=== PATIENT | female | born 1960 | race Caucasian/White ===

== ENCOUNTER → 2016-09-30 | Outpatient (CLI) | payer BC, OTHER ==
--- NOTE | 2016-10-01 10:43 | PE ---
EXAMINATION TYPE: PET CT fusion skull to thigh DATE OF EXAM: 09/30/2016 12:43 PM COMPARISON: NONE HISTORY: Breast cancer TECHNIQUE: Following the intravenous administration of 15.68 mCi of F-18 FDG, whole body images are performed from the skull base to the midthigh. Images are reviewed on the computer in the coronal, a xial, and sagittal planes. Reconstructed rotating images are created on independent workstation and reviewed on the computer. A localization and attenuation correction CT is performed in conjunction with the PET scan. Blood glucose level: 99 mg/dL. Average liver SUV: 2.3 Average mediastinal SUV: 1.64 Total DLP: 460.87 mGy-cm FINDINGS: SKULL BASE AND NECK: No hypermetabolic activity. CHEST, MEDIASTINUM, AND HILAR REGION: There is a 2.7 cm left breast mass with a maximal SUV value of 11.48. There are multiple left axillary lymph nodes with maximal SUV values ranging from 8.5-9.46. Th ere are internal mammary lymph nodes with maximal SUVs range from 7.6, 469.46. There is another inter nal mammary node further inferior with a maximal SUV value 4.32. ABDOMEN AND PELVIS: No hypermetabolic activity. OSSEOUS STRUCTURES: No hypermetabolic activity. OTHER CT: The major salivary glands are unremarkable. The parapharyngeal, oropharyngeal and laryngeal soft tissues are normal. There is some shotty cervica l adenopathy but no pathologically enlarged lymph nodes. The largest internal mammary node is 1.8 cm. The largest left axillary node is 1.5 cm. The patient br east mass measures 2.7 cm. No parenchymal lesions are seen. The aorta is normal in size. The heart is not enlarged. There is no pleural or pericardial fluid. The abdominal viscera appear normal. Both large and small bowel loops appear normal. The appendix is not visualized. The uterus is unremarkable. The ovaries are not visualized. The bladder is normal. There are minor degenerative changes in both hips. There is facet arthropathy at L4-5. There is minim al hypertrophic spondylosis within the dorsal line. There is a tiny sclerotic focus in the T6 vertebr al body. This is not hypermetabolic. No bony destructive lesions are seen. IMPRESSION: FINDINGS CONSISTENT WITH LEFT BREAST NEOPLASM WITH METASTATIC LEFT AXILLARY AND INTERNAL MAMMARY RIVER OPATHY.
== END | disposition home or self-care (01) ==
LOC: RADPETMAIN 09:43
PROVIDERS: ATTEND Internal Medicine Hematology & Oncology
DX: C50.412 Malignant neoplasm of upper-outer quadrant of left female breast (principal)
CPT/HCPCS: 78815; A9552

== ENCOUNTER 2016-10-18 10:20 | Day surgery (SDC) | payer BC, OTHER ==
[2016-10-13 15:37] VITALS: BMI 38.7
[~2016-10-18 10:20] MED LIST: DEXAMETHASONE SOD PHOSPHATE 10 MG/ML 1 ML VIAL IV ONE; HEPARIN SODIUM,PORCINE 5,000 UNIT/ML 1 ML VIAL SQ ONE; HYDROmorphone 1 MG/ML 1 ML SYRINGE IVP PRN; LACTATED RINGERS 1,000 ML IV SCH; LIDOCAINE 1% 20 ML VIAL (10MG/ML) FOR IV START INTRADERMA PRN; MIDAZOLAM 2 MG/2 ML VIAL IV PRN; ONDANSETRON 4 MG/2 ML VIAL IVP ONE; SCOPOLAMINE 1.5MG/72HR PATCH TRANSDERM ONE; ceFAZolin 2 GM in SODIUM CHLORIDE 0.9% 100 ML IVPB ONE
[2016-10-18 10:44] VITALS: RESP 16; TEMP 98.6
--- NOTE | 2016-10-18 10:59 | P.GSHP ---
History of Present Illness H&P Date: 10/18/16 Chief Complaint: Breast cancer Patient here today for Port-A-Cath placement. She had a recent diagnosis of triple negative breast cancer. She is to begin chemotherapy in the neoadjuvant setting soon. Has never had a port in the past. Past Medical History Past Medical History: Cancer, Hypertension Additional Past Medical History / Comment(s): Current left breast cancer. History of Any Multi-Drug Resistant Organisms: None Reported Past Surgical History: Section, Cholecystectomy, Tonsillectomy Additional Past Surgical History / Comment(s): Oral surgery, left wrist surgery. Past Anesthesia/Blood Transfusion Reactions: No Reported Reaction Past Psychological History: No Psychological Hx Reported Smoking Status: Former smoker Past Alcohol Use History: Rare Additional Past Alcohol Use History / Comment(s): Smoked 2 PPD for 16 yrs, quit in 1996. Past Drug Use History: None Reported - Past Family History Mother Family Medical History: Cancer Additional Family Medical History / Comment(s): Breast and kidney cancer. Medications and Allergies Home Medications Medication Instructions Recorded Confirmed Type Losartan [Cozaar] 100 mg PO QAM 10/13/16 10/18/16 History Triamterene-Hctz 37.5-25Mg 1 cap PO QAM 10/13/16 10/18/16 History [Dyazide 37.5-25 Capsule] Allergies Allergy/AdvReac Type Severity Reaction Status Date / Time levofloxacin [From Levaquin] Allergy Dyspnea Verified 10/18/16 10:42 Surgical - Exam Vital Signs Temp Pulse Resp BP Pulse Ox 98.6 F 65 16 145/74 100 10/18/16 10:42 10/18/16 10:42 10/18/16 10:42 10/18/16 10:42 10/18/16 10:42 Physical exam: General: Well-developed, well-nourished HEENT: Normocephalic, sclerae nonicteric Abdomen: Nontender, nondistended Extremities: No edema Neuro: Alert and oriented Assessment and Plan (1) Breast cancer Narrative/Plan: Will proceed with Port-A-Cath placement today. Risks of bleeding infection pneumothorax DVT catheter malfunction were discussed. She understands and wishes to proceed. Status: Acute
[2016-10-18] MEDS ORDERED: MIDAZOLAM 2 MG/2 ML VIAL ONE (11:12)
[2016-10-18] MEDS ORDERED: LIDOCAINE 1% INJ 10MG/ML (20 ML MDV) ONE (11:12)
[2016-10-18] MEDS ORDERED: PROPOFOL 10 MG/ML 20 ML VIAL IV ONE (11:12)
[2016-10-18] MEDS ORDERED: fentaNYL (PF) 50 MCG/ML 2 ML AMP ONE (11:12)
[2016-10-18] MEDS ORDERED: LIDOCAINE 1% INJ 10MG/ML (20 ML MDV) SQ ONE ×2 (11:38)
[2016-10-18] MEDS ORDERED: HEPARIN SODIUM,PORCINE 100 UNIT/ML 5 ML VIAL IV ONE (11:38)
[2016-10-18] MEDS ORDERED: LACTATED RINGERS 1,000 ML IV ONE (11:56)
[2016-10-18] MEDS ORDERED: NALOXONE 0.4 MG/ML 1 ML VIAL IV PRN (12:24)
--- NOTE | 2016-10-18 12:26 | P.PCN ---
Date of Procedure: 10/18/16 Procedure(s) Performed: PREOPERATIVE DIAGNOSIS: Breast cancer POSTOPERATIVE DIAGNOSIS: Same PROCEDURE: Port-A-Cath placement SURGEON: Ck EBL: Minimal ANESTHESIA: Sedation COMPLICATIONS: None OPERATIVE PROCEDURE: Patient was brought and placed on the operative table in the supine position. The patient was sedated per anesthesia that time. The chest and neck were prepped and draped in usual sterile fashion. The ultrasound probe was used to identify the location of the right internal jugular vein. The skin was localized with lidocaine. The Seldinger needle was advanced into the IJ under ultrasound guidance. The wire was advanced through the needle under fluoroscopic guidance into the superior vena cava. A port pocket was created in the right infraclavicular location. The catheter was tunneled from the wire entrance site to the port pocket. The port was then connected to the catheter. The dilator introducer was threaded over the guidewire. The guidewire and dilator were then removed. The catheter was advanced through the introducer and introducer was then removed. The tip was seen to be in the right atrial junction. Port was flushed with both saline and a Hep-Lock solution. There was good flow both in and out of the port. The port was sutured in underlying tissues using 3-0 silk sutures. The subcutaneous tissues were reapproximated using 3-0 Vicryl sutures and the skin at both locations using 4-0 Monocryl sutures. Steri-Strips and sterile dressings then applied. DISPOSITION: Stable to recovery room
--- NOTE | 2016-10-18 12:38 | XR ---
EXAMINATION TYPE: XR chest 1V portable DATE OF EXAM: 10/18/2016 12:21 PM HISTORY: Shortness of breath. COMPARISON: None. TECHNIQUE: Single view of the chest is submitted. FINDINGS: Port-A-Cath has been placed on the right with its distal tip overlying the SVC. No evidence for pneum othorax. Demonstrated are scattered senescent parenchymal change. There is no evidence for focal infiltrate. The heart is within normal limits. Hilar and mediastinal structures are within normal limits. IMPRESSION: 1. Chronic changes without evidence for acute pulmonary disease.
[2016-10-18] MEDS ORDERED: HYDROcodone/APAP 5-325MG 1 EACH TAB PO ONE (12:54)
[2016-10-18 13:40] VITALS: BP 148/84; PULSE 61
--- NOTE | 2016-10-18 15:40 | FL ---
Fluoroscopy HISTORY: Pain 9 seconds fluoroscopy time supplied to the referring clinician. 1 intraoperative C-arm images docume nt the procedure. See dictated report from general surgery.
== END 2016-10-18 13:58 | disposition home or self-care (01) ==
LOC: OR 10:20
PROVIDERS: ATTEND Surgery
DX: C50.912 Malignant neoplasm of unspecified site of left female breast (principal); Z17.1 Estrogen receptor negative status [ER-]; I10 Essential (primary) hypertension; Z79.899 Other long term (current) drug therapy; Z88.1 Allergy status to other antibiotic agents; Z87.891 Personal history of nicotine dependence
CPT/HCPCS: 71010; 77001; 36561; C1788; J2250; J1644; J1642; J1100; J0690; J2405; J2001; J3010; J2704

== ENCOUNTER → 2017-05-21 | Outpatient (CLI) | payer BC ==
[2017-05-21 15:19] LABS: EKG EKG PERFORMED
[2017-05-21 15:54] LABS: Potassium 3.9 mmol/L (3.5-5.1)
== END | disposition home or self-care (01) ==
LOC: LABPAT 14:45
PROVIDERS: ATTEND Surgery
DX: Z01.810 Encounter for preprocedural cardiovascular examination (principal); Z01.812 Encounter for preprocedural laboratory examination
CPT/HCPCS: 84132; 93005

== ENCOUNTER 2017-05-22 11:30 | Inpatient (IN) | payer BC ==
[2017-05-21 11:39] VITALS: BMI 37.5
--- NOTE | 2017-05-21 17:28 | P.GSHP ---
History of Present Illness H&P Date: 05/22/17 Chief Complaint: Left breast cancer Patient is a 56-year-old female well known to our service. She was previously diagnosed with stage III triple negative left breast cancer. She is undergone neoadjuvant therapy with good results. At the time of her most recent exam no palpable masses were identified bilaterally. She did have genetic testing performed and was found to be a carrier of BRCA2. Initial mammography revealed a 2.3 cm mass and a core biopsy of the axilla revealed a metastatic node. A PET scan was also performed prior to the initiation of neoadjuvant treatment and multiple left axillary lymph nodes were identified at that time. Plans are already underway the patient to receive adjuvant radiation therapy. Prior studies that also raise the concern regarding a possible supraclavicular node. Patient has family history of breast cancer in her mother at the age of 54. She has a history of ovarian cancer and a maternal aunt. The patient herself was previously diagnosed with kidney cancer. Past Medical History Past Medical History: Cancer, Hypertension Additional Past Medical History / Comment(s): left breast cancer. History of Any Multi-Drug Resistant Organisms: None Reported Past Surgical History: Breast Surgery, Section, Cholecystectomy, Tonsillectomy Additional Past Surgical History / Comment(s): Oral surgery, left wrist surgery. PORT A CATH Past Anesthesia/Blood Transfusion Reactions: No Reported Reaction Additional Past Anesthesia/Blood Transfusion Reaction / Comment(s): HISTORY OF CLAUSTROPHOBIA- PERFERS NOTHING ON FACE Smoking Status: Former smoker - Past Family History Mother Family Medical History: Cancer Additional Family Medical History / Comment(s): Breast and kidney cancer. Medications and Allergies Home Medications Medication Instructions Recorded Confirmed Type Losartan [Cozaar] 100 mg PO QAM 10/13/16 05/21/17 History Triamterene-Hctz 37.5-25Mg 1 cap PO QAM 10/13/16 05/21/17 History [Dyazide 37.5-25 Capsule] Biotin 10,000 mcg PO DAILY 05/21/17 05/21/17 History Allergies Allergy/AdvReac Type Severity Reaction Status Date / Time levofloxacin [From Levaquin] Allergy Dyspnea Verified 05/21/17 09:34 Surgical - Exam Physical exam: General: Well-developed, well-nourished HEENT: Normocephalic, sclerae nonicteric Right breast: No masses, no adenopathy Left breast: No masses, no adenopathy Abdomen: Nontender, nondistended Extremities: No edema Neuro: Alert and oriented Assessment and Plan (1) Breast cancer, left breast Narrative/Plan: Clinical scenario discussed with the patient in detail. She is interested in bilateral mastectomy with concurrent reconstruction. Because her PET scan revealed lymph nodes in the axilla that were positive we will plan a left to find radical mastectomy with reconstruction and a right simple mastectomy with reconstruction. Risks of bleeding, infection, flap ischemia, seroma, lymphedema , nerve injury, numbness, potential need for additional surgery, potential consequences of the radiation treatment to the implant, respiratory and cardiac issues. She understands and wishes to proceed. Status: Acute Code(s): C50.912 - MALIGNANT NEOPLASM OF UNSPECIFIED SITE OF LEFT FEMALE BREAST SNOMED Code(s): 350368369
[~2017-05-22 11:30] MED LIST changes: +HYDROmorphone 0.5 MG/0.5 ML SYRINGE IVP PRN; -HYDROmorphone 1 MG/ML 1 ML SYRINGE IVP PRN; -LACTATED RINGERS 1,000 ML IV SCH; -LIDOCAINE 1% 20 ML VIAL (10MG/ML) FOR IV START INTRADERMA PRN; +Pre Op ABX Message 1 EACH MISC MISCELLANE ONE; -SCOPOLAMINE 1.5MG/72HR PATCH TRANSDERM ONE; -ceFAZolin 2 GM in SODIUM CHLORIDE 0.9% 100 ML IVPB ONE
[2017-05-22] MEDS: LACTATED RINGERS 1,000 ML IV SCH (12:22)
[2017-05-22] MEDS ORDERED: LIDOCAINE 1% 20 ML VIAL (10MG/ML) FOR IV START INTRADERMA ONE (12:23)
[2017-05-22] MEDS ORDERED: ePHEDrine SULFATE/0.9% NACL/PF 50 MG/5 ML SYRINGE IV ONE (13:09)
[2017-05-22] MEDS ORDERED: ceFAZolin 1,000 MG VIAL ONE (13:09)
[2017-05-22] MEDS ORDERED: HYDROmorphone (PF) 1 MG/ML ONE (13:09)
[2017-05-22] MEDS ORDERED: SUCCINYLCHOLINE CHLORIDE VIAL 200 MG/10 ML VIAL IV ONE (13:09)
[2017-05-22] MEDS ORDERED: LIDOCAINE 1% INJ 10MG/ML (20 ML MDV) ONE (13:09)
[2017-05-22] MEDS ORDERED: fentaNYL (PF) 50 MCG/ML 2 ML AMP ONE (13:09)
[2017-05-22] MEDS ORDERED: PROPOFOL 10 MG/ML 20 ML VIAL IV ONE (13:09)
[2017-05-22] MEDS ORDERED: KETOROLAC 30 MG/ML 1 ML VIAL ONE (13:09)
[2017-05-22] MEDS ORDERED: MIDAZOLAM 2 MG/2 ML VIAL ONE (13:09)
[2017-05-22] MEDS ORDERED: SODIUM CHLORIDE 0.9% 50 ML with ceFAZolin 2,000 MG IV ONE ×2 (13:30)
[2017-05-22] MEDS ORDERED: LACTATED RINGERS 1,000 ML IV ONE (15:25)
[2017-05-22] MEDS ORDERED: ONDANSETRON 4 MG/2 ML VIAL IVP PRN (16:39)
[2017-05-22] MEDS ORDERED: HYDROmorphone 0.5 MG/0.5 ML SYRINGE IVP PRN (16:39)
[2017-05-22] MEDS ORDERED: NALOXONE 0.4 MG/ML 1 ML VIAL IV PRN (16:39)
[2017-05-22] MEDS ORDERED: HYDROcodone/APAP 5-325MG 1 EACH TAB PO PRN (16:39)
--- NOTE | 2017-05-22 16:54 | P.OP ---
Date of Procedure: 05/22/17 Procedure(s) Performed: PREOPERATIVE DIAGNOSIS: Left breast cancer POSTOPERATIVE DIAGNOSIS: Same PROCEDURE: Right simple mastectomy with left modified radical mastectomy with concurrent reconstruction SURGEON: Ck EBL: Minimal ANESTHESIA: General COMPLICATIONS: None OPERATIVE PROCEDURE: Patient was placed on the operating room table in the supine position. The upper torso anteriorly was prepped and draped in usual sterile fashion. The right side was first addressed. A skin marker was used to draw out a circular incision around the areola. This incision was then made using the scalpel. Dissection through the subcutaneous tissues took place using electrocautery down to the chest wall circumferentially. The breast was removed from the chest wall at that time. The Ligaclip was used for small visible vessels. No bleeding was encountered. Dr. Barrera from plastic surgery then took over on the right chest wall to begin his reconstruction with tissue expanders. The left side was then addressed. In a similar fashion the skin marker was used to draw out the proposed incision around the areola with a oblique incision extending towards axilla. Incision was made sharply. Flaps were raised circumferentially again down to the chest wall. Bleeding was again controlled using both cautery and the Ligaclip. As we approached the axilla the deltopectoral fascia was incised and the course of the left axillary vein was identified. There did appear to be some scarring within the axillary space. The mastectomy with a portion of the axillary contents was able to be removed. Small vessels and lymphatics were divided both using the Harmonic scalpel, LigaSure, clips, and 3-0 silk ties. The Harmonic scalpel during the procedure was noted to lose its effectiveness at dividing the tissues and that was why the LigaSure was opened. Once the mastectomy specimen was sent off the axilla was inspected. There was additional axillary contents still somewhat adherent to the surrounding tissues. There appeared to be scarring here likely from the neoadjuvant treatment. The second portion of axillar contents was removed at that time. The course of the long thoracic nerve and the thoracodorsal nerve were identified and preserved. The chest wall and axilla were inspected for bleeding and none was seen. The left chest wall was then again handed off to Dr. Barrera for formal closure and tissue wine merchant placement. At that point I exited the room. The family was informed of the progress of surgery. DISPOSITION: Patient to remain in the operating for completion and closure by Dr. Barrera.
[2017-05-22 19:35] VITALS: RESP 16
[2017-05-22] MEDS: DOCUSATE 100 MG CAP PO SCH (20:08)
[2017-05-22] MEDS: FAMOTIDINE 20 MG TAB PO SCH (20:08)
--- NOTE | 2017-05-22 22:04 | CONS ---
CONSULTATION REASON FOR CONSULTATION: Advice regarding hypertension and other multiple medical issues requested by Dr. Stover. HISTORY: A 56-year-old woman with a past medical history of hypertension, history of left breast cancer, history of cholecystectomy being followed by Dr. De La Cruz in the outpatient setting, underwent right simple mastectomy with left modified radical mastectomy with concurrent reconstruction by Dr. Stover. The patient is being closely monitored. There is no history of fever, rigors. No history of headache, loss of consciousness, seizures, chest pain, palpitation at this time. PAST MEDICAL HISTORY: History of hypertension, history of breast cancer, history of cholecystectomy, history of tonsillectomy. MEDICATIONS PRIOR TO ADMISSION: 1. Dyazide 1 capsule p.o. daily. 2. Cozaar 100 mg p.o. q.i.d. 3. Biotin 10,000 mcg p.o. daily. 4. Gilson 5 mg q.4 to 6 hours p.r.n. ALLERGIES: LEVAQUIN. FAMILY HISTORY: History of breast cancer, kidney cancer. SOCIAL HISTORY: History of alcohol. History of smoking. REVIEW OF SYSTEMS: ENT: No diminished hearing, diminished vision. CARDIOVASCULAR: No angina, palpitations. RESPIRATORY: No cough or hemoptysis. GI: No nausea, vomiting. : No dysuria. NERVOUS: No numbness, weakness. ALLERGY/IMMUNOLOGY: No asthma, hay fever. MUSCULOSKELETAL: As mentioned earlier. HEMATOLOGY/ONCOLOGY: No history of anemia. RHEUMATOLOGY: Negative. PSYCHIATRIC: Negative. CONSTITUTIONAL: As mentioned earlier. DERMATOLOGY: As mentioned earlier. PHYSICAL EXAM: Alert and oriented x2. Pulse 87, blood pressure 140/79, respirations 18, temperature 98.4, pulse ox 96% on 2L. HEENT: Conjunctivae normal. Oral mucosa moist. NECK: No jugular venous distention. No carotid bruits. No lymph node enlargement. CARDIOVASCULAR: S1, S2 muffled. No S2. No S4. RESPIRATORY: Breath sounds diminished in the bases. No rhonchi. No crackles. ABDOMEN: Soft, nontender. No mass palpable. No hepatosplenomegaly. LEGS: No edema. No swelling. NERVOUS SYSTEM: Higher functions as mentioned earlier. Moves all 4 limbs. No focal motor or sensory deficits. LYMPHATIC: No lymphadenopathy in neck, axillae or groin. SKIN: No ulcer, rash or bleeding. CHEST: Status post breast surgery as detailed above. LABS: The previous labs are reviewed. WBC 2.6, hemoglobin is 9.9. ASSESSMENT: 1. Status post right simple mastectomy with left modified radical mastectomy with concurrent reconstruction. 2. Hypertension. 3. section. 4. History of cholecystectomy. 5. History of claustrophobia. 6. Remote history of nicotine dependence. 7. FULL CODE. RECOMMENDATIONS AND DISCUSSION: In this 56-year-old woman who presented with multiple complex medical issues, we will monitor the patient closely. Continue the current medical management and symptomatic treatment. Resume the home medication, Cozaar. Monitor blood pressure closely. Incentive spirometry. DVT prophylaxis. Follow the patient closely. The patient will be asked to follow up with Dr. De La Cruz closely after discharge. Thank you, Dr. Stover, for letting us participate in the care of this patient. MMODL / IJN: [id number] /
[2017-05-22] MEDS: D5-0.45% NACL WITH KCL 20MEQ/L 1,000 ML IV SCH (23:45)
[2017-05-22] MEDS: HEPARIN SODIUM,PORCINE 5,000 UNIT/ML 1 ML VIAL SQ SCH (23:52)
[2017-05-23] MEDS: LACTATED RINGERS 1,000 ML IV SCH (04:13)
--- NOTE | 2017-05-23 05:31 | OP ---
OPERATIVE REPORT SURGEON: Micah Barrera MD PREOPERATIVE DIAGNOSES: 1. Acquired loss left breast. 2. Acquired loss right breast. 3. Left breast cancer. POSTOPERATIVE DIAGNOSES: 1. Acquired loss left breast. 2. Acquired loss right breast. 3. Left breast cancer. OPERATIVE PROCEDURES: 1. Immediate reconstruction right breast following mastectomy with insertion of tissue hog ribber, subsequent outpatient expansion. 2. Immediate reconstruction left breast following mastectomy with insertion of tissue hog ribber, subsequent outpatient expansion. 3. Implantation of reconstructive graft for right and left breast reconstruction, 150 sq. cm. OPERATIVE INDICATIONS: Patient is a 56-year-old female with invasive cancer of the left breast, who has undergone neoadjuvant therapy and has elected to proceed with bilateral mastectomy procedures with immediate breast reconstruction. Her left breast surgery will include a modified radical mastectomy with axillary lymph node dissection and right-sided mastectomy will be a simple mastectomy. The patient understands the potential risks and complications related to all surgery including breast reconstruction such as bleeding, hematoma, infection, seroma, wound healing problems, loss of sensation, contour irregularities including the fact she will require subsequent surgery for final results. She has requested I perform the surgery today. OPERATIVE PROCEDURE SUMMARY: The patient was seen in presurgical area, markings made. She was transported to the operating room, where she was placed in a supine position. Following induction of general endotracheal anesthesia, the patient is prepped and draped in usual fashion. Dr. Stover and his surgical team proceeded with the right simple mastectomy. Once that procedure was completed, Dr. Stover proceeded with the left modified radical mastectomy and axillary lymph node dissection. Near completion of that procedure on the left side, I entered the procedure, sponge and needle counts were correct at that time. The right breast mastectomy wound was opened. Laparotomy pad removed. Cavity irrigated. There was no active bleeding. The pectoralis major muscle was identified where it joined the chest wall laterally. Loose areolar connective tissue divided with cauterization here allowing entry into the potential plane between the pectoralis major and minor muscles which bluntly developed. Medial attachment fibers of the pectoralis major muscle to ribs were released with cautery but not sternal. Additional muscle tissue was required to obtain sufficient coverage inferior medially rectus abdominis muscle and fascia, inferolaterally external abdominal oblique muscle and fascia and laterally serratus anterior muscle and fascia were all elevated through this approach using cauterization. Hemostasis maintained with cautery. Once appropriate size submuscular plane was created, irrigation was performed. Hemostasis was excellent. The site was packed with moistened laparotomy sponges. Once the left-sided procedures were complete, all instruments from the mastectomy were removed. I proceeded with the left breast reconstruction. Again, the pectoralis major muscle was identified where it joined the chest wall laterally loose areolar connective tissue divided with cautery here allowing entry into the potential plane between the pectoralis major and minor muscles which was bluntly developed. The medial attachment fibers of the pectoralis major muscle to ribs were released with cautery but not sternal. Additional muscle tissue was required for coverage as was on the right side, inferomedially rectus abdominis muscle and fascia, inferolaterally external abdominal oblique muscle and fascia and laterally serratus anterior muscle and fascia were all elevated with cautery through this approach. Once sufficient size submuscular plane had been created and in a symmetrical fashion to the left, the cavities were irrigated on both sides. Hemostasis excellent. Minor adjustments were made to optimize symmetry between the 2 cavities. Measurements were obtained and gloves were then changed. The right-sided tissue hog ribber was opened on the field first. Both tissue expanders were from the [employer] style TEXP 130 RH. The right-sided device serial number was [id number] and the left-sided device was [id number]. The volume for each hog ribber is 475 mL on the packaging. The right-sided device was opened first as stated. It was only handled by surgeon. It is irrigated with saline. All air extracted 50 mL 0.9 normal saline instilled. It is inserted directly in the reconstructive cavity. The patient's muscle although sufficient for closure over the hog ribber would not allow for placement of volume. Therefore SurgiMend reconstructive graft was opened on the field at this point, measuring 10 x 15 cm and revitalized according to package instructions room temperature saline. During this time, the left-sided tissue hog ribber was opened and only handled by the surgeon, is irrigated with saline. All air is extracted, 50 mL 0.9 normal saline instilled was inserted in the reconstructive cavity. The expanders were checked for symmetry and position under direct vision to optimize symmetry. The SurgiMend was now divided into 2 equal pieces. One piece each used for the reconstruction on each side, placed over the hog ribber deep to the muscle flap tissue on the lateral and inferior aspect where the muscle was quite attenuated. The muscle and SurgiMend were then inset on the right and left side using interrupted 3-0 Vicryl sutures. Complete coverage was obtained. An additional 100 mL 0.9 normal saline instilled in the each hog ribber making the final volume free to hog ribber 150 mL. Irrigation was performed. Hemostasis was excellent. Two 19 round Pk channel drains were placed into the left mastectomy surgical field, one for the axillary lymph node dissection area and one for the sub mastectomy skin flaps. One 19 am round Pk channel drain was placed into the right mastectomy above the muscle flap deep to the skin flap. All drains were brought out through separate stab incisions either to left or right anterior lateral chest wall sutured in place with 2-0 Prolene. They were cut to appropriate length. The left-sided mastectomy approach had been performed with a circumareolar incision and then in the lateral extension for the axillary node dissection. The lateral extension portion of the wound was now closed approximating deep dermis using inverted interrupted 4-0 Monocryl and then completing the closure of the superficial dermal and epidermal level with running 5-0 Prolene. This essentially left the circumareolar incision at this point if that was symmetrical to the right side. Both circumareolar mastectomy wounds were now closed using a deep dermal 2-0 Prolene pursestring followed by finer approximation of the dermis using inverted interrupted 4-0 Monocryl and then areas where the skin could be approximated more finely interrupted 4-0 Monocryl were used as well. Complete closure was now obtained. Drains were connected to close bulb suction patent. Surgical lugo cleansed with saline, dried and covered with postoperative bandages using Kerlix gauze, secured with Medipore tape. The patient was then awakened from her anesthetic, extubated, and transferred to the recovery room in good condition and stable vital signs. There were no complications. Blood loss estimate was 50 mL. MMODL / IJN: [id number] /
[2017-05-23] MEDS: HEPARIN SODIUM,PORCINE 5,000 UNIT/ML 1 ML VIAL SQ SCH (07:50)
[2017-05-23] MEDS: D5-0.45% NACL WITH KCL 20MEQ/L 1,000 ML IV SCH (07:50)
[2017-05-23] MEDS: FAMOTIDINE 20 MG TAB PO SCH (07:50)
[2017-05-23] MEDS: DOCUSATE 100 MG CAP PO SCH (07:51)
[2017-05-23 08:36] VITALS: BP 165/74; PULSE 66; TEMP 98.1
[2017-05-23] MEDS ORDERED: LOSARTAN 50 MG TAB PO SCH (09:00)
[2017-05-23] MEDS ORDERED: TRIAMTERENE-HCTZ 37.5-25MG 1 EACH CAP PO SCH (09:00)
--- NOTE | 2017-05-23 13:31 | P.DS ---
Providers Date of admission: 05/22/17 11:30 Expected date of discharge: 05/23/17 Attending physician: Meng Stover Consults: 05/22/17 16:39 Consult Physician Routine Consulting Provider: Bhanu Contreras Consult Reason/Comments: med mgmt Do you want consulting provider notified?: Yes Primary care physician: Dayana De La Cruz - Discharge Diagnosis(es) (1) Breast cancer, left breast Patient yesterday underwent bilateral mastectomy with tissue wellness nurse rn placement. She is doing well postoperatively. She would like to go home today. Her incisions are clean and dry. No hematoma or ischemia noted. Drain output is appropriate. Plan is for discharge today with outpatient follow-up in 1 week. Current Visit: Yes Status: Acute Plan - Discharge Summary Discharge Rx Participant: Yes New Discharge Prescriptions: New Hydrocodone/Acetaminophen [Beaver 5-325] 1 - 2 each PO Q4HR PRN #30 tab PRN Reason: pain No Action Triamterene-Hctz 37.5-25Mg [Dyazide 37.5-25 Capsule] 1 cap PO QAM Losartan [Cozaar] 100 mg PO QAM Biotin 10,000 mcg PO DAILY Discharge Medication List Losartan [Cozaar] 100 mg PO QAM 10/13/16 [History] Triamterene-Hctz 37.5-25Mg [Dyazide 37.5-25 Capsule] 1 cap PO QAM 10/13/16 [ History] Biotin 10,000 mcg PO DAILY 05/21/17 [History] Hydrocodone/Acetaminophen [Beaver 5-325] 1 - 2 each PO Q4HR PRN #30 tab 05/22/17 [Rx] Follow up Appointment(s)/Referral(s): Meng Stover MD [Medical Doctor] - 1 Week
--- NOTE | 2017-05-23 19:23 | PN ---
PROGRESS NOTE DATE OF SERVICE: 05/23/2017 This 56-year-old woman was admitted after breast surgery, is improving significantly. No chest pain. No palpitations. No fever. EXAM: Alert and oriented x3. Pulse 64, blood pressure 172/90, respirations 16, temperature 97.2, pulse ox 100% on 2L. HEENT: Conjunctivae normal. NECK: No jugular venous distention. CARDIOVASCULAR: S1, S2 muffled. RESPIRATORY: Breath sounds diminished in the bases. No rhonchi. No crackles. ABDOMEN: Soft, nontender. LEGS: No edema. No swelling. NERVOUS SYSTEM: No focal deficits. CHEST: Status post surgery. LABS: Not available. ASSESSMENT: 1. Status post right simple mastectomy with left modified mastectomy with concurrent reconstruction. 2. Hypertension. 3. section. 4. Remote history of nicotine dependence. 5. FULL CODE. RECOMMENDATIONS AND DISCUSSION: Continue current medical management and symptomatic treatment. I would recommend resuming the home medications. Monitor blood pressure closely with the primary physician in the outpatient setting. Guarded prognosis. Further recommendations to follow. MMODL / IJN: [id number] /
== END 2017-05-23 15:00 | disposition home or self-care (01) | DRG 582 ==
LOC: 2ORMAIN 11:30 → EDSTATUS 14:45 → 5ONC 18:01
PROVIDERS: ADMIT Surgery; ATTEND Surgery
PROC: 0HTT0ZZ Resection of Right Breast, Open Approach (ICD-10-PCS; principal; 2017-05-22 12:30)
PROC: 07T60ZZ Resection of Left Axillary Lymphatic, Open Approach (ICD-10-PCS; principal; 2017-05-22 12:30)
PROC: 0HHV0NZ Insertion of Tissue Expander into Bilateral Breast, Open Approach (ICD-10-PCS; principal; 2017-05-22 12:30)
PROC: 0HTU0ZZ Resection of Left Breast, Open Approach (ICD-10-PCS; principal; 2017-05-22 12:30)
DX: C50.912 Malignant neoplasm of unspecified site of left female breast (principal); C77.3 Secondary and unspecified malignant neoplasm of axilla and upper limb lymph nodes; I10 Essential (primary) hypertension; F40.240 Claustrophobia; Z79.899 Other long term (current) drug therapy; Z80.3 Family history of malignant neoplasm of breast; Z80.51 Family history of malignant neoplasm of kidney; Z85.43 Personal history of malignant neoplasm of ovary; Z85.528 Personal history of other malignant neoplasm of kidney; Z87.891 Personal history of nicotine dependence; Z88.1 Allergy status to other antibiotic agents

== ENCOUNTER → 2017-07-12 | Outpatient (CLI) | payer BC, OTHER ==
--- NOTE | 2017-07-12 10:40 | CT ---
EXAMINATION TYPE: CT ChestAbdPelvis w con DATE OF EXAM: 07/12/2017 COMPARISON: CT abdomen pelvis dated August 13, [address] fusion September 30, 2016 HISTORY: Breast CA, observe for mets CT DLP: 1912 mGycm CONTRAST: CT scan of the chest, abdomen and pelvis is performed with Oral Contrast and with IV Contrast, patien t injected with 100 mL of Omnipaque 300. CT Chest: LUNGS: The lungs are clear and free of infiltrate or atelectasis. No pulmonary nodule or mass is det ected. No pleural effusion or CT evidence of interstitial lung disease. MEDIASTINUM: Thoracic aorta is of normal caliber. The heart is not enlarged. No evidence for media stinal mass or adenopathy. HILAR STRUCTURES: No evidence for mass. No hilar adenopathy is appreciated. OTHER: Bilateral breast expanders are in place. Left axillary clips noted. CONTRAST CT ABDOMEN AND PELVIS FINDINGS: LIVER/GB: Cholecystectomy clips are in place. No space occupying hepatic lesion. Biliary tree is of n ormal caliber. PANCREAS: No inflammation. No distinct mass. SPLEEN: No splenic enlargement. No lesion seen. ADRENALS: No nodule. No thickening. KIDNEYS/BLADDER: No hydronephrosis. No nephrolithiasis. Left renal cysts noted.. BOWEL: Normal appendix. Normal bowel caliber. No inflammation. GENITAL ORGANS: No gross abnormality. LYMPH NODES: No greater than 1cm abdominal or pelvic lymph nodes are appreciated. AORTA: No significant abnormality. OSSEOUS STRUCTURES: No significant abnormality is seen. OTHER: No significant additional abnormality is seen. IMPRESSION: 1. No CT evidence to suggest metastatic disease at this time.
== END | disposition home or self-care (01) ==
LOC: RADCTMAIN 08:27
PROVIDERS: ATTEND Internal Medicine Hematology & Oncology
DX: C50.412 Malignant neoplasm of upper-outer quadrant of left female breast (principal)
CPT/HCPCS: 71260; 74177; Q9967

== ENCOUNTER 2017-07-31 17:59 | Emergency (ER) | payer BC, OTHER ==
[2017-07-31 18:17] VITALS: RESP 18
--- NOTE | 2017-07-31 19:52 | ED ---
General Adult HPI - General Chief complaint: Recheck/Abnormal Lab/Rx Stated complaint: High blood pressure Time Seen by Provider: 07/31/17 19:32 Source: patient, RN notes reviewed, old records reviewed Mode of arrival: ambulatory Limitations: no limitations - History of Present Illness Initial comments: This is a 56-year-old female brought in the ER for evaluation of elevated blood pressure. Patient exceeded outpatient radiation therapy today and noted to have elevated blood pressure. Patient sent to ER for evaluation. Patient does have history of blood pressure high blood pressure did take her blood pressure medication today - Related Data Home Medications Medication Instructions Recorded Confirmed Triamterene-Hctz 37.5-25Mg 1 cap PO QAM 10/13/16 07/31/17 [Dyazide 37.5-25 Capsule] Losartan Potassium [Cozaar] 100 mg PO QAM 07/31/17 07/31/17 Allergies Allergy/AdvReac Type Severity Reaction Status Date / Time levofloxacin [From Levaquin] Allergy Dyspnea Verified 07/31/17 20:03 Review of Systems ROS Statement: Those systems with pertinent positive or pertinent negative responses have been documented in the HPI. ROS Other: All systems not noted in ROS Statement are negative. Past Medical History Past Medical History: Cancer, Hypertension Additional Past Medical History / Comment(s): Current left breast cancer. History of Any Multi-Drug Resistant Organisms: None Reported Past Surgical History: Breast Surgery, Section, Cholecystectomy, Tonsillectomy Additional Past Surgical History / Comment(s): Oral surgery, left wrist surgery. Past Anesthesia/Blood Transfusion Reactions: No Reported Reaction Additional Past Anesthesia/Blood Transfusion Reaction / Comment(s): HISTORY OF CLAUSTROPHOBIA- PERFERS NOTHING ON FACE Past Psychological History: No Psychological Hx Reported Smoking Status: Former smoker Past Alcohol Use History: None Reported Past Drug Use History: None Reported - Past Family History Mother Family Medical History: Cancer Additional Family Medical History / Comment(s): Breast and kidney cancer. General Exam Limitations: no limitations General appearance: alert, in no apparent distress Head exam: Present: atraumatic, normocephalic, normal inspection Eye exam: Present: normal appearance, PERRL, EOMI. Absent: scleral icterus, conjunctival injection, periorbital swelling ENT exam: Present: normal exam, mucous membranes moist Neck exam: Present: normal inspection. Absent: tenderness, meningismus, lymphadenopathy Respiratory exam: Present: normal lung sounds bilaterally. Absent: respiratory distress, wheezes, rales, rhonchi, stridor Cardiovascular Exam: Present: regular rate, normal rhythm, normal heart sounds. Absent: systolic murmur, diastolic murmur, rubs, gallop, clicks GI/Abdominal exam: Present: soft, normal bowel sounds. Absent: distended, tenderness, guarding, rebound, rigid Extremities exam: Present: normal inspection, full ROM, normal capillary refill. Absent: tenderness, pedal edema, joint swelling, calf tenderness Back exam: Present: normal inspection Neurological exam: Present: alert, oriented X3, CN II-XII intact Psychiatric exam: Present: normal affect, normal mood Skin exam: Present: warm, dry, intact, normal color. Absent: rash Course Vital Signs 07/31/17 07/31/17 07/31/17 18:14 19:58 20:39 Temperature 98.4 F 98.6 F Pulse Rate 69 66 68 Respiratory 18 18 18 Rate Blood Pressure 219/92 201/87 172/72 O2 Sat by Pulse 98 100 97 Oximetry 07/31/17 07/31/17 21:41 21:58 Temperature 98.5 F Pulse Rate 65 70 Respiratory 18 18 Rate Blood Pressure 180/84 159/72 O2 Sat by Pulse 98 Oximetry - Reevaluation(s) Reevaluation #1: Patient's blood pressures improved without intervention EKG Findings - EKG Comments: EKG Findings:: EKG shows normal sinus rhythm rate of 66, NC 170, QRS 90, QTc 463 Medical Decision Making - Medical Decision Making 36 cemented ER for evaluation regards elevated blood pressure outpatient, patient's blood pressure corrected without treatment, patient was without complaint throughout ER stay no chest pain shortness of breath or abdominal pain. Patient can be discharged home - Lab Data Result diagrams: 07/31/17 19:47 07/31/17 19:47 Lab Results 07/31/17 07/31/17 07/31/17 Range/Units 19:47 19:47 19:47 WBC 5.0 (3.8-10.6) k/uL RBC 4.34 (3.80-5.40) m/uL Hgb 12.0 (11.4-16.0) gm/dL Hct 37.2 (34.0-46.0) % MCV 85.7 (80.0-100.0) fL MCH 27.8 (25.0-35.0) pg MCHC 32.4 (31.0-37.0) g/dL RDW 14.0 (11.5-15.5) % Plt Count 202 (150-450) k/uL Neutrophils % 63 % Lymphocytes % 25 % Monocytes % 7 % Eosinophils % 2 % Basophils % 1 % Neutrophils # 3.2 (1.3-7.7) k/uL Lymphocytes # 1.3 (1.0-4.8) k/uL Monocytes # 0.4 (0-1.0) k/uL Eosinophils # 0.1 (0-0.7) k/uL Basophils # 0.0 (0-0.2) k/uL Sodium 137 (137-145) mmol/L Potassium 3.7 (3.5-5.1) mmol/L Chloride 102 (98-107) mmol/L Carbon Dioxide 26 (22-30) mmol/L Anion Gap 9 mmol/L BUN 17 (7-17) mg/dL Creatinine 0.89 (0.52-1.04) mg/dL Est GFR (MDRD) Af Amer >60 (>60 ml/min/1.73 sqM) Est GFR (MDRD) Non-Af >60 (>60 ml/min/1.73 sqM) Glucose 129 H (74-99) mg/dL Calcium 9.6 (8.4-10.2) mg/dL Phosphorus 4.5 (2.5-4.5) mg/dL Magnesium 1.8 (1.6-2.3) mg/dL Total Bilirubin 0.5 (0.2-1.3) mg/dL AST 20 (14-36) U/L ALT 30 (9-52) U/L Alkaline Phosphatase 81 (38-126) U/L Total Creatine Kinase 97 (30-135) U/L CK-MB (CK-2) 2.0 (0.0-2.4) ng/mL CK-MB (CK-2) Rel Index 2.1 Troponin I 0.016 (0.000-0.034) ng/mL Total Protein 6.3 (6.3-8.2) g/dL Albumin 3.9 (3.5-5.0) g/dL Disposition Clinical Impression: Hypertension Disposition: HOME SELF-CARE Condition: Good Instructions: Hypertension (ED) Referrals: Dayana De La Cruz MD [Primary Care Provider] - 1-2 days
[2017-07-31] MEDS ORDERED: SODIUM CHLORIDE 0.9% 1,000 ML IV STA (19:57)
[2017-07-31 20:34] LABS: Basophils % (A) 1 %; Eosinophils # (A) 0.1 k/uL (0-0.7); Eosinophils % (A) 2 %; HCT 37.2 % (34.0-46.0); Lymphocytes # (A) 1.3 k/uL (1.0-4.8); Lymphocytes % (A) 25 %; MCH 27.8 pg (25.0-35.0); MCHC 32.4 g/dL (31.0-37.0); MCV 85.7 fL (80.0-100.0); Monocytes # (A) 0.4 k/uL (0-1.0); Monocytes % (A) 7 %; Neutrophils # (A) 3.2 k/uL (1.3-7.7); Neutrophils % (A) 63 %; Platelet Count 202 k/uL (150-450); RBC 4.34 m/uL (3.80-5.40)
[2017-07-31 20:35] LABS: ALT 30 U/L (9-52); AST 20 U/L (14-36); Albumin 3.9 g/dL (3.5-5.0); Alkaline Phosphatase 81 U/L (38-126); Anion Gap 9 mmol/L; Blood Urea Nitrogen 17 mg/dL (7-17); Calcium 9.6 mg/dL (8.4-10.2); Carbon Dioxide 26 mmol/L (22-30); Chloride 102 mmol/L (98-107); Glucose 129 mg/dL (74-99); Magnesium 1.8 mg/dL (1.6-2.3); Phosphorus 4.5 mg/dL (2.5-4.5); Potassium 3.7 mmol/L (3.5-5.1); Sodium 137 mmol/L (137-145); Total Bilirubin 0.5 mg/dL (0.2-1.3); Total Protein 6.3 g/dL (6.3-8.2)
[2017-07-31 20:47] LABS: Troponin I 0.016 ng/mL (0.000-0.034)
[2017-07-31] MEDS ORDERED: LABETALOL 5 MG/ML VIAL MDV IVP STA (21:10)
[2017-07-31 21:42] VITALS: TEMP 98.5
[2017-07-31 21:59] VITALS: BP 159/72; PULSE 70
== END 2017-07-31 22:01 | disposition home or self-care (01) ==
LOC: EC 17:59
DX: I10 Essential (primary) hypertension (principal); Z85.3 Personal history of malignant neoplasm of breast; Z53.8 Procedure and treatment not carried out for other reasons; Z87.891 Personal history of nicotine dependence; Z88.1 Allergy status to other antibiotic agents; Z79.899 Other long term (current) drug therapy
CPT/HCPCS: 36415; 80053; 82550; 82553; 83735; 84100; 84484; 85025; 93005; 99284

== ENCOUNTER 2017-12-24 13:52 | Emergency (ER) | payer OTHER ==
--- NOTE | 2017-12-24 16:12 | US ---
EXAMINATION TYPE: US venous doppler duplex UE LT DATE OF EXAM: 12/24/2017 COMPARISON: NONE CLINICAL HISTORY: Pain. Lump posterior back , behind arm, left arm pain. SIDE PERFORMED: left Scanned patient's area of concern, swelling lump behind arm on back. There soft tissue edema, no spec ific mass seen with ultrasound. Left Arm: Negative for DVT Grayscale, color doppler, spectral doppler imaging performed of the deep veins of the left upper extr emity. There is normal flow, compressibility and vascular waveforms within the visualized portion of the left internal jugular, subclavian and axillary veins, left cephalic, basilic, brachial radial an d ulnar veins. IMPRESSION: No evident deep venous thrombosis, correlate for cellulitis
--- NOTE | 2017-12-24 17:37 | ED ---
Extremity Problem HPI - General Chief complaint: Extremity Problem,Nontraumatic Stated complaint: Arm Pain Time Seen by Provider: 12/24/17 16:16 Source: patient Mode of arrival: ambulatory Limitations: no limitations - History of Present Illness Initial comments: Patient is a 57-year-old female presents with a chief complaint of left arm and left upper back pain. The patient has a history of a mastectomy that was performed in May, at the time she had 5 lymph nodes removed from the left axilla, and has had subsequent radiation to the left axilla and neck. Patient was concerned about some swelling in her upper arm and upper back. He was instructed by her primary care physician to come to the ED. The patient states that the swelling has gotten worse since starting physical therapy. She cannot identify any specific inciting incident. There are no aggravating or alleviating factors. She says that she has a lot of pain when she tries to go to sleep at night. She denies any fever, chills, chest pain, shortness of breath, abdominal pain, nausea or vomiting. - Related Data Home Medications Medication Instructions Recorded Confirmed Triamterene-Hctz 37.5-25Mg 1 cap PO QAM 10/13/16 12/24/17 [Dyazide 37.5-25 Capsule] Losartan Potassium [Cozaar] 100 mg PO QAM 07/31/17 12/24/17 Ibuprofen [Motrin] 800 mg PO TID PRN 12/24/17 12/24/17 cloNIDine HCL [Catapres] 0.1 mg PO HS PRN 12/24/17 12/24/17 Previous Rx's Medication Instructions Recorded Acetaminophen [Tylenol Extra 1,000 mg PO Q8HR #30 tablet 12/24/17 Strength] Allergies Allergy/AdvReac Type Severity Reaction Status Date / Time levofloxacin [From Levaquin] Allergy Dyspnea Verified 12/24/17 17:04 Review of Systems ROS Statement: Those systems with pertinent positive or pertinent negative responses have been documented in the HPI. ROS Other: All systems not noted in ROS Statement are negative. Musculoskeletal: Reports: joint swelling (Left shoulder and axilla) Past Medical History Past Medical History: Cancer, Hypertension Additional Past Medical History / Comment(s): Current left breast cancer. History of Any Multi-Drug Resistant Organisms: None Reported Past Surgical History: Breast Surgery, Section, Cholecystectomy, Tonsillectomy Additional Past Surgical History / Comment(s): Oral surgery, left wrist surgery. Past Anesthesia/Blood Transfusion Reactions: No Reported Reaction Additional Past Anesthesia/Blood Transfusion Reaction / Comment(s): HISTORY OF CLAUSTROPHOBIA- PERFERS NOTHING ON FACE Past Psychological History: No Psychological Hx Reported Smoking Status: Former smoker Past Alcohol Use History: None Reported Past Drug Use History: None Reported - Past Family History Mother Family Medical History: Cancer Additional Family Medical History / Comment(s): Breast and kidney cancer. General Exam Limitations: no limitations General appearance: alert, in no apparent distress Head exam: Present: atraumatic, normocephalic Eye exam: Present: normal appearance ENT exam: Present: normal exam Neck exam: Present: normal inspection Respiratory exam: Present: normal lung sounds bilaterally. Absent: respiratory distress, wheezes Cardiovascular Exam: Present: regular rate, normal rhythm GI/Abdominal exam: Present: soft. Absent: distended, tenderness Rectal exam: Present: deferred Extremities exam: Present: other (Patient has mild edema of the left upper extremity. There is a moderate amount of swelling in the posterior left axilla. The overlying skin does not appear erythematous, is not indurated, is not fluctuant. There are no specific masses felt.) Back exam: Present: normal inspection Neurological exam: Present: alert, oriented X3 Psychiatric exam: Present: normal affect, normal mood Skin exam: Present: warm, dry, intact Course Vital Signs 12/24/17 14:59 Temperature 97.9 F Pulse Rate 90 Respiratory 18 Rate Blood Pressure 162/87 O2 Sat by Pulse 99 Oximetry Medical Decision Making - Medical Decision Making Patient presents with a chief complaint of left upper extremity swelling and edema of the left axilla. On initial evaluation, vital signs are stable, patient is in no acute distress. Patient was evaluated with ultrasound. There is soft tissue edema, no solid masses identified. The left upper extremity is negative for DVT. On evaluation, the patient has 2+ pulses bilaterally in the upper extremities. Strength and sensation is intact. There is an edematous area in the posterior left axilla. It is not tender to palpation and does not appear to be Acutely infected. Patient states she has been taking ibuprofen for pain. I discussed the addition of Tylenol. I discussed elevation and compression stocking of the left upper extremity. I discussed with the patient that after surgery, lymph node biopsy, and radiation that these are somewhat expected changes. The patient states understanding. The patient tells me that she has a follow-up appointment with her primary care physician tomorrow. She is instructed to keep that appointment. Patient was given explicit signs and symptoms that should prompt return visit to the emergency department. At this time, all of her questions are answered to the best of my ability, patient stable and agreeable with discharge. Disposition Clinical Impression: Lymphedema of arm Disposition: HOME SELF-CARE Condition: Good Is patient prescribed a controlled substance at d/c from ED?: No Referrals: Dayana De La Cruz MD [Primary Care Provider] - 1-2 days
[2017-12-24 17:45] VITALS: BP 149/83; PULSE 60; RESP 16; TEMP 98.4
== END 2017-12-24 17:50 | disposition home or self-care (01) ==
LOC: EC 13:52
DX: I89.0 Lymphedema, not elsewhere classified (principal); M54.6 Pain in thoracic spine; I10 Essential (primary) hypertension; C50.912 Malignant neoplasm of unspecified site of left female breast; Z87.891 Personal history of nicotine dependence; Z90.49 Acquired absence of other specified parts of digestive tract; Z98.890 Other specified postprocedural states; Z79.899 Other long term (current) drug therapy; Z88.1 Allergy status to other antibiotic agents
CPT/HCPCS: 99283

== ENCOUNTER → 2018-01-05 | Outpatient (CLI) | payer OTHER ==
--- NOTE | 2018-01-07 09:00 | PE ---
EXAMINATION TYPE: PET CT fusion skull to thigh DATE OF EXAM: 01/05/2018 CLINICAL HISTORY: 57-year-old female restaging left breast cancer. Surgery in May 2017 with chem otherapy completed March 2017 and radiation completed August 2017. TECHNIQUE: Following the intravenous administration of 12.7 mCi of F-18 FDG, whole body images are performed from the skull base to the midthigh. Images are reviewed on the computer in the coronal, a xial, and sagittal planes. Reconstructed rotating images are created on independent workstation and reviewed on the computer. A localization and attenuation correction CT is performed in conjunction with the PET scan. Glucose level: 95 mg/dL CTDI: 5.06 mGy DLP: 390.42 mGy-cm COMPARISON: 07/12/2017 and 09/30/2016. FINDINGS: PET: Physiologic FDG uptake within the neck. Bilateral breast surgery is demonstrated with the presence of bilateral breast expanders. Mild FDG up take along the left breast likely due to posttreatment change. Surgical clips are present in the left axilla from maxillary node dissection. New abnormal soft tissue thickening along the left lateral thoracic sidewall musculature including th e serratus anterior, latissimus dorsi and with abnormal soft tissue thickening extending up into the region of the axillary neurovascular bundle. This measures up to 12.5 cm craniocaudal by 7.5 cm wide and 9.5 cm AP inferiorly and 8.0 cm AP superiorly. There is very intense FDG uptake, max SUV 13.8. Average liver SUV is 3.1. Otherwise, physiologic FDG uptake seen within the remainder of the chest, abdomen and pelvis. ATTENUATION CORRECTION CT: Leftward nasal septal deviation. Visualized paranasal sinuses are clear. No cervical lymphadenopathy. Heart upper limits of normal in size without pericardial effusion. Mitral annular calcifications are noted. Aorta normal caliber with conventional arch vessel branching anatomy. No suspicious pulmonary nodules or mass. No consolidation or pleural effusion. Cholecystectomy clips. Extensive artifacts due to patient's large size and arms down position limits assessment of the CT images. No dilated small bowel, free fluid, or free air. No obvious mesenteric o r retroperitoneal lymphadenopathy identified. Sigmoid diverticulosis. Bladder is urine distended. Uterus is visualized. No abnormal fluid collection in the pelvis or pelvi c lymphadenopathy. Bones: Degenerative changes at the hips and lower lumbar spine. No osseous destructive process. IMPRESSION: 1. New abnormal thickening of the left lateral thoracic sidewall musculature extending up into the hi gh left axilla spanning up to 12.5 cm craniocaudal and 9.5 cm wide. This shows very intense hypermeta bolism and is suspicious for locoregional recurrence with infiltrative neoplasm. 2. No evidence for distant metastases. 3. Bilateral breast expanders in place.
== END | disposition home or self-care (01) ==
LOC: RADPETMAIN 14:30
PROVIDERS: ATTEND Internal Medicine Hematology & Oncology
DX: C50.412 Malignant neoplasm of upper-outer quadrant of left female breast (principal); R93.7 Abnormal findings on diagnostic imaging of other parts of musculoskeletal system
CPT/HCPCS: 78815; A9552

== ENCOUNTER 2018-01-21 11:19 | Inpatient (IN) | payer OTHER ==
[2018-01-21 12:41] LABS: Basophils % (A) 0 %; Eosinophils % (A) 0 %; HGB 12.5 gm/dL (11.4-16.0); Lymphocytes # (A) 0.3 k/uL (1.0-4.8); Lymphocytes % (A) 5 %; MCH 28.9 pg (25.0-35.0); MCHC 33.9 g/dL (31.0-37.0); MCV 85.3 fL (80.0-100.0); Mean Platelet Volume 6.8; Monocytes # (A) 0.1 k/uL (0-1.0); Monocytes % (A) 2 %; Neutrophils # (A) 4.6 k/uL (1.3-7.7); Neutrophils % (A) 92 %; Platelet Count 349 k/uL (150-450); RBC 4.34 m/uL (3.80-5.40); RDW 13.2 % (11.5-15.5)
[2018-01-21 12:49] LABS: Albumin 4.2 g/dL (3.5-5.0); Calcium 9.1 mg/dL (8.4-10.2); Potassium 4.9 mmol/L (3.5-5.1); Total Bilirubin 0.8 mg/dL (0.2-1.3); Total Protein 6.4 g/dL (6.3-8.2)
--- NOTE | 2018-01-21 12:55 | ED ---
GI Bleed HPI - General Chief complaint: GI Bleed Stated complaint: Bleeding Time Seen by Provider: 01/21/18 12:00 Source: patient, RN notes reviewed Mode of arrival: ambulatory Limitations: no limitations - History of Present Illness Initial comments: This is a 57-year-old female history of stage III breast cancer she has BRCA2 positive with triple negative otherwise. She states she has had edema to her left upper extremity for last several weeks and is not able to dorsiflex her left wrist for at least a week. She did recently had chemotherapy 4 days ago. Started having rectal bleeding and she states vaginal bleeding or last 1 or 2 days. Denies any bowel pain dizziness fevers chills nausea vomiting sweats or other symptoms. She does state the chemotherapy she is on does have affect her platelets. No bruising no other complaints she does state the MD complaint: gross hematochezia - Related Data Home Medications Medication Instructions Recorded Confirmed Losartan Potassium [Cozaar] 100 mg PO QAM 07/31/17 01/21/18 Acetaminophen Tab [Tylenol] 1,000 mg PO Q8H 01/21/18 01/21/18 HYDROcodone/APAP 5-325MG [[place] 1 - 2 tab PO Q6HR PRN 01/21/18 01/21/18 5-325] Omeprazole 40 mg PO BID 01/21/18 01/21/18 Ondansetron HCl [Zofran] 4 mg PO Q4H PRN 01/21/18 01/21/18 Triamterene-Hctz 37.5-25Mg 1 tab PO DAILY 01/21/18 01/21/18 [Maxzide 37.5-25] Allergies Allergy/AdvReac Type Severity Reaction Status Date / Time levofloxacin [From Levaquin] Allergy Dyspnea/FACE Verified 01/21/18 12:55 SWELLING tramadol AdvReac Unknown Verified 01/21/18 12:55 Review of Systems ROS Statement: Those systems with pertinent positive or pertinent negative responses have been documented in the HPI. ROS Other: All systems not noted in ROS Statement are negative. Past Medical History Past Medical History: Cancer, Hypertension Additional Past Medical History / Comment(s): Current left breast cancer. History of Any Multi-Drug Resistant Organisms: None Reported Past Surgical History: Breast Surgery, Section, Cholecystectomy, Tonsillectomy Additional Past Surgical History / Comment(s): Oral surgery, left wrist surgery. Past Anesthesia/Blood Transfusion Reactions: No Reported Reaction Additional Past Anesthesia/Blood Transfusion Reaction / Comment(s): HISTORY OF CLAUSTROPHOBIA- PERFERS NOTHING ON FACE Past Psychological History: No Psychological Hx Reported Smoking Status: Former smoker Past Alcohol Use History: None Reported Past Drug Use History: None Reported - Past Family History Mother Family Medical History: Cancer Additional Family Medical History / Comment(s): Breast and kidney cancer. General Exam - General Exam Comments Initial Comments: this is a well-developed well-nourished awake alert oriented 3 female Limitations: no limitations General appearance: alert, in no apparent distress Head exam: Present: atraumatic, normocephalic, normal inspection Eye exam: Present: normal appearance, PERRL, EOMI. Absent: scleral icterus, conjunctival injection, periorbital swelling ENT exam: Present: normal exam, mucous membranes moist Neck exam: Present: normal inspection. Absent: tenderness, meningismus, lymphadenopathy Respiratory exam: Present: normal lung sounds bilaterally. Absent: respiratory distress, wheezes, rales, rhonchi, stridor Cardiovascular Exam: Present: regular rate, normal rhythm, normal heart sounds. Absent: systolic murmur, diastolic murmur, rubs, gallop, clicks GI/Abdominal exam: Present: soft, normal bowel sounds. Absent: distended, tenderness, guarding, rebound, rigid Rectal exam: Present: heme (+) stool, other ([place] colored blood noted external hemorrhoids noted nontender. Some brown stool is noted. Please note the exams are done with a female nurse present.) External exam: Present: normal external exam Speculum exam: Present: normal speculum exam (No blood is noted on vaginal exam no cervical motion tenderness.) Extremities exam: Present: normal capillary refill, other (There is a wristdrop seen to the left upper extremity also lymphedema noted up to the axilla. Minimal tenderness to palpation at this time. Capillary refills less than 2 seconds.). Absent: tenderness, pedal edema, joint swelling, calf tenderness Back exam: Present: normal inspection Neurological exam: Present: alert, oriented X3, CN II-XII intact Psychiatric exam: Present: normal affect, normal mood Skin exam: Present: warm, dry, intact, normal color. Absent: rash Course Vital Signs 01/21/18 01/21/18 11:28 13:27 Temperature 98.2 F Pulse Rate 88 67 Respiratory 18 18 Rate Blood Pressure 159/88 161/75 O2 Sat by Pulse 98 97 Oximetry Procedures - Orthopedic Splinting/Casting Injury #1 Side: left Upper Extremity Injury Location: wrist Upper Extremity Immobilizer: volar splint, wrist splint (I did place a 3 x 12 short arm volar wrist splint in a cocked up position. Patient tolerated this well.) Medical Decision Making - Medical Decision Making I did discuss the findings with the patient and with Dr. Wen. Patient be admitted with consultation by GI and oncology and neurology. - Lab Data Result diagrams: 01/21/18 12:20 01/21/18 12:20 Lab Results 01/21/18 01/21/18 01/21/18 Range/Units 12:20 12:20 12:20 WBC 5.0 (3.8-10.6) k/uL RBC 4.34 (3.80-5.40) m/uL Hgb 12.5 (11.4-16.0) gm/dL Hct 37.0 (34.0-46.0) % MCV 85.3 (80.0-100.0) fL MCH 28.9 (25.0-35.0) pg MCHC 33.9 (31.0-37.0) g/dL RDW 13.2 (11.5-15.5) % Plt Count 349 (150-450) k/uL Neutrophils % 92 % Lymphocytes % 5 % Monocytes % 2 % Eosinophils % 0 % Basophils % 0 % Neutrophils # 4.6 (1.3-7.7) k/uL Lymphocytes # 0.3 L (1.0-4.8) k/uL Monocytes # 0.1 (0-1.0) k/uL Eosinophils # 0.0 (0-0.7) k/uL Basophils # 0.0 (0-0.2) k/uL PT 10.1 (9.0-12.0) sec INR 1.0 (<1.2) APTT 23.6 (22.0-30.0) sec Sodium (137-145) mmol/L Potassium (3.5-5.1) mmol/L Chloride (98-107) mmol/L Carbon Dioxide (22-30) mmol/L Anion Gap mmol/L BUN (7-17) mg/dL Creatinine (0.52-1.04) mg/dL Est GFR (CKD-EPI)AfAm (>60 ml/min/1.73 sqM) Est GFR (CKD-EPI)NonAf (>60 ml/min/1.73 sqM) Glucose (74-99) mg/dL Calcium (8.4-10.2) mg/dL Total Bilirubin (0.2-1.3) mg/dL AST (14-36) U/L ALT (9-52) U/L Alkaline Phosphatase (38-126) U/L Total Protein (6.3-8.2) g/dL Albumin (3.5-5.0) g/dL Stool Occult Blood (Negative) Blood Type O Positive Blood Type Recheck No Antibody Screen NEGATIVE Spec Expiration Date 01/24/2018 - 231901/21/18 01/21/18 Range/Units 12:20 12:45 WBC (3.8-10.6) k/uL RBC (3.80-5.40) m/uL Hgb (11.4-16.0) gm/dL Hct (34.0-46.0) % MCV (80.0-100.0) fL MCH (25.0-35.0) pg MCHC (31.0-37.0) g/dL RDW (11.5-15.5) % Plt Count (150-450) k/uL Neutrophils % % Lymphocytes % % Monocytes % % Eosinophils % % Basophils % % Neutrophils # (1.3-7.7) k/uL Lymphocytes # (1.0-4.8) k/uL Monocytes # (0-1.0) k/uL Eosinophils # (0-0.7) k/uL Basophils # (0-0.2) k/uL PT (9.0-12.0) sec INR (<1.2) APTT (22.0-30.0) sec Sodium 131 L (137-145) mmol/L Potassium 4.9 (3.5-5.1) mmol/L Chloride 101 (98-107) mmol/L Carbon Dioxide 19 L (22-30) mmol/L Anion Gap 11 mmol/L BUN 44 H (7-17) mg/dL Creatinine 1.00 (0.52-1.04) mg/dL Est GFR (CKD-EPI)AfAm 73 (>60 ml/min/1.73 sqM) Est GFR (CKD-EPI)NonAf 63 (>60 ml/min/1.73 sqM) Glucose 132 H (74-99) mg/dL Calcium 9.1 (8.4-10.2) mg/dL Total Bilirubin 0.8 (0.2-1.3) mg/dL AST 37 H (14-36) U/L ALT 48 (9-52) U/L Alkaline Phosphatase 63 (38-126) U/L Total Protein 6.4 (6.3-8.2) g/dL Albumin 4.2 (3.5-5.0) g/dL Stool Occult Blood Positive H (Negative) Blood Type Blood Type Recheck Antibody Screen Spec Expiration Date - Radiology Data Radiology results: report reviewed, image reviewed Disposition Clinical Impression: Hematochezia, GI bleed, Breast cancer, Lymphedema of arm, Wrist drop, left wrist Disposition: ADMITTED IP TO THIS [facility] Condition: Stable Referrals: Dayana De La Cruz MD [Primary Care Provider] - 1-2 days
[2018-01-21 12:56] LABS: Partial Thromboplastin Time 23.6 sec (22.0-30.0); Prothrombin Time 10.1 sec (9.0-12.0)
[2018-01-21] MEDS ORDERED: NALOXONE 0.4 MG/ML 1 ML VIAL IV PRN (14:10)
[2018-01-21] MEDS ORDERED: ACETAMINOPHEN TAB 325 MG TAB PO PRN (14:10)
[2018-01-21] MEDS ORDERED: ONDANSETRON 4 MG TAB PO PRN (14:13)
--- NOTE | 2018-01-21 14:33 | XR ---
EXAMINATION TYPE: XR KUB portable DATE OF EXAM: 01/21/2018 COMPARISON: NONE HISTORY: 57-year-old female with breast cancer and pain TECHNIQUE: 2 views FINDINGS: Lung bases are clear. Supine imaging limited for assessment of free air. Cholecystectomy clips. No dilated small bowel. Mild scattered stool. No suspicious calcifications seen below the right renal shadow is obscured by bowel content. IMPRESSION: No evidence for bowel obstruction. Mild stool burden.
[2018-01-21] MEDS: SODIUM CHLORIDE 0.9% 1,000 ML IV SCH (14:49)
[2018-01-21] MEDS: ACETAMINOPHEN TAB 500 MG TAB PO SCH ×2 (14:49→22:41)
--- NOTE | 2018-01-21 15:54 | US ---
EXAMINATION TYPE: US venous doppler duplex UE LT DATE OF EXAM: 01/21/2018 COMPARISON: NONE CLINICAL HISTORY: Pain. Edema and pain left arm. Lymphedema. History of recurrent breast cancer. Donya ent started chemo recently SIDE PERFORMED: left Left Arm: Technical limitations - patient in large amount of pain, unable to hold still and unable to tolerate compressions. Possible DVT left subclavian vein lateral extending into brachial vein. Josiane ble to obtain blood flow or compressions at these levels IMPRESSION: 1. Markedly limited exam. Suggestion of possible DVT involving the left subclavian vein extending int o the brachial vein correlate clinically.
[2018-01-21] MEDS ORDERED: cloNIDine HCL 0.1 MG TAB PO STA (16:00)
--- NOTE | 2018-01-21 17:38 | P.GSCN ---
History of Present Illness Consult date: 01/21/18 Reason for Consult: GI bleed History of present illness: Patient presents to the hospital with evidence of rectal bleeding that started yesterday. She has had numerous episodes most of which have been small in volume. Was having some mild perirectal discomfort but that is resolved. Just recently started chemotherapy for recurrent breast cancer. Patient is unsure whether she may have been having some vaginal bleeding as well. Labs reviewed. No prior endoscopic workup. Some mild constipation although she states she is not eating much. Review of Systems The patient denies any acute changes in vision or hearing, no dysphagia or odynophagia, no chest pain or shortness of breath, no dysuria or hematuria, no headache, no runny nose, no melena, no unexplained weight loss Past Medical History Past Medical History: Cancer, Hypertension Additional Past Medical History / Comment(s): Current left breast cancer. History of Any Multi-Drug Resistant Organisms: None Reported Past Surgical History: Breast Surgery, Section, Cholecystectomy, Tonsillectomy Additional Past Surgical History / Comment(s): Oral surgery, left wrist surgery. Past Anesthesia/Blood Transfusion Reactions: No Reported Reaction Additional Past Anesthesia/Blood Transfusion Reaction / Comm: HISTORY OF CLAUSTROPHOBIA- PERFERS NOTHING ON FACE Past Psychological History: No Psychological Hx Reported Smoking Status: Former smoker Past Alcohol Use History: None Reported Past Drug Use History: None Reported - Past Family History Mother Family Medical History: Cancer Additional Family Medical History / Comment(s): Breast and kidney cancer. Medications and Allergies Home Medications Medication Instructions Recorded Confirmed Type Losartan Potassium [Cozaar] 100 mg PO QAM 07/31/17 01/21/18 History Acetaminophen Tab [Tylenol] 1,000 mg PO Q8H 01/21/18 01/21/18 History HYDROcodone/APAP 5-325MG [[place] 1 - 2 tab PO Q6HR PRN 01/21/18 01/21/18 History 5-325] Omeprazole 40 mg PO BID 01/21/18 01/21/18 History Ondansetron HCl [Zofran] 4 mg PO Q4H PRN 01/21/18 01/21/18 History Triamterene-Hctz 37.5-25Mg 1 tab PO DAILY 01/21/18 01/21/18 History [Maxzide 37.5-25] Allergies Allergy/AdvReac Type Severity Reaction Status Date / Time levofloxacin [From Levaquin] Allergy Dyspnea/FACE Verified 01/21/18 12:55 SWELLING tramadol AdvReac Unknown Verified 01/21/18 12:55 Surgical - Exam Vital Signs Temp Pulse Resp BP Pulse Ox 98.2 F 88 18 159/88 98 01/21/18 11:28 01/21/18 11:28 01/21/18 11:28 01/21/18 11:28 01/21/18 11:28 Physical exam: General: Well-developed, well-nourished HEENT: Normocephalic, sclerae nonicteric Abdomen: Nontender, nondistended Left chest wall with multiple small nodules recent biopsy-positive for recurrent malignancy Extremities: Left upper extremity edema with weakness at the left hand and wrist Neuro: Alert and oriented Results - Labs 01/21/18 12:20 01/21/18 12:20 Abnormal Lab Results - Last 24 Hours (Table) 01/21/18 01/21/18 01/21/18 Range/Units 12:20 12:20 12:45 Lymphocytes # 0.3 L (1.0-4.8) k/uL Sodium 131 L (137-145) mmol/L Carbon Dioxide 19 L (22-30) mmol/L BUN 44 H (7-17) mg/dL Glucose 132 H (74-99) mg/dL AST 37 H (14-36) U/L Stool Occult Blood Positive H (Negative) Diabetes panel 01/21/18 Range/Units 12:20 Sodium 131 L (137-145) mmol/L Potassium 4.9 (3.5-5.1) mmol/L Chloride 101 (98-107) mmol/L Carbon Dioxide 19 L (22-30) mmol/L BUN 44 H (7-17) mg/dL Creatinine 1.00 (0.52-1.04) mg/dL Glucose 132 H (74-99) mg/dL Calcium 9.1 (8.4-10.2) mg/dL AST 37 H (14-36) U/L ALT 48 (9-52) U/L Alkaline Phosphatase 63 (38-126) U/L Total Protein 6.4 (6.3-8.2) g/dL Albumin 4.2 (3.5-5.0) g/dL Calcium panel 01/21/18 Range/Units 12:20 Calcium 9.1 (8.4-10.2) mg/dL Albumin 4.2 (3.5-5.0) g/dL Pituitary panel 01/21/18 Range/Units 12:20 Sodium 131 L (137-145) mmol/L Potassium 4.9 (3.5-5.1) mmol/L Chloride 101 (98-107) mmol/L Carbon Dioxide 19 L (22-30) mmol/L BUN 44 H (7-17) mg/dL Creatinine 1.00 (0.52-1.04) mg/dL Glucose 132 H (74-99) mg/dL Calcium 9.1 (8.4-10.2) mg/dL Adrenal panel 01/21/18 Range/Units 12:20 Sodium 131 L (137-145) mmol/L Potassium 4.9 (3.5-5.1) mmol/L Chloride 101 (98-107) mmol/L Carbon Dioxide 19 L (22-30) mmol/L BUN 44 H (7-17) mg/dL Creatinine 1.00 (0.52-1.04) mg/dL Glucose 132 H (74-99) mg/dL Calcium 9.1 (8.4-10.2) mg/dL Total Bilirubin 0.8 (0.2-1.3) mg/dL AST 37 H (14-36) U/L ALT 48 (9-52) U/L Alkaline Phosphatase 63 (38-126) U/L Total Protein 6.4 (6.3-8.2) g/dL Albumin 4.2 (3.5-5.0) g/dL Assessment and Plan (1) GI bleed Narrative/Plan: Patient with evidence of recurrent breast cancer. Now with recent bleeding. Will discuss with hematology/oncology regarding appropriate timing of endoscopic workup. Current Visit: Yes Status: Acute Code(s): K92.2 - GASTROINTESTINAL HEMORRHAGE, UNSPECIFIED SNOMED Code(s): 78732425
[2018-01-21] MEDS: PANTOPRAZOLE 40 MG TABLET PO SCH (17:55)
[2018-01-21 18:47] LABS: HCT 33.6 % (34.0-46.0); HGB 11.6 gm/dL (11.4-16.0); MCH 29.7 pg (25.0-35.0); MCHC 34.6 g/dL (31.0-37.0); MCV 85.9 fL (80.0-100.0); Mean Platelet Volume 6.6; Platelet Count 294 k/uL (150-450); RBC 3.91 m/uL (3.80-5.40); RDW 13.1 % (11.5-15.5); WBC 4.9 k/uL (3.8-10.6)
[2018-01-21] MEDS ORDERED: ALPRAZolam 0.25 MG TAB PO PRN (21:20)
[2018-01-21] MEDS ORDERED: TEMAZEPAM 15 MG CAP PO PRN (21:20)
[2018-01-21] MEDS ORDERED: LORazepam 2 MG/ML INJ IV PRN (21:25)
--- NOTE | 2018-01-22 00:22 | HP ---
HISTORY AND PHYSICAL CHIEF COMPLAINTS: GI bleed and left arm swelling as well as wrist drop. HISTORY OF PRESENT ILLNESS: This 57-year-old woman with a past medical history of multiple medical problems, including hypertension, history of recurrent left breast cancer, being followed by Dr. De La Cruz in the outpatient setting, had breast surgery by Dr. Stover. Patient had chemotherapy on 01/17/2018. The patient also had left arm swelling also. Patient also noted to have left wrist drop also. Patient came to [facility] with complaints of gastrointestinal bleed. Patient had fresh bright red blood in the stools. Otherwise there is no history of abdominal pain. No history of headache, loss of consciousness, seizures at this time. There is no history of fever, rigors or chills. PAST MEDICAL HISTORY: History of breast cancer on chemo and recurrence as mentioned early, hypertension, history of breast surgery and lymphedema of the breast. MEDICATIONS: Medications are: 1. Maxzide 37.5/25 mg p.o. daily. 2. Zofran 4 mg q.4h p.r.n. 3. Omeprazole 40 mg b.i.d. 4. Cozaar 100 mg q.a.m. 5. Hydrocodone 5 mg q.6h p.r.n. 6. Tylenol 1000 mg q8h p.r.n. ALLERGIES: LEVAQUIN AND ULTRAM. FAMILY HISTORY: History of breast cancer in the family and kidney cancer in the family. SOCIAL HISTORY: History of alcohol. No history of smoking. REVIEW OF SYSTEMS: ENT: No diminished vision or hearing. CARDIOVASCULAR: No angina or palpitations. RESPIRATORY: No cough or hemoptysis. GI: No nausea or vomiting. : No dysuria. Nervous system: No numbness or weakness. Allergy/Immunology: No asthma or hayfever. Musculoskeletal as mentioned earlier. Hematology/oncology as mentioned earlier. Endocrine: No history of diabetes or hypothyroidism. Constitutional: As mentioned earlier. Dermatology: Negative. Rheumatology: Negative. Psychiatry: As mentioned earlier. EXAMINATION: The patient is alert and oriented times three. Pulse 98, blood pressure 170/100, respirations 16, temperature 98 degrees, pulse ox 99% on room air. HEENT: Conjunctivae normal. Oral mucosa moist. Neck is no jugular venous distention. No lymph node enlargement. Cardiovascular system: S1, S2. Respiratory: Breath sounds diminished in the bases. A few rhonchi. No crackles. ABDOMEN: Soft, obese, nontender. Legs: No edema and no swelling. Nervous system: Higher functions as mentioned earlier. Otherwise, significant wrist drop and some sensory abnormalities in the left arm present. Significant lymphedema of the left arm also present status post left mastectomy. Otherwise no other focal motor-sensory deficits. Lymphatics: Lymphedema on the left arm and lymphadenopathy present. Skin as mentioned earlier. JOINTS: No active deforming arthropathy. LABS: WBC 4.9, hemoglobin 12.5, sodium is 131 and potassium 4.9 and glucose 132, and stool OB is positive. ASSESSMENT: 1. Acute gastrointestinal bleed for evaluation. 2. Left wrist drop, rule out metastatic lesion of the brachial plexus. 3. Hyponatremia. 4. Carcinoma of breast with recurrence. 5. Hypertension. 6. Status post chemo. 7. History of cholecystectomy. 8. History of claustrophobia. RECOMMENDATIONS AND DISCUSSION: In this 57-year-old woman who presented with multiple complex medical issues. At this time, I recommend to continue current medications. Dr. Stover has been consulted. Monitor hemoglobin closely. The patient definitely requires colonoscopy and further evaluation regarding the GI bleed as far as the stroke is concern, Dr. Lee, neurology has seen the patient. Recommended MRI and would recommend Ativan p.r.n. for claustrophobia. Otherwise, we will limit IV fluids. Resume the home medications. Other than that, consult Dr. Trimble and follow closely with Neurology. Guarded prognosis because of multiple complex medical issues. Further recommendations to follow. A copy of dictation being forwarded to Dr. De La Cruz who is the primary physician. MMODL / IJN: [id number] /
[2018-01-22] MEDS: HYDROcodone/APAP 5-325MG 1 EACH TAB PO PRN ×2 (03:54→10:57)
[2018-01-22] MEDS: ACETAMINOPHEN TAB 500 MG TAB PO SCH ×3 (08:21→21:17)
[2018-01-22 08:22] LABS: Basophils % (A) 0 %; Eosinophils % (A) 0 %; HCT 35.1 % (34.0-46.0); HGB 12.1 gm/dL (11.4-16.0); Lymphocytes # (A) 0.4 k/uL (1.0-4.8); Lymphocytes % (A) 10 %; MCH 29.5 pg (25.0-35.0); MCHC 34.4 g/dL (31.0-37.0); MCV 85.7 fL (80.0-100.0); Mean Platelet Volume 6.5; Monocytes # (A) 0.1 k/uL (0-1.0); Monocytes % (A) 3 %; Neutrophils # (A) 3.4 k/uL (1.3-7.7); Neutrophils % (A) 87 %; Platelet Count 295 k/uL (150-450)
[2018-01-22] MEDS: LOSARTAN 50 MG TAB PO SCH (08:23)
[2018-01-22] MEDS: PANTOPRAZOLE 40 MG TABLET PO SCH ×2 (08:23→16:48)
[2018-01-22] MEDS: TRIAMTERENE-HCTZ 37.5-25MG 1 EACH TAB PO SCH (08:23)
[2018-01-22 08:47] LABS: Calcium 8.9 mg/dL (8.4-10.2); Potassium 5.3 mmol/L (3.5-5.1)
[2018-01-22] MEDS ORDERED: HEPARIN SODIUM,PORCINE 5,000 UNIT/ML 1 ML VIAL SQ SCH (09:00)
--- NOTE | 2018-01-22 09:37 | CONS ---
CONSULTATION DATE OF CONSULTATION: 01/21/2018. CHIEF COMPLAINT: Left arm weakness. HISTORY OF PRESENT ILLNESS: Ms. Sierra is a pleasant 57-year-old, female, who is being evaluated today on 01/21/2018 by the Neurology Service per the request of Dr. Wen for left arm weakness. The patient has history of breast cancer and had a left breast mastectomy and lymph node resections on the left side. She also received radiation therapy and chemotherapy. This was all done in 2016. The patient states that she was cleared from an oncology standpoint this past July, until more recently when she developed swelling in her left upper extremity. She was diagnosed with lymphedema. She then developed weakness in her left arm and was getting physical therapy with no improvement. Further workup revealed that she had returned nodules which have recently been biopsied and found to be cancerous. Over the past week, the weakness in the left arm has been getting worse and she is currently unable to extend her digits, wrist, and forearm. Over the past couple of days, she developed rectal bleeding and vaginal bleeding. She was brought into the emergency room for further workup and management. Neurology was consulted for left arm weakness. At the time of my evaluation, she is lying in her bed and appears to be in no acute distress. Her left arm is still swollen but the intensity is mild. She still cannot extend her digits, wrist, and forearm. She was recently restarted on chemotherapy and Oncology is following. PAST MEDICAL HISTORY: Breast cancer with mastectomy, chemotherapy, and radiation treatment. She also has history of hypertension, cholecystectomy, tonsillectomy, oral surgery, . SOCIAL HISTORY: The patient is a former smoker. She denies any alcohol or drug use. FAMILY HISTORY: Positive for cancer. HOME MEDICATIONS: Reviewed in the chart. ALLERGIES: Levaquin and Ultram. REVIEW OF SYSTEMS: CONSTITUTIONAL: Negative. EYES: Negative. ENT: Negative. CARDIOVASCULAR: Negative. RESPIRATORY: Negative. NEUROLOGICAL: As mentioned above. GASTROINTESTINAL: As mentioned above. GENITOURINARY: As mentioned above. DERMATOLOGICAL: Negative. ENDOCRINE: Negative. PSYCHIATRIC: Negative. MUSCULOSKELETAL: Negative. ONCOLOGICAL: As mentioned above. PHYSICAL EXAM: Vital signs show a temperature of 98, pulse 98, respirations 16, blood pressure 170/100. GENERAL APPEARANCE: The patient is a mildly obese female, who appears to be in no acute distress. HEENT: Normocephalic, atraumatic. No facial asymmetry is seen. NECK: Supple with no masses felt. CARDIOVASCULAR: Regular rate and rhythm. ABDOMEN: Nontender nondistended. EXTREMITIES: Edema in the left upper extremity. Subcutaneous nodules are felt in the left lateral shoulder blade region. NEUROLOGICAL EXAM: The patient is alert aware and oriented x3. Speech and language are normal. Strength is full in the right upper extremity and bilateral lower extremities. Left upper extremity strength was 1/5 in digit extension and 0/5 in wrist extension and forearm extension. No weakness is seen in the flexion muscles. Sensory exam showed slightly diminished light touch sensation in the left upper extremity compared to the right. No tremors or seizure-like activity is seen. No facial asymmetry is noticed on cranial nerve testing. IMPRESSION: 1. Left arm weakness. 2. Radial nerve palsy on the left side. 3. Breast cancer. with recurrence. 4. Gastrointestinal bleed. RECOMMENDATION: The patient's physical neurological examination shows evidence of a complete left radial nerve palsy including the triceps muscle. There was concern for brachial plexus involvement. Given her breast cancer history, there is significant concern for metastasis. I will order an MRI of the left brachial plexus with and without contrast. Continue physical therapy. Oncology is following the patient. The patient will need outpatient neurophysiological workup which can be done after her discharge. She is currently on oral steroids. Depending on the results of her MRI, I will consider IV steroid therapy. Continue the rest of your current workup and management. I will continue to follow with you. Further recommendations to follow. Thank you for allowing me to participate in the care of your patient. If you have any questions, please feel free to contact me. MOHIT / RODRIGUEN: [id number] /
[2018-01-22 10:20] VITALS: BMI 42.1
--- NOTE | 2018-01-22 12:34 | US ---
EXAMINATION TYPE: US venous doppler duplex UE LT DATE OF EXAM: 01/22/2018 COMPARISON: CLINICAL HISTORY: LUE swelling, attn to subclavian for clot. Hx of Cancer. Pain. Swelling. Limited exam per Doctor, only subclavian vein due to patient tolerance and movement SIDE PERFORMED: Left Left Arm: POSITIVE for DVT in distal subclavian vein - Echogenic internal echoes with no vascular tanesha w seen. No vascular flow seen in axilla vein. IMPRESSION: POSITIVE for DVT in distal subclavian vein and axillary vein.
[2018-01-22] MEDS ORDERED: HEPARIN SODIUM,PORCINE 5,000 UNIT/ML 1 ML VIAL IV ONE (12:52)
[2018-01-22] MEDS ORDERED: HEPARIN SODIUM,PORCINE 5,000 UNIT/ML 1 ML VIAL IV PRN (12:52)
--- NOTE | 2018-01-22 13:13 | PN ---
PROGRESS NOTE DATE OF SERVICE: 01/22/2018 This 57-year-old woman is admitted with wrist drop and GI bleeding, is being closely monitored. No chest pain. No palpitations. No fever. Venous ultrasound was recommended by Dr. Frost to rule out possible DVT. No chest pain. No palpitations. Patient still has some bleeding this morning. PHYSICAL EXAM: Alert and oriented x3, pulse 57, blood pressure 170/93, respirations 16, temperature 97.6, pulse ox 98% on room air. HEENT: Conjunctivae normal. NECK: No jugular venous distension. CARDIOVASCULAR: S1, S2, muffled. RESPIRATORY: Breath sounds diminished at the bases, no rhonchi, no crackles. ABDOMEN: Soft, nontender. LEGS: Left hand wrist drop and early lymphedema also present. LABS: WBC 4, hemoglobin is 12.1, sodium 127, potassium 4.3. ASSESSMENT: 1. Acute gastrointestinal bleed for evaluation. 2. Left wrist drop, possibly secondary to metastatic lesion and brachial plexus or radial lymph compression. 3. Hyponatremia. 4. Left arm swelling. 5. CA breast with recurrence. 6. Hypertension. 7. History of status post chemotherapy. 8. History of cholecystectomy. 9. History of claustrophobia. RECOMMENDATION: Recommend to continue with current management and symptomatic treatment, otherwise, at this time recommend repeat labs and ultrasound has been ordered. Dr. Stover is following the patient also closely, possible colonoscopy. Guarded prognosis because of multiple complex medical issues. Further recommendations to follow. DVT has is also being ruled out. MMODL / IJN: [id number] /
[2018-01-22] MEDS: SODIUM CHLORIDE 0.9% 1,000 ML IV SCH (13:26)
[2018-01-22 14:12] LABS: Basophils % (A) 0 %; Eosinophils % (A) 0 %; HCT 37.2 % (34.0-46.0); HGB 12.6 gm/dL (11.4-16.0); Lymphocytes # (A) 0.3 k/uL (1.0-4.8); Lymphocytes % (A) 8 %; MCH 29.5 pg (25.0-35.0); MCHC 33.8 g/dL (31.0-37.0); MCV 87.3 fL (80.0-100.0); Mean Platelet Volume 6.5; Monocytes # (A) 0.1 k/uL (0-1.0); Monocytes % (A) 3 %; Neutrophils # (A) 3.4 k/uL (1.3-7.7); Neutrophils % (A) 89 %; Platelet Count 277 k/uL (150-450); RBC 4.27 m/uL (3.80-5.40); WBC 3.8 k/uL (3.8-10.6)
[2018-01-22 14:22] LABS: INR 1.1 (<1.2); Partial Thromboplastin Time 25.1 sec (22.0-30.0); Prothrombin Time 10.3 sec (9.0-12.0)
[2018-01-22] MEDS: GABAPENTIN 100 MG CAP PO SCH ×2 (14:24→21:17)
[2018-01-22] MEDS: HEPARIN SOD,PORK IN 0.45% NACL 25,000 UNIT in 0.45% NACL 1 500ML.BAG IV SCH (14:25)
[2018-01-22] MEDS ORDERED: PEG 3350-NA SULF,BICARB,CL/KCL 4,000 ML BOTTLE PO ONE (15:01)
--- NOTE | 2018-01-22 15:02 | P.PN ---
Subjective Progress Note Date: 01/22/18 Principal diagnosis: Rectal bleeding Patient did have a future additional episodes of rectal bleeding. This was bright red in color. Repeat left arm Doppler does confirm acute DVT. She is being started on IV heparin and they have advised outpatient anticoagulation. Denies pain. Hemoglobin stable. Objective - Vital Signs Vital signs: Vital Signs Temp 97.4 F L 01/22/18 14:10 Pulse 67 01/22/18 14:10 Resp 18 01/22/18 14:10 BP 165/83 01/22/18 14:10 Pulse Ox 99 01/22/18 14:10 Intake & Output 01/21/18 01/22/18 01/22/18 18:59 06:59 18:59 Intake Total 2160 800 Balance 2160 800 Weight 118.388 kg 118.388 kg Intake: Oral 2160 800 Other: # Voids 3 4 # Bowel Movements 1 - Exam Abdomen: Soft, nontender, nondistended - Labs CBC & Chem 7: 01/22/18 13:43 01/22/18 07:30 Labs: Abnormal Lab Results - Last 24 Hours (Table) 01/21/18 01/22/18 01/22/18 Range/Units 18:35 07:30 07:30 Hct 33.6 L (34.0-46.0) % Lymphocytes # 0.4 L (1.0-4.8) k/uL Sodium 127 L (137-145) mmol/L Potassium 5.3 H (3.5-5.1) mmol/L Chloride 97 L (98-107) mmol/L Carbon Dioxide 19 L (22-30) mmol/L BUN 40 H (7-17) mg/dL Glucose 106 H (74-99) mg/dL 01/22/18 Range/Units 13:43 Hct (34.0-46.0) % Lymphocytes # 0.3 L (1.0-4.8) k/uL Sodium (137-145) mmol/L Potassium (3.5-5.1) mmol/L Chloride (98-107) mmol/L Carbon Dioxide (22-30) mmol/L BUN (7-17) mg/dL Glucose (74-99) mg/dL Assessment and Plan (1) GI bleed Narrative/Plan: Discussed case with Dr. Wen. Will prep and schedule for colonoscopy tomorrow. Hold heparin at midnight. Current Visit: Yes Status: Acute Code(s): K92.2 - GASTROINTESTINAL HEMORRHAGE, UNSPECIFIED SNOMED Code(s): 72800218
--- NOTE | 2018-01-22 18:07 | P.PN ---
Subjective Progress Note Date: 01/22/18 Principal diagnosis: Left Upper Extremity Weakness Neurology is following on a 57 year old female for left arm weakness. Patient has hx of breast cancer, left mastectomy, and lymph node resection on the left side from 2016. Patient has also received radiation and chemotherapy treatment. Patient was cleared by Oncology in Jul 2017 but later developed weakness in her left arm and was in physical therapy when she also began having swelling and weakness in the LUE. Patient was re-evaluated by Oncology and found to have more cancer. The left arm weakness has been progressive over the last 7-9 days. Today she is able to extend her digits and is beginning to flex and extend her left wrist. At initial contact, the patient was AOx3, supine in bed in no acute distress. Her swelling appears to have declined mildly day over day. Patient was due to have a MR-Brachial plexus but it was canceled by Oncology per nursing staff to further investigate a possible DVT in the left shoulder or upper arm . US Venous study noted a DVT present. Patient also has a GI bleed. Objective - Vital Signs Vital signs: Vital Signs Temp 97.4 F L 01/22/18 14:10 Pulse 67 01/22/18 14:10 Resp 18 01/22/18 14:10 BP 165/83 01/22/18 14:10 Pulse Ox 99 01/22/18 14:10 Intake & Output 01/21/18 01/22/18 01/22/18 18:59 06:59 18:59 Intake Total 2160 800 Balance 2160 800 Weight 118.388 kg 118.388 kg Intake: Oral 2160 800 Other: # Voids 3 4 # Bowel Movements 1 - Exam General appearance: Alert & oriented x3, no apparent distress. Head: Atraumatic, normocephalic, normal inspection Eyes: Well appearance, PERRLA, EOMI. Ear, nose and throat: Normal exam, mucous membranes moist Neck: Normal inspection, absent tenderness, lymphadenopathy. Respiratory: No increased work of breathing Cardiovascular: Regular rate, rhythm GI/abdominal: no tenderness, no guarding Extremities: Moves all extremities, LUE has noted weakness Neurological: cranial nerves II through XII intact Weakness- left upper extremity no seizure activity noted on physical exam Left lower extremity: 4/5 Right lower extremity: 4/5 Left upper extremity: 1/5 Right upper extremity: 4/5 Psychological: Mood and affect appropriate for setting. - Labs CBC & Chem 7: 01/22/18 13:43 01/22/18 07:30 Labs: Abnormal Lab Results - Last 24 Hours (Table) 01/21/18 01/22/18 01/22/18 Range/Units 18:35 07:30 07:30 Hct 33.6 L (34.0-46.0) % Lymphocytes # 0.4 L (1.0-4.8) k/uL Sodium 127 L (137-145) mmol/L Potassium 5.3 H (3.5-5.1) mmol/L Chloride 97 L (98-107) mmol/L Carbon Dioxide 19 L (22-30) mmol/L BUN 40 H (7-17) mg/dL Glucose 106 H (74-99) mg/dL 01/22/18 Range/Units 13:43 Hct (34.0-46.0) % Lymphocytes # 0.3 L (1.0-4.8) k/uL Sodium (137-145) mmol/L Potassium (3.5-5.1) mmol/L Chloride (98-107) mmol/L Carbon Dioxide (22-30) mmol/L BUN (7-17) mg/dL Glucose (74-99) mg/dL Assessment and Plan (1) Radial nerve palsy Current Visit: Yes Status: Acute Code(s): G56.30 - LESION OF RADIAL NERVE, UNSPECIFIED UPPER LIMB SNOMED Code(s): 80753234 (2) Breast cancer Current Visit: Yes Status: Acute Code(s): C50.919 - MALIGNANT NEOPLASM OF UNSP SITE OF UNSPECIFIED FEMALE BREAST SNOMED Code(s): 447213628 (3) Lymphedema of arm Current Visit: Yes Status: Acute Code(s): I89.0 - LYMPHEDEMA, NOT ELSEWHERE CLASSIFIED SNOMED Code(s): 986262324 (4) Wrist drop, left wrist Current Visit: Yes Status: Acute Code(s): M21.332 - WRIST DROP, LEFT WRIST SNOMED Code(s): 13400004 Plan: 1. Radial nerve palsyleft Physical exam notes findings consistent with possible radial nerve palsy MR-Brachial plexus-left, ordered but previously canceled by Oncology is still recommended for further investigation 2. Breast cancer with recurrence Defer to Hematology Oncology and primary team for treatment plan 3. Lymphedemaleft upper extremity Defer to primary team 4. Left arm weakness Likely secondary to radial nerve palsy with possible tumor compression of radial nerve MR- Brachial plexus recommended for further investigation Further updates once results of imaging can be received and reviewed. Continue Gabapentin 100 mg, TID as implemented by primary team for nerve related pain. Consult PT/OT 5. GI bleed Defer to primary team and GI for treatment plan. STATUS: Neurology will continue to follow and provide updates as needed or warranted. Feel free to contact our office with any question I have discussed the plan of care with the physician prior to implementation and he agrees with the plan as implemented.
--- NOTE | 2018-01-22 18:21 | P.CONS ---
History of Present Illness - Reason for Consult Consult date: 01/22/18 breast cancer treatment Requesting physician: Vickey Turner - Chief Complaint BRBPR - History of Present Illness Pt is a very pleasant female pt of Dr. Trimble who presented with palpable left breast mass in December 2015, she did not seek medical attention until May 2016, she had diagnostic mammograms with f/u on left breast, U/S revealed 2.1cm mass at 2 o'clock and multiple suspicious left axillary nodes, core biopsies of the breast mass and axillary node, positive for grade 3 invasive ductal carcinoma, triple negative. She was initially evaluated at [facility], CT CAP 06/28/2016 which revealed suspicious breast mass and axillary nodes, left supraclavicular nodes, possible subpectoralis and small node in upper mediastinum, small bilateral lung nodules, 10/01/16 PET scan was negative for metastatic disease, genetic testing BRCA2 positive. Neoadjuvant adrimycin, cytoxan and taxol and completed treatment on 03/07/17. 05/22/17 she had bilateral mastectomies and left axilllary nodes disection, pathology residual 1.5cm invasive cancer in her breast and 4/5 nodes were positive for macrometastasis, she declined adjuvant PARP inhibitors trial. 07/12/17 CT scan of chest/abdomen/pelvis was negative, she completed adjuvant radiation therapy on 09/04/17. In November she started to have significant pain and swelling in left arm and shoulder, associated with weakness and development of left chest wall skin nodules, biopsy on 12/31/17 positive for recurrent disease (hormone receptors pending), PET revealed very intense uptake in left lateral chest wall extending to high up left axilla. She was started on cisplatin and gemzar and has had her 1st cycle day 1 & 8. Pt states BRBPR x 2 days, she awoke with blood on her sheets, denies any other bleeding. S/P chemo-day 8 yesterday) she denies fever, oral irritation, nausea , vomiting, appetite is ok, no chest pain, SOB, cough, abd pain, dysuria, hematuria, soft stool but not diarrhea, has hemorrhoids, mild lower extremity swelling, her left shoulder is painful but she feels less painful then prior to starting treatment. Review of Systems 10 point ROS as stated in HPI Past Medical History Past Medical History: Cancer, Hypertension Additional Past Medical History / Comment(s): recurrance of left breast cancer.- had chemo 01-17-18, lt arm swelling History of Any Multi-Drug Resistant Organisms: None Reported Past Surgical History: Breast Surgery, Section, Cholecystectomy, Tonsillectomy Additional Past Surgical History / Comment(s): Oral surgery, left wrist surgery.rt simple masectomy, lt modified radical masectomy Past Anesthesia/Blood Transfusion Reactions: No Reported Reaction Additional Past Anesthesia/Blood Transfusion Reaction / Comm: HISTORY OF CLAUSTROPHOBIA- PERFERS NOTHING ON FACE Smoking Status: Former smoker - Past Family History Mother Family Medical History: Cancer Additional Family Medical History / Comment(s): Breast and kidney cancer. Father Family Medical History: CVA/TIA, Dementia, Hypertension Additional Family Medical History / Comment(s): brain bleed, heart problems Medications and Allergies Home Medications Medication Instructions Recorded Confirmed Type Losartan Potassium [Cozaar] 100 mg PO QAM 07/31/17 01/21/18 History Acetaminophen Tab [Tylenol] 1,000 mg PO Q8H 01/21/18 01/21/18 History HYDROcodone/APAP 5-325MG [[place] 1 - 2 tab PO Q6HR PRN 01/21/18 01/21/18 History 5-325] Omeprazole 40 mg PO BID 01/21/18 01/21/18 History Ondansetron HCl [Zofran] 4 mg PO Q4H PRN 01/21/18 01/21/18 History Triamterene-Hctz 37.5-25Mg 1 tab PO DAILY 01/21/18 01/21/18 History [Maxzide 37.5-25] Allergies Allergy/AdvReac Type Severity Reaction Status Date / Time levofloxacin [From Levaquin] Allergy Dyspnea/FACE Verified 01/21/18 12:55 SWELLING tramadol AdvReac Unknown Verified 01/21/18 12:55 Physical Exam Vitals: Vital Signs Temp Pulse Resp BP Pulse Ox 01/22/18 14:10 97.4 F L 67 18 165/83 99 01/22/18 06:20 97.6 F 57 L 16 170/93 98 01/21/18 22:55 16 01/21/18 22:44 97.6 F 63 17 173/79 98 Intake and Output 01/22/18 01/22/18 01/22/18 06:59 14:59 22:59 Intake Total 2160 800 Balance 2160 800 Intake: Oral 2160 800 Other: # Voids 3 4 # Bowel Movements 1 Weight 118.388 kg - Constitutional General appearance: cooperative, no acute distress, obese - EENT Eyes: anicteric sclerae, EOMI ENT: normal oropharynx - Neck Approx 12cm hard, fixed tumor under the left axilla area, overlays the ribs - Respiratory Respiratory: bilateral: CTA - Cardiovascular Heart sounds: normal: S1, S2 leg Peripheral Edema: bilateral: Trace - Gastrointestinal General gastrointestinal: no absent bowel sounds, no decreased bowel sounds, no distended, no hepatomegaly, no hyperactive bowel sounds, normal bowel sounds, no organomegaly, no rigid, no scaphoid, soft, no splenomegaly, no tenderness, no umbilical hernia, no ventral hernia - Integumentary multiple SQ lesions on the left breast, few in the sternal area - Neurologic Left hand drop, pt has to open left hand with right hand, LUE weakness, minimal ROM due to pain, severe swelling noted - Musculoskeletal LUE weakness, otherwise MS system exam normal - Psychiatric Psychiatric: A&O x's 3, appropriate affect, intact judgment & insight Results CBC & Chem 7: 01/22/18 13:43 01/22/18 07:30 Labs: Abnormal Lab Results - Last 24 Hours (Table) 01/21/18 01/22/18 01/22/18 Range/Units 18:35 07:30 07:30 Hct 33.6 L (34.0-46.0) % Lymphocytes # 0.4 L (1.0-4.8) k/uL Sodium 127 L (137-145) mmol/L Potassium 5.3 H (3.5-5.1) mmol/L Chloride 97 L (98-107) mmol/L Carbon Dioxide 19 L (22-30) mmol/L BUN 40 H (7-17) mg/dL Glucose 106 H (74-99) mg/dL 01/22/18 Range/Units 13:43 Hct (34.0-46.0) % Lymphocytes # 0.3 L (1.0-4.8) k/uL Sodium (137-145) mmol/L Potassium (3.5-5.1) mmol/L Chloride (98-107) mmol/L Carbon Dioxide (22-30) mmol/L BUN (7-17) mg/dL Glucose (74-99) mg/dL Venous US: report reviewed Assessment and Plan (1) Metastatic breast cancer Narrative/Plan: Pt s/p 1st cycle of chemo. Cont to monitor counts, do not anticipate matt for >5 days but will monitor closely. Supportive meds ordered for potential SE r/t chemo Current Visit: Yes Status: Acute Priority: High Code(s): C50.919 - MALIGNANT NEOPLASM OF UNSP SITE OF UNSPECIFIED FEMALE BREAST SNOMED Code(s): 580153472 (2) Lymphedema of arm Narrative/Plan: This is related to cancer recurrence. No denise wrap at this time, anticipate reduction of swelling and symptoms as cancer is treated and tumor shrinks as it will stop compressing nerve. Neurology is following Current Visit: Yes Status: Acute Priority: High Code(s): I89.0 - LYMPHEDEMA, NOT ELSEWHERE CLASSIFIED SNOMED Code(s): 196605188 (3) Deep vein thrombosis (DVT) of left upper extremity Narrative/Plan: Heparin drip started due to GI bleeding. Pt is going to have colonoscopy in AM for evaluation. Oral anticoagulant recommendation to follow after procedures and it is certain that GI bleeding controlled. Current Visit: Yes Status: Acute Priority: High Code(s): I82.622 - ACUTE EMBOLISM AND THROMBOSIS OF DEEP VEINS OF L UP EXTREM SNOMED Code(s): 959418387 Plan: Doctor attests: I performed a history and physical examination of this patient, discussed with dictator. I agree with dictators note, documented as a scribe.
[2018-01-23 08:08] LABS: Basophils % (A) 0 %; Eosinophils % (A) 0 %; HGB 12.3 gm/dL (11.4-16.0); Lymphocytes # (A) 0.5 k/uL (1.0-4.8); Lymphocytes % (A) 14 %; MCH 28.4 pg (25.0-35.0); MCHC 32.5 g/dL (31.0-37.0); MCV 87.3 fL (80.0-100.0); Mean Platelet Volume 6.3; Monocytes % (A) 1 %; Neutrophils # (A) 3.2 k/uL (1.3-7.7); Neutrophils % (A) 85 %; Platelet Count 278 k/uL (150-450); RBC 4.35 m/uL (3.80-5.40); RDW 12.8 % (11.5-15.5); WBC 3.7 k/uL (3.8-10.6)
[2018-01-23 08:30] LABS: Anion Gap 10 mmol/L; Blood Urea Nitrogen 29 mg/dL (7-17); Calcium 8.7 mg/dL (8.4-10.2); Carbon Dioxide 22 mmol/L (22-30); Chloride 97 mmol/L (98-107); Glucose 90 mg/dL (74-99); Potassium 4.3 mmol/L (3.5-5.1); Sodium 129 mmol/L (137-145)
[2018-01-23] MEDS ORDERED: LIDOCAINE 1% INJ 10MG/ML (20 ML MDV) ONE (10:13)
[2018-01-23] MEDS ORDERED: fentaNYL (PF) 50 MCG/ML 2 ML AMP ONE (10:13)
[2018-01-23] MEDS ORDERED: MIDAZOLAM 2 MG/2 ML VIAL ONE (10:13)
[2018-01-23] MEDS ORDERED: PROPOFOL 10 MG/ML 20 ML VIAL IV ONE (10:13)
[2018-01-23] MEDS ORDERED: SODIUM CHLORIDE 0.9% 1,000 ML IV ONE (10:16)
--- NOTE | 2018-01-23 10:52 | P.PCN ---
Date of Procedure: 01/23/18 Procedure(s) Performed: PREOPERATIVE DIAGNOSIS: Rectal bleeding POSTOPERATIVE DIAGNOSIS: Internal and external hemorrhoids, diverticulosis PROCEDURE: Colonoscopy ANESTHESIA: MAC SURGEON: Meng Stover M.D. SPECIMENS: None ENDOSCOPIC PROCEDURE: The patient was placed on the endoscopy table in the left decubitus position. The Olympus colonoscope was inserted into the anus and passed under direct visualization to the base of the cecum. The appendiceal orifice was visualized. From that point the scope was slowly withdrawn inspecting all surfaces carefully. There were no neoplastic inflammatory or polypoid lesions throughout the cecum, ascending, transverse, descending, sigmoid and rectum. There was moderate left-sided diverticulosis noted. Digital rectal examination revealed small internal and external hemorrhoids without any evidence of active bleeding. The patient was taken to the recovery room in stable condition per anesthesia guidelines. RECOMMENDATIONS: Increase fiber. Resume anticoagulation. If perineal bleeding persists consider gynecologic evaluation.
--- NOTE | 2018-01-23 11:02 | P.PN ---
Subjective Progress Note Date: 01/23/18 Principal diagnosis: BRBPR, LUE DVT Pt seen in f/u, she is having colonoscopy today due to rectal bleeding, she had bright red blood on stool this AM, no other bleeding to report. She will be on heparin with transition to oral anticoagulation for LUE DVT. She is ok with analgesic regimen for her LUE pain. She is hungry, denies any SE r/t recent chemo administration at this time. Objective - Vital Signs Vital signs: Vital Signs Temp 97.5 F L 01/23/18 07:01 Pulse 58 L 01/23/18 07:01 Resp 12 01/23/18 07:01 BP 142/85 01/23/18 07:01 Pulse Ox 98 01/23/18 07:01 Intake & Output 01/22/18 01/23/18 01/23/18 18:59 06:59 18:59 Intake Total 800 960 Balance 800 960 Weight 118.388 kg 118.388 kg Intake: Intake, IV Titration 240 Amount Heparin Sod,Pork in 0.45% 120 NaCl 25,000 unit In 0.45 % NaCl 1 500ml.bag @ 8. 447 UNITS/KG/HR 20 mls/hr IV .Q24H THANH Rx#: [id number] Sodium Chloride 0.9% 1, 120 000 ml @ 20 mls/hr IV . Q24H THANH Rx#:[id number] Oral 800 720 Other: # Voids 4 # Bowel Movements 1 3 - Exam respirations even and unlabored, A&Ox4, NAD, LUE swelling and hand drop persistent, not progressive - Constitutional General appearance: Present: cooperative, morbidly obese, no acute distress - EENT Eyes: Present: anicteric sclerae - Labs CBC & Chem 7: 01/23/18 07:19 01/23/18 07:19 Labs: Abnormal Lab Results - Last 24 Hours (Table) 01/22/18 01/22/18 01/23/18 Range/Units 13:43 20:09 07:19 WBC 3.7 L (3.8-10.6) k/uL Lymphocytes # 0.3 L 0.5 L (1.0-4.8) k/uL APTT 47.3 H (22.0-30.0) sec Sodium (137-145) mmol/L Chloride (98-107) mmol/L BUN (7-17) mg/dL 01/23/ Range/Units 07:19 WBC (3.8-10.6) k/uL Lymphocytes # (1.0-4.8) k/uL APTT (22.0-30.0) sec Sodium 129 L (137-145) mmol/L Chloride 97 L (98-107) mmol/L BUN 29 H (7-17) mg/dL Assessment and Plan (1) Metastatic breast cancer Narrative/Plan: Confirmed with office notes, recurrence is triple negative, she has had 1st cycle of cis/gemzar. She will continue on treatment as prescribed for now Current Visit: Yes Status: Acute Priority: High Code(s): C50.919 - MALIGNANT NEOPLASM OF UNSP SITE OF UNSPECIFIED FEMALE BREAST SNOMED Code(s): 247728868 (2) Lymphedema of arm Narrative/Plan: Do NOT wrap the arm at this time, pt will have to use elevation and ROM for now Current Visit: Yes Status: Acute Priority: High Code(s): I89.0 - LYMPHEDEMA, NOT ELSEWHERE CLASSIFIED SNOMED Code(s): 711639072 (3) Deep vein thrombosis (DVT) of left upper extremity Narrative/Plan: Cont heparin drip, will transition to oral anticoagulation either tonight or in AM (pending any other procedures) Current Visit: Yes Status: Acute Priority: High Code(s): I82.622 - ACUTE EMBOLISM AND THROMBOSIS OF DEEP VEINS OF L UP EXTREM SNOMED Code(s): 818863900
[2018-01-23] MEDS: TRIAMTERENE-HCTZ 37.5-25MG 1 EACH TAB PO SCH (11:50)
[2018-01-23] MEDS: ACETAMINOPHEN TAB 500 MG TAB PO SCH ×3 (11:51→19:58)
[2018-01-23] MEDS: GABAPENTIN 100 MG CAP PO SCH ×3 (11:51→20:50)
[2018-01-23] MEDS: PANTOPRAZOLE 40 MG TABLET PO SCH ×2 (11:51→17:04)
[2018-01-23] MEDS: LOSARTAN 50 MG TAB PO SCH (11:51)
[2018-01-23 12:14] VITALS: RESP 16
--- NOTE | 2018-01-23 14:42 | PN ---
PROGRESS NOTE DATE OF SERVICE: 01/23/2018 This 57-year-old woman was admitted with acute GI bleed also had left wrist drop. Patient also found DVT of the left upper extremity. Dr. Stover performed a colonoscopy because of gastrointestinal bleed and the colonoscopy showed internal and external hemorrhoids without any active bleeding. No chest pain. No palpitations. No fever. PHYSICAL EXAM: Alert and oriented x3. Pulse 59, blood pressure 170/94, respirations 16, temperature 97.2, pulse ox 100% on room air. HEENT: Conjunctivae normal. Oral mucosa moist. NECK: No jugular venous distention. No carotid bruit. No lymph node enlargement. CARDIOVASCULAR: S1, S2. RESPIRATORY: Breath sounds diminished in the bases. No rhonchi, no crackles. ABDOMEN: Soft, nontender. No mass palpable. LEGS: No edema. NERVOUS SYSTEM: No focal deficits. LABS: At this time shows WBC 3.7, hemoglobin 12, sodium 129. ASSESSMENT: 1. Acute gastrointestinal bleed, possibly from internal and external hemorrhoids. 2. Acute deep venous thrombosis of the left upper limb. 3. Left wrist drop, possibly secondary to metastatic lesion of the brachial plexus or radial lymph compression. 4. Hyponatremia. 5. Left arm swelling. 6. Carcinoma breast with a recurrence on chemo. 7. Hypertension. 8. Status post chemotherapy. 9. History of cholecystectomy. 10.History of claustrophobia. I recommend to continue current management and symptomatic treatment. Otherwise we will repeat labs and add clonidine to the current regimen. Otherwise, no anticoagulants for DVT. We will discuss with Hematology/Oncology. Further recommendations to follow. MMODL / IJN: [id number] /
[2018-01-23] MEDS: HEPARIN SOD,PORK IN 0.45% NACL 25,000 UNIT in 0.45% NACL 1 500ML.BAG IV SCH (15:00)
[2018-01-23] MEDS: cloNIDine HCL 0.1 MG TAB PO SCH ×2 (15:06→20:50)
[2018-01-23] MEDS: SODIUM CHLORIDE 0.9% 1,000 ML IV SCH (15:11)
--- NOTE | 2018-01-23 15:50 | P.PN ---
Subjective Progress Note Date: 01/23/18 Principal diagnosis: Left Upper Extremity Weakness Neurology is following on a 57 year old female for left arm weakness. Patient has hx of breast cancer, left mastectomy, and lymph node resection on the left side from 2016. Patient has also received radiation and chemotherapy treatment. Patient was cleared by Oncology in Jul 2017 but later developed weakness in her left arm and was in physical therapy when she also began having swelling and weakness in the LUE. Patient was re-evaluated by Oncology and found to have more cancer. The left arm weakness has been progressive over the last 7-9 days. Today she is able to extend her digits and is beginning to flex and extend her left wrist. At initial contact, the patient was AOx3, supine in bed in no acute distress. Her swelling appears to have declined mildly day over day. Patient was due to have a MR-Brachial plexus but it was canceled by Oncology per nursing staff to further investigate a possible DVT in the left shoulder or upper arm . US Venous study noted a DVT present. Patient also has a GI bleed. Interval update 01/23/18: Patient reports improved symptoms in the left upper extremity. Patient reports increased use of fingers and ability to flex and extend at the wrist. Patient also states that her upper extremity edema/swelling has also mildly decreased. Patient is being followed by oncology at this time. Patient's MRI brachial plexus was canceled by oncology yesterday due to the patient's significant upper extremity weakness and inability to accommodate testing. Oncology did note that there were ultrasound findings of the left shoulder/upper extremity consistent with tumor involvement and possible underlying etiology related to tumor in the general area. Objective - Vital Signs Vital signs: Vital Signs Temp 97.6 F 01/23/18 12:12 Pulse 59 L 01/23/18 12:12 Resp 16 01/23/18 12:12 BP 174/94 01/23/18 12:12 Pulse Ox 100 01/23/18 12:12 Intake & Output 01/22/18 01/23/18 01/23/18 18:59 06:59 18:59 Intake Total 800 960 791.667 Balance 800 960 791.667 Weight 118.388 kg 118.388 kg Intake: IV 300 Intake, IV Titration 240 491.667 Amount Heparin Sod,Pork in 0.45% 120 491.667 NaCl 25,000 unit In 0.45 % NaCl 1 500ml.bag @ 8. 447 UNITS/KG/HR 20 mls/hr IV .Q24H [facility] Rx#: [id number] Sodium Chloride 0.9% 1, 120 000 ml @ 20 mls/hr IV . Q24H [facility] Rx#:[id number] Oral 800 720 Other: # Voids 4 2 # Bowel Movements 1 3 - Exam General appearance: Alert & oriented x3, no apparent distress. Head: Atraumatic, normocephalic, normal inspection Eyes: Well appearance, PERRLA, EOMI. Ear, nose and throat: Normal exam, mucous membranes moist Neck: Normal inspection, absent tenderness, lymphadenopathy. Respiratory: No increased work of breathing Cardiovascular: Regular rate, rhythm GI/abdominal: no tenderness, no guarding Extremities: Moves all extremities, LUE has noted weakness Neurological: cranial nerves II through XII intact Weakness- left upper extremity no seizure activity noted on physical exam Left lower extremity: 4/5 Right lower extremity: 4/5 Left upper extremity: 2/5 Right upper extremity: 4/5 Psychological: Mood and affect appropriate for setting. - Labs CBC & Chem 7: 01/23/18 07:19 01/23/18 07:19 Labs: Abnormal Lab Results - Last 24 Hours (Table) 01/22/18 01/23/18 01/23/18 Range/Units 20:09 07:19 07:19 WBC 3.7 L (3.8-10.6) k/uL Lymphocytes # 0.5 L (1.0-4.8) k/uL APTT 47.3 H (22.0-30.0) sec Sodium 129 L (137-145) mmol/L Chloride 97 L (98-107) mmol/L BUN 29 H (7-17) mg/dL Assessment and Plan (1) Radial nerve palsy Current Visit: Yes Status: Acute Code(s): G56.30 - LESION OF RADIAL NERVE, UNSPECIFIED UPPER LIMB SNOMED Code(s): 00124055 (2) Breast cancer Current Visit: Yes Status: Acute Code(s): C50.919 - MALIGNANT NEOPLASM OF UNSP SITE OF UNSPECIFIED FEMALE BREAST SNOMED Code(s): 098212009 (3) Lymphedema of arm Current Visit: Yes Status: Acute Priority: High Code(s): I89.0 - LYMPHEDEMA, NOT ELSEWHERE CLASSIFIED SNOMED Code(s): 708429697 (4) Wrist drop, left wrist Current Visit: Yes Status: Acute Code(s): M21.332 - WRIST DROP, LEFT WRIST SNOMED Code(s): 87047891 Plan: 1. Radial nerve palsyleft Physical exam notes findings consistent with possible radial nerve palsy MR-Brachial plexus-left, ordered but previously canceled/deferred at this time based on ultrasound findings 01/22/18 and as conveyed to neurology by oncology. 2. Breast cancer with recurrence Defer to Hematology Oncology and primary team for treatment plan 3. Lymphedemaleft upper extremity Defer to primary team 4. Left arm weakness Likely secondary to radial nerve palsy with possible tumor compression of radial nerve MR- Brachial plexus notations as noted above Continue Gabapentin 100 mg, TID as implemented by primary team for nerve related pain. Patient states gabapentin is managing her pain to a tolerable level at this time. Consultcontinue PT/OT 5. GI bleed Defer to primary team and GI for treatment plan. STATUS: Neurology will the patient for discharge from a neurological standpoint. If further neurological symptoms develop, please contact neurology for reconsultation. Once patient is discharged, advised patient to follow-up with our office within 10-14 days for a follow-up visit in the office. Feel free to contact our office with any question I have discussed the plan of care with the physician prior to implementation and he agrees with the plan as implemented.
[2018-01-23] MEDS ORDERED: HYDROcodone/APAP 5-325MG 1 EACH TAB ONE (23:00)
[2018-01-23] MEDS ORDERED: HYDROcodone/APAP 10-325MG 1 EACH TAB ONE (23:36)
[2018-01-23] MEDS ORDERED: TEMAZEPAM 30 MG CAP ONE (23:36)
[2018-01-24 03:19] LABS: Basophils % (A) 0 %; Eosinophils % (A) 0 %; HCT 34.2 % (34.0-46.0); HGB 11.8 gm/dL (11.4-16.0); Lymphocytes # (A) 0.5 k/uL (1.0-4.8); Lymphocytes % (A) 26 %; MCH 29.6 pg (25.0-35.0); MCHC 34.5 g/dL (31.0-37.0); MCV 85.8 fL (80.0-100.0); Mean Platelet Volume 6.4; Monocytes # (A) 0.1 k/uL (0-1.0); Monocytes % (A) 4 %; Neutrophils # (A) 1.4 k/uL (1.3-7.7); Neutrophils % (A) 70 %; Platelet Count 183 k/uL (150-450); RBC 3.99 m/uL (3.80-5.40); RDW 12.8 % (11.5-15.5); WBC 2.1 k/uL (3.8-10.6)
[2018-01-24 04:05] LABS: Anion Gap 7 mmol/L; Blood Urea Nitrogen 27 mg/dL (7-17); Calcium 8.5 mg/dL (8.4-10.2); Carbon Dioxide 27 mmol/L (22-30); Chloride 91 mmol/L (98-107); Glucose 95 mg/dL (74-99); Potassium 4.3 mmol/L (3.5-5.1); Sodium 125 mmol/L (137-145)
[2018-01-24 05:58] VITALS: BP 149/89; PULSE 53; TEMP 97.8
[2018-01-24] MEDS: LOSARTAN 50 MG TAB PO SCH (08:30)
[2018-01-24] MEDS: PANTOPRAZOLE 40 MG TABLET PO SCH (08:30)
[2018-01-24] MEDS: GABAPENTIN 100 MG CAP PO SCH (08:31)
[2018-01-24] MEDS: TRIAMTERENE-HCTZ 37.5-25MG 1 EACH TAB PO SCH (08:31)
[2018-01-24] MEDS: cloNIDine HCL 0.1 MG TAB PO SCH (08:31)
[2018-01-24] MEDS ORDERED: APIXABAN 5 MG TAB PO SCH (10:30)
[2018-01-24] MEDS: ACETAMINOPHEN TAB 500 MG TAB PO SCH ×2 (11:15→13:35)
--- NOTE | 2018-01-24 18:27 | P.PN ---
Subjective Progress Note Date: 01/24/18 Principal diagnosis: BRBPR, LUE DVT Pt sen in follow up, she has not had any BRPR today, no blood with BM. Her LUE pain and swelling are stable, positioning helps with the discomfort and keeps the swelling down. Objective - Vital Signs Vital signs: Vital Signs Temp 97.8 F 01/24/18 05:00 Pulse 53 L 01/24/18 08:31 Resp 16 01/24/18 08:31 BP 149/89 01/24/18 05:00 Pulse Ox 100 01/24/18 05:00 Intake & Output 01/23/18 01/24/18 01/24/18 18:59 06:59 18:59 Intake Total 791.667 117.333 Balance 791.667 117.333 Weight 118.388 kg Intake: IV 300 Intake, IV Titration 491.667 117.333 Amount Heparin Sod,Pork in 0.45% 491.667 117.333 NaCl 25,000 unit In 0.45 % NaCl 1 500ml.bag @ 8. 447 UNITS/KG/HR 20 mls/hr IV .Q24H [facility] Rx#: [id number] Other: # Voids 2 1 - Exam A&O x4, NAD, independent in activities - Constitutional General appearance: Present: no acute distress, obese - Labs CBC & Chem 7: 01/24/18 02:55 01/24/18 02:55 Labs: Abnormal Lab Results - Last 24 Hours (Table) 01/23/18 01/24/18 01/24/18 Range/Units 19:57 02:55 02:55 WBC 2.1 L (3.8-10.6) k/uL Lymphocytes # 0.5 L (1.0-4.8) k/uL APTT 38.1 H (22.0-30.0) sec Sodium 125 L (137-145) mmol/L Chloride 91 L (98-107) mmol/L BUN 27 H (7-17) mg/dL 01/24/18 Range/Units 02:55 WBC (3.8-10.6) k/uL Lymphocytes # (1.0-4.8) k/uL APTT 60.2 H (22.0-30.0) sec Sodium (137-145) mmol/L Chloride (98-107) mmol/L BUN (7-17) mg/dL Assessment and Plan (1) Metastatic breast cancer Narrative/Plan: Triple negative recurrent breast cancer, she has had 1st cycle of cis/gemzar- day 1 only, she missed day 8. Next week would be her week off so she will cont as scheduled. Pt verbalized understanding Status: Acute Priority: High Code(s): C50.919 - MALIGNANT NEOPLASM OF UNSP SITE OF UNSPECIFIED FEMALE BREAST SNOMED Code(s): 039638027 (2) Lymphedema of arm Narrative/Plan: Do NOT wrap the arm, pt treat using elevation, positioning, ROM and pain meds PRN for comfort Status: Acute Priority: High Code(s): I89.0 - LYMPHEDEMA, NOT ELSEWHERE CLASSIFIED SNOMED Code(s): 050602500 (3) Deep vein thrombosis (DVT) of left upper extremity Narrative/Plan: Eliquis Rx sent, confirmed 1st mo free. 3 mo anticoagulation is typically recommended for upper extremity but, suspect tumor compression of the area and lymphedema to be persistent for some time. Pt will be evaluated and only discontinued from anticoagulation if felt benefit outweighs the risk. Status: Acute Priority: High Code(s): I82.622 - ACUTE EMBOLISM AND THROMBOSIS OF DEEP VEINS OF L UP EXTREM SNOMED Code(s): 320819461
--- NOTE | 2018-01-24 21:03 | DS ---
DISCHARGE SUMMARY DATE OF SERVICE: 01/24/2018 FINAL DIAGNOSES: 1. Acute gastrointestinal bleed possible probably from internal and external hemorrhoids. 2. Acute deep vein thrombosis of the left upper limb. 3. Left wrist drop possibly secondary from metastatic lesions with brachial plexus or radial nerve compression. 4. Hyponatremia. 5. Left arm swelling. 6. Carcinoma of the breast with recurrence on chemo. 7. Hypertension. 9. History of cholecystectomy. 10.History of claustrophobia. DISCHARGE DISPOSITION: The patient is being discharged in stable condition. Guarded prognosis. HISTORY OF PRESENT ILLNESS: This 57 -year-old woman with a past medical history of multiple medical problems was admitted with multiple symptoms including GI bleed, and left arm swelling. Evaluation showed possible acute DVT. Colonoscopy showed internal-external hemorrhoids only. Left wrist drop was thought to be either brachial plexus involvement or radial involvement according to Neurology, but however, MRI was deferred by Hematology/Oncology. On exam, vitals are stable. Cardiovascular: S1, S2. Abdomen soft. Central nervous system: The patient has weakness of the left upper and lower limbs. Nervous system: No focal deficits. Labs are reviewed. DISCHARGE ADVICE AND MEDICATIONS: 1. Diet is cardiac diet. 2. Activity limited until followup. 3. Follow up with Dr. De La Cruz in 2-3 days. 4. Follow up with Dr. Whitt and Dr. Lee as recommended. MEDICATIONS ARE: 1. Tylenol 1000 mg daily p.r.n. 2. Pride 5 mg q.6h. 3. Cozaar 100 mg q.a.m. 4. Omeprazole 40 mg b.i.d. 5. Zofran 4 mg q.4h p.r.n. 6. Triamterene hydrochlorothiazide 37.5 mg 1 p.o. daily. 7. Eliquis 5 mg p.o. b.i.d. 8. Clonidine 0.1 p.o. b.i.d. 9. Neurontin 100 mg p.o. t.i.d. MMODL / IJN: [id number] / MTDD
== END 2018-01-24 14:30 | disposition home or self-care (01) | DRG 394 ==
LOC: EC 11:19 → 5ONC 14:10 → OBSVTOIN 01-24 08:16
PROVIDERS: ADMIT Hospitalist; ATTEND Hospitalist
PROC: 0DJD8ZZ Inspection of Lower Intestinal Tract, Via Natural or Artificial Opening Endoscopic (ICD-10-PCS; principal; 2018-01-23 07:30)
DX: K64.8 Other hemorrhoids (principal); E87.1 Hypo-osmolality and hyponatremia; I82.B12 Acute embolism and thrombosis of left subclavian vein; I82.A12 Acute embolism and thrombosis of left axillary vein; C79.89 Secondary malignant neoplasm of other specified sites; K64.4 Residual hemorrhoidal skin tags; F40.240 Claustrophobia; K57.30 Diverticulosis of large intestine without perforation or abscess without bleeding; G56.32 Lesion of radial nerve, left upper limb; M21.332 Wrist drop, left wrist; I10 Essential (primary) hypertension; I89.0 Lymphedema, not elsewhere classified; K59.00 Constipation, unspecified; Z85.3 Personal history of malignant neoplasm of breast; Z92.21 Personal history of antineoplastic chemotherapy; Z79.899 Other long term (current) drug therapy; Z88.1 Allergy status to other antibiotic agents; Z88.5 Allergy status to narcotic agent; Z87.891 Personal history of nicotine dependence; Z80.51 Family history of malignant neoplasm of kidney; Z82.49 Family history of ischemic heart disease and other diseases of the circulatory system; Z90.13 Acquired absence of bilateral breasts and nipples; Z92.3 Personal history of irradiation
CPT/HCPCS: 29125; 36415; 45378; 74018; 80048; 80053; 82272; 85025; 85027; 85610; 85730; 86850; 86900; 86901; 99285

== ENCOUNTER 2018-01-28 10:44 | Day surgery (SDC) | payer OTHER ==
[2018-01-25 09:37] VITALS: BMI 41.9
[~2018-01-28 10:44] MED LIST changes: -HYDROmorphone 0.5 MG/0.5 ML SYRINGE IVP PRN; +HYDROmorphone 1 MG/ML 1 ML SYRINGE IVP PRN; +LACTATED RINGERS 1,000 ML IV SCH; +LIDOCAINE 1% 20 ML VIAL (10MG/ML) FOR IV START INTRADERMA PRN
[2018-01-28 11:02] VITALS: TEMP 97.8
[2018-01-28] MEDS ORDERED: LACTATED RINGERS 1,000 ML IV ONE (11:08)
--- NOTE | 2018-01-28 11:20 | P.GSHP ---
History of Present Illness H&P Date: 01/28/18 Chief Complaint: Left breast cancer Please refer to recent consults during her admission last week. Patient here today for elective Port-A-Cath placement. Patient has recurrent and locally aggressive left breast cancer. Patient has had a Port-A-Cath before. Poor IV access. Patient starting chemotherapy. Past Medical History Past Medical History: Cancer, Deep Vein Thrombosis (DVT), GI Bleed, Hypertension Additional Past Medical History / Comment(s): left upper ext DVT, recurrance of left breast cancer. had chemo 01-17-18 first dose this course, lt arm swelling, past chemo and radiation 2016. hemmorhoids. left wrist drop History of Any Multi-Drug Resistant Organisms: None Reported Past Surgical History: Breast Surgery, Section, Cholecystectomy, Tonsillectomy Additional Past Surgical History / Comment(s): Oral surgery, left wrist surgery. rt simple masectomy, lt modified radical mastectomy. port a cath insertion and removal Past Anesthesia/Blood Transfusion Reactions: No Reported Reaction Additional Past Anesthesia/Blood Transfusion Reaction / Comment(s): HISTORY OF CLAUSTROPHOBIA- PREFERS NOTHING ON FACE Smoking Status: Former smoker - Past Family History Mother Family Medical History: Cancer Additional Family Medical History / Comment(s): Breast and kidney cancer. Father Family Medical History: CVA/TIA, Dementia, Hypertension Additional Family Medical History / Comment(s): brain bleed, heart problems Medications and Allergies Home Medications Medication Instructions Recorded Confirmed Type Losartan Potassium [Cozaar] 100 mg PO QAM 07/31/17 01/25/18 History Acetaminophen Tab [Tylenol] 1,000 mg PO Q8H 01/21/18 01/25/18 History HYDROcodone/APAP 5-325MG [Douglas 1 - 2 tab PO Q6HR PRN 01/21/18 01/25/18 History 5-325] Omeprazole 40 mg PO BID 01/21/18 01/25/18 History Ondansetron HCl [Zofran] 4 mg PO Q4H PRN 01/21/18 01/25/18 History Triamterene-Hctz 37.5-25Mg 1 tab PO DAILY 01/21/18 01/25/18 History [Maxzide 37.5-25] Apixaban [Eliquis] 5 mg PO BID 7 Days #28 tab 01/24/18 01/25/18 Rx Gabapentin [Neurontin] 100 mg PO TID #90 cap 01/24/18 01/25/18 Rx cloNIDine HCL [Catapres] 0.1 mg PO BID #60 tab 01/24/18 01/25/18 Rx Allergies Allergy/AdvReac Type Severity Reaction Status Date / Time levofloxacin [From Levaquin] Allergy Dyspnea/FACE Verified 01/21/18 12:55 SWELLING tramadol AdvReac "made pain Verified 01/25/18 09:27 worse" Surgical - Exam Vital Signs Temp Pulse Resp BP Pulse Ox 97.8 F 70 18 155/74 98 01/28/18 11:01 01/28/18 11:01 01/28/18 11:01 01/28/18 11:01 01/28/18 11:01 Physical exam: General: Well-developed, well-nourished HEENT: Normocephalic, sclerae nonicteric Abdomen: Nontender, nondistended Extremities: Left arm swelling and pain with weakness at distal left extremity Neuro: Alert and oriented Assessment and Plan (1) Breast cancer, left breast Narrative/Plan: Will proceed with Port-A-Cath placement at this time.Risks of bleeding, infection, DVT, pneumothorax, catheter malfunction, anesthesia related complications were discussed. The patient understands and wishes to proceed. Current Visit: No Status: Acute Code(s): C50.912 - MALIGNANT NEOPLASM OF UNSPECIFIED SITE OF LEFT FEMALE BREAST SNOMED Code(s): 073696818
[2018-01-28] MEDS ORDERED: fentaNYL (PF) 50 MCG/ML 2 ML AMP ONE (11:23)
[2018-01-28] MEDS ORDERED: LIDOCAINE 1% INJ 10MG/ML (20 ML MDV) ONE (11:23)
[2018-01-28] MEDS ORDERED: MIDAZOLAM 2 MG/2 ML VIAL ONE (11:23)
[2018-01-28] MEDS ORDERED: PROPOFOL 10 MG/ML 20 ML VIAL IV ONE (11:23)
[2018-01-28 11:32] LABS: ALT 47 U/L (9-52); AST 23 U/L (14-36); Albumin 4.2 g/dL (3.5-5.0); Alkaline Phosphatase 76 U/L (38-126); Anion Gap 11 mmol/L; Blood Urea Nitrogen 18 mg/dL (7-17); Calcium 9.3 mg/dL (8.4-10.2); Carbon Dioxide 24 mmol/L (22-30); Chloride 96 mmol/L (98-107); Glucose 103 mg/dL (74-99); Potassium 4.2 mmol/L (3.5-5.1); Sodium 131 mmol/L (137-145); Total Bilirubin 0.7 mg/dL (0.2-1.3); Total Protein 6.3 g/dL (6.3-8.2)
[2018-01-28] MEDS ORDERED: ceFAZolin 1,000 MG/50 ML BAG (PMX) IVPB ONE (11:54)
[2018-01-28] MEDS ORDERED: LIDOCAINE (PF) 10 MG/ML 2 ML VIAL SQ ONE ×2 (11:54)
--- NOTE | 2018-01-28 12:24 | FL ---
EXAMINATION TYPE: FL guided central line placemt HISTORY: Fluoroscopy time Impression: 1. Fluoroscopy support provided to the referring physician. 6 seconds of fluoroscopy provided.
[2018-01-28] MEDS ORDERED: NALOXONE 0.4 MG/ML 1 ML VIAL IV PRN (12:38)
--- NOTE | 2018-01-28 12:39 | P.OP ---
Date of Procedure: 01/28/18 Procedure(s) Performed: PREOPERATIVE DIAGNOSIS: Recurrent left breast cancer POSTOPERATIVE DIAGNOSIS: Same PROCEDURE: Port-A-Cath placement SURGEON: Ck EBL: Minimal ANESTHESIA: Sedation COMPLICATIONS: None OPERATIVE PROCEDURE: Patient was brought and placed on the operative table in the supine position. The patient was sedated per anesthesia that time. The chest and neck were prepped and draped in usual sterile fashion. The ultrasound probe was used to identify the location of the right internal jugular vein. The skin was localized with lidocaine. The Seldinger needle was advanced into the IJ under ultrasound guidance. The wire was advanced through the needle under fluoroscopic guidance into the superior vena cava. A port pocket was created in the right infraclavicular location through the same previous incision site. The catheter was tunneled from the wire entrance site to the port pocket. The port was then connected to the catheter. The dilator introducer was threaded over the guidewire. The guidewire and dilator were then removed. The catheter was advanced through the introducer and introducer was then removed. The tip was seen to be in the right atrial junction. Port was flushed with both saline and a Hep-Lock solution. There was good flow both in and out of the port. The port was sutured in underlying tissues using 3-0 silk sutures. The subcutaneous tissues were reapproximated using 3-0 Vicryl sutures and the skin at both locations using 4-0 Monocryl sutures. Steri- Strips and sterile dressings then applied. DISPOSITION: Stable to recovery room
[2018-01-28 12:43] VITALS: BP 146/87; PULSE 69; RESP 16
--- NOTE | 2018-01-28 12:49 | XR ---
EXAMINATION TYPE: XR chest 1V confirm line [facility] DATE OF EXAM: 01/28/2018 COMPARISON: 10/18/2016 HISTORY: Line placement TECHNIQUE: Single frontal view of the chest is obtained. FINDINGS: New right-sided Mediport terminates in the right cavoatrial junction, appropriately placed . There is no focal air space opacity, pleural effusion, or pneumothorax seen. The cardiac silhouett e size is within normal limits. The osseous structures are intact. Bilateral breast expanders are s een with surgical clips over the left mediastinal border presumably within the left breast subcutaneo us soft tissues. IMPRESSION: Replaced right-sided Mediport with its distal tip terminating in the cavoatrial junction . No acute cardiopulmonary process.
== END 2018-01-28 13:10 | disposition home or self-care (01) ==
LOC: OR 10:44
PROVIDERS: ATTEND Surgery
DX: C50.412 Malignant neoplasm of upper-outer quadrant of left female breast (principal); Z45.2 Encounter for adjustment and management of vascular access device; Z92.21 Personal history of antineoplastic chemotherapy; Z92.3 Personal history of irradiation; Z90.12 Acquired absence of left breast and nipple; I10 Essential (primary) hypertension; I73.00 Raynaud's syndrome without gangrene; Z80.3 Family history of malignant neoplasm of breast; Z80.51 Family history of malignant neoplasm of kidney; Z80.6 Family history of leukemia; Z87.891 Personal history of nicotine dependence; Z86.718 Personal history of other venous thrombosis and embolism; Z79.01 Long term (current) use of anticoagulants; Z79.2 Long term (current) use of antibiotics; Z79.52 Long term (current) use of systemic steroids; Z79.899 Other long term (current) drug therapy; Z88.1 Allergy status to other antibiotic agents; Z88.5 Allergy status to narcotic agent
CPT/HCPCS: 80053; 77001; 36561; 76937; C1788; J2250; J2001 ×2; J1644; J1100; J2405; J3010; J0690; J2704

== ENCOUNTER → 2018-04-27 | Outpatient (CLI) | payer OTHER ==
--- NOTE | 2018-04-28 06:28 | PE ---
EXAMINATION TYPE: PET CT fusion skull to thigh DATE OF EXAM: 04/27/2018 COMPARISON: Most recent PET CT January 05, 2018 and older studies. Most recent CT chest abdomen and pelvi s July 12, 2017. HISTORY: History of left-sided breast cancer diagnosed 2016 completed chemotherapy April 03, 2018 an d completed radiation treatment September 04, 2017, history of left breast surgery May 24, 2017. TECHNIQUE: Following the intravenous administration of 13.167 mCi of F-18 FDG, whole body images are performed from the skull base to the midthigh. Images are reviewed on the computer in the coronal, axial, and sagittal planes. Reconstructed rotating images are created on independent workstation and reviewed on the computer. A noncontrast CT is performed in conjunction with the PET scan. SCAN: Subsequent Scan FINDINGS: SKULL BASE AND NECK: No new areas of abnormal hypermetabolic uptake are clearly seen. Subcentimeter right-sided hypermetabolic focus near skull base axial image 30 is not significantly changed from Sep PET/CT presumed volume averaging or inflammatory reactive lymph node. CHEST, MEDIASTINUM, AND HILAR REGION: Marked interval improvement in abnormal hypermetabolic uptake w ith soft tissue thickening along the left lateral thoracic sidewall, there is better visualized asymm etric atrophy of the muscles along the inferior half of the scapula current study, some soft tissue i rregular thickening remains present but improved from most recent prior PET/CT. No suspicious hyperme tabolic uptake is seen currently. Redemonstration of bilateral breast surgery with bilateral breast expanders. Surgical clips medially in the left breast didn't towards the left axilla remain present. ABDOMEN AND PELVIS: No new areas of abnormal hypermetabolic uptake are seen. OSSEOUS STRUCTURES: No new areas of abnormal hypermetabolic uptake are seen. OTHER CT: Artifact related to patient's large body habitus noted. New right internal jugular Mediport catheter terminating in SVC. Leftward nasal septal deviation is redemonstrated. Heart size mildly enlarged. Mitral annular calcifications are redemonstrated. Coronary artery calcifi cation is redemonstrated. Cholecystectomy clips are again seen. Sigmoid diverticulosis redemonstrated. Degenerative changes at the hips and lower lumbar spine. No osseous destructive process. IMPRESSION: Positive treatment response with improvement in abnormal thickening left lateral thoracic sidewall and currently no suspicious hypermetabolic uptake. No new metastatic disease identified. EORTC response criteria: Complete Metabolic Response. MaxSUV < 2.5 or equivalent to background
== END ==
LOC: RADPETMAIN 07:58
PROVIDERS: ATTEND Internal Medicine Hematology & Oncology
DX: C50.412 Malignant neoplasm of upper-outer quadrant of left female breast (principal)
CPT/HCPCS: 78815; A9552

== ENCOUNTER → 2018-07-13 | Outpatient (CLI) | payer BC ==
--- NOTE | 2018-07-16 09:22 | PE ---
Nuclear medicine PET/CT HISTORY: Right breast carcinoma, subsequent Patient received 13.9 mCi F-18 FDG intravenously in delayed scanning was performed from skull base to the mid thighs. An attenuation correction, localization CT scan was also performed. Correlation to prior nuclear medicine PET/CT 04/27/2018 Neck and chest: There are multiple foci of hypermetabolic uptake in the left axilla, there are some n onenlarged nodes present as well as ill-defined soft tissue which is progressed since prior exam, mul tiple foci of hypermetabolic uptake are present, at least 7 discrete foci not seen on prior are prese nt along the left lateral chest wall and axilla, SUV as high as 11.7. Some uptake is mild along the p ectoralis musculature, SUV 4.1. Bilateral tissue expanders are present within the breasts as on prior . No evident lung mass. Suspect there is a hiatal hernia. There is new hypermetabolic uptake within t he musculature of the posterior left lateral chest wall anterior, inferior to the left scapula, SUV 5 .4. Abdomen pelvis: No suspicious hypermetabolic uptake. No evident liver mass. Patient is post cholecyst ectomy. No retroperitoneal nodes. Artifact is present across the exam which may limit detail. Atherom atous changes are present within the aorta. No evident ascites. Osseous structures: There has been interval development of abnormal uptake in the right mandible, the re is dental amalgam which may obscure detail at this level, correlate for dental abnormality, interv al procedure posterior to last molar on the right. SUV 8.7 IMPRESSION: New hypermetabolic uptake within the left axilla and along the left chest wall and right mandible as described
== END ==
LOC: RADPETMAIN 08:05
PROVIDERS: ATTEND Internal Medicine Hematology & Oncology
DX: C50.412 Malignant neoplasm of upper-outer quadrant of left female breast (principal)
CPT/HCPCS: 78815; A9552

== ENCOUNTER → 2018-11-15 | Outpatient (CLI) | payer BC ==
--- NOTE | 2018-11-15 14:34 | CT ---
EXAMINATION TYPE: CT ChestAbdPelvis w con DATE OF EXAM: 11/15/2018 COMPARISON: PET/CT dated 07/13/2018 HISTORY: Breast cancer follow up. CT DLP: 3131.7 mGycm. Automated Exposure Control for Dose Reduction was Utilized. CONTRAST: CT scan of the thorax, abdomen and pelvis is performed with IV Contrast, patient injected with 80 mL of Isovue M300. FINDINGS: LUNGS: There is a new moderate left pleural effusion and associated compressive atelectasis. Punctate 2 mm pulmonary nodule in the left upper lobe is seen on image 23. Additional punctate 3 mm pulmonary nodule is present within the left lower lobe on image 42. Another 2 mm pulmonary nodules marked on i mage 28. Punctate right apical pulmonary nodule measuring 2 mm is seen on image 13. Another similar 2 mm subpleural pulmonary nodule is marked on image 16 in the right upper lobe peripherally. Question able pulmonary nodule in the right upper lobe peripherally is also seen on image 24. This is in a sub pleural location. MEDIASTINUM: There is a punctate lymph node within the prevascular space. Multiple suspicious right a xillary lymph nodes are seen with surrounding inflammatory fat stranding, these are poorly measured d ue to the surrounding inflammatory fat stranding but appear to measure up to 8 mm in short axis on im age 15. Rounded abnormal left axillary lymph node is also seen on image 15 measuring 1.1 cm in short axis, nonenlarged. There is evidence of prior left axillary josh dissection. Right-sided Mediport terminates in the cavoatrial junction. Moderate coronary artery calcifications a re seen. No pericardial effusion. No cardiomegaly. OTHER: There are bilateral dual lumen breast implant seen with bilateral reconstructive surgery. Subc utaneous fat stranding extends along the left lateral chest wall into the ventral and left lateral wolff bcutaneous tissues of the upper and mid abdomen. No focal fluid collection to suggest abscess. LIVER/GB: No significant abnormality is appreciated. Gallbladder surgically absent. No focal hepatic mass is appreciated. PANCREAS: No significant abnormality is seen. SPLEEN: No significant abnormality is seen. ADRENALS: No significant abnormality is seen. KIDNEYS: Benign left lower pole renal cyst measures 1.8 cm. BOWEL: There is rectal fecal impaction and dilatation up to 8.5 cm. No proximal dilatation of the lar ge bowel. Numerous colonic diverticula are present without pericolonic fat stranding. No dilated smal l bowel is seen. GENITAL ORGANS: No gross abnormality seen. LYMPH NODES: No greater than 1cm abdominal or pelvic lymph nodes are appreciated. OSSEOUS STRUCTURES: Mild multilevel degenerative changes of the spine. However no new suspicious osse ous lesion is seen. OTHER: Moderate atherosclerosis is present of the abdominal aorta and its branches. Abdominal aorta i s of normal course and caliber. IMPRESSION: 1. Bilateral suspicious axillary adenopathy with fat stranding seen in the bilateral axilla and on th e left extending into the chest wall subcutaneous tissues and abdominal subcutaneous soft tissues. 2. Bilateral punctate 2 to 3 mm pulmonary nodules and new moderate left pleural effusion. Thoracentes is with cytology could be considered. 3. No CT evidence of visceral metastasis within the abdomen or pelvis. 4. Incidentally noted rectal fecal impaction and dilatation.
== END | disposition home or self-care (01) ==
LOC: RADPROMAIN 10:34
PROVIDERS: ATTEND Internal Medicine Hematology & Oncology
DX: Z03.89 Encounter for observation for other suspected diseases and conditions ruled out (principal); C50.412 Malignant neoplasm of upper-outer quadrant of left female breast; R91.8 Other nonspecific abnormal finding of lung field; J90 Pleural effusion, not elsewhere classified; I89.8 Other specified noninfective disorders of lymphatic vessels and lymph nodes; Z95.828 Presence of other vascular implants and grafts; K56.41 Fecal impaction; K59.39 Other megacolon
CPT/HCPCS: 82565; 84520; 71260; 74177; J1642; Q9967 ×2

== ENCOUNTER 2019-01-23 14:01 | Inpatient (IN) | payer BC ==
--- NOTE | 2019-01-23 14:21 | ED ---
General Adult HPI - General Chief complaint: Shortness of Breath Stated complaint: SOB Time Seen by Provider: 01/23/19 14:04 Source: patient Mode of arrival: wheelchair Limitations: no limitations - History of Present Illness Initial comments: Dictation was produced using [employer] dictation software. please excuse any grammatical, word or spelling errors. Chief Complaint: 58-year-old female past medical history of breast cancer, subsequent left upper extremity lymphedema, left upper extremity DVT with pulmonary emboli presents with shortness of breath. History of Present Illness: Is a 58-year-old female. She presents today with shortness of breath. Patient has a history of lymphedema secondary to breast cancer. She is on recent trip to [place] where she drove sore several hours. Patient states since after the trip she's been short of breath. She was ordered for home health care nursing to help her with her lymphedema. She is currently on eliquis. Patient was evaluated by home health nurse who told patient come to the emergency department to be evaluated for pulmonary emboli. Patient does have known DVT in the left upper extremity. Patient states she's been short of breath for the last 2 days. Denies any lower extremity symptoms. Patient denies any chest pain. No constitutional symptoms. The ROS documented in this emergency department record has been reviewed and confirmed by me. Those systems with pertinent positive or negative responses have been documented in the HPI. All other systems are other negative and/or noncontributory. PHYSICAL EXAM: General Impression: Alert and oriented x3, not in acute distress HEENT: Normocephalic atraumatic, extra-ocular movements intact, pupils equal and reactive to light bilaterally, mucous membranes moist. Cardiovascular: Heart regular rate and rhythm, S1&S2 audible, no murmurs, rubs or gallops Chest: Lungs clear to auscultation bilaterally, no rhonchi, no wheeze, no rales Abdomen: Bowel sounds present, abdomen soft, non-tender, non-distended, no organomegaly Musculoskeletal: Pulses present and equal in all extremities, no peripheral e abdiel Motor: no focal deficits noted Neurological: CN II-XII grossly intact, no focal motor or sensory deficits noted Skin: Intact with no visualized rashes Left upper extremity: Patient has a bandage that she does not want me to remove. Bandage appears to be clean dry and intact Psych: Normal affect and mood ED course: 58-year-old female past medical history of left upper extremity deep venous thrombosis, history of blood clot currently on any coagulation medication presents shortness of breath after a very long car ride. Upon arrival are within acceptable limits. Physical examination is benign. Patient reports that she has chronic left upper extremity issues secondary to breast cancer. She has no new complaints regarding her left upper extremity. Highly doubt bone embolus at this time given that patient is actively under the coag evaluation treatment. Laboratory evaluation obtained. CBC Donald. Coag unremarkable. Patient's sodium 127. She given intravenous fluids. Metabolic panel shows mild gap acidosis. Cardiac enzymes negative. Coag panel is negative. Chest x-ray was obtained showing large left pleural effusion. An attempt was made to order CT angios however patient would not tolerate lying flat given the pain in her left upper extremity. I highly doubt that patient has a PE at this time given that she is currently on antibiotic for inpatient therapy. Given patient's clinical findings in x-ray findings we will have patient admitted for college consultation and further medical monitoring. EKG interpretation: Ventricular rate 74, normal sinus rhythm,. Interval 118, care is 86, QTC 419. No ME prolongation, no QTC prolongation, no ST or T-wave changes noted. EKG compared to [default value] showing no changes. Overall, this EKG is unremarkable - Related Data Home Medications Medication Instructions Recorded Confirmed Losartan Potassium [Cozaar] 100 mg PO QAM 07/31/17 01/23/19 HYDROcodone/APAP 5-325MG [[place] 1 tab PO Q6HR PRN 11/14/18 01/23/19 5-325] Lidocaine-Prilocaine Cream [Emla 1 applic TOPICAL DAILY PRN 01/23/19 01/23/19 Cream 2.5%/2.5%] Polyethylene Glycol 3350 [Miralax] 17 gm PO DAILY PRN 01/23/19 01/23/19 fentaNYL 25MCG/HR PATCH [Duragesic 1 patch TRANSDERM Q72H 01/23/19 01/23/19 25MCG/HR] Previous Rx's Medication Instructions Recorded Apixaban [Eliquis] 5 mg PO BID 7 Days #28 tab 01/24/18 Gabapentin [Neurontin] 100 mg PO TID #90 cap 01/24/18 Allergies Allergy/AdvReac Type Severity Reaction Status Date / Time levofloxacin [From Levaquin] Allergy Dyspnea/FACE Verified 01/23/19 14:17 SWELLING tramadol AdvReac "made pain Verified 01/23/19 14:17 worse" Review of Systems ROS Statement: Those systems with pertinent positive or pertinent negative responses have been documented in the HPI. ROS Other: All systems not noted in ROS Statement are negative. Past Medical History Past Medical History: Cancer, Deep Vein Thrombosis (DVT) Additional Past Medical History / Comment(s): recurrance of left breast cancer.- had chemo 01-17-18, lt arm swelling History of Any Multi-Drug Resistant Organisms: None Reported Past Surgical History: Breast Surgery, Section, Cholecystectomy, Tonsillectomy Additional Past Surgical History / Comment(s): Oral surgery, left wrist surgery.rt simple masectomy, lt modified radical masectomy Past Anesthesia/Blood Transfusion Reactions: No Reported Reaction Additional Past Anesthesia/Blood Transfusion Reaction / Comment(s): HISTORY OF CLAUSTROPHOBIA- PERFERS NOTHING ON FACE Past Psychological History: No Psychological Hx Reported Smoking Status: Former smoker Past Alcohol Use History: None Reported Past Drug Use History: None Reported - Past Family History Mother Family Medical History: Cancer Additional Family Medical History / Comment(s): Breast and kidney cancer. Father Family Medical History: CVA/TIA, Dementia, Hypertension Additional Family Medical History / Comment(s): brain bleed, heart problems General Exam Limitations: no limitations Course Vital Signs 01/23/19 14:04 Temperature 98.1 F Pulse Rate 71 Respiratory 22 Rate Blood Pressure 125/73 O2 Sat by Pulse 98 Oximetry Medical Decision Making - Lab Data Result diagrams: 01/23/19 14:45 01/23/19 14:45 Lab Results 01/23/19 01/23/19 01/23/19 Range/Units 14:45 14:45 14:45 WBC 7.8 (3.8-10.6) k/uL RBC 3.25 L (3.80-5.40) m/uL Hgb 9.3 L (11.4-16.0) gm/dL Hct 28.1 L (34.0-46.0) % MCV 86.6 D (80.0-100.0) fL MCH 28.6 (25.0-35.0) pg MCHC 33.0 (31.0-37.0) g/dL RDW 15.8 H (11.5-15.5) % Plt Count 366 (150-450) k/uL Neutrophils % 82 % Lymphocytes % 8 % Monocytes % 7 % Eosinophils % 1 % Basophils % 0 % Neutrophils # 6.4 (1.3-7.7) k/uL Lymphocytes # 0.6 L (1.0-4.8) k/uL Monocytes # 0.6 (0-1.0) k/uL Eosinophils # 0.1 (0-0.7) k/uL Basophils # 0.0 (0-0.2) k/uL Poikilocytosis Slight PT (9.0-12.0) sec INR (<1.2) Sodium 127 L (137-145) mmol/L Potassium 4.2 (3.5-5.1) mmol/L Chloride 94 L (98-107) mmol/L Carbon Dioxide 21 L (22-30) mmol/L Anion Gap 12 mmol/L BUN 25 H (7-17) mg/dL Creatinine 1.26 H (0.52-1.04) mg/dL Est GFR (CKD-EPI)AfAm 54 (>60 ml/min/1.73 sqM) Est GFR (CKD-EPI)NonAf 47 (>60 ml/min/1.73 sqM) Glucose 114 H (74-99) mg/dL Plasma Lactic Acid Colton 0.8 (0.7-2.0) mmol/L Calcium 8.7 (8.4-10.2) mg/dL Magnesium 2.0 (1.6-2.3) mg/dL Troponin I (0.000-0.034) ng/mL Lipase 54 (23-300) U/L 01/23/19 01/23/19 Range/Units 14:45 14:45 WBC (3.8-10.6) k/uL RBC (3.80-5.40) m/uL Hgb (11.4-16.0) gm/dL Hct (34.0-46.0) % MCV (80.0-100.0) fL MCH (25.0-35.0) pg MCHC (31.0-37.0) g/dL RDW (11.5-15.5) % Plt Count (150-450) k/uL Neutrophils % % Lymphocytes % % Monocytes % % Eosinophils % % Basophils % % Neutrophils # (1.3-7.7) k/uL Lymphocytes # (1.0-4.8) k/uL Monocytes # (0-1.0) k/uL Eosinophils # (0-0.7) k/uL Basophils # (0-0.2) k/uL Poikilocytosis PT 11.5 (9.0-12.0) sec INR 1.1 (<1.2) Sodium (137-145) mmol/L Potassium (3.5-5.1) mmol/L Chloride (98-107) mmol/L Carbon Dioxide (22-30) mmol/L Anion Gap mmol/L BUN (7-17) mg/dL Creatinine (0.52-1.04) mg/dL Est GFR (CKD-EPI)AfAm (>60 ml/min/1.73 sqM) Est GFR (CKD-EPI)NonAf (>60 ml/min/1.73 sqM) Glucose (74-99) mg/dL Plasma Lactic Acid Colton (0.7-2.0) mmol/L Calcium (8.4-10.2) mg/dL Magnesium (1.6-2.3) mg/dL Troponin I <0.012 (0.000-0.034) ng/mL Lipase (23-300) U/L Disposition Clinical Impression: Pleural effusion Disposition: ADMITTED IP TO THIS HOSP Condition: Fair Referrals: Dayana De La Cruz MD [Primary Care Provider] - 1-2 days Decision Time: 16:59
--- NOTE | 2019-01-23 15:06 | XR ---
EXAMINATION TYPE: XR chest 1V portable DATE OF EXAM: 01/23/2019 COMPARISON: Prior chest x-ray 01/28/2018 HISTORY: Shortness of breath TECHNIQUE: Single frontal view of the chest is obtained. FINDINGS: There is been interval development of abnormal increased attenuation involving most of the left hemithorax. Aerated lung persists in the apex region. Bilateral tissue expanders are in place. There is a Port-A-Cath present with the distal tip overlying the cavoatrial junction level. No eviden t pneumothorax. Heart is obscured. IMPRESSION: Interval development of large left pleural effusion and associated atelectasis, difficul t to exclude pneumonia or underlying mass.
[2019-01-23 15:11] LABS: Basophils % (A) 0 %; Eosinophils # (A) 0.1 k/uL (0-0.7); Eosinophils % (A) 1 %; HCT 28.1 % (34.0-46.0); HGB 9.3 gm/dL (11.4-16.0); INR 1.1 (<1.2); Lymphocytes # (A) 0.6 k/uL (1.0-4.8); Lymphocytes % (A) 8 %; MCH 28.6 pg (25.0-35.0); Mean Platelet Volume 6.5; Monocytes # (A) 0.6 k/uL (0-1.0); Monocytes % (A) 7 %; Neutrophils # (A) 6.4 k/uL (1.3-7.7); Neutrophils % (A) 82 %; Platelet Count 366 k/uL (150-450); Poikilocytosis Slight; Prothrombin Time 11.5 sec (9.0-12.0); RBC 3.25 m/uL (3.80-5.40); RDW 15.8 % (11.5-15.5); WBC 7.8 k/uL (3.8-10.6)
[2019-01-23 15:15] LABS: MCV 86.6 fL (80.0-100.0)
[2019-01-23 15:23] LABS: Calcium 8.7 mg/dL (8.4-10.2); Potassium 4.2 mmol/L (3.5-5.1)
[2019-01-23] MEDS ORDERED: MORPHINE SULFATE 4 MG/ML SYRINGE IVP PRN (15:27)
[2019-01-23] MEDS ORDERED: SODIUM CHLORIDE 0.9% 1,000 ML IV STA (16:57)
[2019-01-23] MEDS ORDERED: NALOXONE 0.4 MG/ML 1 ML VIAL IV PRN (16:59)
[2019-01-23] MEDS ORDERED: POLYETHYLENE GLYCOL 3350 17 GM POWD.PACK PO PRN (17:00)
[2019-01-23] MEDS ORDERED: LIDOCAINE-PRILOCAINE 2.5-2.5% CREAM 5 GM TUBE TOPICAL PRN (17:00)
[2019-01-23] MEDS: SODIUM CHLORIDE 0.9% 1,000 ML IV SCH (17:17)
[2019-01-23] MEDS: HYDROcodone/APAP 5-325MG 1 EACH TAB PO PRN (20:23)
[2019-01-23] MEDS ORDERED: APIXABAN 5 MG TAB PO SCH (21:00)
[2019-01-23] MEDS: GABAPENTIN 100 MG CAP PO SCH (22:39)
--- NOTE | 2019-01-23 23:22 | P.HPIM ---
History of Present Illness H&P Date: 01/23/19 Chief Complaint: shortness of breath Patient is a 58-year-old female with a known history of recurrance of left breast cancer.-had chemo 01-17-18, Left arm lymphedema due to breast cancer, history of DVT currently on anticoagulation with Eliquis came to ER with complaints of worsening shortness of breath for the past 2 days. Patient is on recent trip to [place] with she drove for several hours. Patient has been having worsening shortness of breath and she cut short her trip and came back home. Patient presents to ER due to worsening shortness of breath. She was ordered for home health care nursing to help her with her lymphedema. She is currently on eliquis. Patient was evaluated by home health nurse who told patient come to the emergency department to be evaluated for pulmonary emboli. No complaints of chest pain. Patient does have some increased leg swel ling and increased abdominal girth. No fever no chills. No nausea vomiting or diarrhea and abdominal pain. No cough or sputum production. Sodium 127, BUN 25 and creatinine 1.26. Hemoglobin 9.3. Chest x-ray showed interval development of large left pleural effusion and associated atelectasis, difficult to exclude pneumonia or underlying mass. Review of Systems Constitutional: Patient denies any fever or chills . No generalized weakness or weight loss. Abdomen: Patient denied nausea vomiting and diarrhea and abdominal pain. Increased abdominal girth. Cardiovascular: Patient denies any chest pain or short of breath no palpitations. Respiratory: patient denied any cough is from production. Patient does have shortness of breath Neurologic: Patient denied any numbness or tingling headache. Musculoskeletal: Patient denies any complaints of joint swelling or deformity. Skin: Negative Psychiatric: Negative Endocrine: No heat or cold intolerance. No recent weight gain. Genitourinary: No dysuria or hematuria. All other 14 point ROS negative except the above Past Medical History Past Medical History: Cancer, Deep Vein Thrombosis (DVT) Additional Past Medical History / Comment(s): recurrance of left breast cancer.- had chemo 01-17-18, lt arm swelling History of Any Multi-Drug Resistant Organisms: None Reported Past Surgical History: Breast Surgery, Section, Cholecystectomy, Tonsillectomy Additional Past Surgical History / Comment(s): Oral surgery, left wrist surgery.rt simple masectomy, lt modified radical masectomy Past Anesthesia/Blood Transfusion Reactions: No Reported Reaction Additional Past Anesthesia/Blood Transfusion Reaction / Comment(s): HISTORY OF CLAUSTROPHOBIA- PERFERS NOTHING ON FACE Past Psychological History: No Psychological Hx Reported Smoking Status: Former smoker Past Alcohol Use History: None Reported Past Drug Use History: None Reported - Past Family History Mother Family Medical History: Cancer Additional Family Medical History / Comment(s): Breast and kidney cancer. Father Family Medical History: CVA/TIA, Dementia, Hypertension Additional Family Medical History / Comment(s): brain bleed, heart problems Medications and Allergies Home Medications Medication Instructions Recorded Confirmed Type Losartan Potassium [Cozaar] 100 mg PO QAM 07/31/17 01/23/19 History Apixaban [Eliquis] 5 mg PO BID 7 Days #28 tab 01/24/18 01/23/19 Rx Gabapentin [Neurontin] 100 mg PO TID #90 cap 01/24/18 01/23/19 Rx HYDROcodone/APAP 5-325MG [[place] 1 tab PO Q6HR PRN 11/14/18 01/23/19 History 5-325] Lidocaine-Prilocaine Cream [Emla 1 applic TOPICAL DAILY PRN 01/23/19 01/23/19 History Cream 2.5%/2.5%] Polyethylene Glycol 3350 [Miralax] 17 gm PO DAILY PRN 01/23/19 01/23/19 History fentaNYL 25MCG/HR PATCH [Duragesic 1 patch TRANSDERM Q72H 01/23/19 01/23/19 History 25MCG/HR] Allergies Allergy/AdvReac Type Severity Reaction Status Date / Time levofloxacin [From Levaquin] Allergy Dyspnea/FACE Verified 01/23/19 14:17 SWELLING tramadol AdvReac "made pain Verified 01/23/19 14:17 worse" Physical Exam Vitals: Vital Signs Temp Pulse Pulse Resp BP BP Pulse Ox 01/23/19 22:00 97.8 F 73 16 133/62 98 01/23/19 20:27 72 18 134/61 99 01/23/19 15:30 66 18 133/61 99 01/23/19 14:04 98.1 F 71 22 125/73 98 Intake and Output 01/23/19 01/23/19 01/23/19 06:59 14:59 22:59 Intake Total 590 Balance 590 Intake: Oral 590 Other: Weight 126.099 kg PHYSICAL EXAMINATION: Patient is lying in the bed comfortably, no acute distress, awake alert and oriented.. HEENT: Normocephalic. Neck is supple. Pupils reactive. Nostrils clear. Oral cavity is moist. Ears reveal no drainage. Neck reveals no JVD, carotid bruits, or thyromegaly. CHEST EXAMINATION: Trachea is central. Symmetrical expansion. Left-sided lower lobe diminished air entry. No wheezing. No crackles. CARDIAC: Normal S1, S2 with no gallops. No murmurs ABDOMEN: Soft. Bowel sounds normal. No organomegaly. No abdominal bruits. Extremities: 2+ pedal edema. Left upper extremity lymphedema. No clubbing or cyanosis Neurologically awake, alert, oriented x3 with well-coordinated movements. No focal deficits noted Skin: No rash or skin lesions. Psychiatric: Coperative. Nonsuicidal Musculoskeletal: No joint swelling or deformity. Normal range of motion. Results CBC & Chem 7: 01/23/19 14:45 01/23/19 14:45 Labs: Abnormal Lab Results - Last 24 Hours (Table) 01/23/19 01/23/19 Range/Units 14:45 14:45 RBC 3.25 L (3.80-5.40) m/uL Hgb 9.3 L (11.4-16.0) gm/dL Hct 28.1 L (34.0-46.0) % RDW 15.8 H (11.5-15.5) % Lymphocytes # 0.6 L (1.0-4.8) k/uL Sodium 127 L (137-145) mmol/L Chloride 94 L (98-107) mmol/L Carbon Dioxide 21 L (22-30) mmol/L BUN 25 H (7-17) mg/dL Creatinine 1.26 H (0.52-1.04) mg/dL Glucose 114 H (74-99) mg/dL Thrombosis Risk Factor Assmnt - DVT/VTE Prophylaxis DVT/VTE Prophylaxis: Pharmacologic Prophylaxis ordered Assessment and Plan Assessment: Worsening shortness of breath secondary to left sided large pleural effusion. Likely malignant effusion. Hyponatremia likely hypervolemic. Recurrence of breast cancer currently on chemotherapy last on 01/17/2019 Left upper extremity lymphedema due to breast cancer with lymph node involvement History of DVT currently on anticoagulation with Eliquis Previous history of smoking Morbid obesity BMI 44.9 Plan: Patient will be started on diuresis with IV Lasix. Will hold Eliquis dose tonight for possible thoracentesis tomorrow. Pulmonary will be consulted. Continue with home medications and follow closely. Further recommendations based on the clinical course. Time with Patient: Greater than 30
[2019-01-24] MEDS: FUROSEMIDE 10 MG/ML 2 ML VIAL IV SCH ×3 (00:43→20:24)
[2019-01-24] MEDS: HYDROcodone/APAP 5-325MG 1 EACH TAB PO PRN ×4 (02:45→23:43)
[2019-01-24] MEDS: GABAPENTIN 100 MG CAP PO SCH ×3 (08:47→20:24)
[2019-01-24] MEDS: LOSARTAN 50 MG TAB PO SCH (08:47)
[2019-01-24 09:23] LABS: Calcium 8.6 mg/dL (8.4-10.2); Potassium 3.9 mmol/L (3.5-5.1)
[2019-01-24 09:30] LABS: Basophils % (A) 0 %; Eosinophils # (A) 0.1 k/uL (0-0.7); Eosinophils % (A) 1 %; HCT 27.1 % (34.0-46.0); HGB 8.6 gm/dL (11.4-16.0); Lymphocytes # (A) 0.7 k/uL (1.0-4.8); Lymphocytes % (A) 10 %; MCHC 31.9 g/dL (31.0-37.0); MCV 87.8 fL (80.0-100.0); Mean Platelet Volume 6.1; Monocytes # (A) 0.5 k/uL (0-1.0); Monocytes % (A) 7 %; Neutrophils # (A) 5.7 k/uL (1.3-7.7); Neutrophils % (A) 80 %; Platelet Count 348 k/uL (150-450); RBC 3.08 m/uL (3.80-5.40); RDW 15.3 % (11.5-15.5); WBC 7.1 k/uL (3.8-10.6)
[2019-01-24] MEDS: MORPHINE SULFATE 2 MG/ML SYRINGE IVP PRN ×2 (11:34→17:53)
--- NOTE | 2019-01-24 15:32 | P.CNPUL ---
History of Present Illness Consult date: 01/24/19 Requesting physician: Leann Quinonez Reason for consult: pleural effusion Chief complaint: Large left-sided pleural effusion History of present illness: [id number] white female patient with a history of recurrent left breast cancer, status post chemotherapy on 01/17/2019, left arm lymphedema, history of DVT in the left upper extremity with pulmonary emboli, who presented to the hospital on 01/23/2019 with a few day history of increasing shortness of breath. Patient was on the recent trip to [place], where she drove several hours in the car, after her trip she has been more short of breath, the patient is on Eliquis for previous history of DVT and PE. She denied any chest pain, denied any cough or hemoptysis. No lightheadedness or dizziness, no nausea vomiting diarrhea, no fever or chills. Chest x-ray was obtained showing large left pleural effusion, an attempt was made to order a CT angios however patient would not tolerate lying flat related to her pain in her left upper extremity due to history of lymphedema. Blood work showed white blood cell count of 7.8, hemoglobin of 9.3, platelet count of 366, coag panel was within normal limits, serum sodium was 127 and patient was given intravenous fluids, cardiac enzymes were negative, CO2 is 21, BUN was 25 and creatinine is 1.26, proBNP was within normal limits at 289. Patient is on room air with a pulse ox of 99%, she is afebrile, EKG was obtained showing normal sinus rhythm. Patient is under the care of Dr. Frost. Patient's previous CT chest was reviewed from 11/15/2018 showing on moderate left pleural effusion with associated compressive atelectasis, with bilateral punctate to 3 mm pulmonary nodules, CT of the abdomen and pelvis showed no evidence of visceral metastasis, there was bilateral suspicious axillary adenopathy seen in bilateral axilla and on the left extending into the chest wall subcutaneous tissues and abdominal subcutaneous soft tissues. Patient's Eliquis was placed on hold last night, and we were consulted for the large left-sided pleural effusion Review of Systems All systems: negative Constitutional: Denies chills, Denies fever Eyes: denies blurred vision, denies pain Ears, nose, mouth and throat: Denies headache, Denies sore throat Cardiovascular: Denies chest pain, Denies shortness of breath Respiratory: Denies cough Gastrointestinal: Denies abdominal pain, Denies diarrhea, Denies nausea, Denies vomiting Genitourinary: Denies dysuria, Denies hematuria Musculoskeletal: Denies myalgias Integumentary: Denies pruritus, Denies rash Neurological: Denies numbness, Denies weakness Psychiatric: Denies anxiety, Denies depression Endocrine: Denies fatigue, Denies weight change Past Medical History Past Medical History: Cancer, Deep Vein Thrombosis (DVT) Additional Past Medical History / Comment(s): recurrance of left breast cancer.- had chemo 01-17-18, lt arm swelling History of Any Multi-Drug Resistant Organisms: None Reported Past Surgical History: Breast Surgery, Section, Cholecystectomy, Tonsillectomy Additional Past Surgical History / Comment(s): Oral surgery, left wrist surgery. rt simple masectomy, lt modified radical masectomy Past Anesthesia/Blood Transfusion Reactions: No Reported Reaction Additional Past Anesthesia/Blood Transfusion Reaction / Comment(s): HISTORY OF CLAUSTROPHOBIA- PERFERS NOTHING ON FACE Past Psychological History: No Psychological Hx Reported Additional Psychological History / Comment(s): lives alone in single level home that has [address]. drives and ambulates on own. pt stated with the swelling in lt arm she finds it hard to clean around the house and would like a ss consult to see if she can get some one in to clean for her. Smoking Status: Former smoker Past Alcohol Use History: None Reported Additional Past Alcohol Use History / Comment(s): started smoking 1980, quit in 1996 was smoking 2 ppd.. Past Drug Use History: None Reported - Past Family History Mother Family Medical History: Cancer Additional Family Medical History / Comment(s): Breast and kidney cancer. Father Family Medical History: CVA/TIA, Dementia, Hypertension Additional Family Medical History / Comment(s): brain bleed, heart problems Medications and Allergies Home Medications Medication Instructions Recorded Confirmed Type Losartan Potassium [Cozaar] 100 mg PO QAM 07/31/17 01/24/19 History Apixaban [Eliquis] 5 mg PO BID 7 Days #28 tab 01/24/18 01/24/19 Rx Gabapentin [Neurontin] 100 mg PO TID #90 cap 01/24/18 01/24/19 Rx HYDROcodone/APAP 5-325MG [[place] 1 tab PO Q6HR PRN 11/14/18 01/24/19 History 5-325] Lidocaine-Prilocaine Cream [Emla 1 applic TOPICAL DAILY PRN 01/23/19 01/24/19 History Cream 2.5%/2.5%] Polyethylene Glycol 3350 [Miralax] 17 gm PO DAILY PRN 01/23/19 01/24/19 History fentaNYL 25MCG/HR PATCH [Duragesic 1 patch TRANSDERM Q72H 01/23/19 01/24/19 History 25MCG/HR] Allergies Allergy/AdvReac Type Severity Reaction Status Date / [facility] Allergy Dyspnea/FACE Verified 01/24/19 00:37 SWELLING tramadol AdvReac "made pain Verified 01/24/19 00:37 worse" Physical Exam Vitals: Vital Signs Temp Pulse Pulse Resp BP BP BP 01/24/19 11:58 97.5 F L 69 18 123/78 01/24/19 08:00 20 01/24/19 05:28 97.5 F L 86 20 151/76 01/24/19 00:15 18 01/23/19 23:00 95 18 167/69 01/23/19 22:00 97.8 F 73 16 133/62 01/23/19 20:27 72 18 134/61 01/23/19 15:30 66 18 133/61 Pulse Ox 01/24/19 11:58 99 01/24/19 08:00 01/24/19 05:28 94 L 01/24/19 00:15 01/23/19 23:00 95 01/23/19 22:00 98 01/23/19 20:27 99 01/23/19 15:30 99 Intake and Output 01/24/19 01/24/19 01/24/19 06:59 14:59 22:59 Intake Total 500 Balance 500 Intake: Oral 500 Other: Voiding Method Toilet Toilet # Voids 3 Weight 126 kg GENERAL EXAM: Alert, pleasant, 58-year-old obese white female, in mild amount of discomfort related to extensive left arm lymphedema and mild shortness of breath in no apparent distress. HEAD: Normocephalic/atraumatic. EYES: Normal reaction of pupils, equal size. Conjunctiva pink, sclera white. NOSE: Clear with pink turbinates. THROAT: No erythema or exudates. NECK: No masses, no JVD, no thyroid enlargement, no adenopathy. CHEST: Bilateral breasts with dimpling and asymmetry. Symmetrical expansion. LUNGS: Equal air entry diminished breath sounds in bilateral bases, left greater than the right, with dullness to percussion CVS: Regular rate and rhythm, normal S1 and S2, no gallops, no murmurs, no rubs ABDOMEN: Soft, nontender. No hepatosplenomegaly, normal bowel sounds, no guarding or rigidity. EXTREMITIES: No clubbing, no cyanosis, 2+ pulses and upper and lower extremities. Extensive left upper extremity lymphedema, acewrapped MUSCULOSKELETAL: Muscle strength and tone normal. SPINE: No scoliosis or deformity SKIN: No rashes CENTRAL NERVOUS SYSTEM: Alert and oriented -3. No focal deficits, tone is normal in all 4 extremities. PSYCHIATRIC: Alert and oriented -3. Appropriate affect. Intact judgment and insight. Results - Laboratory Findings CBC and BMP: 01/24/19 08:39 01/24/19 08:39 PT/INR, D-dimer PT 11.5 sec (9.0-12.0) 01/23/19 14:45 INR 1.1 (<1.2) 01/23/19 14:45 Abnormal lab findings: Abnormal Labs 01/23/19 01/23/19 01/24/19 14:45 14:45 08:39 RBC 3.25 L 3.08 L Hgb 9.3 L 8.6 L Hct 28.1 L 27.1 L RDW 15.8 H Lymphocytes # 0.6 L 0.7 L Sodium 127 L Chloride 94 L Carbon Dioxide 21 L BUN 25 H Creatinine 1.26 H Glucose 114 H 01/24/19 08:39 RBC Hgb Hct RDW Lymphocytes # Sodium 126 L Chloride 93 L Carbon Dioxide 21 L BUN 24 H Creatinine 1.20 H Glucose 131 H - Diagnostic Findings Chest x-ray: report reviewed, image reviewed Additional studies: EKG reviewed Assessment and Plan Plan: Assessment: #1. Large left-sided pleural effusion, increased in size since previous CT chest from October 2018 #2. Recurrent left breast cancer, most recent PET scan from nd on 2018 showed new hypermetabolic uptake within the left axilla and along the left chest wall and right mandible, status post bilateral mastectomies and left axillary node dissection, recently had chemotherapy in December 2018 #3. Hyponatremia, possibly related to hypervolemia #4. Left arm lymphedema related to breast cancer #5. History of left upper extremity DVT currently on Eliquis #6. Former smoker #7. Morbid obesity Plan: Hold Eliquis, left-sided thoracentesis will be planned for this afternoon, this was discussed with the patient was agreeable to proceed. Fluid will be sent for cytology, pleural fluid analysis and cultures. I performed a history & physical examination of the patient and discussed their management with my nurse practitioner, Karena Morel. I reviewed the nurse practitioner's note and agree with the documented findings and plan of care. Lung sounds are positive for diminished throughout the lung lugo. The findings and the impression was discussed with the patient. I attest to the documentation by the nurse practitioner. Time with Patient: Greater than 30
--- NOTE | 2019-01-24 15:40 | P.CONS ---
History of Present Illness - Reason for Consult Consult date: 01/24/19 Metastatic Breast Cancer Uncontrolled pain, increased SOB Requesting physician: Leann Quinonez - Chief Complaint SOB and Pain - History of Present Illness This is a very nice lady who presented with palpable left breast mass in ,she did not seek medical attention (she was going through divorce)until when she had diagnostic mammograms and left breast U/S revealing 2.1cm mass at 2 o'clock left breast and multiple suspicious left axillary nodes,on 06/08/2016,she had core biopsies of the breast mass and axillary node which were positive for G3,invasive ductal carcinoma,triple negative. She was initially evaluated at [facility] in [place],had a CT scan of chest/abdomen/pelvis on 06/28/2016 which revealed suspicious breast mass and axillary nodes,left supraclavicular nodes,possible subpectoralis and small node in upper mediastinum,small bilateral lung nodules. On 07/19/2016,MUGA scan revealed EF of 74%. On 10/01/2016 PET scan was negative for metastatic disease. Genetic testing revealed that she is positive for BRCA2 mutation. Genetic testing were positive for BRCA2 mutation. She started neoadjuvant AC on 10/24/2016 and completed 4 cycles on 12/06/2016 She started neoadjuvant weekly taxol on 12/20/2016 and completed 12 weekly treatments on 03/07/2017 . On 05/22/2017,she had bilateral mastectomies and left axilllary nodes disection,pathology revealed residual 1.5cm invasive cancer in her breast and 4/5 nodes were positive for macrometastasis. She declined B55 adjuvant PARP inhibitors trial. On 07/12/2017,CT scan of chest/abdomen/pelvis was negative. She completed adjuvant radiation therapy on 09/04/2017 In November/2017,she started to have significant pain and swelling in left arm and shoulder,significant weakness in LUE and developed left chest wall skin nodules,biopsy on 12/31/2017 was positive for recurrent disease. On 01/05/2018,PET scan revealed very intense uptake in left lateral chest wall extending to high up left axilla,spaning 12.5cm. Repeat ER/WV and HER2/ANGELINE revealed triple negative disease. Her disease was PDL-1 negative. Due to bulky and symptomatic disease,she started cisplatin/gemzar on 01/17/2018 and completed 4 cycles on 04/03/2018. Repeat PET scan on 04/27/2018 revealed significant improvement,no hypermetabolic activities noted. Repeat PET scan on 07/13/2018 revealed evidence of disease recurrence if left chest wall axilla and right mandible(subcutanuous). She started talazoparib in end of July/2018 Her talazoparib was held 09/23/2018 due to significant neutropenia which improved and thus restarted 2 weeks after and then the dose was reduced and then discontinued on 11/06/2018 due to disease progression. On 11/15/2018.PET scan revealed bilateral axillary nodes,abnormal soft tissue and subcutaneous nodules in left chest wall ,left pleural effusion and 2 small lung nodules She started abraxane on 11/14/2018 Abraxane completed 619 - She unfortunetly appears to be continued with progressive disease while, she has had an increase in pain management fentanyl and norco for worsening pain and swelling in LUE and new chest wall lesions. She has declined in past few weeks-months clinically. She presents to hospital with increased at the recommendation of her palliative home care nurse. Increased pain and shortness of breath. [place] 5/325 was not helping pain control. At Dr. Cardenas last visit with her they discussed the option of hospice for reson able consideration with progressive disease and overall poor prognosis. She agreed to palliative care although hospice she is not ready to make this decision yet. The plan is to begin a new therapy salvage - Ixempra or Vinorelibine. This is currently under review for insurance approval. Review of Systems A 14 point review of systems was assessed and completed and are all negative except for HPI Past Medical History Past Medical History: Cancer, Deep Vein Thrombosis (DVT) Additional Past Medical History / Comment(s): recurrance of left breast cancer.- had chemo 01-17-18, lt arm swelling History of Any Multi-Drug Resistant Organisms: None Reported Past Surgical History: Breast Surgery, Section, Cholecystectomy, Tonsillectomy Additional Past Surgical History / Comment(s): Oral surgery, left wrist surgery.rt simple masectomy, lt modified radical masectomy Past Anesthesia/Blood Transfusion Reactions: No Reported Reaction Additional Past Anesthesia/Blood Transfusion Reaction / Comm: HISTORY OF CLAUSTROPHOBIA- PERFERS NOTHING ON FACE Past Psychological History: No Psychological Hx Reported Additional Psychological History / Comment(s): lives alone in single level home that has [address]. drives and ambulates on own. pt stated with the swelling in lt arm she finds it hard to clean around the house and would like a ss consult to see if she can get some one in to clean for her. Smoking Status: Former smoker Past Alcohol Use History: None Reported Additional Past Alcohol Use History / Comment(s): started smoking 1980, quit in 1996 was smoking 2 ppd.. Past Drug Use History: None Reported - Past Family History Mother Family Medical History: Cancer Additional Family Medical History / Comment(s): Breast and kidney cancer. Father Family Medical History: CVA/TIA, Dementia, Hypertension Additional Family Medical History / Comment(s): brain bleed, heart problems Medications and Allergies Home Medications Medication Instructions Recorded Confirmed Type Losartan Potassium [Cozaar] 100 mg PO QAM 07/31/17 01/24/19 History Apixaban [Eliquis] 5 mg PO BID 7 Days #28 tab 01/24/18 01/24/19 Rx Gabapentin [Neurontin] 100 mg PO TID #90 cap 01/24/18 01/24/19 Rx HYDROcodone/APAP 5-325MG [[place] 1 tab PO Q6HR PRN 11/14/18 01/24/19 History 5-325] Lidocaine-Prilocaine Cream [Emla 1 applic TOPICAL DAILY PRN 01/23/19 01/24/19 History Cream 2.5%/2.5%] Polyethylene Glycol 3350 [Miralax] 17 gm PO DAILY PRN 01/23/19 01/24/19 History fentaNYL 25MCG/HR PATCH [Duragesic 1 patch TRANSDERM Q72H 01/23/19 01/24/19 History 25MCG/HR] Allergies Allergy/AdvReac Type Severity Reaction Status Date / Time levofloxacin [From Levaquin] Allergy Dyspnea/FACE Verified 01/24/19 00:37 SWELLING tramadol AdvReac "made pain Verified 01/24/19 00:37 worse" Physical Exam Vitals: Vital Signs Temp Pulse Pulse Resp BP BP BP 01/24/19 11:58 97.5 F L 69 18 123/78 01/24/19 08:00 20 01/24/19 05:28 97.5 F L 86 20 151/76 07/26/19 00:15 18 01/23/19 23:00 95 18 167/69 01/23/19 22:00 97.8 F 73 16 133/62 01/23/19 20:27 72 18 134/61 01/23/19 15:30 66 18 133/61 Pulse Ox 01/24/19 11:58 99 01/24/19 08:00 01/24/19 05:28 94 L 01/24/19 00:15 01/23/19 23:00 95 01/23/19 22:00 98 01/23/19 20:27 99 01/23/19 15:30 99 Intake and Output 01/24/19 01/24/19 01/24/19 06:59 14:59 22:59 Intake Total 500 Balance 500 Intake: Oral 500 Other: Voiding Method Toilet Toilet # Voids 3 Weight 126 kg Gen: Alert and Oriented, NAD Head: NCNT Neck Supple Heart Tachy Lungs Increased effort Diminished throughuot Abdomen: S/ND/NT Ext: Left arm 4+ Lymphedema and inability to move. Psych: Axious, tearful and Coroperative Neuro: No Focal Deficits Noted. Results CBC & Chem 7: 01/24/19 08:39 01/24/19 08:39 Labs: Abnormal Lab Results - Last 24 Hours (Table) 01/23/19 01/24/19 01/24/19 Range/Units 14:45 08:39 08:39 RBC 3.08 L (3.80-5.40) m/uL Hgb 8.6 L (11.4-16.0) gm/dL Hct 27.1 L (34.0-46.0) % Lymphocytes # 0.7 L (1.0-4.8) k/uL Sodium 127 L 126 L (137-145) mmol/L Chloride 94 L 93 L (98-107) mmol/L Carbon Dioxide 21 L 21 L (22-30) mmol/L BUN 25 H 24 H (7-17) mg/dL Creatinine 1.26 H 1.20 H (0.52-1.04) mg/dL Glucose 114 H 131 H (74-99) mg/dL Chest x-ray: report reviewed Assessment and Plan Plan: Assessment and Recommendations: Metastatic Breast Cancer:Lung Lymph - Progressive - Failed Multiple lines of therapy - BRCA2 - Hospice Appropriate, patient refuses at this time, plan for salvage therapy with Ixempra or Vinorelbine Neoplastic Related Pain - Uncontrolled: - Increased Fentanyl [id number] - Add PO MSIR, IV if severe not relieved with PO - Bowel regimen and reisk of constipation induced narcotic. Hyponatremia: - Dehydration versus SIADH versus other - Osmolatiy Urine and Serum Normocytic Anemia: - Transfuse less than 7 - Secondary to malignancy PLan:and DISPO - COntrol pain on PO meds - Evaulate Pleurex per pulm
--- NOTE | 2019-01-24 16:32 | XR ---
EXAMINATION TYPE: XR chest 1V portable DATE OF EXAM: 01/24/2019 HISTORY: Status post thoracentesis COMPARISON: 01/23/2019 TECHNIQUE: Single view of the chest is submitted. FINDINGS: Marked examination and large left-sided pleural effusion. No evidence for pneumothorax status post th oracentesis. Central line unchanged. There is no evidence for focal infiltrate. The heart is stable. Hilar and mediastinal structures are within normal limits. Degenerative changes are seen of the dorsal spine. IMPRESSION: 1. Marked examination and large left-sided pleural effusion. No evidence for pneumothorax status pos t thoracentesis.
[2019-01-24] MEDS: SODIUM CHLORIDE 0.9% 1,000 ML IV SCH (17:58)
[2019-01-24 19:22] LABS: CA27.29 Breast Ca Marker 17.5 U/mL (0.0-38.5)
[2019-01-24 19:50] LABS: Appearance,BF Cloudy; Color,BF Brown; Nucleated Cells, Body Fluid 2250 /uL; RBC, Body Fluid 10850 /uL
[2019-01-24 19:57] LABS: Mononuclear WBC,Body Fluid 99 %; Polynuclear WBC,Body Fluid 1 %; Total Cells Counted,Body Fluid 100
[2019-01-24] MEDS: MORPHINE SULFATE IR 15 MG TABLET PO PRN (20:30)
--- NOTE | 2019-01-24 23:16 | P.PN ---
Subjective Progress Note Date: 01/24/19 Principal diagnosis: Left large pleural effusion Patient is a 58-year-old female with a known history of recurrance of left breast cancer.-had chemo 01-17-18, Left arm lymphedema due to breast cancer, history of DVT currently on anticoagulation with Eliquis came to ER with compla ints of worsening shortness of breath for the past 2 days. Patient is on recent trip to [place] with she drove for several hours. Patient has been having worsening shortness of breath and she cut short her trip and came back home. Patient presents to ER due to worsening shortness of breath. She was ordered for home health care nursing to help her with her lymphedema. She is currently on eliquis. Patient was evaluated by home health nurse who told patient come to the emergency department to be evaluated for pulmonary emboli. No complaints of chest pain. Patient does have some increased leg swelling and increased abdominal girth. No fever no chills. No nausea vomiting or diarrhea and abdominal pain. No cough or sputum production. Sodium 127, BUN 25 and creatinine 1.26. Hemoglobin 9.3. Chest x-ray showed interval development of large left pleural effusion and associated atelectasis, difficult to exclude pneumonia or underlying mass. 01/24/2019 Patient is currently sitting onset. Unable to lie flat on the bed due to left upper extremities lymphedema. Patient is complaining of pain and added morphine now. Pulmonary is planning for thoracentesis. Sodium level is at 126 now. Currently being continued on IV Lasix. No complaints of chest pain or worsening shortness of breath. No fever no chills. No abdominal pain. No diarrhea. Current medications reviewed. Objective - Vital Signs Vital signs: Vital Signs Temp 97.5 F L 01/24/19 11:58 Pulse 69 01/24/19 11:58 Resp 18 01/24/19 16:00 BP 123/78 01/24/19 11:58 Pulse Ox 99 01/24/19 11:58 Intake & Output 01/23/19 01/24/19 01/24/19 18:59 06:59 18:59 Intake Total 1090 Balance 1090 Weight 126.099 kg 126 kg Intake: Oral 1090 Other: Voiding Method Toilet Toilet # Voids 3 - Exam PHYSICAL EXAMINATION: Patient is lying in the bed comfortably, no acute distress, awake alert and oriented.. HEENT: Normocephalic. Neck is supple. Pupils reactive. Nostrils clear. Oral cavity is moist. Ears reveal no drainage. Neck reveals no JVD, carotid bruits, or thyromegaly. CHEST EXAMINATION: Trachea is central. Symmetrical expansion. Left-sided lower lobe diminished air entry. No wheezing. No crackles. CARDIAC: Normal S1, S2 with no gallops. No murmurs ABDOMEN: Soft. Bowel sounds normal. No organomegaly. No abdominal bruits. Extremities: 2+ pedal edema. Left upper extremity lymphedema. No clubbing or cyanosis Neurologically awake, alert, oriented x3 with well-coordinated movements. No focal deficits noted Skin: No rash or skin lesions. Psychiatric: Coperative. Nonsuicidal Musculoskeletal: No joint swelling or deformity. Normal range of motion. - Labs CBC & Chem 7: 01/24/19 08:39 01/24/19 08:39 Labs: Abnormal Lab Results - Last 24 Hours (Table) 01/24/19 01/24/19 01/24/19 Range/Units 08:39 08:39 08:39 RBC 3.08 L (3.80-5.40) m/uL Hgb 8.6 L (11.4-16.0) gm/dL Hct 27.1 L (34.0-46.0) % Lymphocytes # 0.7 L (1.0-4.8) k/uL Sodium 126 L (137-145) mmol/L Chloride 93 L (98-107) mmol/L Carbon Dioxide 21 L (22-30) mmol/L BUN 24 H (7-17) mg/dL Creatinine 1.20 H (0.52-1.04) mg/dL Glucose 131 H (74-99) mg/dL Osmolality 261 L (280-301) mosm/kg Assessment and Plan Assessment: Worsening shortness of breath secondary to left sided large pleural effusion. Likely malignant effusion. Hyponatremia likely hypervolemic. Recurrence of breast cancer currently on chemotherapy last on 01/17/2019 Left upper extremity lymphedema due to breast cancer with lymph node involvement History of DVT currently on anticoagulation with Eliquis Previous history of smoking Morbid obesity BMI 44.9 Plan: Patient will be started on diuresis with IV Lasix. Will hold Eliquis dose tonight for possible thoracentesis . [facility] is following. Continue with home medications and follow closely. Further recommendations based on the clinical course. Time with Patient: Greater than 30
--- NOTE | 2019-01-24 23:45 | PCN ---
PROCEDURE NOTE PREOP DIAGNOSIS: Left sided pleural fusion. POSTOP DIAGNOSIS: Left sided pleural effusion. Indication Pleural effusion. A time-out was completed verifying correct patient, procedure, site, positioning , and implant (s) or special equipment if applicable. Ultrasound guidance was not used and appropriate fluid pocket was identified and marked. Patient was positioned, prepped and draped in usual sterile fashion. Lidocaine was used to anesthetize the area. A Thoracentesis catheter was introduced into the pleural space and fluid was removed. Blood loss was none. A chest x-ray was ordered to evaluate for pneumothorax. Total Fluid Removed: 2.2 L Color of Fluid: Dark, turbid, yellowish Fluid was sent for appropriate laboratory tests. Patient tolerated the procedure well and there were no complications. Chest x-rays to follow. MMODL / IJN: [id number] /
[2019-01-25 01:07] LABS: Total Protein, Body Fluid 3390 mg/dL
[2019-01-25] MEDS: MORPHINE SULFATE 2 MG/ML SYRINGE IVP PRN ×2 (01:11→09:07)
[2019-01-25 02:25] LABS: LDH, Body Fluid Source Pleural Fluid
[2019-01-25] MEDS: HYDROcodone/APAP 5-325MG 1 EACH TAB PO PRN ×3 (07:09→19:58)
[2019-01-25] MEDS: GABAPENTIN 100 MG CAP PO SCH ×3 (07:11→21:01)
[2019-01-25] MEDS: LOSARTAN 50 MG TAB PO SCH (07:11)
[2019-01-25] MEDS: FUROSEMIDE 10 MG/ML 2 ML VIAL IV SCH (07:12)
[2019-01-25 10:21] LABS: Calcium 8.1 mg/dL (8.4-10.2); Potassium 3.4 mmol/L (3.5-5.1)
[2019-01-25 10:55] LABS: Basophils % (A) 0 %; Eosinophils # (A) 0.1 k/uL (0-0.7); Eosinophils % (A) 1 %; HCT 27.5 % (34.0-46.0); HGB 9.1 gm/dL (11.4-16.0); Lymphocytes # (A) 0.5 k/uL (1.0-4.8); Lymphocytes % (A) 6 %; MCH 28.6 pg (25.0-35.0); MCHC 33.2 g/dL (31.0-37.0); Mean Platelet Volume 6.3; Monocytes # (A) 0.7 k/uL (0-1.0); Monocytes % (A) 10 %; Neutrophils # (A) 6.3 k/uL (1.3-7.7); Neutrophils % (A) 81 %; Platelet Count 338 k/uL (150-450); RDW 15.3 % (11.5-15.5); WBC 7.8 k/uL (3.8-10.6)
--- NOTE | 2019-01-25 13:45 | P.PN ---
Subjective Progress Note Date: 01/25/19 [id number] white female patient with a history of recurrent left breast cance r, status post chemotherapy on 01/17/2019, left arm lymphedema, history of DVT in the left upper extremity with pulmonary emboli, who presented to the hospital on 01/23/2019 with a few day history of increasing shortness of breath. Patient was on the recent trip to [place], where she drove several hours in the car, after her trip she has been more short of breath, the patient is on Eliquis for previous history of DVT and PE. She denied any chest pain, denied any cough or hemoptysis. No lightheadedness or dizziness, no nausea vomiting diarrhea, no fever or chills. Chest x-ray was obtained showing large left pleural effusion, an attempt was made to order a CT angios however patient would not tolerate lying flat related to her pain in her left upper extremity due to history of lymphedema. Blood work showed white blood cell count of 7.8, hemoglobin of 9.3, platelet count of 366, coag panel was within normal limits, serum sodium was 127 and patient was given intravenous fluids, cardiac enzymes were negative, CO2 is 21, BUN was 25 and creatinine is 1.26, proBNP was within normal limits at 289. Patient is on room air with a pulse ox of 99%, she is afebrile, EKG was obtained showing normal sinus rhythm. Patient is under the care of Dr. Frost. Patient's previous CT chest was reviewed from 11/15/2018 showing on moderate left pleural effusion with associated compressive atelectasis, with bilateral punctate to 3 mm pulmonary nodules, CT of the abdomen and pelvis showed no evidence of visceral metastasis, there was bilateral suspicious axillary adenopathy seen in bilateral axilla and on the left extending into the chest wall subcutaneous tissues and abdominal subcutaneous soft tissues. Patient's Eliquis was placed on hold last night, and we were consulted for the large left-sided pleural effusion On today's evaluation of 01/25/2019, the patient is feeling extremely well. No significant shortness of breath. I was able to remove more than 2 L of pleural fluid from the left lung. The patient is feeling much better on today's evaluation. No cough. No sputum production. No chest tightness. No wheezing. No complications of procedure. As such the patient has no specific complaints. Objective - Vital Signs Vital signs: Vital Signs Temp 97.4 F L 01/25/19 12:16 Pulse 69 01/25/19 12:16 Resp 20 01/25/19 12:16 BP 108/68 01/25/19 12:16 Pulse Ox 95 01/25/19 12:16 Intake & Output 01/24/19 01/25/19 01/25/19 18:59 06:59 18:59 Intake Total 590 360 Output Total 1999 Balance -1999 590 360 Intake: Oral 590 360 Output: Other 1999 Other: Voiding Method Toilet Toilet Toilet # Voids 3 2 4 - Exam GENERAL EXAM: Alert, pleasant, 58-year-old obese white female, in mild amount of discomfort related to extensive left arm lymphedema and mild shortness of breath in no apparent distress. HEAD: Normocephalic/atraumatic. EYES: Normal reaction of pupils, equal size. Conjunctiva pink, sclera white. NOSE: Clear with pink turbinates. THROAT: No erythema or exudates. NECK: No masses, no JVD, no thyroid enlargement, no adenopathy. CHEST: Bilateral breasts with dimpling and asymmetry. Symmetrical expansion. LUNGS: Equal air entry diminished breath sounds in bilateral bases, left greater than the right, the air entry is improved and the dullness at was experiencing earlier has essentially subsided CVS: Regular rate and rhythm, normal S1 and S2, no gallops, no murmurs, no rubs ABDOMEN: Soft, nontender. No hepatosplenomegaly, normal bowel sounds, no guarding or rigidity. EXTREMITIES: No clubbing, no cyanosis, 2+ pulses and upper and lower extremities. Extensive left upper extremity lymphedema, acewrapped MUSCULOSKELETAL: Muscle strength and tone normal. SPINE: No scoliosis or deformity SKIN: No rashes CENTRAL NERVOUS SYSTEM: Alert and oriented -3. No focal deficits, tone is normal in all 4 extremities. PSYCHIATRIC: Alert and oriented -3. Appropriate affect. Intact judgment and insight. - Labs CBC & Chem 7: 01/25/19 09:47 01/25/19 09:47 Labs: Abnormal Lab Results - Last 24 Hours (Table) 01/24/19 01/25/19 01/25/19 Range/Units 08:39 09:47 09:47 RBC 3.20 L (3.80-5.40) m/uL Hgb 9.1 L (11.4-16.0) gm/dL Hct 27.5 L (34.0-46.0) % Lymphocytes # 0.5 L (1.0-4.8) k/uL Sodium 120 L (137-145) mmol/L Potassium 3.4 L (3.5-5.1) mmol/L Chloride 87 L (98-107) mmol/L Carbon Dioxide 21 L (22-30) mmol/L BUN 23 H (7-17) mg/dL Creatinine 1.09 H (0.52-1.04) mg/dL Glucose 117 H (74-99) mg/dL Osmolality 261 L (280-301) mosm/kg Calcium 8.1 L (8.4-10.2) mg/dL Microbiology - Last 24 Hours (Table) 01/24/19 16:20 Gram Stain - Preliminary Pleural Fluid Body Fluid Culture - Preliminary 01/24/19 16:00 Fungal Culture - Preliminary Pleural Fluid 01/24/19 16:00 Acid Fast Bacilli Culture - Preliminary Pleural Fluid 01/24/19 16:20 Anaerobic Culture - Preliminary Pleural Fluid Assessment and Plan Plan: #1. Large left-sided pleural effusion, increased in size since previous CT chest from October 2018 #2. Recurrent left breast cancer, most recent PET scan [facility] on 2018 showed new hypermetabolic uptake within the left axilla and along the left chest wall and right mandible, status post bilateral mastectomies and left axillary no de dissection, recently had chemotherapy in December 2018 #3. Hyponatremia, possibly related to hypervolemia #4. Left arm lymphedema related to breast cancer #5. History of left upper extremity DVT currently on Eliquis #6. Former smoker #7. Morbid obesity Plan The patient underwent the procedure without any complication. More than 2 L of pleural fluid was removed from the left lung. Awaiting fluid cytology. The patient clinically is feeling better. I advised the patient to contact me back should there be any recurrent effusion recurrent symptoms in the future. Anti- coagulation can be resumed. We'll sign off the case and keep the rest of the management up to medicine and oncology.
[2019-01-25] MEDS ORDERED: SODIUM CHLORIDE 0.9% 500 ML 500 ML IV ONE (14:46)
[2019-01-25] MEDS ORDERED: Potassium Replacement Protocol 1 EACH MISC MISCELLANE PRN (14:47)
[2019-01-25 16:18] LABS: Calcium 8.3 mg/dL (8.4-10.2); Potassium 4.5 mmol/L (3.5-5.1)
[2019-01-25] MEDS: SODIUM CHLORIDE 0.9% 1,000 ML IV SCH (18:29)
--- NOTE | 2019-01-25 19:10 | P.PN ---
<Lynne Huerta - Last Filed: 01/25/19 20:18> Subjective Progress Note Date: 01/25/19 Principal diagnosis: Metastatic Breast Pain better controlled, and breathing better controlled after Thoracentesis yesterday 2 liters removed Objective - Vital Signs Vital signs: Vital Signs Temp 97.4 F L 01/25/19 12:16 Pulse 69 01/25/19 16:00 Resp 20 01/25/19 16:00 BP 108/68 01/25/19 12:16 Pulse Ox 95 01/25/19 12:16 Intake & Output 01/25/19 01/25/19 01/26/19 06:59 18:59 06:59 Intake Total 590 360 Balance 590 360 Intake: Oral 590 360 Other: Voiding Method Toilet Toilet # Voids 2 4 - Exam Gen: Alert and Oriented, NAD Head: NCNT Neck Supple Heart Tachy Lungs Increased effort Diminished throughuot Abdomen: S/ND/NT Ext: Left arm 4+ Lymphedema and inability to move. Psych: Axious, tearful and Coroperative Neuro: No Focal Deficits Noted. - Labs CBC & Chem 7: 01/25/19 09:47 01/25/19 15:02 Labs: Abnormal Lab Results - Last 24 Hours (Table) 01/25/19 01/25/19 01/25/19 Range/Units 09:47 09:47 15:02 RBC 3.20 L (3.80-5.40) m/uL Hgb 9.1 L (11.4-16.0) gm/dL Hct 27.5 L (34.0-46.0) % Lymphocytes # 0.5 L (1.0-4.8) k/uL Sodium 120 L 118 L* (137-145) mmol/L Potassium 3.4 L (3.5-5.1) mmol/L Chloride 87 L 84 L (98-107) mmol/L Carbon Dioxide 21 L (22-30) mmol/L BUN 23 H 24 H (7-17) mg/dL Creatinine 1.09 H 1.09 H (0.52-1.04) mg/dL Glucose 117 H 107 H (74-99) mg/dL Osmolality (280-301) mosm/kg Calcium 8.1 L 8.3 L (8.4-10.2) mg/dL 01/25/19 Range/Units 15:02 RBC (3.80-5.40) m/uL Hgb (11.4-16.0) gm/dL Hct (34.0-46.0) % Lymphocytes # (1.0-4.8) k/uL Sodium (137-145) mmol/L Potassium (3.5-5.1) mmol/L Chloride (98-107) mmol/L Carbon Dioxide (22-30) mmol/L BUN (7-17) mg/dL Creatinine (0.52-1.04) mg/dL Glucose (74-99) mg/dL Osmolality 245 L* (280-301) mosm/kg Calcium (8.4-10.2) mg/dL Microbiology - Last 24 Hours (Table) 01/24/19 16:20 Gram Stain - Preliminary Pleural Fluid Body Fluid Culture - Preliminary 01/24/19 16:00 Fungal Culture - Preliminary Pleural Fluid 01/24/19 16:00 Acid Fast Bacilli Culture - Preliminary Pleural Fluid 01/24/19 16:20 Anaerobic Culture - Preliminary Pleural Fluid Assessment and Plan Plan: Assessment and Recommendations: Metastatic Breast Cancer:Lung Lymph - Progressive - Failed Multiple lines of therapy - BRCA2 - Hospice Appropriate, patient refuses at this time, plan for salvage therapy with Ixempra or Vinorelbine Neoplastic Related Pain - Uncontrolled: - Increased Fentanyl [id number] - Add PO MSIR, IV if severe not relieved with PO - Bowel regimen and reisk of constipation induced narcotic. Hyponatremia: - Dehydration versus SIADH versus other - Osmolatiy Urine and Serum Normocytic Anemia: - Transfuse less than 7 - Secondary to malignancy PLan:and DISPO - COntrol pain on PO meds - Will follow up for salcage chemo at outpatient - will continue on increasef fentanyl and MS IR at discharge please. - Increase Bowel regimen <Qi Love - Last Filed: 01/26/19 19:04> Objective - Vital Signs Vital signs: Vital Signs Temp 97.8 F 01/26/19 12:09 Pulse 70 01/26/19 15:15 Resp 20 01/26/19 15:15 BP 117/74 01/26/19 12:09 Pulse Ox 96 01/26/19 12:09 Intake & Output 01/26/19 01/26/19 01/27/19 06:59 18:59 06:59 Intake Total 240 660 Balance 240 660 Intake: Oral 660 Blood Product 240 Other: Voiding Method Toilet Toilet # Voids 2 3 - Labs CBC & Chem 7: 01/26/19 10:56 01/26/19 10:56 Labs: Abnormal Lab Results - Last 24 Hours (Table) 01/26/19 01/26/19 Range/Units 10:56 10:56 RBC 3.00 L (3.80-5.40) m/uL Hgb 8.7 L (11.4-16.0) gm/dL Hct 25.5 L (34.0-46.0) % RDW 15.7 H (11.5-15.5) % Lymphocytes # 0.6 L (1.0-4.8) k/uL Sodium 118 L* (137-145) mmol/L Chloride 84 L (98-107) mmol/L BUN 23 H (7-17) mg/dL Glucose 106 H (74-99) mg/dL Calcium 8.2 L (8.4-10.2) mg/dL Microbiology - Last 24 Hours (Table) 01/24/19 16:00 Acid Fast Bacilli Smear - Final Pleural Fluid Acid Fast Bacilli Culture - Preliminary 01/24/19 16:20 Gram Stain - Preliminary Pleural Fluid Body Fluid Culture - Preliminary Assessment and Plan Plan: The patient was seen and examined by me and discussed with nurse practitioner Lynne, Agree with the assessment and plan formulated. Patient could not tolerate CT however we will order an ultrasound abdomen since she is complaining of pain especially in the left lower quadrant. Patient wants to try another line of treatment. Had an extensive discussion with her. Qi Love M.D.
[2019-01-25 20:21] LABS: Creatinine,Urine Random 49.7 mg/dL
[2019-01-25] MEDS: SENNOSIDES-DOCUSATE SODIUM 1 EACH TAB PO SCH (21:02)
[2019-01-25] MEDS: POLYETHYLENE GLYCOL 3350 17 GM POWD.PACK PO SCH (21:02)
[2019-01-26] MEDS: MORPHINE SULFATE IR 15 MG TABLET PO PRN (00:39)
[2019-01-26] MEDS: HYDROcodone/APAP 5-325MG 1 EACH TAB PO PRN ×3 (01:54→14:41)
[2019-01-26] MEDS: SENNOSIDES-DOCUSATE SODIUM 1 EACH TAB PO SCH ×2 (08:07→20:16)
[2019-01-26] MEDS: GABAPENTIN 100 MG CAP PO SCH ×3 (08:07→22:17)
[2019-01-26] MEDS: LOSARTAN 50 MG TAB PO SCH (08:07)
[2019-01-26] MEDS: POLYETHYLENE GLYCOL 3350 17 GM POWD.PACK PO SCH (08:08)
[2019-01-26] MEDS: SODIUM CHLORIDE 0.9% 1,000 ML IV SCH (08:08)
[2019-01-26 11:18] LABS: Calcium 8.2 mg/dL (8.4-10.2); Potassium 3.8 mmol/L (3.5-5.1)
[2019-01-26 11:30] LABS: Basophils % (A) 0 %; Eosinophils # (A) 0.1 k/uL (0-0.7); Eosinophils % (A) 1 %; HCT 25.5 % (34.0-46.0); HGB 8.7 gm/dL (11.4-16.0); Lymphocytes # (A) 0.6 k/uL (1.0-4.8); Lymphocytes % (A) 9 %; MCHC 34.2 g/dL (31.0-37.0); MCV 84.9 fL (80.0-100.0); Mean Platelet Volume 6.5; Monocytes # (A) 0.6 k/uL (0-1.0); Monocytes % (A) 9 %; Neutrophils # (A) 5.4 k/uL (1.3-7.7); Neutrophils % (A) 79 %; Platelet Count 358 k/uL (150-450); Poikilocytosis Slight; RDW 15.7 % (11.5-15.5); WBC 6.9 k/uL (3.8-10.6)
--- NOTE | 2019-01-26 11:41 | P.PN ---
Subjective Progress Note Date: 01/26/19 Principal diagnosis: Metastatic Breast Pain better controlled, and breathing better controlled with dfnetanyl, she does not feel the PO Morphine helps, norco appears to be helping more. Objective - Vital Signs Vital signs: Vital Signs Temp 98.5 F 01/26/19 07:58 Pulse 73 01/26/19 08:35 Resp 20 01/26/19 08:35 BP 114/58 01/26/19 07:58 Pulse Ox 97 01/26/19 07:58 Intake & Output 01/25/19 01/26/19 01/26/19 18:59 06:59 18:59 Intake Total 360 240 300 Balance 360 240 300 Intake: Oral 360 300 Blood Product 240 Other: Voiding Method Toilet Toilet Toilet # Voids 4 2 2 - Exam Gen: Alert and Oriented, NAD Head: NCNT Neck Supple Heart Tachy Lungs Increased effort Diminished throughuot Abdomen: S/ND/NT Ext: Left arm 4+ Lymphedema and inability to move. Psych: Axious, tearful and Coroperative Neuro: No Focal Deficits Noted. - Labs CBC & Chem 7: 01/26/19 10:56 01/26/19 10:56 Labs: Abnormal Lab Results - Last 24 Hours (Table) 01/25/19 01/25/19 01/26/19 Range/Units 15:02 15:02 10:56 RBC 3.00 L (3.80-5.40) m/uL Hgb 8.7 L (11.4-16.0) gm/dL Hct 25.5 L (34.0-46.0) % RDW 15.7 H (11.5-15.5) % Lymphocytes # 0.6 L (1.0-4.8) k/uL Sodium 118 L* (137-145) mmol/L Chloride 84 L (98-107) mmol/L BUN 24 H (7-17) mg/dL Creatinine 1.09 H (0.52-1.04) mg/dL Glucose 107 H (74-99) mg/dL Osmolality 245 L* (280-301) mosm/kg Calcium 8.3 L (8.4-10.2) mg/dL 01/26/19 Range/Units 10:56 RBC (3.80-5.40) m/uL Hgb (11.4-16.0) gm/dL Hct (34.0-46.0) % RDW (11.5-15.5) % Lymphocytes # (1.0-4.8) k/uL Sodium 118 L* (137-145) mmol/L Chloride 84 L (98-107) mmol/L BUN 23 H (7-17) mg/dL Creatinine (0.52-1.04) mg/dL Glucose 106 H (74-99) mg/dL Osmolality (280-301) mosm/kg Calcium 8.2 L (8.4-10.2) mg/dL Microbiology - Last 24 Hours (Table) 01/24/19 16:00 Acid Fast Bacilli Smear - Final Pleural Fluid Acid Fast Bacilli Culture - Preliminary 01/24/19 16:20 Gram Stain - Preliminary Pleural Fluid Body Fluid Culture - Preliminary Assessment and Plan Plan: Assessment and Recommendations: Metastatic Breast Cancer:Lung Lymph - Progressive - Failed Multiple lines of therapy - BRCA2 - Hospice Appropriate, patient refuses at this time, plan for salvage therapy with Ixempra or Vinorelbine Neoplastic Related Pain - Uncontrolled: - Increased Fentanyl [id number] - Add PO MSIR, IV if severe not relieved with PO - Bowel regimen and reisk of constipation induced narcotic. Hyponatremia: - Dehydration versus SIADH versus other - Osmolatiy Urine and Serum Normocytic Anemia: - Transfuse less than 7 - Secondary to malignancy PLan:and DISPO - COntrol pain on PO meds - Will follow up for salcage chemo at outpatient - will continue on increasef fentanyl and MS IR at discharge please. - Increase Bowel regimen Physician Attess: I have completed the full history and physical and agree with above dictation, I have created impression and plan. Dictated as a scribe.
--- NOTE | 2019-01-26 13:12 | P.NPCON ---
History of Present Illness - Reason for Consult Consult date: 01/26/19 hyponatremia - Chief Complaint Shortness of breath - History of Present Illness Admitted to the hospital with worsening shortness of breath on 01/23/2019. Nephrology was consulted for hyponatremia. On admission serum sodium was 127. History of chronic hyponatremia with serum sodium of 127-136. She has history of metastatic breast cancer on multiple chemotherapy regimens and finished chemotherapy and of November. She had nausea but no vomiting or diarrhea. No hydrochlorothiazide use. She used to take triamterene for hypertension which she stopped a few months ago. She admits drinking a lot of water and getting IV hydration when she is on chemotherapy. She takes losartan for hypertension. Her sodium was 127 on admission. She was given IV Lasix then changed to IV fluids. Her sodium continued to drop and she was 118 yesterday. Her fluids were stopped completely. Serum osmolality was 245 and a urine osmolality of 239. Urine sodium was 29. No falls or lightheadedness. Review of Systems Constitutional: Reports as per HPI Past Medical History Past Medical History: Cancer, Deep Vein Thrombosis (DVT) Additional Past Medical History / Comment(s): recurrance of left breast cancer.- had chemo 01-17-18, lt arm swelling History of Any Multi-Drug Resistant Organisms: None Reported Past Surgical History: Breast Surgery, Section, Cholecystectomy, Tonsillectomy Additional Past Surgical History / Comment(s): Oral surgery, left wrist surgery.rt simple masectomy, lt modified radical masectomy Past Anesthesia/Blood Transfusion Reactions: No Reported Reaction Additional Past Anesthesia/Blood Transfusion Reaction / Comment(s): HISTORY OF CLAUSTROPHOBIA- PERFERS NOTHING ON FACE Past Psychological History: No Psychological Hx Reported Additional Psychological History / Comment(s): lives alone in single level home that has [address] steps. drives and ambulates on own. pt stated with the swelling in lt arm she finds it hard to clean around the house and would like a ss consult to see if she can get some one in to clean for her. Smoking Status: Former smoker Past Alcohol Use History: None Reported Additional Past Alcohol Use History / Comment(s): started smoking 1980, quit in 1996 was smoking 2 ppd.. Past Drug Use History: None Reported - Past Family History Mother Family Medical History: Cancer Additional Family Medical History / Comment(s): Breast and kidney cancer. Father Family Medical History: CVA/TIA, Dementia, Hypertension Additional Family Medical History / Comment(s): brain bleed, heart problems Medications and Allergies Home Medications Medication Instructions Recorded Confirmed Type Losartan Potassium [Cozaar] 100 mg PO QAM 07/31/17 01/24/19 History Apixaban [Eliquis] 5 mg PO BID 7 Days #28 tab 01/24/18 01/24/19 Rx Gabapentin [Neurontin] 100 mg PO TID #90 cap 01/24/18 01/24/19 Rx HYDROcodone/APAP 5-325MG [Bruceton 1 tab PO Q6HR PRN 11/14/18 01/24/19 History 5-325] Lidocaine-Prilocaine Cream [Emla 1 applic TOPICAL DAILY PRN 01/23/19 01/24/19 History Cream 2.5%/2.5%] Polyethylene Glycol 3350 [Miralax] 17 gm PO DAILY PRN 01/23/19 01/24/19 History fentaNYL 25MCG/HR PATCH [Duragesic 1 patch TRANSDERM Q72H 01/23/19 01/24/19 History 25MCG/HR] Allergies Allergy/AdvReac Type Severity Reaction Status Date / Time levofloxacin [From Levaquin] Allergy Dyspnea/FACE Verified 01/24/19 00:37 SWELLING tramadol AdvReac "made pain Verified 01/24/19 00:37 worse" Physical Exam Vitals: Vital Signs Temp Pulse Resp BP BP Pulse Ox 01/26/19 12:09 97.8 F 70 20 117/74 96 01/26/19 08:35 73 20 01/26/19 07:58 98.5 F 73 20 114/58 97 01/25/19 21:00 97.9 F 68 16 112/70 97 01/25/19 16:00 69 20 Intake and Output 01/25/19 01/26/19 01/26/19 22:59 06:59 14:59 Intake Total 240 300 Balance 240 300 Intake: Oral 300 Blood Product 240 Other: Voiding Method Toilet Toilet # Voids 2 2 2 No acute distress S1-S2 heard Decreased breath sounds Edema 2+ Left upper arm lymphedema Results - Lab Results Most recent lab results Calcium 8.2 mg/dL (8.4-10.2) L 01/26/19 10:56 Magnesium 2.0 mg/dL (1.6-2.3) 01/23/19 14:45 01/26/19 10:56 01/26/19 10:56 Assessment and Plan Assessment: #1 acute on chronic hypotonic hyponatremia. Suspect secondary to volume overload. Underlying SIADH cannot be excluded completely because of the history of cancer. #2 metastatic breast cancer on chemotherapy finished in November 2018. #3 edema #4 low normal blood pressures #5 normal renal function #6 mild hypokalemia Plan: #1 agree with stopping IV fluids. Continue fluid restriction. #2 add Lasix 20 mg IV twice a day. #3 goal serum sodium of 125 tomorrow morning. #4 labs 6:00 PM in the evening and in the morning.
[2019-01-26] MEDS: FUROSEMIDE 10 MG/ML 2 ML VIAL IV SCH ×2 (13:34→20:16)
--- NOTE | 2019-01-26 14:33 | US ---
EXAMINATION TYPE: US abdomen comp/pelvis limited DATE OF EXAM: 01/26/2019 COMPARISON: CT CLINICAL HISTORY: pAin unable to sit CT. LUQ pain per patient. EXAM MEASUREMENTS: Liver Length: 15.2 cm Gallbladder Wall: Surgically absent cm CBD: 0.4 cm Spleen: unable to visualize cm Right Kidney: 11.1 x 4.0 x 5.1 Left Kidney: unable to visualize Technically difficult exam performed portable on patient unable to lay down for the entire exam. Donya ent had to keep sitting up to alleviate pain. Pain has extensive edema left arm making left arm unmov able. Pancreas: not visualized due to midline bowel gas Liver: limited visualization, visualized portions appear wnl Gallbladder: Surgically absent CBD: wnl Spleen: unable to visualize Right Kidney: limited visualization, no hydro Left Kidney: unable to visualize Upper IVC: Abd Aorta: limited visualization Bladder: Bilateral Jets Seen no Extremely limited exam. IMPRESSION: Limited exam per the technologist. Postop change.
[2019-01-26] MEDS: MORPHINE SULFATE 2 MG/ML SYRINGE IVP PRN (17:02)
[2019-01-26] MEDS: HYDROcodone/APAP 7.5-325MG 1 EACH TAB PO PRN (20:16)
[2019-01-26 20:49] LABS: Calcium 8.3 mg/dL (8.4-10.2); Potassium 3.7 mmol/L (3.5-5.1)
--- NOTE | 2019-01-26 23:01 | P.PN ---
Subjective Progress Note Date: 01/25/19 Principal diagnosis: Left large pleural effusion Patient is a 58-year-old female with a known history of recurrance of left breast cancer.-had chemo 01-17-18, Left arm lymphedema due to breast cancer, history of DVT currently on anticoagulation with Eliquis came to ER with compla ints of worsening shortness of breath for the past 2 days. Patient is on recent trip to [place] with she drove for several hours. Patient has been having worsening shortness of breath and she cut short her trip and came back home. Patient presents to ER due to worsening shortness of breath. She was ordered for home health care nursing to help her with her lymphedema. She is currently on eliquis. Patient was evaluated by home health nurse who told patient come to the emergency department to be evaluated for pulmonary emboli. No complaints of chest pain. Patient does have some increased leg swelling and increased abdominal girth. No fever no chills. No nausea vomiting or diarrhea and abdominal pain. No cough or sputum production. Sodium 127, BUN 25 and creatinine 1.26. Hemoglobin 9.3. Chest x-ray showed interval development of large left pleural effusion and associated atelectasis, difficult to exclude pneumonia or underlying mass. 01/24/2019 Patient is currently sitting onset. Unable to lie flat on the bed due to left upper extremities lymphedema. Patient is complaining of pain and added morphine now. Pulmonary is planning for thoracentesis. Sodium level is at 126 now. Currently being continued on IV Lasix. No complaints of chest pain or worsening shortness of breath. No fever no chills. No abdominal pain. No diarrhea. 01/25/2019 Patient is sitting comfortably. Still complaining of abdominal pain and left arm pain. Breathing status is much improved after thoracentesis yesterday. Patient is more sleepy this afternoon. Sodium level dropped down to 120. Urine sodium creatinine and osmolality as well as serum osmolality was ordered. Will consider nephrology evaluation. Continue with fluid restriction and patient will be given IV hydration and monitor sodium level closely.. Current medications reviewed. Objective - Vital Signs Vital signs: Vital Signs Temp 97.8 F 01/26/19 12:09 Pulse 70 01/26/19 12:09 Resp 20 01/26/19 12:09 BP 117/74 01/26/19 12:09 Pulse Ox 96 01/26/19 12:09 Intake & Output 01/25/19 01/26/19 01/26/19 18:59 06:59 18:59 Intake Total 360 240 420 Balance 360 240 420 Intake: Oral 360 420 Blood Product 240 Other: Voiding Method Toilet Toilet Toilet # Voids 4 2 3 - Exam PHYSICAL EXAMINATION: Patient is lying in the bed comfortably, no acute distress, awake alert and oriented.. HEENT: Normocephalic. Neck is supple. Pupils reactive. Nostrils clear. Oral cavity is moist. Ears reveal no drainage. Neck reveals no JVD, carotid bruits, or thyromegaly. CHEST EXAMINATION: Trachea is central. Symmetrical expansion.Left basilar cr ackles. And diminished air entry. Bibasilar. No wheezing. No crackles. CARDIAC: Normal S1, S2 with no gallops. No murmurs ABDOMEN: Soft. Bowel sounds normal. No organomegaly. No abdominal bruits. Extremities: 2+ pedal edema. Left upper extremity lymphedema. No clubbing or cyanosis Neurologically awake, alert, oriented x3 with well-coordinated movements. No focal deficits noted Skin: No rash or skin lesions. Psychiatric: Coperative. Nonsuicidal Musculoskeletal: No joint swelling or deformity. Normal range of motion. - Labs CBC & Chem 7: 01/26/19 10:56 01/26/19 20:08 Labs: Abnormal Lab Results - Last 24 Hours (Table) 01/25/19 01/25/19 01/26/19 Range/Units 15:02 15:02 10:56 RBC 3.00 L (3.80-5.40) m/uL Hgb 8.7 L (11.4-16.0) gm/dL Hct 25.5 L (34.0-46.0) % RDW 15.7 H (11.5-15.5) % Lymphocytes # 0.6 L (1.0-4.8) k/uL Sodium 118 L* (137-145) mmol/L Chloride 84 L (98-107) mmol/L BUN 24 H (7-17) mg/dL Creatinine 1.09 H (0.52-1.04) mg/dL Glucose 107 H (74-99) mg/dL Osmolality 245 L* (280-301) mosm/kg Calcium 8.3 L (8.4-10.2) mg/dL 01/26/19 Range/Units 10:56 RBC (3.80-5.40) m/uL Hgb (11.4-16.0) gm/dL Hct (34.0-46.0) % RDW (11.5-15.5) % Lymphocytes # (1.0-4.8) k/uL Sodium 118 L* (137-145) mmol/L Chloride 84 L (98-107) mmol/L BUN 23 H (7-17) mg/dL Creatinine (0.52-1.04) mg/dL Glucose 106 H (74-99) mg/dL Osmolality (280-301) mosm/kg Calcium 8.2 L (8.4-10.2) mg/dL Microbiology - Last 24 Hours (Table) 01/24/19 16:00 Acid Fast Bacilli Smear - Final Pleural Fluid Acid Fast Bacilli Culture - Preliminary 01/24/19 16:20 Gram Stain - Preliminary Pleural Fluid Body Fluid Culture - Preliminary Assessment and Plan Assessment: Worsening shortness of breath secondary to left sided large pleural effusion. Likely malignant effusion. Hyponatremia likely hypervolemic. Recurrence of breast cancer currently on chemotherapy last on 01/17/2019 Left upper extremity lymphedema due to breast cancer with lymph node involvement History of DVT currently on anticoagulation with Eliquis Previous history of smoking Morbid obesity BMI 44.9 Plan: Patient will be started on on normal saline. hold IV Lasix. Will hold Eliquis dose tonight for possible thoracentesis . Pulmonary is following. Continue with home medications and follow closely. Further recommendations based on the clinical course. Time with Patient: Greater than 30
--- NOTE | 2019-01-26 23:16 | P.PN ---
Subjective Progress Note Date: 01/26/19 Principal diagnosis: Left large pleural effusion Patient is a 58-year-old female with a known history of recurrance of left breast cancer.-had chemo 01-17-18, Left arm lymphedema due to breast cancer, history of DVT currently on anticoagulation with Eliquis came to ER with compla ints of worsening shortness of breath for the past 2 days. Patient is on recent trip to [place] with she drove for several hours. Patient has been having worsening shortness of breath and she cut short her trip and came back home. Patient presents to ER due to worsening shortness of breath. She was ordered for home health care nursing to help her with her lymphedema. She is currently on eliquis. Patient was evaluated by home health nurse who told patient come to the emergency department to be evaluated for pulmonary emboli. No complaints of chest pain. Patient does have some increased leg swelling and increased abdominal girth. No fever no chills. No nausea vomiting or diarrhea and abdominal pain. No cough or sputum production. Sodium 127, BUN 25 and creatinine 1.26. Hemoglobin 9.3. Chest x-ray showed interval development of large left pleural effusion and associated atelectasis, difficult to exclude pneumonia or underlying mass. 01/24/2019 Patient is currently sitting onset. Unable to lie flat on the bed due to left upper extremities lymphedema. Patient is complaining of pain and added morphine now. Pulmonary is planning for thoracentesis. Sodium level is at 126 now. Currently being continued on IV Lasix. No complaints of chest pain or worsening shortness of breath. No fever no chills. No abdominal pain. No diarrhea. 01/25/2019 Patient is sitting comfortably. Still complaining of abdominal pain and left arm pain. Breathing status is much improved after thoracentesis yesterday. Patient is more sleepy this afternoon. Sodium level dropped down to 120. Urine sodium creatinine and osmolality as well as serum osmolality was ordered. Will consider nephrology evaluation. Continue with fluid restriction and patient will be given IV hydration and monitor sodium level closely.. 01/27/2019 Patient is awake alert oriented x3. Otherwise feels very weak. Pain is fairly controlled. Awaiting fluid analysis reports. Nephrology was consulted due to sodium at 118. Currently patient is in fluid restriction. Monitor sodium level. No complaints of fever or chills. No nausea vomiting or abdominal diarrhea. pulmonary oncology and nephrology is following. Current medications reviewed. Objective - Vital Signs Vital signs: Vital Signs Temp 97.8 F 01/26/19 12:09 Pulse 70 01/26/19 12:09 Resp 20 01/26/19 12:09 BP 117/74 01/26/19 12:09 Pulse Ox 96 01/26/19 12:09 Intake & Output 01/25/19 01/26/19 01/26/19 18:59 06:59 18:59 Intake Total 360 240 420 Balance 360 240 420 Intake: Oral 360 420 Blood Product 240 Other: Voiding Method Toilet Toilet Toilet # Voids 4 2 3 - Exam PHYSICAL EXAMINATION: Patient is lying in the bed comfortably, no acute distress, awake alert and oriented.. HEENT: Normocephalic. Neck is supple. Pupils reactive. Nostrils clear. Oral cavity is moist. Ears reveal no drainage. Neck reveals no JVD, carotid bruits, or thyromegaly. CHEST EXAMINATION: Trachea is central. Symmetrical expansion.Left basilar crackles. And diminished air entry. Bibasilar. No wheezing. No crackles. CARDIAC: Normal S1, S2 with no gallops. No murmurs ABDOMEN: Soft. Bowel sounds normal. No organomegaly. No abdominal bruits. Extremities: 2+ pedal edema. Left upper extremity lymphedema. No clubbing or cyanosis Neurologically awake, alert, oriented x3 with well-coordinated movements. No focal deficits noted Skin: No rash or skin lesions. Psychiatric: Coperative. Nonsuicidal Musculoskeletal: No joint swelling or deformity. Normal range of motion. - Labs CBC & Chem 7: 01/26/19 10:56 01/26/19 20:08 Labs: Abnormal Lab Results - Last 24 Hours (Table) 01/25/19 01/25/19 01/26/19 Range/Units 15:02 15:02 10:56 RBC 3.00 L (3.80-5.40) m/uL Hgb 8.7 L (11.4-16.0) gm/dL Hct 25.5 L (34.0-46.0) % RDW 15.7 H (11.5-15.5) % Lymphocytes # 0.6 L (1.0-4.8) k/uL Sodium 118 L* (137-145) mmol/L Chloride 84 L (98-107) mmol/L BUN 24 H (7-17) mg/dL Creatinine 1.09 H (0.52-1.04) mg/dL Glucose 107 H (74-99) mg/dL Osmolality 245 L* (280-301) mosm/kg Calcium 8.3 L (8.4-10.2) mg/dL 01/26/19 Range/Units 10:56 RBC (3.80-5.40) m/uL Hgb (11.4-16.0) gm/dL Hct (34.0-46.0) % RDW (11.5-15.5) % Lymphocytes # (1.0-4.8) k/uL Sodium 118 L* (137-145) mmol/L Chloride 84 L (98-107) mmol/L BUN 23 H (7-17) mg/dL Creatinine (0.52-1.04) mg/dL Glucose 106 H (74-99) mg/dL Osmolality (280-301) mosm/kg Calcium 8.2 L (8.4-10.2) mg/dL Microbiology - Last 24 Hours (Table) 01/24/19 16:00 Acid Fast Bacilli Smear - Final Pleural Fluid Acid Fast Bacilli Culture - Preliminary 01/24/19 16:20 Gram Stain - Preliminary Pleural Fluid Body Fluid Culture - Preliminary Assessment and Plan Assessment: Worsening shortness of breath secondary to left sided large pleural effusion. Likely malignant effusion. Hyponatremia likely hypervolemic. HYpoosmolar. SIADH cannot be excluded. Recurrence of breast cancer currently on chemotherapy last on 01/17/2019 Left upper extremity lymphedema due to breast cancer with lymph node involvement History of DVT currently on anticoagulation with Eliquis Previous history of smoking Morbid obesity BMI 44.9 Plan: IV fluids are currently on hold. Patient will be continued on fluid restriction. Was given IV Lasix x1 . will restart eliquis.. Pulmonary is following. Continue with home medications and follow closely. Further recommendations based on the clinical course. Time with Patient: Greater than 30
[2019-01-27] MEDS: HYDROcodone/APAP 7.5-325MG 1 EACH TAB PO PRN ×3 (00:14→08:53)
--- NOTE | 2019-01-27 08:14 | P.PN ---
Subjective Patient is seen in follow-up for hyponatremia. Sodium level was 127 on admission and came down to 118 as of January 25. IV fluids were discontinued and she was started on Lasix. Sodium level was 120 as of last night. She has been voiding. No vomiting or diarrhea. She is also on fluid restriction. Vital signs are stable. General: The patient appeared well nourished and normally developed. HEENT: Head exam is unremarkable. Neck is without jugular venous distension. LUNGS: Lungs are clear to auscultation and percussion. Breath sounds decreased. HEART: Rate and Rhythm are regular. First and second heart sounds normal. No murmurs, rubs or gallops. ABDOMEN: Abdominal exam reveals normal bowel sounds. Non-tender and non- distended. EXTREMITITES: 1+ edema. Objective - Vital Signs Vital signs: Vital Signs Temp 97.7 F 01/27/19 05:00 Pulse 73 01/27/19 05:00 Resp 16 01/27/19 05:00 BP 115/71 01/27/19 05:00 Pulse Ox 98 01/27/19 05:00 Intake & Output 01/26/19 01/27/19 01/27/19 18:59 06:59 18:59 Intake Total 660 200 Output Total 700 Balance 660 -500 Intake: Oral 660 200 Output: Urine 700 Other: Voiding Method Toilet Toilet # Voids 3 3 - Labs CBC & Chem 7: 01/26/19 10:56 01/26/19 20:08 Labs: Abnormal Lab Results - Last 24 Hours (Table) 01/26/19 01/26/19 01/26/19 Range/Units 10:56 10:56 20:08 RBC 3.00 L (3.80-5.40) m/uL Hgb 8.7 L (11.4-16.0) gm/dL Hct 25.5 L (34.0-46.0) % RDW 15.7 H (11.5-15.5) % Lymphocytes # 0.6 L (1.0-4.8) k/uL Sodium 118 L* 120 L (137-145) mmol/L Chloride 84 L 85 L (98-107) mmol/L BUN 23 H 23 H (7-17) mg/dL Creatinine 1.09 H (0.52-1.04) mg/dL Glucose 106 H 110 H (74-99) mg/dL Calcium 8.2 L 8.3 L (8.4-10.2) mg/dL Microbiology - Last 24 Hours (Table) 01/24/19 16:20 Gram Stain - Preliminary Pleural Fluid Body Fluid Culture - Preliminary 01/24/19 16:20 Anaerobic Culture - Preliminary Pleural Fluid Assessment and Plan Plan: Assessment: 1. Acute on chronic hypotonic hyponatremia. Patient appears hypervolemic. 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 Sodium level 120 as of last night. 2. Metastatic breast cancer. Patient to start new chemotherapy regimen upon discharge. 3. Volume overload. 4. Hypokalemia status post replacement. Better. 5. Benign hypertension. Controlled. Plan: Maintain 1 L fluid restriction. Continue with Lasix for now. Follow-up morning labs. If sodium not improving, I will give her a dose of [place].
[2019-01-27] MEDS: APIXABAN 5 MG TAB PO SCH ×2 (08:54→21:30)
[2019-01-27] MEDS: GABAPENTIN 100 MG CAP PO SCH ×3 (08:54→21:30)
[2019-01-27] MEDS: SENNOSIDES-DOCUSATE SODIUM 1 EACH TAB PO SCH ×2 (08:54→19:45)
[2019-01-27] MEDS: LOSARTAN 25 MG TAB PO SCH (08:54)
[2019-01-27] MEDS: FUROSEMIDE 10 MG/ML 2 ML VIAL IV SCH ×2 (08:55→21:30)
[2019-01-27] MEDS: POLYETHYLENE GLYCOL 3350 17 GM POWD.PACK PO SCH (08:56)
[2019-01-27 09:25] LABS: Calcium 8.3 mg/dL (8.4-10.2); Potassium 3.5 mmol/L (3.5-5.1)
[2019-01-27] MEDS ORDERED: POTASSIUM CHLORIDE ER 20 MEQ TAB.ER PO STA (11:00)
[2019-01-27] MEDS ORDERED: oxyCODONE-APAP 7.5-325MG 1 EACH TAB PO STA (11:01)
--- NOTE | 2019-01-27 11:04 | P.PN ---
Subjective Progress Note Date: 01/27/19 Principal diagnosis: Metastatic Breast Pain not controled over night with [place] 7.5/325 Iexmpra also unable to be approved through insurance will receove vinorelbine instead once stable Objective - Vital Signs Vital signs: Vital Signs Temp 97.7 F 01/27/19 05:00 Pulse 73 01/27/19 05:00 Resp 16 01/27/19 05:00 BP 115/71 01/27/19 05:00 Pulse Ox 98 01/27/19 05:00 Intake & Output 01/26/19 01/27/19 01/27/19 18:59 06:59 18:59 Intake Total 660 200 Output Total 700 Balance 660 -500 Weight 127.119 kg Intake: Oral 660 200 Output: Urine 700 Other: Voiding Method Toilet Toilet # Voids 3 3 - Exam Gen: Alert and Oriented, NAD Head: NCNT Neck Supple Heart Tachy Lungs Increased effort Diminished throughuot Abdomen: S/ND/NT Ext: Left arm 4+ Lymphedema and inability to move. Psych: Axious, tearful and Coroperative Neuro: No Focal Deficits Noted. - Labs CBC & Chem 7: 01/27/19 08:48 01/27/19 08:48 Labs: Abnormal Lab Results - Last 24 Hours (Table) 01/26/19 01/26/19 01/26/19 Range/Units 10:56 10:56 20:08 RBC 3.00 L (3.80-5.40) m/uL Hgb 8.7 L (11.4-16.0) gm/dL Hct 25.5 L (34.0-46.0) % RDW 15.7 H (11.5-15.5) % Lymphocytes # 0.6 L (1.0-4.8) k/uL Sodium 118 L* 120 L (137-145) mmol/L Chloride 84 L 85 L (98-107) mmol/L BUN 23 H 23 H (7-17) mg/dL Creatinine 1.09 H (0.52-1.04) mg/dL Glucose 106 H 110 H (74-99) mg/dL Calcium 8.2 L 8.3 L (8.4-10.2) mg/dL 01/27/19 Range/Units 08:48 RBC (3.80-5.40) m/uL Hgb (11.4-16.0) gm/dL Hct (34.0-46.0) % RDW (11.5-15.5) % Lymphocytes # (1.0-4.8) k/uL Sodium 122 L (137-145) mmol/L Chloride 86 L (98-107) mmol/L BUN 23 H (7-17) mg/dL Creatinine 1.16 H (0.52-1.04) mg/dL Glucose 125 H (74-99) mg/dL Calcium 8.3 L (8.4-10.2) mg/dL Microbiology - Last 24 Hours (Table) 01/24/19 16:20 Gram Stain - Preliminary Pleural Fluid Body Fluid Culture - Preliminary 01/24/19 16:20 Anaerobic Culture - Preliminary Pleural Fluid Assessment and Plan Plan: Assessment and Recommendations: Metastatic Breast Cancer:Lung Lymph - Progressive - Failed Multiple lines of therapy - BRCA2 - Hospice Appropriate, patient refuses at this time, plan for salvage therapy with Ixempra or Vinorelbine Neoplastic Related Pain - Uncontrolled: - Increased Fentanyl [id number] - Add PO MSIR, IV if severe not relieved with PO - Bowel regimen and reisk of constipation induced narcotic. Hyponatremia: - Dehydration versus SIADH versus other - Osmolatiy Urine and Serum - Nephroogy Following Normocytic Anemia: - Transfuse less than 7 - Secondary to malignancy PLan:and DISPO - Will trial a one dose of percocet if better control will switch from [place] - Increase fentanyl to 75Mcg q72 hours - DISPO PLAN: Control pain on PO and transdermal and plan discharge - Nephrology input on Hyponatremia
[2019-01-27 12:00] LABS: Basophils % (A) 0 %; Eosinophils # (A) 0.1 k/uL (0-0.7); Eosinophils % (A) 1 %; HCT 24.8 % (34.0-46.0); HGB 8.4 gm/dL (11.4-16.0); Lymphocytes # (A) 0.5 k/uL (1.0-4.8); Lymphocytes % (A) 8 %; MCH 28.9 pg (25.0-35.0); MCHC 33.7 g/dL (31.0-37.0); MCV 85.8 fL (80.0-100.0); Mean Platelet Volume 6.9; Monocytes # (A) 0.7 k/uL (0-1.0); Monocytes % (A) 10 %; Neutrophils # (A) 5.3 k/uL (1.3-7.7); Neutrophils % (A) 79 %; Platelet Count 354 k/uL (150-450); RBC 2.89 m/uL (3.80-5.40); RDW 15.2 % (11.5-15.5); WBC 6.7 k/uL (3.8-10.6)
[2019-01-27] MEDS: oxyCODONE-APAP 7.5-325MG 1 EACH TAB PO PRN ×3 (16:18→23:54)
--- NOTE | 2019-01-27 16:55 | P.PN ---
Subjective Progress Note Date: 01/27/19 Principal diagnosis: Left large pleural effusion Patient is a 58-year-old female with a known history of recurrance of left breast cancer.-had chemo 01-17-18, Left arm lymphedema due to breast cancer, history of DVT currently on anticoagulation with Eliquis came to ER with compla ints of worsening shortness of breath for the past 2 days. Patient is on recent trip to [place] with she drove for several hours. Patient has been having worsening shortness of breath and she cut short her trip and came back home. Patient presents to ER due to worsening shortness of breath. She was ordered for home health care nursing to help her with her lymphedema. She is currently on eliquis. Patient was evaluated by home health nurse who told patient come to the emergency department to be evaluated for pulmonary emboli. No complaints of chest pain. Patient does have some increased leg swelling and increased abdominal girth. No fever no chills. No nausea vomiting or diarrhea and abdominal pain. No cough or sputum production. Sodium 127, BUN 25 and creatinine 1.26. Hemoglobin 9.3. Chest x-ray showed interval development of large left pleural effusion and associated atelectasis, difficult to exclude pneumonia or underlying mass. 01/24/2019 Patient is currently sitting onset. Unable to lie flat on the bed due to left upper extremities lymphedema. Patient is complaining of pain and added morphine now. Pulmonary is planning for thoracentesis. Sodium level is at 126 now. Currently being continued on IV Lasix. No complaints of chest pain or worsening shortness of breath. No fever no chills. No abdominal pain. No diarrhea. 01/25/2019 Patient is sitting comfortably. Still complaining of abdominal pain and left arm pain. Breathing status is much improved after thoracentesis yesterday. Patient is more sleepy this afternoon. Sodium level dropped down to 120. Urine sodium creatinine and osmolality as well as serum osmolality was ordered. Will consider nephrology evaluation. Continue with fluid restriction and patient will be given IV hydration and blane tor sodium level closely.. 01/26/2019 Patient is awake alert oriented x3. Otherwise feels very weak. Pain is fairly controlled. Awaiting fluid analysis reports. Nephrology was consulted due to sodium at 118. Currently patient is in fluid restriction. Monitor sodium level. No complaints of fever or chills. No nausea vomiting or abdominal diarrhea. pulmonary oncology and nephrology is following. 01/26/2019 Patient is still complaining of pain not controlled with pain medications. Otherwise breathing status is much improved. No compressive cough is from production. sodium level improved to 122. Continued fluid restriction. Oncology is following for pain management and further oncology recommendations. Anticipate discharge in next 24 hours with more clinical improvement. Follow-up thoracentesis fluid analysis, cytology and culture reports. Current medications reviewed. Objective - Vital Signs Vital signs: Vital Signs Temp 97.6 F 01/27/19 14:08 Pulse 70 01/27/19 14:08 Resp 20 01/27/19 14:08 BP 119/73 01/27/19 14:08 Pulse Ox 98 01/27/19 14:08 Intake & Output 01/26/19 01/27/19 01/27/19 18:59 06:59 18:59 Intake Total 660 200 Output Total 700 725 Balance 660 -500 -725 Weight 127.119 kg Intake: Oral 660 200 Output: Urine 700 725 Other: Voiding Method Toilet Toilet Toilet # Voids 3 3 - Exam PHYSICAL EXAMINATION: Patient is lying in the bed comfortably, no acute distress, awake alert and orie nted.. HEENT: Normocephalic. Neck is supple. Pupils reactive. Nostrils clear. Oral cavity is moist. Ears reveal no drainage. Neck reveals no JVD, carotid bruits, or thyromegaly. CHEST EXAMINATION: Trachea is central. Symmetrical expansion.Left basilar crackles. Bibasilar diminished air entry. No wheezing. Nonlabored breathing. CARDIAC: Normal S1, S2 with no gallops. No murmurs ABDOMEN: Soft. Bowel sounds normal. No organomegaly. No abdominal bruits. Extremities: 2+ pedal edema. Left upper extremity lymphedema. No clubbing or cyanosis Neurologically awake, alert, oriented x3 with well-coordinated movements. No focal deficits noted Skin: No rash or skin lesions. Psychiatric: Coperative. Nonsuicidal Musculoskeletal: No joint swelling or deformity. Normal range of motion. - Labs CBC & Chem 7: 01/27/19 08:48 01/27/19 08:48 Labs: Abnormal Lab Results - Last 24 Hours (Table) 01/26/19 01/27/19 01/27/19 Range/Units 20:08 08:48 08:48 RBC 2.89 L (3.80-5.40) m/uL Hgb 8.4 L (11.4-16.0) gm/dL Hct 24.8 L (34.0-46.0) % Lymphocytes # 0.5 L (1.0-4.8) k/uL Sodium 120 L 122 L (137-145) mmol/L Chloride 85 L 86 L (98-107) mmol/L BUN 23 H 23 H (7-17) mg/dL Creatinine 1.09 H 1.16 H (0.52-1.04) mg/dL Glucose 110 H 125 H (74-99) mg/dL Calcium 8.3 L 8.3 L (8.4-10.2) mg/dL Microbiology - Last 24 Hours (Table) 01/24/19 16:20 Gram Stain - Preliminary Pleural Fluid Body Fluid Culture - Preliminary 01/24/19 16:20 Anaerobic Culture - Preliminary Pleural Fluid Assessment and Plan Assessment: Worsening shortness of breath secondary to left sided large pleural effusion. Likely malignant effusion. Status post thoracentesis. Hyponatremia likely hypervolemic. HYpoosmolar. SIADH cannot be excluded. Recurrence of breast cancer currently on chemotherapy last on 01/17/2019 Left upper extremity lymphedema due to breast cancer with lymph node involvement History of DVT currently on anticoagulation with Eliquis Previous history of smoking Morbid obesity BMI 44.9 Plan: IV fluids are currently on hold. Patient will be continued on fluid r estriction. Was given IV Lasix x1 . Monitor sodium level. Restarted eliquis. Continue with pain management.. Pulmonary is following. Continue with home medications and follow closely. Further recommendations based on the clinical course. Time with Patient: Greater than 30
[2019-01-27] MEDS ORDERED: TOLVAPTAN 15 MG 1/2 TABLET PO ONE (20:06)
[2019-01-28] MEDS: GABAPENTIN 100 MG CAP PO SCH ×3 (08:17→21:35)
[2019-01-28] MEDS: SENNOSIDES-DOCUSATE SODIUM 1 EACH TAB PO SCH ×2 (08:17→21:36)
[2019-01-28] MEDS: FUROSEMIDE 10 MG/ML 2 ML VIAL IV SCH (08:17)
[2019-01-28] MEDS: APIXABAN 5 MG TAB PO SCH ×2 (08:17→21:35)
[2019-01-28] MEDS: POLYETHYLENE GLYCOL 3350 17 GM POWD.PACK PO SCH (08:18)
[2019-01-28] MEDS: LOSARTAN 25 MG TAB PO SCH (08:19)
[2019-01-28 09:06] LABS: Calcium 8.8 mg/dL (8.4-10.2); Magnesium 1.8 mg/dL (1.6-2.3)
[2019-01-28 09:16] LABS: Basophils % (A) 0 %; Eosinophils # (A) 0.1 k/uL (0-0.7); Eosinophils % (A) 2 %; HCT 27.2 % (34.0-46.0); Lymphocytes # (A) 0.8 k/uL (1.0-4.8); Lymphocytes % (A) 10 %; MCH 28.3 pg (25.0-35.0); MCHC 33.2 g/dL (31.0-37.0); MCV 85.3 fL (80.0-100.0); Mean Platelet Volume 6.2; Monocytes # (A) 0.8 k/uL (0-1.0); Monocytes % (A) 11 %; Neutrophils # (A) 5.5 k/uL (1.3-7.7); Neutrophils % (A) 74 %; Platelet Count 407 k/uL (150-450); RBC 3.19 m/uL (3.80-5.40); RDW 15.1 % (11.5-15.5); WBC 7.4 k/uL (3.8-10.6)
--- NOTE | 2019-01-28 10:25 | P.PN ---
Subjective Patient is seen in follow-up for hyponatremia. Sodium level was 127 on admission and came down to 118 as of January 25. IV fluids were discontinued and she was started on Lasix. Sodium level was 122 as of last night. She was given 1 dose of Samsca. Sodium level 126 today. She has been voiding. No vomiting or diarrhea. She is also on fluid restriction. Complains of swelling in her legs. Vital signs are stable. General: The patient appeared well nourished and normally developed. HEENT: Head exam is unremarkable. Neck is without jugular venous distension. LUNGS: Lungs are clear to auscultation and percussion. Breath sounds decreased. HEART: Rate and Rhythm are regular. First and second heart sounds normal. No murmurs, rubs or gallops. ABDOMEN: Abdominal exam reveals normal bowel sounds. Non-tender and non- distended. EXTREMITITES: 1+ edema. Objective - Vital Signs Vital signs: Vital Signs Temp 97.5 F L 01/28/19 05:00 Pulse 78 01/28/19 05:00 Resp 18 01/28/19 05:00 BP 107/67 01/28/19 05:00 Pulse Ox 100 01/28/19 05:00 Intake & Output 01/27/19 01/28/19 01/28/19 18:59 06:59 18:59 Intake Total 720 480 120 Output Total 1450 2050 Balance -730 -1570 120 Weight 126.3 kg Intake: Oral 720 480 120 Output: Urine 1450 0 Other: Voiding Method Toilet Toilet Toilet # Voids 3 # Bowel Movements 1 - Labs CBC & Chem 7: 01/28/19 07:40 01/28/19 07:40 Labs: Abnormal Lab Results - Last 24 Hours (Table) 01/27/19 01/27/19 01/28/19 Range/Units 08:48 16:41 07:40 RBC 2.89 L (3.80-5.40) m/uL Hgb 8.4 L (11.4-16.0) gm/dL Hct 24.8 L (34.0-46.0) % Lymphocytes # 0.5 L (1.0-4.8) k/uL Sodium 122 L 126 L (137-145) mmol/L Chloride 87 L (98-107) mmol/L BUN 26 H (7-17) mg/dL Creatinine 1.36 H (0.52-1.04) mg/dL Glucose 117 H (74-99) mg/dL 01/28/19 Range/Units 07:40 RBC 3.19 L (3.80-5.40) m/uL Hgb 9.0 L (11.4-16.0) gm/dL Hct 27.2 L (34.0-46.0) % Lymphocytes # 0.8 L (1.0-4.8) k/uL Sodium (137-145) mmol/L Chloride (98-107) mmol/L BUN (7-17) mg/dL Creatinine (0.52-1.04) mg/dL Glucose (74-99) mg/dL Microbiology - Last 24 Hours (Table) 01/24/19 16:20 Gram Stain - Preliminary Pleural Fluid Body Fluid Culture - Preliminary Assessment and Plan Plan: Assessment: 1. Acute on chronic hypotonic hyponatremia. Patient appears hypervolemic. 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 Sodium level 126 today. Status post [facility] on January 27. 2. Metastatic breast cancer. Patient to start new chemotherapy regimen upon discharge. 3. Volume overload. 4. Hypokalemia status post replacement. Better. 5. Benign hypertension. Controlled. 6. Acute kidney injury mostly prerenal secondary to diuresis. Plan: Maintain 1 L fluid restriction. I will increase the dose of Lasix to 40 mg IV twice daily. Encouraged oral intake. Discontinue Cozaar as blood pressures on the lower side. Repeat sodium level this evening.
--- NOTE | 2019-01-28 10:44 | P.PN ---
Subjective Progress Note Date: 01/28/19 Principal diagnosis: Metastatic Breast Pain better controlled on percocet discontinue morphine and norco Fungal and excoriation left underarm - Nystatin powder and diflucan ordered Iexmpra also unable to be approved through insurance will receove vinorelbine instead once stable Objective - Vital Signs Vital signs: Vital Signs Temp 97.5 F L 01/28/19 05:00 Pulse 78 01/28/19 05:00 Resp 18 01/28/19 05:00 BP 107/67 01/28/19 05:00 Pulse Ox 100 01/28/19 05:00 Intake & Output 01/27/19 01/28/19 01/28/19 18:59 06:59 18:59 Intake Total 720 480 120 Output Total 1450 0 Balance -730 -1570 120 Weight 126.3 kg Intake: Oral 720 480 120 Output: Urine 1450 2049 Other: Voiding Method Toilet Toilet Toilet # Voids 3 # Bowel Movements 1 - Exam Gen: Alert and Oriented, NAD Head: NCNT Neck Supple Heart Tachy Lungs Increased effort Diminished throughuot Abdomen: S/ND/NT Ext: Left arm 4+ Lymphedema and inability to move. Psych: Axious, tearful and Coroperative Neuro: No Focal Deficits Noted. SKin: Led underarm +odor and skin excoriation fungal - Labs CBC & Chem 7: 01/28/19 07:40 01/28/19 07:40 Labs: Abnormal Lab Results - Last 24 Hours (Table) 01/27/19 01/27/19 01/28/19 Range/Units 08:48 16:41 07:40 RBC 2.89 L (3.80-5.40) m/uL Hgb 8.4 L (11.4-16.0) gm/dL Hct 24.8 L (34.0-46.0) % Lymphocytes # 0.5 L (1.0-4.8) k/uL Sodium 122 L 126 L (137-145) mmol/L Chloride 87 L (98-107) mmol/L BUN 26 H (7-17) mg/dL Creatinine 1.36 H (0.52-1.04) mg/dL Glucose 117 H (74-99) mg/dL 01/28/19 Range/Units 07:40 RBC 3.19 L (3.80-5.40) m/uL Hgb 9.0 L (11.4-16.0) gm/dL Hct 27.2 L (34.0-46.0) % Lymphocytes # 0.8 L (1.0-4.8) k/uL Sodium (137-145) mmol/L Chloride (98-107) mmol/L BUN (7-17) mg/dL Creatinine (0.52-1.04) mg/dL Glucose (74-99) mg/dL Microbiology - Last 24 Hours (Table) 01/24/19 16:20 Gram Stain - Preliminary Pleural Fluid Body Fluid Culture - Preliminary Assessment and Plan Plan: Assessment and Recommendations: Metastatic Breast Cancer:Lung Lymph - Progressive - Failed Multiple lines of therapy - BRCA2 - Hospice Appropriate, patient refuses at this time, plan for salvage therapy with Ixempra or Vinorelbine Neoplastic Related Pain - Uncontrolled: - Bowel regimen and reisk of constipation induced narcotic. - Improved on increased fentanyl and Percocet will discharge with this regimen Hyponatremia: - Dehydration versus SIADH versus other - Osmolatiy Urine and Serum - Nephroogy Following Normocytic Anemia: - Transfuse less than 7 - Secondary to malignancy Left arm Lymphedema with skin excoriation and secoondary fungal: - Wond Care recs - Nystatin Powder - Diflucan - Keep dry PLan:and DISPO - Will trial a one dose of percocet if better control will switch from [place] - Increase fentanyl to 75Mcg q72 hours - DISPO PLAN: Control pain on PO and transdermal and plan discharge - Nephrology input on Hyponatremia - Will have wound care evaluate
[2019-01-28] MEDS: FLUCONAZOLE 100 MG TAB PO SCH (11:00)
[2019-01-28] MEDS: NYSTATIN 100,000 UNIT/GM POWD 15 GM TOPICAL SCH ×3 (11:00→21:49)
[2019-01-28] MEDS: oxyCODONE-APAP 7.5-325MG 1 EACH TAB PO PRN ×3 (13:02→21:49)
--- NOTE | 2019-01-28 13:03 | P.CON ---
Consult Note - . Consult date: 01/28/19 Assessment/Plan:: This is a 58-year-old pleasant female who complains of yeast infection to the left axilla. Patient stated that she has been dealing with this for the past few months and noticed some skin breakdown in the area. Patient has hi story of lymphedema and metastatic breast cancer. She is currently in the hospital for treatment of worsening shortness of breath secondary to left-sided large pleural effusion. Patient states due to the lymphedema the area is difficult to keep dry. She noticed that yeast started and has not been able to control it. Patient was unsure when the ulceration started. Patient does complain of tenderness to the site. Patient was given Diflucan and nystatin powder to the site. Patient's past medical history includes hyponatremia, DVT on anticoagulation, morbid obesity, previous smoker. Patient denies diabetes. Review Of Systems: Constitutional: No fever, no chills, no night sweats. Integumentary: Reports wounds, No rash or pruritus. No unusual bruising. No change in hair or nails. Extremity: Edema to the left upper extremity. Decreased range of motion to the left arm. General Appearance: Alert, cooperative, no distress, appears stated age. Extremities: Left upper extremity edematous, axilla noted with ulceration approximately 1 cm x 5 cm at 0.1 in depth with limited skin breakdown distal portion of ulceration and fatty layer exposure. Limited range of motion of left arm. No cyanosis noted Pulses: 2+ and symmetric. Skin: Left axilla redness and skin breakdown with fatty layer exposure, all other Skin color, texture, tugor normal, no rashes or lesions. Neurologic: Alert oriented x3 cranial nerves II through XII intact, no motor deficit, no abnormal balance or gait Assessment/plan: 1. Nonhealing ulceration with fatty layer exposure. Apply triad daily may apply ABT as needed. Discussed with patient to continue treatment. Discussed with patient referral to wound care center upon discharge. Patient will agreeable with plan of care. May consider debridement at that time. 2. Lymphedema. 3. Metastatic breast cancer. Currently on chemotherapy. DNP note has been reviewed and discussed with Dr. Matthew and the impression and plan of care has been directed as dictated. Thank you for the consultation. If you have any questions or concerns please contact the wound care center.
[2019-01-28] MEDS: HYDROPHILIC CREAM 180 GM TUBE TOPICAL SCH (15:10)
--- NOTE | 2019-01-28 16:28 | P.PN ---
Subjective Progress Note Date: 01/28/19 Principal diagnosis: Left large pleural effusion Patient is a 58-year-old female with a known history of recurrance of left breast cancer.-had chemo 01-17-18, Left arm lymphedema due to breast cancer, history of DVT currently on anticoagulation with Eliquis came to ER with compla ints of worsening shortness of breath for the past 2 days. Patient is on recent trip to [place] with she drove for several hours. Patient has been having worsening shortness of breath and she cut short her trip and came back home. Patient presents to ER due to worsening shortness of breath. She was ordered for home health care nursing to help her with her lymphedema. She is currently on eliquis. Patient was evaluated by home health nurse who told patient come to the emergency department to be evaluated for pulmonary emboli. No complaints of chest pain. Patient does have some increased leg swelling and increased abdominal girth. No fever no chills. No nausea vomiting or diarrhea and abdominal pain. No cough or sputum production. Sodium 127, BUN 25 and creatinine 1.26. Hemoglobin 9.3. Chest x-ray showed interval development of large left pleural effusion and associated atelectasis, difficult to exclude pneumonia or underlying mass. 01/24/2019 Patient is currently sitting onset. Unable to lie flat on the bed due to left upper extremities lymphedema. Patient is complaining of pain and added morphine now. Pulmonary is planning for thoracentesis. Sodium level is at 126 now. Currently being continued on IV Lasix. No complaints of chest pain or worsening shortness of breath. No fever no chills. No abdominal pain. No diarrhea. 01/25/2019 Patient is sitting comfortably. Still complaining of abdominal pain and left arm pain. Breathing status is much improved after thoracentesis yesterday. Patient is more sleepy this afternoon. Sodium level dropped down to 120. Urine sodium creatinine and osmolality as well as serum osmolality was ordered. Will consider nephrology evaluation. Continue with fluid restriction and patient will be given IV hydration and blane tor sodium level closely.. 01/26/2019 Patient is awake alert oriented x3. Otherwise feels very weak. Pain is fairly controlled. Awaiting fluid analysis reports. Nephrology was consulted due to sodium at 118. Currently patient is in fluid restriction. Monitor sodium level. No complaints of fever or chills. No nausea vomiting or abdominal diarrhea. pulmonary oncology and nephrology is following. 01/27/2019 Patient is still complaining of pain not controlled with pain medications. Otherwise breathing status is much improved. No compressive cough is from production. sodium level improved to 122. Continued fluid restriction. Oncology is following for pain management and further oncology recommendations. Anticipate discharge in next 24 hours with more clinical improvement. Follow-up thoracentesis fluid analysis, cytology and culture reports. 01/11/2018 Patient says that the pain is better today patient developed excoriation of the skin on the left infra-axilla region. Wound care was consulted. Pain is controlled with Percocet and fentanyl patch. Oncology is following. Sodium level improved to 126 with fluid restriction. Patient will be converted on fluid restriction was started on IV Lasix due to worsening leg swelling. Nephrology is on board Otherwise patient denied any complaints of fever or chills. No nausea vomiting or abdominal pain. No headache or dizziness or lightheadedness. Current medications reviewed. Objective - Vital Signs Vital signs: Vital Signs Temp 97.9 F 01/28/19 12:14 Pulse 82 01/28/19 12:14 Resp 20 01/28/19 12:14 BP 116/61 01/28/19 12:14 Pulse Ox 94 L 01/28/19 12:14 Intake & Output 01/27/19 01/28/19 01/28/19 18:59 06:59 18:59 Intake Total 720 480 360 Output Total 1450 2050 1475 Balance -730 -1570 -1115 Weight 126.3 kg Intake: Oral 720 480 360 Output: Urine 1450 2050 1475 Other: Voiding Method Toilet Toilet Toilet # Voids 3 # Bowel Movements 1 - Exam PHYSICAL EXAMINATION: Patient is lying in the bed comfortably, no acute distress, awake alert and oriented.. HEENT: Normocephalic. Neck is supple. Pupils reactive. Nostrils clear. Oral cavity is moist. Ears reveal no drainage. Neck reveals no JVD, carotid bruits, or thyromegaly. CHEST EXAMINATION: Trachea is central. Symmetrical expansion.Left basilar crackles. Bibasilar diminished air entry. No wheezing. Nonlabored breathing. CARDIAC: Normal S1, S2 with no gallops. No murmurs ABDOMEN: Soft. Bowel sounds normal. No organomegaly. No abdominal bruits. Extremities: 2+ pedal edema. Left upper extremity lymphedema. No clubbing or cyanosis Neurologically awake, alert, oriented x3 with well-coordinated movements. No focal deficits noted Skin: No rash or skin lesions. Psychiatric: Coperative. Nonsuicidal Musculoskeletal: No joint swelling or deformity. Normal range of motion. - Labs CBC & Chem 7: 01/28/19 07:40 01/28/19 07:40 Labs: Abnormal Lab Results - Last 24 Hours (Table) 01/27/19 01/28/19 01/28/19 Range/Units 16:41 07:40 07:40 RBC 3.19 L (3.80-5.40) m/uL Hgb 9.0 L (11.4-16.0) gm/dL Hct 27.2 L (34.0-46.0) % Lymphocytes # 0.8 L (1.0-4.8) k/uL Sodium 122 L 126 L (137-145) mmol/L Chloride 87 L (98-107) mmol/L BUN 26 H (7-17) mg/dL Creatinine 1.36 H (0.52-1.04) mg/dL Glucose 117 H (74-99) mg/dL Microbiology - Last 24 Hours (Table) 01/24/19 16:20 Gram Stain - Preliminary Pleural Fluid Body Fluid Culture - Preliminary Assessment and Plan Assessment: Worsening shortness of breath secondary to left sided large pleural effusion. Likely malignant effusion. Status post thoracentesis. Hyponatremia likely hypervolemic. HYpoosmolar. SIADH cannot be excluded. Continue on fluid restriction. Improving now. Recurrence of breast cancer currently on chemotherapy last on 01/17/2019 Left upper extremity lymphedema due to breast cancer with lymph node involvement History of DVT currently on anticoagulation with Eliquis Previous history of smoking Morbid obesity BMI 44.9 Plan: IV fluids are currently on hold. Patient will be continued on fluid restriction. Patient was started on Lasix IV.. Monitor sodium level. Patient is status post thoracentesis. Fluid cytology is pending. Restarted eliquis. Continue with pain management.. Oncology and nephrology on board. Continue with home medications and follow closely. Further recommendations based on the clinical course. Time with Patient: Greater than 30
[2019-01-28 21:30] VITALS: RESP 18; TEMP 97.7
[2019-01-28] MEDS: FUROSEMIDE 10 MG/ML 4 ML VIAL IV SCH (21:36)
[2019-01-29 06:03] VITALS: BP 117/74; PULSE 76
[2019-01-29] MEDS: SENNOSIDES-DOCUSATE SODIUM 1 EACH TAB PO SCH (08:00)
[2019-01-29] MEDS: POLYETHYLENE GLYCOL 3350 17 GM POWD.PACK PO SCH (08:00)
[2019-01-29] MEDS: FLUCONAZOLE 100 MG TAB PO SCH (08:01)
[2019-01-29] MEDS: FUROSEMIDE 10 MG/ML 4 ML VIAL IV SCH (08:01)
[2019-01-29] MEDS: APIXABAN 5 MG TAB PO SCH (08:01)
[2019-01-29] MEDS: GABAPENTIN 100 MG CAP PO SCH (08:01)
[2019-01-29] MEDS: NYSTATIN 100,000 UNIT/GM POWD 15 GM TOPICAL SCH (08:03)
[2019-01-29] MEDS: HYDROPHILIC CREAM 180 GM TUBE TOPICAL SCH (08:04)
[2019-01-29 09:06] LABS: Basophils % (A) 1 %; Eosinophils # (A) 0.1 k/uL (0-0.7); Eosinophils % (A) 2 %; HGB 8.4 gm/dL (11.4-16.0); Lymphocytes # (A) 0.7 k/uL (1.0-4.8); Lymphocytes % (A) 10 %; MCH 27.6 pg (25.0-35.0); MCHC 32.2 g/dL (31.0-37.0); MCV 85.7 fL (80.0-100.0); Monocytes # (A) 0.8 k/uL (0-1.0); Monocytes % (A) 12 %; Neutrophils # (A) 4.9 k/uL (1.3-7.7); Neutrophils % (A) 72 %; Platelet Count 429 k/uL (150-450); RBC 3.03 m/uL (3.80-5.40); WBC 6.8 k/uL (3.8-10.6)
[2019-01-29 09:10] VITALS: BMI 44.3
[2019-01-29 09:23] LABS: Calcium 8.7 mg/dL (8.4-10.2); Potassium 4.2 mmol/L (3.5-5.1)
[2019-01-29] MEDS: oxyCODONE-APAP 7.5-325MG 1 EACH TAB PO PRN (10:31)
--- NOTE | 2019-01-29 11:39 | P.PN ---
Subjective Patient is seen in follow-up for hyponatremia. Sodium level was 127 on admission and came down to 118 as of January 25. IV fluids were discontinued and she was started on Lasix. Sodium level 129 today. She has been voiding. No vomiting or diarrhea. She is also on fluid restriction. Complains of swelling in her legs - improving with diuresis. Vital signs are stable. General: The patient appeared well nourished and normally developed. HEENT: Head exam is unremarkable. Neck is without jugular venous distension. LUNGS: Lungs are clear to auscultation and percussion. Breath sounds decreased. HEART: Rate and Rhythm are regular. First and second heart sounds normal. No murmurs, rubs or gallops. ABDOMEN: Abdominal exam reveals normal bowel sounds. Non-tender and non- distended. EXTREMITITES: 1+ edema. Objective - Vital Signs Vital signs: Vital Signs Temp 97.7 F 01/29/19 05:00 Pulse 76 01/29/19 05:00 Resp 18 01/29/19 05:00 BP 117/74 01/29/19 05:00 Pulse Ox 97 01/29/19 05:00 Intake & Output 01/28/19 01/29/19 01/29/19 18:59 06:59 18:59 Intake Total 600 300 298 Output Total 1825 1050 250 Balance -1225 -750 48 Weight 124.6 kg 124.6 kg Intake: Oral 600 300 298 Output: Urine 1825 1050 250 Other: Voiding Method Toilet Toilet - Labs CBC & Chem 7: 01/29/19 08:04 01/29/19 08:04 Labs: Abnormal Lab Results - Last 24 Hours (Table) 01/28/19 01/29/19 01/29/19 Range/Units 16:19 08:04 08:04 RBC 3.03 L (3.80-5.40) m/uL Hgb 8.4 L (11.4-16.0) gm/dL Hct 26.0 L (34.0-46.0) % Lymphocytes # 0.7 L (1.0-4.8) k/uL Sodium 128 L 129 L (137-145) mmol/L Chloride 90 L (98-107) mmol/L BUN 31 H (7-17) mg/dL Creatinine 1.44 H (0.52-1.04) mg/dL Microbiology - Last 24 Hours (Table) 01/24/19 16:20 Anaerobic Culture - Final Pleural Fluid 01/24/19 16:20 Gram Stain - Final Pleural Fluid Body Fluid Culture - Final Assessment and Plan Plan: Assessment: 1. Acute on chronic hypotonic hyponatremia. Patient appears hypervolemic. 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 Sodium level 129 today. Status post [facility] on January 27. 2. Metastatic breast cancer. Patient to start new chemotherapy regimen upon discharge. 3. Volume overload. 4. Hypokalemia status post replacement. Better. 5. Benign hypertension. Controlled. 6. Acute kidney injury mostly prerenal secondary to diuresis. Plan: Maintain 1 L fluid restriction. Continue Lasix 40 mg IV twice daily - can be transitioned to oral upon discharge. Encouraged oral intake. Discontinue Cozaar as blood pressures on the lower side. Repeat electrolytes in AM.
--- NOTE | 2019-01-29 12:59 | P.PN ---
Subjective Progress Note Date: 01/29/19 Principal diagnosis: Metastatic Breast Pain better controlled on percocet and increased Fentanyl. 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 Objective - Vital Signs Vital signs: Vital Signs Temp 97.7 F 01/29/19 05:00 Pulse 76 01/29/19 05:00 Resp 18 01/29/19 05:00 BP 117/74 01/29/19 05:00 Pulse Ox 97 01/29/19 05:00 Intake & Output 01/28/19 01/29/19 01/29/19 18:59 06:59 18:59 Intake Total 600 300 298 Output Total 1825 1050 250 Balance -1225 -750 48 Weight 124.6 kg 124.6 kg Intake: Oral 600 300 298 Output: Urine 1825 1050 250 Other: Voiding Method Toilet Toilet - Exam Gen: Alert and Oriented, NAD Head: NCNT Neck Supple Heart Tachy Lungs Increased effort Diminished throughuot Abdomen: S/ND/NT Ext: Left arm 4+ Lymphedema and inability to move. Psych: Axious, tearful and Coroperative Neuro: No Focal Deficits Noted. SKin: Led underarm +odor and skin excoriation fungal - Labs CBC & Chem 7: 01/29/19 08:04 01/29/19 08:04 Labs: Abnormal Lab Results - Last 24 Hours (Table) 01/28/19 01/29/19 01/29/19 Range/Units 16:19 08:04 08:04 RBC 3.03 L (3.80-5.40) m/uL Hgb 8.4 L (11.4-16.0) gm/dL Hct 26.0 L (34.0-46.0) % Lymphocytes # 0.7 L (1.0-4.8) k/uL Sodium 128 L 129 L (137-145) mmol/L Chloride 90 L (98-107) mmol/L BUN 31 H (7-17) mg/dL Creatinine 1.44 H (0.52-1.04) mg/dL Microbiology - Last 24 Hours (Table) 01/24/19 16:20 Anaerobic Culture - Final Pleural Fluid 01/24/19 16:20 Gram Stain - Final Pleural Fluid Body Fluid Culture - Final Assessment and Plan Plan: Assessment and Recommendations: Metastatic Breast Cancer:Lung Lymph - Progressive - Failed Multiple lines of therapy - BRCA2 - Hospice Appropriate, patient refuses at this time, plan for salvage therapy with Ixempra or Vinorelbine Neoplastic Related Pain - Uncontrolled: - Bowel regimen and reisk of constipation induced narcotic. - Improved on increased fentanyl and Percocet will discharge with this regimen Hyponatremia: - Dehydration versus SIADH versus other - Osmolatiy Urine and Serum - Nephroogy Following Normocytic Anemia: - Transfuse less than 7 - Secondary to malignancy Left arm Lymphedema with skin excoriation and secoondary fungal: - Wond Care recs - Nystatin Powder - Diflucan - Keep dry PLan:and DISPO - Narcotic changes to be given from office with recent MAPS and updated Opioid aggreement form -COntinue to follow with wound care - Begin Salvage therapy with Vinorelobine as outpatient after discharge
--- NOTE | 2019-01-29 18:37 | P.DS ---
Providers Date of admission: 01/25/19 15:36 Expected date of discharge: 01/29/19 Attending physician: Leann Quinonez Consults: 01/23/19 15:31 Consult Physician Routine Consulting Provider: Lillie Osborn Consult Reason/Comments: pleural effusion Do you want consulting provider notified?: Yes 01/24/19 11:31 Consult Physician Routine Consulting Provider: Danial Frost Consult Reason/Comments: hx breast ca w/lymph edema, pleaural effusion current Do you want consulting provider notified?: Yes 01/26/19 09:10 Consult Physician Routine Consulting Provider: Toan Stafford Consult Reason/Comments: Hyponatremia Do you want consulting provider notified?: Yes Primary care physician: Dayana De La Cruz Hospital Course: Discharge diagnosis Worsening shortness of breath secondary to left sided large pleural effusion. Likely malignant effusion. Status post thoracentesis. Hyponatremia likely hypervolemic. HYpoosmolar. SIADH cannot be excluded. Continued on fluid restriction. Sodium level improved to 129.. Recurrence of breast cancer currently on chemotherapy last on 01/17/2019 Left upper extremity lymphedema due to breast cancer with lymph node involvement History of DVT currently on anticoagulation with Eliquis Previous history of smoking Morbid obesity BMI 44.9 Hospital course Patient is a 58-year-old female with a known history of recurrance of left breast cancer.-had chemo 01-17-18, Left arm lymphedema due to breast cancer, history of DVT currently on anticoagulation with Eliquis came to ER with complaints of worsening shortness of breath for the past 2 days. Patient is on recent trip to [place] with she drove for several hours. Patient has been having worsening shortness of breath and she cut short her trip and came back home. Patient presents to ER due to worsening shortness of breath. She was ordered for home health care nursing to help her with her lymphedema. She is currently on eliquis. Patient was evaluated by home health nurse who told patient come to the emergency department to be evaluated for pulmonary emboli. No complaints of chest pain. Patient does have some increased leg swelling and increased abdominal girth. No fever no chills. No nausea vomiting or diarrhea and abdominal pain. No cough or sputum production. Sodium 127, BUN 25 and creatinine 1.26. Hemoglobin 9.3. Chest x-ray showed interval development of large left pleural effusion and associated atelectasis, difficult to exclude pneumonia or underlying mass. 01/24/2019 Patient is currently sitting onset. Unable to lie flat on the bed due to left upper extremities lymphedema. Patient is complaining of pain and added morphine now. Pulmonary is planning for thoracentesis. Sodium level is at 126 now. Currently being continued on IV Lasix. No complaints of chest pain or worsening shortness of breath. No fever no chills. No abdominal pain. No diarrhea. 01/25/2019 Patient is sitting comfortably. Still complaining of abdominal pain and left arm pain. Breathing status is much improved after thoracentesis yesterday. Patient is more sleepy this afternoon. Sodium level dropped down to 120. Urine sodium creatinine and osmolality as well as serum osmolality was ordered. Will consider nephrology evaluation. Continue with fluid restriction and patient will be given IV hydration and monitor sodium level closely.. 01/26/2019 Patient is awake alert oriented x3. Otherwise feels very weak. Pain is fairly controlled. Awaiting fluid analysis reports. Nephrology was consulted due to sodium at 118. Currently patient is in fluid restriction. Monitor sodium level. No complaints of fever or chills. No nausea vomiting or abdominal diarrhea. pulmonary oncology and nephrology is following. 01/27/2019 Patient is still complaining of pain not controlled with pain medications. Otherwise breathing status is much improved. No compressive cough is from production. sodium level improved to 122. Continued fluid restriction. Oncology is following for pain management and further oncology recommendations. Anticipate discharge in next 24 hours with more clinical improvement. Follow-up thoracentesis fluid analysis, cytology and culture reports. 01/28/2019 Patient says that the pain is better today patient developed excoriation of the skin on the left infra-axilla region. Wound care was consulted. Pain is controlled with Percocet and fentanyl patch. Oncology is following. Sodium level improved to 126 with fluid restriction. Patient will be converted on fluid restriction was started on IV Lasix due to worsening leg swelling. N ephrology is on board Otherwise patient denied any complaints of fever or chills. No nausea vomiting or abdominal pain. No headache or dizziness or lightheadedness. 01/29/2019 Patient says that her pain is better controlled. Still having leg swelling but improved. Sodium level improved to 129. Patient will be continued on fluid restriction at 7 50 mL per day. No fever no chills. No other acute overnight issues. Patient is stable to discharge home and follow with oncology as an outpatient. Patient will be continued on Lasix at home. PHYSICAL EXAMINATION: Patient is lying in the bed comfortably, no acute distress, awake alert and oriented.. HEENT: Normocephalic. Neck is supple. Pupils reactive. Nostrils clear. Oral cavity is moist. Ears reveal no drainage. Neck reveals no JVD, carotid bruits, or thyromegaly. CHEST EXAMINATION: Trachea is central. Symmetrical expansion.Left basilar crackles. Bibasilar diminished air entry. No wheezing. Nonlabored breathing. CARDIAC: Normal S1, S2 with no gallops. No murmurs ABDOMEN: Soft. Bowel sounds normal. No organomegaly. No abdominal bruits. Extremities: 2+ pedal edema. Left upper extremity lymphedema. No clubbing or cyanosis Neurologically awake, alert, oriented x3 with well-coordinated movements. No focal deficits noted Skin: No rash or skin lesions. Psychiatric: Coperative. Nonsuicidal Musculoskeletal: No joint swelling or deformity. Normal range of motion. Vital Signs - 24 hr 01/28/19 01/29/19 21:00 05:00 Temperature 97.7 F 97.7 F Pulse Rate [ 77 76 Pulse Oximetery ] Respiratory 18 18 Rate Blood Pressure 112/55 117/74 [Right Calf] O2 Sat by Pulse 97 97 Oximetry Total time taken greater than 35 minutes including 18 minutes for counseling and coordination of care. Patient Condition at Discharge: Fair Plan - Discharge Summary Discharge Rx Participant: Yes New Discharge Prescriptions: New fentaNYL 75MCG/HR PATCH [Duragesic 75MCG/HR] 1 patch TRANSDERM Q72H #10 patch Apixaban [Eliquis] 5 mg PO BID tab Polyethylene Glycol 3350 [Miralax] 17 gm PO DAILY 30 Days powd.pack oxyCODONE-APAP 7.5-325MG [Percocet 7.5-325 mg] 1 each PO Q4HR PRN #90 tab PRN Reason: Pain Sennosides-Docusate Sodium [Senokot-S] 1 each PO BID 30 Days tab Fluconazole [Diflucan] 100 mg PO DAILY #7 tab Nystatin 100,000 Unit/gm Powd [Mycostatin Powder] 1 applic TOPICAL TID 30 Days #1 applic Furosemide [Lasix] 40 mg PO BID 30 Days #60 tablet Continue Losartan Potassium [Cozaar] 100 mg PO QAM Apixaban [Eliquis] 5 mg PO BID 7 Days #28 tab Gabapentin [Neurontin] 100 mg PO TID #90 cap Lidocaine-Prilocaine Cream [Emla Cream 2.5%/2.5%] 1 applic TOPICAL DAILY PRN PRN Reason: PATIENTS PORT ON CHEST Discontinued HYDROcodone/APAP 5-325MG [[place] 5-325] 1 tab PO Q6HR PRN PRN Reason: Moderate To Severe Pain fentaNYL 25MCG/HR PATCH [Duragesic 25MCG/HR] 1 patch TRANSDERM Q72H Polyethylene Glycol 3350 [Miralax] 17 gm PO DAILY PRN PRN Reason: Constipation Discharge Medication List Losartan Potassium [Cozaar] 100 mg PO QAM 07/31/17 [History] Apixaban [Eliquis] 5 mg PO BID 7 Days #28 tab 01/24/18 [Rx] Gabapentin [Neurontin] 100 mg PO TID #90 cap 01/24/18 [Rx] Lidocaine-Prilocaine Cream [Emla Cream 2.5%/2.5%] 1 applic TOPICAL DAILY PRN 01/23/19 [History] Apixaban [Eliquis] 5 mg PO BID tab 01/28/19 [Rx] Polyethylene Glycol 3350 [Miralax] 17 gm PO DAILY 30 Days powd.pack 01/28/19 [Rx] Sennosides-Docusate Sodium [Senokot-S] 1 each PO BID 30 Days tab 01/28/19 [Rx] fentaNYL 75MCG/HR PATCH [Duragesic 75MCG/HR] 1 patch TRANSDERM Q72H #10 patch 01/28/19 [Rx] oxyCODONE-APAP 7.5-325MG [Percocet 7.5-325 mg] 1 each PO Q4HR PRN #90 tab 01/28/19 [Rx] Fluconazole [Diflucan] 100 mg PO DAILY #7 tab 01/29/19 [Rx] Furosemide [Lasix] 40 mg PO BID 30 Days #60 tablet 01/29/19 [Rx] Nystatin 100,000 Unit/gm Powd [Mycostatin Powder] 1 applic TOPICAL TID 30 Days #1 applic 01/29/19 [Rx] Follow up Appointment(s)/Referral(s): [facility], [NON-STAFF] - 1-2 Days Dayana De La Cruz MD [Primary Care Provider] - 02/03/19 4:15 pm (Please contact the office prior to this appointment for billing matters.) Germán Trimble MD [STAFF PHYSICIAN] - 02/03/19 4:15 pm Patient Instructions/Handouts: Furosemide (By mouth), Oxycodone/Acetaminophen (By mouth), Nystatin (On the skin), Fluconazole (By mouth), Fentanyl (Absorbed through the skin), Polyethylene Glycol 3350 (By mouth), Laxative, Stimulant Combination (By mouth), Pleural Effusion (DC), Thoracentesis (DC) Activity/Diet/Wound Care/Special Instructions: Activity limited until follow up Follow up with oncology continue current diet Home care to follow Discharge Disposition: HOME WITH HOME HEALTH SERVICES
== END 2019-01-29 15:26 | disposition home health service (06) | DRG 598 ==
LOC: EC 14:01 → 3NMEDONC 16:59 → OBSVTOIN 01-25 15:36
PROVIDERS: ADMIT Internal Medicine; ATTEND Internal Medicine
PROC: 0W9B3ZZ Drainage of Left Pleural Cavity, Percutaneous Approach (ICD-10-PCS; principal; 2019-01-24)
DX: C50.912 Malignant neoplasm of unspecified site of left female breast (principal); C78.00 Secondary malignant neoplasm of unspecified lung; C77.9 Secondary and unspecified malignant neoplasm of lymph node, unspecified; J91.0 Malignant pleural effusion; E22.2 Syndrome of inappropriate secretion of antidiuretic hormone; E87.2 Acidosis; J98.11 Atelectasis; N17.9 Acute kidney failure, unspecified; Z68.41 Body mass index [BMI] 40.0-44.9, adult; E66.01 Morbid (severe) obesity due to excess calories; E87.70 Fluid overload, unspecified; B37.9 Candidiasis, unspecified; E87.6 Hypokalemia; F40.240 Claustrophobia; I10 Essential (primary) hypertension; I89.0 Lymphedema, not elsewhere classified; T50.2X5A Adverse effect of carbonic-anhydrase inhibitors, benzothiadiazides and other diuretics, initial encounter; S40.812A Abrasion of left upper arm, initial encounter; D63.0 Anemia in neoplastic disease; G89.3 Neoplasm related pain (acute) (chronic); Z17.1 Estrogen receptor negative status [ER-]; Z79.01 Long term (current) use of anticoagulants; Z79.899 Other long term (current) drug therapy; Z88.1 Allergy status to other antibiotic agents; Z88.5 Allergy status to narcotic agent; Z86.711 Personal history of pulmonary embolism; Z86.718 Personal history of other venous thrombosis and embolism; Z87.891 Personal history of nicotine dependence; Z90.13 Acquired absence of bilateral breasts and nipples; Z92.21 Personal history of antineoplastic chemotherapy; Z90.49 Acquired absence of other specified parts of digestive tract; Z80.51 Family history of malignant neoplasm of kidney; Z82.49 Family history of ischemic heart disease and other diseases of the circulatory system; Z82.3 Family history of stroke; Z82.0 Family history of epilepsy and other diseases of the nervous system; Z80.3 Family history of malignant neoplasm of breast
CPT/HCPCS: 36415; 71045; 76700; 76857; 80048; 82570; 83605; 83615; 83690; 83735; 83880; 83930; 83935; 84133; 84157; 84295; 84300; 84443; 84484; 84550; 85025; 85610; 86300; 86850; 86900; 86901; 87070; 87075; 87102; 87116; 87205; 87206; 87252; 87496; 87498; 87502; 87529; 87634; 87798; 88108; 88305; 88341; 88342; 89050; 93005; 96361; 96374; 99285

== ENCOUNTER 2019-02-04 16:07 | Inpatient (IN) | payer BC ==
[2019-02-04] MEDS ORDERED: HYDROmorphone 1 MG/ML 1 ML SYRINGE IVP STA (16:45)
--- NOTE | 2019-02-04 16:45 | ED ---
General Adult HPI - General Chief complaint: Shortness of Breath Stated complaint: Sob Time Seen by Provider: 02/04/19 16:25 Source: patient, RN notes reviewed Mode of arrival: wheelchair Limitations: no limitations - History of Present Illness Initial comments: Patient is a pleasant 58-year-old female presenting to the emergency department with difficulty breathing. Onset of symptoms was several days ago just after she left the hospital. Patient did have similar symptoms previously and did need to have her lung drained. Patient believes that filled up secondary to history of stage IV breast cancer. Patient does have metastasis to her left arm and lymphedema as well. Patient complains of discomfort there does request pain medication. Patient states she had an outpatient ultrasound today showing fluid retention in the left side. Patient was told if her breathing gets bad she could return to the hospital. Patient states she also has some mild edema of her legs. No history of heart failure. No chest pain. No fever. No significant cough. Patient states she is only able to walk a few feet because she gets fatigued and very short of breath. Patient states her cancer is incurable and has scheduled to restart chemotherapy tomorrow. - Related Data Home Medications Medication Instructions Recorded Confirmed Losartan Potassium [Cozaar] 100 mg PO QAM 07/31/17 02/04/19 Lidocaine-Prilocaine Cream [Emla 1 applic TOPICAL DAILY PRN 01/23/19 02/04/19 Cream 2.5%/2.5%] Sennosides-Docusate Sodium 1 tab PO BID 02/04/19 02/04/19 [Senokot-S] oxyCODONE-APAP 7.5-325MG [Percocet 1 tab PO Q4HR PRN 02/04/19 02/04/19 7.5-325 mg] Previous Rx's Medication Instructions Recorded Gabapentin [Neurontin] 100 mg PO TID #90 cap 01/24/18 Apixaban [Eliquis] 5 mg PO BID tab 01/28/19 Polyethylene Glycol 3350 [Miralax] 17 gm PO DAILY 30 Days powd.pack 01/28/19 fentaNYL 75MCG/HR PATCH [Duragesic 1 patch TRANSDERM Q72H #10 patch 01/28/19 75MCG/HR] Fluconazole [Diflucan] 100 mg PO DAILY #7 tab 01/29/19 Furosemide [Lasix] 40 mg PO BID 30 Days #60 tablet 01/29/19 Nystatin 100,000 Unit/gm Powd 1 applic TOPICAL TID 30 Days #1 01/29/19 [Mycostatin Powder] applic Allergies Allergy/AdvReac Type Severity Reaction Status Date / Time levofloxacin [From Levaquin] Allergy Dyspnea/FACE Verified 02/04/19 16:59 SWELLING tramadol AdvReac "made pain Verified 02/04/19 16:59 worse" Review of Systems ROS Statement: Those systems with pertinent positive or pertinent negative responses have been documented in the HPI. ROS Other: All systems not noted in ROS Statement are negative. Constitutional: Denies: fever Eyes: Denies: eye pain ENT: Denies: throat pain Respiratory: Reports: dyspnea Cardiovascular: Denies: chest pain Endocrine: Reports: fatigue Gastrointestinal: Denies: abdominal pain Genitourinary: Denies: dysuria Musculoskeletal: Denies: back pain Skin: Denies: rash Neurological: Denies: weakness Past Medical History Past Medical History: Cancer, Deep Vein Thrombosis (DVT) Additional Past Medical History / Comment(s): recurrance of left breast cancer.- had chemo 01-17-18, lt arm swelling History of Any Multi-Drug Resistant Organisms: None Reported Past Surgical History: Breast Surgery, Section, Cholecystectomy, Tonsillectomy Additional Past Surgical History / Comment(s): Oral surgery, left wrist surgery.rt simple masectomy, lt modified radical masectomy Past Anesthesia/Blood Transfusion Reactions: No Reported Reaction Additional Past Anesthesia/Blood Transfusion Reaction / Comment(s): HISTORY OF CLAUSTROPHOBIA- PERFERS NOTHING ON FACE Past Psychological History: No Psychological Hx Reported Smoking Status: Former smoker Past Alcohol Use History: None Reported Past Drug Use History: None Reported - Past Family History Mother Family Medical History: Cancer Additional Family Medical History / Comment(s): Breast and kidney cancer. Father Family Medical History: CVA/TIA, Dementia, Hypertension Additional Family Medical History / Comment(s): brain bleed, heart problems General Exam Limitations: no limitations General appearance: alert Head exam: Present: atraumatic Eye exam: Present: normal appearance ENT exam: Present: normal oropharynx Neck exam: Present: normal inspection Respiratory exam: Present: respiratory distress (Patient does appear somewhat short of breath), decreased breath sounds (Left-sided) Cardiovascular Exam: Present: regular rate, normal rhythm GI/Abdominal exam: Present: soft. Absent: tenderness Extremities exam: Present: pedal edema (+1 bilateral), other (Significant swelling entire left arm. Patient does have this wrapped.). Absent: calf tenderness Neurological exam: Present: alert Psychiatric exam: Present: normal affect, normal mood Skin exam: Absent: rash Course Vital Signs 02/04/19 02/04/19 16:08 18:05 Temperature 97.8 F Pulse Rate 81 71 Respiratory 18 20 Rate Blood Pressure 103/65 109/63 O2 Sat by Pulse 99 100 Oximetry EKG Findings - EKG Comments: EKG Findings:: Normal sinus rhythm 68. NC 142. QRS 90. QT 390. QTC 423. Normal axis. Normal QRS. No acute ST change. Medical Decision Making - Medical Decision Making Patient reevaluated and somewhat improved with oxygen. Patient is not respiratory distress. Patient and family updated on results and plan. Case was assessed in detail with Dr. Dunbar who will consult. Case was discussed with Dr. Contreras, who will admit covering for Dr. De La Cruz - Lab Data Result diagrams: 02/04/19 17:13 02/04/19 17:13 Lab Results 02/04/19 02/04/19 02/04/19 Range/Units 17:13 17:13 17:13 WBC 10.8 H (3.8-10.6) k/uL RBC 2.74 L (3.80-5.40) m/uL Hgb 7.6 L (11.4-16.0) gm/dL Hct 23.3 L (34.0-46.0) % MCV 85.0 (80.0-100.0) fL MCH 27.6 (25.0-35.0) pg MCHC 32.4 (31.0-37.0) g/dL RDW 15.4 (11.5-15.5) % Plt Count 456 H (150-450) k/uL Neutrophils % 80 % Lymphocytes % 9 % Monocytes % 9 % Eosinophils % 1 % Basophils % 0 % Neutrophils # 8.6 H (1.3-7.7) k/uL Lymphocytes # 1.0 (1.0-4.8) k/uL Monocytes # 0.9 (0-1.0) k/uL Eosinophils # 0.1 (0-0.7) k/uL Basophils # 0.0 (0-0.2) k/uL PT 12.3 H (9.0-12.0) sec INR 1.2 H (<1.2) APTT 36.3 H (22.0-30.0) sec Sodium 131 L (137-145) mmol/L Potassium 4.0 (3.5-5.1) mmol/L Chloride 93 L (98-107) mmol/L Carbon Dioxide 26 (22-30) mmol/L Anion Gap 12 mmol/L BUN 61 H (7-17) mg/dL Creatinine 2.14 H (0.52-1.04) mg/dL Est GFR (CKD-EPI)AfAm 29 (>60 ml/min/1.73 sqM) Est GFR (CKD-EPI)NonAf 25 (>60 ml/min/1.73 sqM) Glucose 113 H (74-99) mg/dL Calcium 8.8 (8.4-10.2) mg/dL Total Bilirubin 0.4 (0.2-1.3) mg/dL AST 39 H (14-36) U/L ALT 29 (9-52) U/L Alkaline Phosphatase 72 (38-126) U/L Total Protein 5.3 L (6.3-8.2) g/dL Albumin 3.1 L (3.5-5.0) g/dL - Radiology Data Radiology results: image reviewed (Chest x-ray shows large opacity in the left side consistent with effusion/atelectasis.) Disposition Clinical Impression: Metastatic breast cancer, Pleural effusion Disposition: ADMITTED IP TO THIS HOSP Is patient prescribed a controlled substance at d/c from ED?: No Referrals: Dayana De La Cruz MD [Primary Care Provider] - 1-2 days Decision Time: 17:48
--- NOTE | 2019-02-04 17:21 | XR ---
EXAMINATION: XR chest 2V DATE AND TIME: 02/04/2019 4:54 PM CLINICAL INDICATION: PHH; difficulty breathing TECHNIQUE: Departmental protocol COMPARISON: 01/24/2019 AP upright portable chest radiograph FINDINGS: Right IJ central line tip superimposed over the distal SVC. There is interval worsening in the overal l lung inflation pattern, with a near-complete white-out of the left hemithorax. This is consistent w ith pleural effusion and atelectasis. Concurrent pneumonia cannot be excluded clinically. There is no left-sided pneumothorax. The mediastinum is shifted rightward to a mild-plus degree. On the right, the lung is clear and well expanded and the right pleural space is negative. Cardiac silhouette appears enlarged. No definite acute skeletal or soft tissue findings. IMPRESSION: INTERVAL WORSENING.
[2019-02-04 17:34] LABS: INR 1.2 (<1.2); Partial Thromboplastin Time 36.3 sec (22.0-30.0); Prothrombin Time 12.3 sec (9.0-12.0)
[2019-02-04 17:41] LABS: Albumin 3.1 g/dL (3.5-5.0); Calcium 8.8 mg/dL (8.4-10.2); Total Bilirubin 0.4 mg/dL (0.2-1.3); Total Protein 5.3 g/dL (6.3-8.2)
[2019-02-04 17:49] LABS: Basophils % (A) 0 %; Eosinophils # (A) 0.1 k/uL (0-0.7); Eosinophils % (A) 1 %; HCT 23.3 % (34.0-46.0); HGB 7.6 gm/dL (11.4-16.0); Lymphocytes % (A) 9 %; MCH 27.6 pg (25.0-35.0); MCHC 32.4 g/dL (31.0-37.0); Mean Platelet Volume 6.8; Monocytes # (A) 0.9 k/uL (0-1.0); Monocytes % (A) 9 %; Neutrophils # (A) 8.6 k/uL (1.3-7.7); Neutrophils % (A) 80 %; Platelet Count 456 k/uL (150-450); RBC 2.74 m/uL (3.80-5.40); RDW 15.4 % (11.5-15.5); WBC 10.8 k/uL (3.8-10.6)
[2019-02-04] MEDS ORDERED: NALOXONE 0.4 MG/ML 1 ML VIAL IV PRN (18:20)
[2019-02-04] MEDS: SODIUM CHLORIDE 0.9% 1,000 ML IV SCH (19:29)
[2019-02-04] MEDS ORDERED: LIDOCAINE-PRILOCAINE 2.5-2.5% CREAM 5 GM TUBE TOPICAL PRN (21:08)
[2019-02-04] MEDS ORDERED: TEMAZEPAM 15 MG CAP PO PRN (21:09)
[2019-02-04] MEDS ORDERED: ALPRAZolam 0.25 MG TAB PO PRN (21:09)
[2019-02-04] MEDS ORDERED: HYDROmorphone 0.5 MG/0.5 ML SYRINGE IVP PRN (21:09)
[2019-02-04] MEDS: HYDROmorphone 1 MG/ML 1 ML SYRINGE IVP PRN (21:22)
[2019-02-04] MEDS: GABAPENTIN 100 MG CAP PO SCH (21:57)
[2019-02-04] MEDS: NYSTATIN 100,000 UNIT/GM POWD 15 GM TOPICAL SCH (21:58)
[2019-02-05] MEDS: HYDROmorphone 1 MG/ML 1 ML SYRINGE IVP PRN ×6 (02:14→22:15)
--- NOTE | 2019-02-05 05:57 | HP ---
HISTORY AND PHYSICAL CHIEF COMPLAINT: Shortness of breath. HISTORY OF PRESENT ILLNESS: This 58-year-old woman with a past medical history of multiple medical problems including metastatic breast cancer, history of DVT, history of claustrophobia, being followed by Dr. De La Cruz in the outpatient setting is on palliative care through [facility]. The patient was also seen by Dr. Osborn and on 01/24/2019, the patient underwent palliative left thoracocentesis with 2.2 L of fluid removal. The fluid was dark, turbid and yellowish. The patient was feeling better. Subsequently, patient went to [place] while the patient's daughter was driving for 2 days and after coming back the patient noted increased swelling all over the body especially both legs and increased shortness of breath. The patient came to [facility] and admitted for further evaluation and treatment. A chest x-ray which was done during the hospitalization which I reviewed personally which showed interval worsening of the left side with possibly increase in effusion. Patient admitted for further evaluation and treatment. There is no history of fever or rigors. No history of headache, loss of consciousness, chest pain, palpitations, hematochezia or melena at this time. PAST MEDICAL HISTORY: History of recurrent left breast cancer with mets, history of DVT, history of left wrist surgery and mastectomy, left wrist drop. MEDICATIONS: Medications prior to admission include home medications are: 1. Percocet 1 tab q.4 p.r.n. 2. Duragesic patch 75 q.72 hours. 3. Senokot-S 1 tablet p.o. b.i.d. 4. MiraLAX 17 grams daily. 5. Mycostatin 1 application t.i.d. 6. Cozaar 100 mg q.a.m. 7. EMLA cream one application daily p.r.n. 8. Neurontin 100 mg p.o. t.i.d. 9. Lasix 40 mg p.o. b.i.d. 10.Diflucan 100 mg p.o. daily. 11.Eliquis 5 mg p.o. b.i.d. ALLERGIES: Allergies are LEVAQUIN and ULTRAM. FAMILY HISTORY: History of breast and kidney cancer in the family. SOCIAL HISTORY: Previous history of smoking. No history of current smoking or alcohol intake. REVIEW OF SYSTEMS: ENT: Diminished hearing and diminished vision. CARDIOVASCULAR SYSTEM: As mentioned earlier. RESPIRATORY SYSTEM: As mentioned earlier. GI: No nausea. : No dysuria. NERVOUS SYSTEM: No numbness or weakness. ALLERGY/IMMUNOLOGY: No asthma or hayfever. MUSCULOSKELETAL: As mentioned earlier. HEMATOLOGY/ONCOLOGY: As mentioned earlier. ENDOCRINE: No history of diabetes or hypothyroidism. CONSTITUTIONAL: As mentioned earlier. DERMATOLOGY: Negative. RHEUMATOLOGY: Negative. PSYCHIATRY: As mentioned earlier. PHYSICAL EXAMINATION: The patient is alert and oriented x3. Pulse 78, blood pressure 111/71, respiration 20, temperature 97.7, pulse ox 99% on 2 L. HEENT: Conjunctivae normal. Oral mucosa moist. NECK: Is no jugular venous distention. No carotid bruit. No lymph node enlargement. CARDIOVASCULAR: S1, S2 muffled. No S3, no S4. RESPIRATORY: Breath sounds diminished at the bases. A few scattered rhonchi and crackles. Breath sounds are markedly diminished on the left side of the chest. Some tracheal deviation also appreciated. ABDOMEN: Soft, obese, nontender. No mass palpable. LEGS: Bilateral leg edema present. NERVOUS SYSTEM: Higher function as mentioned earlier. Left wrist drop present which is old and secondary to malignancy. SKIN: Otherwise skin, no ulcer, rash or bleeding. JOINTS: No active deforming arthropathy. LABS: WBC 10.8, hemoglobin 7.6, platelets are 456 and INR is 1.2. Sodium 131, potassium 4, creatinine is 2.14. ASSESSMENT: 1. Shortness of breath secondary to left pleural effusion, recurrent because of possibly metastatic from metastatic breast cancer. 2. Metastatic breast cancer on palliative treatment. 3. Acute on chronic renal failure with chronic renal failure stage 3 as a baseline possible acute tubular necrosis. 4. Generalized edema for evaluation. 5. Hyponatremia. 6. Increased WBC. 7. Anemia secondary to malignancy. 8. Left wrist drop. 9. History of deep vein thrombosis. 10.History of cholecystectomy. 11.History of gastrointestinal bleed from possible internal and external hemorrhoids. 12.History of left wrist drop, possibly secondary to metastatic lesion of the brachial plexus or radial compression. 13.NO CODE, NO CPR NO VENT and palliative care. RECOMMENDATIONS AND DISCUSSION: In this 58-year-old woman who presented with multiple medical issues, at this time I recommend to continue current medications, continue symptomatic treatment and pulmonary consultation for possible . Otherwise, continue rest of medications, home medications. Prognosis guarded because of multiple complex medical issues. Discussed with the patient, understands and agrees and further recommendations to follow. Will also consult Hematology/Oncology. A copy of dictation forwarded to Dr. De La Cruz who is the primary physician. MMMARYL / RODRIGUEN: [id number] / MTDD
[2019-02-05 08:00] LABS: Basophils # (A) 0.1 k/uL (0-0.2); Basophils % (A) 1 %; Calcium 8.8 mg/dL (8.4-10.2); Eosinophils # (A) 0.1 k/uL (0-0.7); Eosinophils % (A) 1 %; HCT 23.6 % (34.0-46.0); HGB 7.6 gm/dL (11.4-16.0); Hypochromasia Slight; Lymphocytes # (A) 0.8 k/uL (1.0-4.8); Lymphocytes % (A) 7 %; MCV 87.7 fL (80.0-100.0); Mean Platelet Volume 6.7; Monocytes # (A) 0.8 k/uL (0-1.0); Monocytes % (A) 8 %; Neutrophils # (A) 8.6 k/uL (1.3-7.7); Neutrophils % (A) 82 %; Platelet Count 442 k/uL (150-450); Potassium 4.1 mmol/L (3.5-5.1); RDW 15.4 % (11.5-15.5); WBC 10.6 k/uL (3.8-10.6)
[2019-02-05] MEDS: SENNOSIDES-DOCUSATE SODIUM 1 EACH TAB PO SCH ×2 (08:06→21:25)
[2019-02-05] MEDS: FUROSEMIDE 40 MG TAB PO SCH ×2 (08:06→16:13)
[2019-02-05] MEDS: GABAPENTIN 100 MG CAP PO SCH ×3 (08:06→21:25)
[2019-02-05] MEDS: LOSARTAN 50 MG TAB PO SCH (08:06)
[2019-02-05] MEDS: PANTOPRAZOLE 40 MG TABLET PO SCH (08:06)
[2019-02-05] MEDS: POLYETHYLENE GLYCOL 3350 17 GM POWD.PACK PO SCH (08:06)
[2019-02-05] MEDS: NYSTATIN 100,000 UNIT/GM POWD 15 GM TOPICAL SCH ×3 (08:10→22:34)
[2019-02-05] MEDS: FLUCONAZOLE 100 MG TAB PO SCH (08:11)
--- NOTE | 2019-02-05 11:35 | P.CON ---
Consult Note - . Consult date: 02/05/19 Assessment/Plan:: This is a 58-year-old pleasant female who presents with a nonhealing ulceration to the left axilla. Patient was previously seen on 01/28/2019 and triad was ordered at that time. Patient utilizes the triad while in the [facility]. Patient thought that she would be given an appointment to the wound care center however upon discharge no appointment was set up. Patient continue to use powder and a skin protectant that was given from the hospital at home. However the area has worsened and has increased in size. Patient continues to have significant amount of drainage noted. She is utilizing a dry at this time that is needing to be changed every 12 hours due to the drainage. Patient has history of lymphedema and which she receives massages and wraps with an [place] wrap. Patient has limited range of motion to the left arm due to the edema and ulceration. Patient presented to the hospital today due to increased shortness of breath and a pleural effusion. Patient's past medical history includes edema and metastatic breast cancer, hyponatremia, DVT on anticoagulation, morbid obesity, previous smoker. Patient denies diabetes. Review of systems: Constitutional: No fever or chills Integumentary: Reports wound under left arm. No rash or pruritus. No unusual bruising. No change in hair or nails Extremity: Edema to the left upper extremity. Decreased range of motion to the left arm. Physical exam: Gen. appearance: Alert, cooperative, no distress appears stated age. Extremities left upper extremity edematous, axilla with nonhealing ulceration on pressure component with fatty layer exposure, limited range of motion. No cyanosis noted. Pulses: 2+ and symmetric Skin: Left axilla redness, skin breakdown with fatty layer exposure, odiferous, all other skin color texture sugar normal no rashes or other lesions. Neurological: Alert and oriented 3 cranial nerves II through XII intact, no motor deficit, no abnormal balance or gait Assessment/plan: 1. Nonhealing ulceration with fatty layer exposure nonpressure component: Apply absorptive silver Sunday, skin protectant as needed, may apply ABDs and secure with paper tape as needed. Continue to utilize inter-dry. Continue to wrap left arm with [place] wrap. Orders to home care upon discharge. An appointment with wound care center for further follow-up. 2. Lymphedema. Continue with [place] wrap 3. Metastatic breast cancer. Currently on chemotherapy. DNP note has been reviewed and discussed with Dr. Matthew and the impression and plan of care has been directed as dictated. Thank you for the consultation. If any questions or concerns please contact the wound care center.
--- NOTE | 2019-02-05 14:45 | P.CONS ---
History of Present Illness - Reason for Consult Consult date: 02/05/19 Metastatic Breast Cancer Requesting physician: Colby Murillo - Chief Complaint Increased Shortness of breath - History of Present Illness his is a very nice lady who presented with palpable left breast mass in ,she did not seek medical attention (she was going through divorce)until when she had diagnostic mammograms and left breast U/S revealing 2.1cm mass at 2 o'clock left breast and multiple suspicious left axillary nodes,on 06/08/2016,she had core biopsies of the breast mass and axillary node which were positive for G3,invasive ductal carcinoma,triple negative. She was initially evaluated at [facility] in [place],had a CT scan of chest/abdomen/pelvis on 06/28/2016 which revealed suspicious breast mass and axillary nodes,left supraclavicular nodes,possible subpectoralis and small node in upper mediastinum,small bilateral lung nodules. On 07/19/2016,MUGA scan revealed EF of 74%. On 10/01/2016 PET scan was negative for metastatic disease. Genetic testing revealed that she is positive for BRCA2 mutation. Genetic testing were positive for BRCA2 mutation. She started neoadjuvant AC on 10/24/2016 and completed 4 cycles on 12/06/2016 She started neoadjuvant weekly taxol on 12/20/2016 and completed 12 weekly treatments on 03/07/2017 . On 05/22/2017,she had bilateral mastectomies and left axilllary nodes disection,pathology revealed residual 1.5cm invasive cancer in her breast and 4/5 nodes were positive for macrometastasis. She declined B55 adjuvant PARP inhibitors trial. On 07/12/2017,CT scan of chest/abdomen/pelvis was negative. She completed adjuvant radiation therapy on 09/04/2017 In November/2017,she started to have significant pain and swelling in left arm and shoulder,significant weakness in LUE and developed left chest wall skin nodules,biopsy on 12/31/2017 was positive for recurrent disease. On 01/05/2018,PET scan revealed very intense uptake in left lateral chest wall extending to high up left axilla,spaning 12.5cm. Repeat ER/ID and HER2/ANGELINE revealed triple negative disease. Her disease was PDL-1 negative. Due to bulky and symptomatic disease,she started cisplatin/gemzar on 01/17/2018 and completed 4 cycles on 04/03/2018. Repeat PET scan on 04/27/2018 revealed significant improvement,no hypermetabolic activities noted. Repeat PET scan on 07/13/2018 revealed evidence of disease recurrence if left chest wall axilla and right mandible(subcutanuous). She started talazoparib in end of July/2018 Her talazoparib was held 09/23/2018 due to significant neutropenia which improved and thus restarted 2 weeks after and then the dose was reduced and then discontinued on 11/06/2018 due to disease progression. On 11/15/2018.PET scan revealed bilateral axillary nodes,abnormal soft tissue and subcutaneous nodules in left chest wall ,left pleural effusion and 2 small lung nodules She started abraxane on 11/14/2018 Abraxane completed 6.20.19 - She unfortunetly appears to be continued with progressive disease while, she has had an increase in pain management fentanyl and norco for worsening pain and swelling in LUE and new chest wall lesions. She has declined in past few weeks-months clinically. She presents to hospital with increased at the recommendation of her palliative home care nurse. Increased pain and shortness of breath. [place] 5/325 was not helping pain control. At Dr. Cardenas last visit with her they discussed the option of hospice for resonable consideration with progressive disease and overall poor prognosis. She agreed to palliative care although hospice she is not ready to make this decision yet. The plan is to begin a new therapy salvage - Ixempra or Vino relibine. This is currently under review for insurance approval. She was recently discharged with improvement in pain, breathing. She was discharged with PT/OT and plan to start vinorelabine as outpatient although she has been weak and not improving at home, She notes increased shortness of breath . Review of Systems A 14 point review of systems was assessed and completed and are all negative except for HPI Past Medical History Past Medical History: Cancer, Deep Vein Thrombosis (DVT) Additional Past Medical History / Comment(s): recurrance of left breast cancer.- had chemo 01-25-18, lt arm swelling History of Any Multi-Drug Resistant Organisms: None Reported Past Surgical History: Breast Surgery, Section, Cholecystectomy, Tonsillectomy Additional Past Surgical History / Comment(s): Oral surgery, left wrist surgery.rt simple masectomy, lt modified radical masectomy Past Anesthesia/Blood Transfusion Reactions: No Reported Reaction Additional Past Anesthesia/Blood Transfusion Reaction / Comm: HISTORY OF CLAUSTROPHOBIA- PERFERS NOTHING ON FACE Past Psychological History: No Psychological Hx Reported Additional Psychological History / Comment(s): lives alone in single level home that has [address] drives and ambulates on own. pt stated with the swelling in lt arm she finds it hard to clean around the house and would like a ss consult to see if she can get some one in to clean for her. Smoking Status: Former smoker Past Alcohol Use History: None Reported Additional Past Alcohol Use History / Comment(s): started smoking 1980, quit in 1996 was smoking 2 ppd.. Past Drug Use History: None Reported - Past Family History Mother Family Medical History: Cancer Additional Family Medical History / Comment(s): Breast and kidney cancer. Father Family Medical History: CVA/TIA, Dementia, Hypertension Additional Family Medical History / Comment(s): brain bleed, heart problems Medications and Allergies Home Medications Medication Instructions Recorded Confirmed Type Losartan Potassium [Cozaar] 100 mg PO QAM 07/31/17 02/04/19 History Gabapentin [Neurontin] 100 mg PO TID #90 cap 01/24/18 02/04/19 Rx Lidocaine-Prilocaine Cream [Emla 1 applic TOPICAL DAILY PRN 01/23/19 02/04/19 History Cream 2.5%/2.5%] Apixaban [Eliquis] 5 mg PO BID tab 01/28/19 02/04/19 Rx Polyethylene Glycol 3350 [Miralax] 17 gm PO DAILY 30 Days powd.pack 01/28/19 02/04/19 Rx fentaNYL 75MCG/HR PATCH [Duragesic 1 patch TRANSDERM Q72H #10 patch 01/28/19 02/04/19 Rx 75MCG/HR] Fluconazole [Diflucan] 100 mg PO DAILY #7 tab 01/29/19 02/04/19 Rx Furosemide [Lasix] 40 mg PO BID 30 Days #60 tablet 01/29/19 02/04/19 Rx Nystatin 100,000 Unit/gm Powd 1 applic TOPICAL TID 30 Days #1 01/29/19 02/04/19 Rx [Mycostatin Powder] applic Sennosides-Docusate Sodium 1 tab PO BID 02/04/19 02/04/19 History [Senokot-S] oxyCODONE-APAP 7.5-325MG [Percocet 1 tab PO Q4HR PRN 02/04/19 02/04/19 History 7.5-325 mg] Allergies Allergy/AdvReac Type Severity Reaction Status Date / Time levofloxacin [From Levaquin] Allergy Dyspnea/FACE Verified 02/04/19 16:59 SWELLING tramadol AdvReac "made pain Verified 02/04/19 16:59 worse" Physical Exam Vitals: Vital Signs Temp Pulse Pulse Resp BP BP Pulse Ox 02/05/19 12:03 98.3 F 77 17 92/62 95 02/05/19 08:00 20 02/05/19 05:09 98.1 F 79 20 108/68 100 02/04/19 20:38 97.7 F 78 20 111/71 02/04/19 19:24 98.4 F 81 18 111/71 99 02/04/19 18:05 71 20 109/63 100 02/04/19 16:08 97.8 F 81 18 103/65 99 Intake and Output 02/04/19 02/05/19 02/05/19 22:59 06:59 14:59 Intake Total 100 1230 Balance 100 1230 Intake: Intake, IV Titration 100 400 Amount Sodium Chloride 0.9% 1, 100 400 000 ml @ 50 mls/hr IV . Q20H [facility] Rx#:[id number] Oral 830 Other: Voiding Method Toilet Toilet # Voids 1 2 Weight 122.47 kg General: Alert and Oriented x3, No Acute Distress Head: Normocytic, Atraumatic Neck: Supple Mouth: No Lesions, No Thrush Eyes: Non-sclerotic No Palpable cervical, supraclavicular, axillary adenopathy Heart: Tachy Lungs: Diminishe bilateral lower lobes, mild increased respiratory effort noted Abdomen: Soft, Non-Distended, Non-Tended, BSx4 Extremities: Left arm Severe lymphedema chronic Psych: Calm and cooperative Results CBC & Chem 7: 02/05/19 06:56 02/05/19 06:56 Labs: Abnormal Lab Results - Last 24 Hours (Table) 02/04/19 02/04/19 02/04/19 Range/Units 17:13 17:13 17:13 WBC 10.8 H (3.8-10.6) k/uL RBC 2.74 L (3.80-5.40) m/uL Hgb 7.6 L (11.4-16.0) gm/dL Hct 23.3 L (34.0-46.0) % Plt Count 456 H (150-450) k/uL Neutrophils # 8.6 H (1.3-7.7) k/uL Lymphocytes # (1.0-4.8) k/uL PT 12.3 H (9.0-12.0) sec INR 1.2 H (<1.2) APTT 36.3 H (22.0-30.0) sec Sodium 131 L (137-145) mmol/L Chloride 93 L (98-107) mmol/L BUN 61 H (7-17) mg/dL Creatinine 2.14 H (0.52-1.04) mg/dL Glucose 113 H (74-99) mg/dL AST 39 H (14-36) U/L Total Protein 5.3 L (6.3-8.2) g/dL Albumin 3.1 L (3.5-5.0) g/dL 02/05/19 02/05/19 Range/Units 06:56 06:56 WBC (3.8-10.6) k/uL RBC 2.70 L (3.80-5.40) m/uL Hgb 7.6 L (11.4-16.0) gm/dL Hct 23.6 L (34.0-46.0) % Plt Count (150-450) k/uL Neutrophils # 8.6 H (1.3-7.7) k/uL Lymphocytes # 0.8 L (1.0-4.8) k/uL PT (9.0-12.0) sec INR (<1.2) APTT (22.0-30.0) sec Sodium 131 L (137-145) mmol/L Chloride 93 L (98-107) mmol/L BUN 63 H (7-17) mg/dL Creatinine 2.09 H (0.52-1.04) mg/dL Glucose (74-99) mg/dL AST (14-36) U/L Total Protein (6.3-8.2) g/dL Albumin (3.5-5.0) g/dL Assessment and Plan Plan: Assessment and Recommendations: Metastatic Breast Cancer:Lung Lymph - Progressive - Failed Multiple lines of therapy - BRCA2 - Hospice Appropriate, patient refuses at this time, plan for salvage therapy with Ixempra or Vinorelbine Neoplastic Related Pain - Uncontrolled: - Bowel regimen and reisk of constipation induced narcotic. - Improved on increased fentanyl and Percocet will discharge with this regimen Hyponatremia: - Dehydration versus SIADH versus other - Osmolatiy Urine and Serum - Stable 131 Normocytic Anemia: - Transfuse less than 7 - Secondary to malignancy Left arm Lymphedema: Chronic and worsening with progressive recurrent cancer - PT/OT Following - Continue to wrap and elevate Left Pleural Effusion and worsening Lung Inflation on Xray: - Pulmonary Consult - Possible thoracentesis, please sent cytology Acute Kidney Injury: Worsening: - Rec Nephrology to Evaluate Long discussion related to goals of care and treatment, we discussed code status, advance directives, and realistic expectations. Patient is not ready to accept diagnosis extent and understands to an extent that chemo is for salvage palliative care. Greater than 25 minutes spent counseling and coordinating care. - Consult for compressed gas plant worker to further assist in creation of advanced directive Patient worried about her 8 cats and 3 dogs. - PT/OT recs for discharge, patient lives alone and children work with their own families. - Palliative care at home.
--- NOTE | 2019-02-05 15:12 | P.GSCN ---
History of Present Illness Consult date: 02/05/19 Reason for Consult: Recurrent malignant left-sided pleural effusion, Pleurx catheter placement Requesting physician: Vickey Gonsalez History of present illness: This is a 58-year-old female who follows with Dr. De La Cruz on an outpatient basis. She has a previous medical history of left pleural effusion with thoracentesis on 01/24/2019, stage IV metastatic breast cancer status post failed multiple therapies, lymphedema, chronic DVT of the left upper extremity on chronic Eliquis for ANTICOAGULATION, stage III chronic renal failure, GI bleed, previous tobacco dependence, and family history of breast cancer. She presented to [facility] emergency room last night with complaints of significant shortness of breath and lower extremity edema over the previous several days. She denied any chest pain, fever, or cough. She had just been discharged from the hospital on January 29 after a weeklong stay for similar symptoms. At that time she was noted to have a left pleural effusion and had a thoracentesis on 12/31 with drainage of 2.2 L dark turbid fluid, cytology was positive for metastatic breast cancer. She felt better upon discharge, but quickly developed shortness of breath again. Ultrasound of the chest was completed February 04 with an 8 cm fluid pocket on the left hand side. She reported to the emergency room that afternoon. Chest x-ray demonstrated recurrence of near complete opacification of the left lung. She was admitted for evaluation and treatment. Of note she has been on Eliquis, last dose 02/04/2019. Dr. Tillman from thoracic surgery was consulted for Pleurx catheter placement. Review of Systems Review of systems was completed and was negative except as noted. - Cardiovascular Reports leg edema - Respiratory Reports dyspnea Past Medical History Past Medical History: Cancer, Deep Vein Thrombosis (DVT) Additional Past Medical History / Comment(s): recurrance of left breast cancer.- had chemo 01-25-18, lt arm swelling History of Any Multi-Drug Resistant Organisms: None Reported Past Surgical History: Breast Surgery, Section, Cholecystectomy, Tonsillectomy Additional Past Surgical History / Comment(s): Oral surgery, left wrist surgery.rt simple masectomy, lt modified radical masectomy Past Anesthesia/Blood Transfusion Reactions: No Reported Reaction Additional Past Anesthesia/Blood Transfusion Reaction / Comm: HISTORY OF CLAUSTROPHOBIA- PERFERS NOTHING ON FACE Past Psychological History: No Psychological Hx Reported Additional Psychological History / Comment(s): lives alone in single level home that has [address] drives and ambulates on own. pt stated with the swelling in lt arm she finds it hard to clean around the house and would like a ss consult to see if she can get some one in to clean for her. Smoking Status: Former smoker Past Alcohol Use History: None Reported Additional Past Alcohol Use History / Comment(s): started smoking 1980, quit in 1996 was smoking 2 ppd.. Past Drug Use History: None Reported - Past Family History Mother Family Medical History: Cancer Additional Family Medical History / Comment(s): Breast and kidney cancer. Father Family Medical History: CVA/TIA, Dementia, Hypertension Additional Family Medical History / Comment(s): brain bleed, heart problems Medications and Allergies Home Medications Medication Instructions Recorded Confirmed Type Losartan Potassium [Cozaar] 100 mg PO QAM 07/31/17 02/04/19 History Gabapentin [Neurontin] 100 mg PO TID #90 cap 01/24/18 02/04/19 Rx Lidocaine-Prilocaine Cream [Emla 1 applic TOPICAL DAILY PRN 01/23/19 02/04/19 History Cream 2.5%/2.5%] Apixaban [Eliquis] 5 mg PO BID tab 01/28/19 02/04/19 Rx Polyethylene Glycol 3350 [Miralax] 17 gm PO DAILY 30 Days powd.pack 01/28/19 02/04/19 Rx fentaNYL 75MCG/HR PATCH [Duragesic 1 patch TRANSDERM Q72H #10 patch 01/28/19 02/04/19 Rx 75MCG/HR] Fluconazole [Diflucan] 100 mg PO DAILY #7 tab 01/29/19 02/04/19 Rx Furosemide [Lasix] 40 mg PO BID 30 Days #60 tablet 01/29/19 02/04/19 Rx Nystatin 100,000 Unit/gm Powd 1 applic TOPICAL TID 30 Days #1 01/29/19 02/04/19 Rx [Mycostatin Powder] applic Sennosides-Docusate Sodium 1 tab PO BID 02/04/19 02/04/19 History [Senokot-S] oxyCODONE-APAP 7.5-325MG [Percocet 1 tab PO Q4HR PRN 02/04/19 02/04/19 History 7.5-325 mg] Allergies Allergy/AdvReac Type Severity Reaction Status Date / Time levofloxacin [From Levaquin] Allergy Dyspnea/FACE Verified 02/04/19 16:59 SWELLING tramadol AdvReac "made pain Verified 02/04/19 16:59 worse" Surgical - Exam Vital Signs Temp Pulse Resp BP Pulse Ox 97.8 F 81 18 103/65 99 02/04/19 16:08 02/04/19 16:08 02/04/19 16:08 02/04/19 16:08 02/04/19 16:08 - General well developed, well nourished, no distress, no pain, obese - Eyes PERRL, normal ocular movement - ENT no hearing loss - Neck no masses, no bruits, trachea midline - Respiratory Lungs sounds diminished on the left inside. Respirations even, nonlabored. Currently on 2 L nasal cannula with oxygen saturation 95%. - Cardiovascular Lymphedema present to left arm Rhythm: regular Heart Sounds: normal: S1, S2 - Abdomen Abdomen: soft, non tender, bowel sounds - Genitourinary Deferred - Rectum Deferred - Integumentary no rash, no growths - Neurologic Left arm flaccid, otherwise able to move right arm, bilateral lower extremities - Musculoskeletal normal posture - Psychiatric oriented to time, oriented to person, oriented to place, speech is normal, memory intact Results - Labs 02/05/19 06:56 02/05/19 06:56 Abnormal Lab Results - Last 24 Hours (Table) 02/04/19 02/04/19 02/04/19 Range/Units 17:13 17:13 17:13 WBC 10.8 H (3.8-10.6) k/uL RBC 2.74 L (3.80-5.40) m/uL Hgb 7.6 L (11.4-16.0) gm/dL Hct 23.3 L (34.0-46.0) % Plt Count 456 H (150-450) k/uL Neutrophils # 8.6 H (1.3-7.7) k/uL Lymphocytes # (1.0-4.8) k/uL PT 12.3 H (9.0-12.0) sec INR 1.2 H (<1.2) APTT 36.3 H (22.0-30.0) sec Sodium 131 L (137-145) mmol/L Chloride 93 L (98-107) mmol/L BUN 61 H (7-17) mg/dL Creatinine 2.14 H (0.52-1.04) mg/dL Glucose 113 H (74-99) mg/dL AST 39 H (14-36) U/L Total Protein 5.3 L (6.3-8.2) g/dL Albumin 3.1 L (3.5-5.0) g/dL 02/05/19 02/05/19 Range/Units 06:56 06:56 WBC (3.8-10.6) k/uL RBC 2.70 L (3.80-5.40) m/uL Hgb 7.6 L (11.4-16.0) gm/dL Hct 23.6 L (34.0-46.0) % Plt Count (150-450) k/uL Neutrophils # 8.6 H (1.3-7.7) k/uL Lymphocytes # 0.8 L (1.0-4.8) k/uL PT (9.0-12.0) sec INR (<1.2) APTT (22.0-30.0) sec Sodium 131 L (137-145) mmol/L Chloride 93 L (98-107) mmol/L BUN 63 H (7-17) mg/dL Creatinine 2.09 H (0.52-1.04) mg/dL Glucose (74-99) mg/dL AST (14-36) U/L Total Protein (6.3-8.2) g/dL Albumin (3.5-5.0) g/dL Diabetes panel 02/04/19 02/05/19 Range/Units 17:13 06:56 Sodium 131 L 131 L (137-145) mmol/L Potassium 4.0 4.1 (3.5-5.1) mmol/L Chloride 93 L 93 L (98-107) mmol/L Carbon Dioxide 26 25 (22-30) mmol/L BUN 61 H 63 H (7-17) mg/dL Creatinine 2.14 H 2.09 H (0.52-1.04) mg/dL Glucose 113 H 93 (74-99) mg/dL Calcium 8.8 8.8 (8.4-10.2) mg/dL AST 39 H (14-36) U/L ALT 29 (9-52) U/L Alkaline Phosphatase 72 (38-126) U/L Total Protein 5.3 L (6.3-8.2) g/dL Albumin 3.1 L (3.5-5.0) g/dL Calcium panel 02/04/19 02/05/19 Range/Units 17:13 06:56 Calcium 8.8 8.8 (8.4-10.2) mg/dL Albumin 3.1 L (3.5-5.0) g/dL Pituitary panel 02/04/19 02/05/19 Range/Units 17:13 06:56 Sodium 131 L 131 L (137-145) mmol/L Potassium 4.0 4.1 (3.5-5.1) mmol/L Chloride 93 L 93 L (98-107) mmol/L Carbon Dioxide 26 25 (22-30) mmol/L BUN 61 H 63 H (7-17) mg/dL Creatinine 2.14 H 2.09 H (0.52-1.04) mg/dL Glucose 113 H 93 (74-99) mg/dL Calcium 8.8 8.8 (8.4-10.2) mg/dL Adrenal panel 02/04/19 02/05/19 Range/Units 17:13 06:56 Sodium 131 L 131 L (137-145) mmol/L Potassium 4.0 4.1 (3.5-5.1) mmol/L Chloride 93 L 93 L (98-107) mmol/L Carbon Dioxide 26 25 (22-30) mmol/L BUN 61 H 63 H (7-17) mg/dL Creatinine 2.14 H 2.09 H (0.52-1.04) mg/dL Glucose 113 H 93 (74-99) mg/dL Calcium 8.8 8.8 (8.4-10.2) mg/dL Total Bilirubin 0.4 (0.2-1.3) mg/dL AST 39 H (14-36) U/L ALT 29 (9-52) U/L Alkaline Phosphatase 72 (38-126) U/L Total Protein 5.3 L (6.3-8.2) g/dL Albumin 3.1 L (3.5-5.0) g/dL - Imaging Chest x-ray: report reviewed, image reviewed EKG: image reviewed Assessment and Plan Assessment: 1. Recurrent malignant left-sided pleural effusion 2. History of a left pleural effusion, status post thoracentesis 01/24/2019 with removal 2.2 L dark turbid fluid positive for metastatic breast cancer 3. Stage IV metastatic breast cancer, status post failed multiple therapies 4. Lymphedema 5. Chronic DVT of the left upper extremity on chronic Eliquis for anticoagulation, last dose on 02/04/2019 6. Stage III chronic renal failure 7. GI bleed 8. Previous tobacco dependence 9. Family history of breast cancer Plan: The patient was seen and examined at the bedside. Chart/diagnostics were reviewed. Will discuss with surgeon plans for Pleurx catheter placement. Continue to hold Eliquis for catheter placement. We will incorporate teaching regarding Pleurx catheter with the patient and family. Continue current medication regimen per primary care service. Cancer treatment per oncology. Supportive care. More recommendations to follow. Thank you Dr. Gonsalez for this consult. We look forward to working with you in the care of your patient. Time with Patient: Greater than 30
[2019-02-05] MEDS: SODIUM CHLORIDE 0.9% 1,000 ML IV SCH (16:09)
--- NOTE | 2019-02-05 17:41 | CONS ---
CONSULTATION PULMONARY/CRITICAL CARE CONSULTATION: DATE OF SERVICE: 02/05/2019 REASON FOR CONSULTATION: Shortness of breath. A 58-year-old female with a history of metastatic breast cancer. The patient apparently recently had a thoracentesis performed by my partner, Dr. Osborn, and 2.2 L of fluid was removed from the left pleural space. She presents to the emergency room complaining of increasing shortness of breath. The patient seems to have filled up her left chest very quickly after the most recent thoracentesis. Today I talked to her about options. Certainly one option would be to repeat the thoracentesis. I think a better option will be a PleurX catheter. We will ask cardiothoracic to evaluate her for that. The patient has metastatic disease and has significant left upper extremity lymphedema. The patient also complains of discomfort and apparently was requesting pain medication in the emergency room. Currently, she is sitting up in a chair. She has nasal O2 in place. We talked about the options for her recurrent left-sided pleural effusion. By the way, the fluid was sent for analysis. Cytology was positive. She denies any fever or chills. She denies any chest pain or chest discomfort. There is no nausea, vomiting or diarrhea. She does have some lower extremity edema. HOME MEDICATIONS: Include Cozaar, EMLA cream, Senokot, Percocet, Neurontin, Eliquis, MiraLAX, fentanyl, Diflucan, Lasix and nystatin powder. ALLERGIES: Include LEVAQUIN and TRAMADOL. MEDICAL HISTORY: Includes metastatic breast cancer, DVT thrombosis, breast cancer recurrence, malignant left-sided pleural effusion and left-sided upper extremity lymphedema. SURGICAL HISTORY: Includes breast surgery, , cholecystectomy, tonsillectomy, left wrist surgery, oral surgery and modified radical mastectomy. SOCIAL HISTORY: Positive for previous tobacco use. No alcohol or drug use. FAMILY HISTORY: Positive for mother with breast and kidney cancer and a father with CVA, dementia and hypertension. REVIEW OF SYSTEMS: CONSTITUTIONAL: Weakness. NEUROLOGIC: Negative. HEENT: Negative. CARDIOVASCULAR: Negative. PULMONARY: Shortness of breath, particularly on exertion. GI: Negative. : Negative. RHEUMATOLOGIC: Negative. IMMUNOLOGIC: Negative. ENDOCRINOLOGIC: Negative. DERMATOLOGIC: Negative. Current vital signs are reviewed. Temperature is 98.1, heart rate 79, respiratory rate 20, blood pressure 108/68, mean 81, 2 L saturations 100%. Appears in no acute distress. HEENT examination is grossly unremarkable. Mucous membranes are moist. Nasal O2 noted. NECK: Supple. Full range of motion. No adenopathy or thyromegaly. Neck veins are flat. CARDIOVASCULAR examination reveals regular rhythm rate. S1, S2 normal. No S3, S4, or murmur. Heart sounds are distant. LUNGS: Reveal severely diminished breath sounds throughout the entire left chest. Breath sounds on the right appear normal. No crackles. No wheezes. A few scattered rhonchi. ABDOMEN: Obese. Bowel sounds are heard. EXTREMITIES: Reveal some edema. SKIN: Without rash. NEUROLOGIC examination is brief but nonfocal. Chest x-ray shows significant left-sided pleural effusion. Almost the whole left-side is opacified. LABORATORY DATA: Reviewed. White count 10.6, hemoglobin 7.6, hematocrit 23.6, platelet count 442,000. PT 12.3, INR 1.2, PTT 36.3. Sodium 131, potassium 4.1, chloride 93, CO2 is 25, anion gap 13. BUN 63, creatinine 2.09. Albumin 3.1. No microbiology to report. X-rays are reviewed. Medications are reviewed. ASSESSMENT: 1. Recurrent left-sided pleural effusion, which is malignant, and caused by her metastatic breast cancer. Recent cytology from the pleural fluid was positive. 2. Shortness of breath secondary to a large rapidly recurrent left-sided pleural effusion. 3. History of deep venous thrombosis. 4. History of chronic pain. 5. History of chronic constipation. 6. History of hypertension. 7. Multiple previous surgical procedures including modified radical left mastectomy. PLAN: Cardiothoracic Service has been consulted for possible PleurX catheter placement. That would be the most appropriate thing to do in my opinion. Recurrent thoracentesis would not be beneficial as the patient recurred so quickly. Additional recommendations and suggestions are forthcoming. Prognosis is poor. Will continue to follow. MMODL / IJN: [id number] /
--- NOTE | 2019-02-05 20:14 | PN ---
PROGRESS NOTE DATE OF SERVICE: 02/05/2019. This 58-year-old woman who was admitted with shortness of breath secondary to left pleural effusion also had significant ulceration and history of metastatic breast cancer also. The patient also had renal failure. The patient also had generalized edema. Patient also had DVT and patient also had significant radial nerve involvement with wrist drop on the left side also. Multiple consultants are following the patient closely. The patient recently had a thoracocentesis. Cardiothoracic Surgery is evaluating the patient for possible output of a PleurX drainage catheter. No chest pain. No palpitations. Eliquis was on hold. PAST MEDICAL HISTORY: Reviewed. REVIEW OF SYSTEMS: CARDIOVASCULAR SYSTEM: No angina or palpitations. RESPIRATIONS: As mentioned earlier. GASTROINTESTINAL: As mentioned earlier. no dysuria or hematuria. NERVOUS SYSTEM: As mentioned earlier. HEMATOLOGY/ONCOLOGY: As mentioned earlier. PHYSICAL EXAMINATION: Alert and oriented x three. Pulse 77, blood pressure 92/60. Respirations 17, temperature 98.2, pulse ox 94% on room air. MEDICATIONS: 1. Xanax 0.5 t.i.d. 2. Duragesic patch 75 mcg q72 hours. 3. Diflucan 100 mg. 4. Lasix 40 mg p.o. b.i.d. 5. Neurontin 100 mg p.o. t.i.d. 6. Dilaudid 1 mg q.3 p.r.n. 7. EMLA cream. 8. Cozaar 100 mg p.o. q.a.m. 9. Narcan 0.2 q.2h p.r.n. 10.Mycostatin. 11.Percocet. 12.Protonix 40 mg daily. 13.MiraLAX 17 g daily. 14.Senokot-S. 15.Restoril 15 mg q.h.s. p.r.n. PHYSICAL EXAM: Patient is alert, oriented x3. Pulse is 77. Blood pressure 92/60. Respirations 17. Temperature 98.2. Pulse ox 94% on room air. HEENT: Conjunctivae normal. Oral mucosa moist. NECK is no jugular venous distention. No carotid bruit. No lymph node enlargement. CARDIOVASCULAR SYSTEM: S1, S2 muffled. RESPIRATION: Breath sounds markedly diminished on the left side. ABDOMEN is soft, obese. LEGS: Bilateral leg edema and left arm significant edema and weakness also present. NERVOUS SYSTEM: No other focal weakness. LABS: WBC 10.2, hemoglobin 7.6, sodium 130, potassium 4.1. ASSESSMENT: 1. Shortness of breath secondary to left pleural effusion possibly malignant, recurrent secondary from metastatic breast cancer. 2. Metastatic breast cancer on palliative treatment. 3. Acute on chronic renal failure with chronic renal failure stage 3 on baseline possibly acute tubular necrosis, currently. 4. Generalized edema for evaluation. 5. Lymphedema of the left upper arm. 6. Hyponatremia. 7. Increased WBC. 8. Anemia secondary to malignancy. 9. Left distal wrist drop history. 10.History of deep vein thrombosis. 11.History of cholecystectomy. 12.History of gastrointestinal bleed from possible internal and external hemorrhoids recently. 13.History of left wrist drop, possibly secondary from metastatic lesion of the brachial plexus or radial compression. 14.Palliative care. RECOMMENDATIONS AND DISCUSSION: Recommend to continue current medications, monitor and symptomatic treatment. Otherwise, at this time, I recommend cardiothoracic surgery evaluation and possible PleurX drainage. Continue the rest of medications. Repeat labs. Prognosis guarded because of multiple complex medical issues. Discussed with the patient who understands and agrees. Further recommendations to follow. MMODL / IJN: [id number] /
[2019-02-05] MEDS: oxyCODONE-APAP 7.5-325MG 1 EACH TAB PO PRN (20:17)
[2019-02-06] MEDS: oxyCODONE-APAP 7.5-325MG 1 EACH TAB PO PRN ×4 (00:19→20:30)
[2019-02-06] MEDS: HYDROmorphone 1 MG/ML 1 ML SYRINGE IVP PRN ×5 (04:02→21:52)
[2019-02-06] MEDS: SENNOSIDES-DOCUSATE SODIUM 1 EACH TAB PO SCH ×2 (07:41→20:31)
[2019-02-06] MEDS: FUROSEMIDE 40 MG TAB PO SCH ×2 (07:41→16:49)
[2019-02-06] MEDS: LOSARTAN 50 MG TAB PO SCH (07:41)
[2019-02-06] MEDS: FLUCONAZOLE 100 MG TAB PO SCH (07:41)
[2019-02-06] MEDS: POLYETHYLENE GLYCOL 3350 17 GM POWD.PACK PO SCH (07:42)
[2019-02-06] MEDS: PANTOPRAZOLE 40 MG TABLET PO SCH (07:42)
[2019-02-06] MEDS: NYSTATIN 100,000 UNIT/GM POWD 15 GM TOPICAL SCH ×2 (07:42→16:49)
[2019-02-06] MEDS: GABAPENTIN 100 MG CAP PO SCH ×3 (07:42→20:31)
--- NOTE | 2019-02-06 09:36 | P.CON ---
Consult Note - . Consult date: 02/06/19 Assessment/Plan:: This is a 58-year-old pleasant female who presents with a nonhealing ulceration to the left axilla. Patient was previously seen on 01/28/2019 and triad was ordered at that time. Patient utilizes the triad while in the [facility]. Patient thought that she would be given an appointment to the wound care center however upon discharge no appointment was set up. Patient continue to use powder and a skin protectant that was given from the hospital at home. However the area has worsened and has increased in size. Patient continues to have significant amount of drainage noted. She is utilizing a dry at this time that is needing to be changed every 12 hours due to the drainage. Patient has history of lymphedema and which she receives massages and wraps with an [place] wrap. Patient has limited range of motion to the left arm due to the edema and ulceration. Patient presented to the hospital today due to increased shortness of breath and a pleural effusion. Patient's past medical history includes edema and metastatic breast cancer, hyponatremia, DVT on anticoagulation, morbid obesity, previous smoker. Patient denies diabetes. 02/06/2019: Utilizing absorptive Silver. Noticed decrease drainage and odor since the change. Patient is tolerating well. No further skin breakdown noted. No other complaints or concerns. Review of systems: Constitutional: No fever or chills Integumentary: Reports wound under left arm. No rash or pruritus. No unusual bruising. No change in hair or nails Extremity: Edema to the left upper extremity. Decreased range of motion to the left arm. Physical exam: Gen. appearance: Alert, cooperative, no distress appears stated age. Extremities left upper extremity edematous, axilla with nonhealing ulceration on pressure component with fatty layer exposure, limited range of motion. No cyanosis noted. Pulses: 2+ and symmetric Skin: Left axilla redness, skin breakdown with fatty layer exposure, odiferous, all other skin color texture sugar normal no rashes or other lesions. Neurological: Alert and oriented 3 cranial nerves II through XII intact, no motor deficit, no abnormal balance or gait Assessment/plan: 1. Nonhealing ulceration with fatty layer exposure nonpressure component: Apply absorptive silver Sunday, skin protectant as needed, may apply ABDs and secure with paper tape as needed. Continue to utilize inter-dry. Continue to wrap left arm with [place] wrap. An appointment with wound care center for further follow-up. When patient is discharged and orders to home care to follow instructions for wound care. 2. Lymphedema. Continue with [place] wrap 3. Metastatic breast cancer. Currently on chemotherapy. DNP note has been reviewed and discussed with Dr. Matthew and the impression and plan of care has been directed as dictated. Thank you for the consultation. If any questions or concerns please contact the wound care center.
--- NOTE | 2019-02-06 10:25 | P.NPCON ---
History of Present Illness - Reason for Consult acute renal failure, hyponatremia - History of Present Illness Reason for consultation: Acute kidney injury and hyponatremia History of present illness: Patient is a 58-year-old female seen in renal consultation for acute kidney injury and hyponatremia. Patient was recently admitted to the hospital in the end of December with shortness of breath. During that admission she was noted to have a large left pleural effusion and underwent thoracentesis. Sodium level improved with diuresis and fluid restriction. Patient has metastatic breast cancer and follows with oncology outpatient. Patient states after she was discharged she became short of breath again which has been worsening over the last few days. She is again noted to have left-sided pleural effusion. She is being considered for Pleurx catheter placement tomorrow. Sodium level stable at 131 this admission. Patient's baseline creatinine is near 1 and was 2.14 on admission. His 2.09 today. She admits to good urine output. Patient does have chronic lymphedema as well. No vomiting or diarrhea. No hematuria or dysuria. Denies use of nonsteroidals. Vital signs are stable. General: The patient appeared well nourished and normally developed. HEENT: Head exam is unremarkable. Neck is without jugular venous distension. LUNGS: Breath sounds decreased. HEART: Rate and Rhythm are regular. First and second heart sounds normal. No murmurs, rubs or gallops. ABDOMEN: Abdominal exam reveals normal bowel sounds. Non-tender and non- distended. No evidence of peritonitis. EXTREMITITES: 1+ edema. Past Medical History Past Medical History: Cancer, Deep Vein Thrombosis (DVT) Additional Past Medical History / Comment(s): recurrance of left breast cancer.- had chemo 01-25-18, lt arm swelling History of Any Multi-Drug Resistant Organisms: None Reported Past Surgical History: Breast Surgery, Section, Cholecystectomy, Tonsillectomy Additional Past Surgical History / Comment(s): Oral surgery, left wrist surgery.rt simple masectomy, lt modified radical masectomy Past Anesthesia/Blood Transfusion Reactions: No Reported Reaction Additional Past Anesthesia/Blood Transfusion Reaction / Comment(s): HISTORY OF CLAUSTROPHOBIA- PERFERS NOTHING ON FACE Past Psychological History: No Psychological Hx Reported Additional Psychological History / Comment(s): lives alone in single level home that has [address] drives and ambulates on own. pt stated with the swelling in lt arm she finds it hard to clean around the house and would like a ss consult to see if she can get some one in to clean for her. Smoking Status: Former smoker Past Alcohol Use History: None Reported Additional Past Alcohol Use History / Comment(s): started smoking 1980, quit in 1996 was smoking 2 ppd.. Past Drug Use History: None Reported - Past Family History Mother Family Medical History: Cancer Additional Family Medical History / Comment(s): Breast and kidney cancer. Father Family Medical History: CVA/TIA, Dementia, Hypertension Additional Family Medical History / Comment(s): brain bleed, heart problems Medications and Allergies Home Medications Medication Instructions Recorded Confirmed Type Losartan Potassium [Cozaar] 100 mg PO QAM 07/31/17 02/04/19 History Gabapentin [Neurontin] 100 mg PO TID #90 cap 01/24/18 02/04/19 Rx Lidocaine-Prilocaine Cream [Emla 1 applic TOPICAL DAILY PRN 01/23/19 02/04/19 History Cream 2.5%/2.5%] Apixaban [Eliquis] 5 mg PO BID tab 01/28/19 02/04/19 Rx Polyethylene Glycol 3350 [Miralax] 17 gm PO DAILY 30 Days powd.pack 01/28/19 02/04/19 Rx fentaNYL 75MCG/HR PATCH [Duragesic 1 patch TRANSDERM Q72H #10 patch 01/28/19 02/04/19 Rx 75MCG/HR] Fluconazole [Diflucan] 100 mg PO DAILY #7 tab 01/29/19 02/04/19 Rx Furosemide [Lasix] 40 mg PO BID 30 Days #60 tablet 01/29/19 02/04/19 Rx Nystatin 100,000 Unit/gm Powd 1 applic TOPICAL TID 30 Days #1 01/29/19 02/04/19 Rx [Mycostatin Powder] applic Sennosides-Docusate Sodium 1 tab PO BID 02/04/19 02/04/19 History [Senokot-S] oxyCODONE-APAP 7.5-325MG [Percocet 1 tab PO Q4HR PRN 02/04/19 02/04/19 History 7.5-325 mg] Allergies Allergy/AdvReac Type Severity Reaction Status Date / Time levofloxacin [From Levaquin] Allergy Dyspnea/FACE Verified 02/04/19 16:59 SWELLING tramadol AdvReac "made pain Verified 02/04/19 16:59 worse" Physical Exam Vitals: Vital Signs Temp Pulse Resp BP Pulse Ox 02/06/19 05:24 97.8 F 72 18 109/73 95 02/06/19 00:00 87 18 02/05/19 21:01 98 F 87 18 99/64 100 02/05/19 16:00 77 17 02/05/19 12:03 98.3 F 77 17 92/62 95 Intake and Output 02/05/19 02/06/19 02/06/19 22:59 06:59 14:59 Intake Total 1110 940 Balance 1110 940 Intake: Intake, IV Titration 400 350 Amount Sodium Chloride 0.9% 1, 400 350 000 ml @ 50 mls/hr IV . Q20H [facility] Rx#:[id number] Oral 710 590 Other: Voiding Method Toilet Toilet # Voids 4 3 Results - Lab Results Most recent lab results Calcium 8.8 mg/dL (8.4-10.2) 02/05/19 06:56 02/05/19 06:56 02/05/19 06:56 Assessment and Plan Plan: Assessment: 1. Acute kidney injury secondary to ATN secondary to hypotension and further worsened with use of Cozaar and diuretics. Creatinine 2.14 on admission and is 2.09 today. 2. Hypervolemic hyponatremia. 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 Recent TSH and uric acid normal. 3. Malignant pleural effusion. Scheduled for Pleurx catheter placement tomorrow. 4. Metastatic breast cancer. 5. Anemia of chronic illness. 6. Volume overload. Plan: Maintain Lasix 40 mg orally twice daily. Add 1200 mL fluid restriction. Encouraged oral intake, especially protein. Add ensure with meals. Hep-Lock IV fluids. Check urinalysis. Hold Cozaar. Continue to monitor renal function and urine output. Check iron studies. Thank you for the consultation. I will continue to follow the patient with you during her hospital stay.
--- NOTE | 2019-02-06 11:42 | PN ---
PROGRESS NOTE DATE OF SERVICE: 02/06/2019 This is a 58-year-old female with a history of metastatic breast cancer. The patient had a recent thoracentesis performed by my partner Dr. Osborn were 2.2 L of fluid was removed from the left pleural space. Within a week, she filled right back up and I thought rather than repeat thoracentesis, a better way to manage the recurrent malignant effusion was to go ahead and ask thoracic surgery to see her for a PleurX catheter. The patient came with complaints of shortness of breath. She also had significant left upper extremity lymphedema. Her primary complaint was that of shortness of breath and pain in the left upper extremity. She had no fever or chills. She was not coughing or producing any phlegm. The fluid analysis was positive for breast cancer cells. She denies any fever or chills. She denies any nausea, vomiting or diarrhea. She understands a PleurX catheter as a permanent catheter draining the left pleural space and it drains into a bag that she can empty on a regular routine basis. Hence, preventing the reaccumulation of fluid. PHYSICAL EXAMINATION: Current vital signs are reviewed. Temperature 97.8, heart rate 72, respiratory rate 18, blood pressure 109/73 mean 85, 2 L saturation 95%. Appears in no acute distress. HEENT: Examination is grossly unremarkable. Mucous membranes are moist. Nasal O2 noted. NECK: Supple. Full range of motion. No adenopathy. Neck veins are flat. CARDIOVASCULAR: Examination reveals regular rhythm and rate. S1, S2 normal. No S3, S4, or murmur. Heart sound is distant. Heart rate is 72. PULMONARY: Examination reveals relatively clear breath sounds on the right. Left breath sounds on the left are severely diminished. There is dullness throughout the entire left lung. No crackles or wheezes appreciated on either side. Again, right lung sounds are relatively normal. ABDOMEN: Soft. Bowel sounds are heard. She is obese. EXTREMITIES: Intact. There is diffuse edema. Most of the edema is most noted in the left upper extremity. SKIN: Without rash. NEUROLOGIC: Examination is brief but nonfocal. LABS: Reviewed. Nothing new from today. X-rays are reviewed. Nothing new from today. Medications are reviewed. ASSESSMENT: 1. Recurrent left-sided pleural effusion, malignant, from the patient's underlying metastatic breast cancer. 2. Anticipated insertion of a PleurX catheter for rapidly recurrent left-sided effusion, which is malignant. 3. Metastatic breast cancer. 4. History of deep venous thrombosis. 5. History of chronic pain. 6. History of chronic constipation. 7. History of hypertension. 8. Obesity. 9. Multiple previous surgical procedures including modified radical left mastectomy. PLAN: Thoracic Surgery is aware of the patient. Her blood thinner has been held. Additional recommendations and suggestions are forthcoming. Overall prognosis is poor. Will continue to follow. Hopefully her breathing will improve once the PleurX catheter is in and once she has got adequate drainage. MMODL / IJN: [id number] /
[2019-02-06 12:02] LABS: Calcium 8.7 mg/dL (8.4-10.2); Potassium 4.6 mmol/L (3.5-5.1)
[2019-02-06] MEDS ORDERED: RX INFO: IV CONTRAST WAS GIVEN 1 EACH MISC MISCELLANE PRN (12:18)
--- NOTE | 2019-02-06 12:28 | P.PN ---
Subjective Progress Note Date: 02/06/19 Principal diagnosis: Metastatic Progressive Cancer Renal Function and Hyponatremia worsening, Patient having a difficult time with diagnosis Objective - Vital Signs Vital signs: Vital Signs Temp 98.1 F 02/06/19 11:38 Pulse 77 02/06/19 11:38 Resp 19 02/06/19 11:38 BP 90/47 02/06/19 11:38 Pulse Ox 96 02/06/19 11:38 Intake & Output 02/05/19 02/06/19 02/06/19 18:59 06:59 18:59 Intake Total 1440 1930 Balance 1440 1930 Intake: Intake, IV Titration 600 750 Amount Sodium Chloride 0.9% 1, 600 750 000 ml @ 50 mls/hr IV . Q20H [facility] Rx#:[id number] Oral 840 1180 Other: Voiding Method Toilet Toilet # Voids 4 3 - Exam eneral: Alert and Oriented x3, No Acute Distress Head: Normocytic, Atraumatic Neck: Supple Mouth: No Lesions, No Thrush Eyes: Non-sclerotic No Palpable cervical, supraclavicular, axillary adenopathy Heart: Tachy Lungs: Diminishe bilateral lower lobes, mild increased respiratory effort noted Abdomen: Soft, Non-Distended, Non-Tended, BSx4 Extremities: Left arm Severe lymphedema chronic Psych: Calm and cooperative - Labs CBC & Chem 7: 02/06/19 11:07 02/06/19 11:07 Labs: Abnormal Lab Results - Last 24 Hours (Table) 02/06/19 Range/Units 11:07 Sodium 127 L (137-145) mmol/L Chloride 90 L (98-107) mmol/L BUN 69 H (7-17) mg/dL Creatinine 2.21 H (0.52-1.04) mg/dL Glucose 103 H (74-99) mg/dL Assessment and Plan Plan: Assessment and Recommendations: Metastatic Breast Cancer:Lung Lymph - Progressive - Failed Multiple lines of therapy - BRCA2 - Hospice Appropriate, patient refuses at this time, plan for salvage therapy with Ixempra or Vinorelbine Mental Status Changes: - When Renal function improved rec imaging of brain Neoplastic Related Pain - Uncontrolled: - Bowel regimen and reisk of constipation induced narcotic. - Improved on increased fentanyl and Percocet will discharge with this regimen Hyponatremia: - Dehydration versus SIADH versus other - Osmolatiy Urine and Serum - Worsening 127 Normocytic Anemia: - Transfuse less than 7 - Secondary to malignancy Left arm Lymphedema: Chronic and worsening with progressive recurrent cancer - PT/OT Following - Continue to wrap and elevate Left Pleural Effusion and worsening Lung Inflation on Xray: - Pulmonary Consult - Possible thoracentesis, please sent cytology Acute Kidney Injury: Worsening: - Rec Nephrology to Evaluate On 02.05.19 - Long discussion related to goals of care and treatment, we discussed code status, advance directives, and realistic expectations. Patient is not ready to accept diagnosis extent and understands to an extent that chemo is for salvage palliative care. Greater than 25 minutes spent counseling and coordinating care. - Consult for combination worker to further assist in creation of advanced directive Patient worried about her 8 cats and 3 dogs. - PT/OT recs for discharge, patient lives alone and children work with their own families. - Palliative care at home. - Hospice info consult - I feel the benefit of chemo is minimal to the risks in the overall picture of progressive cancer and other - DNR Rec imaging of brain when renal function improves.
[2019-02-06 13:14] LABS: Basophils % (A) 0 %; Eosinophils # (A) 0.1 k/uL (0-0.7); Eosinophils % (A) 1 %; HCT 22.8 % (34.0-46.0); HGB 7.1 gm/dL (11.4-16.0); Hypochromasia Slight; Lymphocytes # (A) 0.7 k/uL (1.0-4.8); Lymphocytes % (A) 7 %; MCH 27.2 pg (25.0-35.0); MCHC 31.2 g/dL (31.0-37.0); MCV 87.1 fL (80.0-100.0); Mean Platelet Volume 6.7; Monocytes # (A) 0.9 k/uL (0-1.0); Monocytes % (A) 9 %; Neutrophils # (A) 8.5 k/uL (1.3-7.7); Neutrophils % (A) 82 %; Platelet Count 453 k/uL (150-450); RBC 2.62 m/uL (3.80-5.40); RDW 15.3 % (11.5-15.5); WBC 10.3 k/uL (3.8-10.6)
--- NOTE | 2019-02-06 13:23 | P.PN ---
<Brandan Steel - Last Filed: 02/06/19 12:47> Subjective Progress Note Date: 02/06/19 Principal diagnosis: Recurrent malignant left-sided pleural effusion, history of left pleural effusion status post left thoracentesis on 01/24/2019 with removal of 2.2 L of dark turbid fluid with cytology positive for metastatic breast cancer, stage IV metastatic breast cancer, status post failed multiple lines of therapies, left arm lymphedema, chronic DVT of the left upper extremity on chronic Eliquis for anticoagulation, anemia, stage III chronic renal failure, history of GI bleed, history of tobacco dependence, family history of breast cancer. The patient is sitting up to the bedside chair on the oncology unit. She is in no acute distress. She currently denies any complaints of pain although reports he does get some shortness of breath with activity. She is on 3 L nasal cannula with oxygen saturations 96%. [place] wrap's in place to her left upper extremity as the patient reports that she has chronic lymphedema to her left arm. She is ambulating independently in her room. She presented to the emergency department on 02/03/2019 with complaints of shortness of breath and increasing edema to her bilateral lower extremities. Since her admission to the hospital she reports that her breathing is about the same as when she presented to the emergency department. A left chest thoracentesis was completed on 01/24/2019 with 2.2 L of dark turbid pleural fluid drained and the cytology was positive for metastatic breast cancer. On admission to the hospital a chest x-ray was completed which demonstrated a near complete whiteout of the left hemidithorax. The patient has been scheduled for a left chest Pleurx catheter placement tomorrow 02/07/2019. Objective - Vital Signs Vital signs: Vital Signs Temp 98.1 F 02/06/19 11:38 Pulse 77 02/06/19 11:38 Resp 19 02/06/19 11:38 BP 90/47 02/06/19 11:38 Pulse Ox 96 02/06/19 11:38 Intake & Output 02/05/19 02/06/19 02/06/19 18:59 06:59 18:59 Intake Total 1440 1930 Balance 1440 1930 Intake: Intake, IV Titration 600 750 Amount Sodium Chloride 0.9% 1, 600 750 000 ml @ 50 mls/hr IV . Q20H [facility] Rx#:[id number] Oral 840 1180 Other: Voiding Method Toilet Toilet # Voids 4 3 - Constitutional General appearance: Present: cooperative, morbidly obese, no acute distress - Respiratory Details: Lungs sounds essentially clear to her right lobes, diminished to her left lobes. Respirations are symmetrical and nonlabored. Oxygen saturation are 96% on 3 L nasal cannula. - Cardiovascular Details: Regular rhythm and rate. S1 and S2 present, negative for S3, gallop or murmur. Lymphedema present to her left upper extremity, +1 edema to her bilateral lower extremities. - Gastrointestinal Gastrointestinal Comment(s): Abdomen is soft, nontender and nondistended. Active bowel sounds present in all 4 abdominal quadrants. No guarding or rigidity. No organomegaly appreciated. - Genitourinary Genitourinary Comment(s): Voiding clear yellow urine. - Integumentary Integumentary Comment(s): Skin is warm and dry. No clubbing or cyanosis present. Left upper extremity edematous, axilla ulceration with instant dry in place. Dry scabbed areas to her right upper chest. - Neurologic Neurologic: Present: CNII-XII intact - Musculoskeletal Musculoskeletal: Present: gait normal, generalized weakness, strength equal bilaterally - Psychiatric Psychiatric Comment(s): Flat affect. Psychiatric: Present: A&O x's 3, intact judgment & insight - Allied health notes Allied health notes reviewed: nursing - Labs CBC & Chem 7: 02/05/19 06:56 02/06/19 11:07 Labs: Abnormal Lab Results - Last 24 Hours (Table) 02/06/19 Range/Units 11:07 Sodium 127 L (137-145) mmol/L Chloride 90 L (98-107) mmol/L BUN 69 H (7-17) mg/dL Creatinine 2.21 H (0.52-1.04) mg/dL Glucose 103 H (74-99) mg/dL - Imaging and Cardiology Chest x-ray: report reviewed, image reviewed Assessment and Plan Assessment: 1. Recurrent malignant left-sided pleural effusion 2. History of a left pleural effusion, status post thoracentesis 01/24/2019 with removal 2.2 L dark turbid fluid with cytology positive for metastatic breast cancer 3. Stage IV metastatic breast cancer, status post failed multiple lines of t herapy 4. Left arm Lymphedema 5. Chronic DVT of the left upper extremity on chronic Eliquis for an ticoagulation, last dose on 02/04/2019 6. Stage III chronic renal failure 7. GI bleed 8. Previous tobacco dependence 9. Family history of breast cancer Plan: 1. The patient is scheduled for a left chest Pleurx catheter placement tomorrow 02/17/2019. Risks and benefits of the surgery have been discussed with the patient by Dr. Gui Simms. 2. Nothing by mouth after midnight. 3. Continue to hold Eliquis in anticipation for Pleurx catheter placement. 4. Once the Pleurx catheter placement has been inserted, Pleurx catheter teaching will be completed with the patient and her family. 5. Breast cancer treatment recommendations per oncology. 6. Bronchodilators and pulmonary management per Dr. Gonsalez. 7. Wound care treatment and management per Ericka Mcguire NP. 8. More recommendations to follow based on patient's clinical course. Time with Patient: Greater than 30 <Gui Simms - Last Filed: 02/06/19 15:14> Objective - Vital Signs Vital signs: Vital Signs Temp 98.1 F 02/06/19 11:38 Pulse 77 02/06/19 11:38 Resp 19 02/06/19 11:38 BP 90/47 02/06/19 11:38 Pulse Ox 96 02/06/19 11:38 Intake & Output 02/05/19 02/06/19 02/06/19 18:59 06:59 18:59 Intake Total 1440 1930 Balance 1440 1930 Intake: Intake, IV Titration 600 750 Amount Sodium Chloride 0.9% 1, 600 750 000 ml @ 50 mls/hr IV . Q20H [facility] Rx#:[id number] Oral 840 1180 Other: Voiding Method Toilet Toilet # Voids 4 3 - Labs CBC & Chem 7: 02/06/19 11:07 02/06/19 11:07 Labs: Abnormal Lab Results - Last 24 Hours (Table) 02/06/19 02/06/19 Range/Units 11:07 11:07 RBC 2.62 L (3.80-5.40) m/uL Hgb 7.1 L (11.4-16.0) gm/dL Hct 22.8 L (34.0-46.0) % Plt Count 453 H (150-450) k/uL Neutrophils # 8.5 H (1.3-7.7) k/uL Lymphocytes # 0.7 L (1.0-4.8) k/uL Sodium 127 L (137-145) mmol/L Chloride 90 L (98-107) mmol/L BUN 69 H (7-17) mg/dL Creatinine 2.21 H (0.52-1.04) mg/dL Glucose 103 H (74-99) mg/dL AST 41 H (14-36) U/L Total Protein 5.3 L (6.3-8.2) g/dL Albumin 3.0 L (3.5-5.0) g/dL Assessment and Plan Plan: The patient was seen and examined. The history and physical findings were verified. I agree with the above assessment and plan. The patient is a 58-year-old female with a history of metastatic breast cancer who presented to the hospital with shortness of breath. She was found to have a large left pleural effusion which was drained on 01/24/2019 with improvement of her symptomatology. Cytology of this fluid was consistent with metastatic breast cancer. Her shortness of breath has recurred and imaging from today reveals recurrence of her left pleural effusion. I did speak with her in detail regarding the possibility of placement of a left Pleurx catheter. Unfo rtunately, the patient's tumor is quite advanced. Evidence of tumor is noted in the left chest and there are open wounds in the left axilla as well as in the right chest which are foul-smelling. The patient has lymphedema involving the left upper extremity and she is unable to really move it at all. It lays essentially useless at her side. From a technical standpoint, placement of a left Pleurx catheter would be challenging. I am worried that it would need to be placed in an infected area and therefore would be at risk for infection itself. At this point I think it would be garland to proceed with a second left thoracentesis to help with her symptomatology. She is currently considering h ospice given her advanced disease. We can revisit the idea of placement of a Pleurx catheter if repeat thoracenteses prove to be impossible.
[2019-02-06 13:26] LABS: Total Bilirubin 0.5 mg/dL (0.2-1.3); Total Protein 5.3 g/dL (6.3-8.2)
[2019-02-06 19:11] LABS: Iron Saturation 4.06 (12.00-45.00)
--- NOTE | 2019-02-06 19:45 | PN ---
PROGRESS NOTE DATE OF SERVICE: 02/06/2019. This 58-year-old woman who was admitted with shortness of breath and recurrent pleural effusion is slated to have Pleur-X drainage. No chest pain. No palpitations. No fever. EXAM: Alert and oriented times three. Pulse 77. Blood pressure 94/79, respiration 18, temperature 98.1, pulse ox 96% on 3 L. HEENT is conjunctivae normal. NECK: No jugular venous distention. CARDIOVASCULAR: S1, S2 muffled. RESPIRATORY: Breath sounds diminished in the bases. A few scattered rhonchi and crackles. Breath sounds are markedly diminished on the left side. ABDOMEN soft, nontender. LEGS: Bilateral leg edema. NERVOUS SYSTEM: No focal deficits. LABS: WBC 10.2, hemoglobin 7.1, sodium 127, creatinine is 2.21. ASSESSMENT: 1. Shortness of breath, possibly secondary to left pleural effusion, malignant recurrence secondary from metastatic breast cancer. 2. Metastatic breast cancer on palliative treatment. 3. Acute on chronic renal failure with chronic renal failure stage 3 baseline possibly acute tubular necrosis currently. 4. Generalized edema for evaluation. 5. Lymphedema of left upper arm. 6. Hyponatremia. 7. Increased WBC. 8. Anemia secondary to malignancy. 9. Left distal wrist drop history. 10.History of deep vein thrombosis. 11.History of cholecystectomy. 12.History of gastrointestinal bleed from possible internal-external hemorrhoids recently. 13.History of left wrist drop, possibly secondary from metastatic lesion of the brachial plexus radial compression. 14.Palliative care. 15.NO CODE, NO CPR, NO VENT. RECOMMENDATIONS AND DISCUSSION: In this 58-year-old woman who presented with multiple complex medical issues, we will monitor the patient closely, continue the current medications, management and symptomatic treatment. I await the patient is awaiting PleurX catheter drain insertion and further teach him to continue at home. Otherwise, currently the patient would like to be NO CODE, NO CPR, NO VENT. Further recommendations to follow. Repeat labs are recommended. Further recommendations to follow. Nephrology is following the patient closely. MMODL / IJN: [id number] /
[2019-02-06 23:38] LABS: Appearance,Urine Cloudy (Clear); Bilirubin,Urine Negative (Negative); Blood,Urine Negative (Negative); Color,Urine Yellow; Glucose,Urine (UA) Negative (Negative); Ketones,Urine Negative (Negative); Leukocyte Esterase,Urine Large (Negative); Mucus,Urine Rare /hpf; Nitrite,Urine Negative (Negative); Protein,Urine Negative (Negative); RBC,Urine 4 /hpf (0-5); Specific Gravity,Urine 1.014 (1.001-1.035); Squamous Epithelial Cell,Urine 1 /hpf (0-4); Uric Acid Crystals,Urine Few /hpf; Urobilinogen,Urine <2.0 mg/dL (<2.0); WBC,Urine 146 /hpf (0-5)
[2019-02-07] MEDS: NYSTATIN 100,000 UNIT/GM POWD 15 GM TOPICAL SCH ×4 (00:20→21:16)
[2019-02-07] MEDS: oxyCODONE-APAP 7.5-325MG 1 EACH TAB PO PRN ×4 (00:48→23:46)
[2019-02-07] MEDS: HYDROmorphone 1 MG/ML 1 ML SYRINGE IVP PRN ×3 (02:44→21:12)
[2019-02-07 08:04] LABS: Basophils % (A) 0 %; Eosinophils # (A) 0.1 k/uL (0-0.7); Eosinophils % (A) 0 %; HCT 23.3 % (34.0-46.0); HGB 7.5 gm/dL (11.4-16.0); Lymphocytes # (A) 0.8 k/uL (1.0-4.8); Lymphocytes % (A) 6 %; MCH 27.8 pg (25.0-35.0); MCHC 32.1 g/dL (31.0-37.0); MCV 86.5 fL (80.0-100.0); Mean Platelet Volume 6.8; Monocytes # (A) 1.1 k/uL (0-1.0); Monocytes % (A) 9 %; Neutrophils # (A) 10.4 k/uL (1.3-7.7); Neutrophils % (A) 83 %; Platelet Count 486 k/uL (150-450); RDW 15.4 % (11.5-15.5); WBC 12.6 k/uL (3.8-10.6)
[2019-02-07 08:20] LABS: Albumin 3.2 g/dL (3.5-5.0); Calcium 8.9 mg/dL (8.4-10.2); Total Bilirubin 0.6 mg/dL (0.2-1.3); Total Protein 5.6 g/dL (6.3-8.2)
--- NOTE | 2019-02-07 09:20 | P.PN ---
Subjective Patient is seen in follow-up for acute kidney injury and hyponatremia. Patient has metastatic breast cancer with recurrent pleural effusion. She underwent thoracentesis during her last admission in December 2018. She scheduled for a Pleurx catheter placement today. Sodium level is stable at 127 today. Patient remains quite edematous. Renal function is also worsening. Creatinine 2.54 today. Vital signs are stable. General: The patient appeared well nourished and normally developed. HEENT: Head exam is unremarkable. Neck is without jugular venous distension. LUNGS: Lungs are clear to auscultation and percussion. Breath sounds decreased. HEART: Rate and Rhythm are regular. First and second heart sounds normal. No murmurs, rubs or gallops. ABDOMEN: Abdominal exam reveals normal bowel sounds. Non-tender and non- distended. EXTREMITITES: 1+ edema. Objective - Vital Signs Vital signs: Vital Signs Temp 97.7 F 02/07/19 06:21 Pulse 65 02/07/19 06:21 Resp 18 02/07/19 06:21 BP 98/64 02/07/19 06:21 Pulse Ox 96 02/07/19 06:21 Intake & Output 02/06/19 02/07/19 02/07/19 18:59 06:59 18:59 Intake Total 3000 Balance 3000 Intake: Oral 3000 Other: Voiding Method Toilet Toilet # Voids 3 3 - Labs CBC & Chem 7: 02/07/19 07:41 02/07/19 07:41 Labs: Abnormal Lab Results - Last 24 Hours (Table) 02/06/19 02/06/19 02/06/19 Range/Units 11:07 11:07 11:07 WBC (3.8-10.6) k/uL RBC 2.62 L (3.80-5.40) m/uL Hgb 7.1 L (11.4-16.0) gm/dL Hct 22.8 L (34.0-46.0) % Plt Count 453 H (150-450) k/uL Neutrophils # 8.5 H (1.3-7.7) k/uL Lymphocytes # 0.7 L (1.0-4.8) k/uL Monocytes # (0-1.0) k/uL Sodium 127 L (137-145) mmol/L Chloride 90 L (98-107) mmol/L BUN 69 H (7-17) mg/dL Creatinine 2.21 H (0.52-1.04) mg/dL Glucose 103 H (74-99) mg/dL Iron 8 L (50-170) ug/dL TIBC 197 L (228-460) ug/dL Iron Saturation 4.06 L (12.00-45.00) Ferritin 545.2 H (10.0-291.0) ng/mL AST 41 H (14-36) U/L Total Protein 5.3 L (6.3-8.2) g/dL Albumin 3.0 L (3.5-5.0) g/dL Urine Appearance (Clear) Ur Leukocyte Esterase (Negative) Urine WBC (0-5) /hpf Urine WBC Clumps (None) /hpf Uric Acid Crystals (None) /hpf Urine Mucus (None) /hpf 02/06/19 02/07/19 02/07/19 Range/Units 23:15 07:41 07:41 WBC 12.6 H (3.8-10.6) k/uL RBC 2.70 L (3.80-5.40) m/uL Hgb 7.5 L (11.4-16.0) gm/dL Hct 23.3 L (34.0-46.0) % Plt Count 486 H (150-450) k/uL Neutrophils # 10.4 H (1.3-7.7) k/uL Lymphocytes # 0.8 L (1.0-4.8) k/uL Monocytes # 1.1 H (0-1.0) k/uL Sodium 127 L (137-145) mmol/L Chloride 89 L (98-107) mmol/L BUN 75 H (7-17) mg/dL Creatinine 2.54 H (0.52-1.04) mg/dL Glucose (74-99) mg/dL Iron (50-170) ug/dL TIBC (228-460) ug/dL Iron Saturation (12.00-45.00) Ferritin (10.0-291.0) ng/mL AST 45 H (14-36) U/L Total Protein 5.6 L (6.3-8.2) g/dL Albumin 3.2 L (3.5-5.0) g/dL Urine Appearance Cloudy H (Clear) Ur Leukocyte Esterase Large H (Negative) Urine WBC 146 H (0-5) /hpf Urine WBC Clumps Rare H (None) /hpf Uric Acid Crystals Few H (None) /hpf Urine Mucus Rare H (None) /hpf Assessment and Plan Plan: Assessment: 1. Acute kidney injury secondary to ATN secondary to hypotension and further worsened with use of Cozaar and diuretics. Creatinine 2.54 today. No proteinuria on UA. 2. Hypervolemic hyponatremia. 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 Recent TSH and uric acid normal. 3. Malignant pleural effusion. Scheduled for Pleurx catheter placement today. 4. Metastatic breast cancer. 5. Anemia of chronic illness. Severe iron deficiency noted. 6. Volume overload. Plan: I will change Lasix to 40 mg IV twice daily. Maintain 1200 mL fluid restriction. Encouraged oral intake, especially protein. Maintain ensure with meals. Continue to hold antihypertensives. Continue to monitor renal function and urine output. IV iron 3 doses. First dose today. Check serum and urine osmolality and urine sodium. Overall prognosis poor.
[2019-02-07] MEDS: SODIUM FERRIC GLUCONAT-SUCROSE 125 MG in SODIUM CHLORIDE 0.9% 100 ML IVPB SCH (10:33)
[2019-02-07] MEDS: FUROSEMIDE 10 MG/ML 4 ML VIAL IV SCH ×2 (10:33→21:12)
[2019-02-07] MEDS: SENNOSIDES-DOCUSATE SODIUM 1 EACH TAB PO SCH ×2 (10:34→21:12)
[2019-02-07] MEDS: GABAPENTIN 100 MG CAP PO SCH ×3 (10:34→21:12)
[2019-02-07] MEDS: PANTOPRAZOLE 40 MG TABLET PO SCH (10:34)
[2019-02-07] MEDS: FLUCONAZOLE 100 MG TAB PO SCH (10:34)
[2019-02-07] MEDS: POLYETHYLENE GLYCOL 3350 17 GM POWD.PACK PO SCH (10:34)
[2019-02-07] MEDS: FUROSEMIDE 40 MG TAB PO SCH (10:56)
--- NOTE | 2019-02-07 11:19 | US ---
EXAMINATION TYPE: US chest DATE OF EXAM: 02/07/2019 COMPARISON: NONE CLINICAL HISTORY: Left pleural effusion. Pleural effusion. TECHNIQUE: Targeted ultrasound of the posterior lower left hemithorax EXAM MEASUREMENTS: Left Pleural Effusion pocket size: 10.3 cm Left skin surface to fluid distance: 4.2 cm Left side marked for possible thoracentesis outside the dept. Pulmonologists are able to review the images in the patient?s EMR. IMPRESSIONS: Recurrent small left pleural effusion.
--- NOTE | 2019-02-07 14:37 | PCN ---
PROCEDURE NOTE PROCEDURE: Left thoracentesis. OPERATORS: Dr. Gonsalez and Dr. Foote. PREOPERATIVE DIAGNOSIS: Left pleural effusion. POSTOPERATIVE DIAGNOSIS: Left pleural effusion. Indication Pleural effusion. A time-out was completed verifying correct patient, procedure, site, positioning , and implant (s) or special equipment if applicable. Ultrasound guidance was used and appropriate fluid pocket was identified and marked. Patient was positioned, prepped and draped in usual sterile fashion. Lidocaine was used to anesthetize the area. A Thoracentesis catheter was introduced into the pleural space and fluid was removed. Blood loss was none. A chest x-ray was ordered to evaluate for pneumothorax. Total Fluid Removed 2.6 L Color of Fluid bloody Fluid will not be sent for appropriate laboratory tests. The posterior chest was marked by ultrasound. 2.6 L of fluid was removed from the left pleural space. The patient tolerated the procedure well. A chest x-ray was ordered. The fluid will not be sent for analysis as the prior fluid did have a cytology that was positive for her known diagnosis of breast cancer. The patient tolerated the procedure well. A chest x-ray was ordered. MMODL / IJN: [id number] / MTDD
--- NOTE | 2019-02-07 14:52 | PN ---
PROGRESS NOTE DATE OF SERVICE: 02/07/2019 This is a 58-year-old female with history of metastatic breast cancer. The patient had a recent thoracentesis done by my partner and 2.2 L of fluid was removed from the left pleural space. She came in again with complaints of shortness of breath. She had a large left pleural effusion. Today we drained her fluid, 2.6 L was removed. She needs a standing order with Interventional Radiology to have this done. She probably needs it done every 7 the 10 days. I did have Cardiothoracic see her to see whether or not they put in a PleurX catheter but they thought that it was too risky in her situation. She has significant left upper extremity lymphedema. Currently, her major complaint is pain and swelling to the left lower extremity as well as shortness of breath with any activity. I was assisted in the thoracentesis by Dr. Foote. Again, 2.6 L removed from the left pleural space. Because of fluids previously removed came back positive for breast cancer cells, the fluid was not sent for analysis on this recent thoracentesis. PHYSICAL EXAMINATION: Current vital signs are temperature 97.7, heart rate 65, respiratory rate 18, blood pressure 98/64 mean 75, room air saturation between 96% and 98%. Appears no acute distress. HEENT: Examination is within normal limits. Mucous membranes are moist. No oral lesions. NECK: Supple. Full range of motion. No adenopathy or thyromegaly. Neck veins are flat. CARDIOVASCULAR: Examination reveals regular rhythm and rate. LUNGS: With completely absent breath sounds on the left. There is dullness on left side and percussion. Right breath sounds appear normal. No wheezes or rhonchi. No crackles. Breath sounds are unequal as mentioned above. ABDOMEN: Obese. Bowel sounds are heard. EXTREMITIES: Intact. She has significant edema of the lower extremities and significant lymphedema of the left upper extremity. SKIN: Without rash. NEUROLOGIC: Examination is brief but nonfocal. LAB DATA: Reviewed. White count 12.6, hemoglobin 7.5, hematocrit 23.3, platelet count 48,000, sodium 127, potassium 5, chloride 99, CO2 is 23, anion gap 15. BUN and creatinine 75 and 1.4. The rest of the labs look okay. Microbiologic studies are tentatively negative. Chest x-ray shows diffuse opacification through the left thorax. Ultrasound of the chest reveals a 10.3 cm pocket on the left side. ASSESSMENT: 1. Rapidly recurrent left-sided pleural effusion, malignant, the patient has underlying metastatic breast cancer. 2. Status post left-sided thoracentesis today, February 07, with 2.6 L of bloody fluid being removed. 3. Metastatic breast cancer. 4. History of deep venous thrombosis. 5. History of chronic pain syndrome. 6. Obesity. 7. Chronic constipation. 8. Hypertension. 9. Multiple serious orthopedic procedures. PLAN: The patient tolerated the thoracentesis well. Will get an x-ray afterwards. The fluid will not be sent for analysis. The patient will be discharged to hospice today. Will make sure she has arrangements to follow up with Interventional Radiology for repeated thoracentesis. She probably will need one every 7 or 10 days. MOHIT / LYNDA: [id number] /
--- NOTE | 2019-02-07 15:31 | P.PN ---
Subjective Progress Note Date: 02/07/19 Principal diagnosis: Metastatic Progressive Cancer Status Post thoracentesis, patient very hesitant to hospice care, lives alone and adament she wants to go home. Pain is 9/10 during evaluation dilaudid being given. Strong odor from left arm. Culture ordered. Objective - Vital Signs Vital signs: Vital Signs Temp 97.7 F 02/07/19 06:21 Pulse 65 02/07/19 06:21 Resp 18 02/07/19 06:21 BP 98/64 02/07/19 06:21 Pulse Ox 96 02/07/19 06:21 Intake & Output 02/06/19 02/07/19 02/07/19 18:59 06:59 18:59 Intake Total 3000 500 Balance 3000 500 Weight 122.47 kg Intake: Oral 3000 500 Other: Voiding Method Toilet Toilet Toilet # Voids 3 3 - Exam eneral: Alert and Oriented x3, No Acute Distress Head: Normocytic, Atraumatic Neck: Supple Mouth: No Lesions, No Thrush Eyes: Non-sclerotic No Palpable cervical, supraclavicular, axillary adenopathy Heart: Tachy Lungs: Diminishe bilateral lower lobes, mild increased respiratory effort noted Abdomen: Soft, Non-Distended, Non-Tended, BSx4 Extremities: Left arm Severe lymphedema chronic Psych: Calm and cooperative - Labs CBC & Chem 7: 02/07/19 07:41 02/07/19 07:41 Labs: Abnormal Lab Results - Last 24 Hours (Table) 02/06/19 02/06/19 02/07/19 Range/Units 11:07 23:15 07:41 WBC (3.8-10.6) k/uL RBC (3.80-5.40) m/uL Hgb (11.4-16.0) gm/dL Hct (34.0-46.0) % Plt Count (150-450) k/uL Neutrophils # (1.3-7.7) k/uL Lymphocytes # (1.0-4.8) k/uL Monocytes # (0-1.0) k/uL Sodium 127 L (137-145) mmol/L Chloride 89 L (98-107) mmol/L BUN 75 H (7-17) mg/dL Creatinine 2.54 H (0.52-1.04) mg/dL Iron 8 L (50-170) ug/dL TIBC 197 L (228-460) ug/dL Iron Saturation 4.06 L (12.00-45.00) Ferritin 545.2 H (10.0-291.0) ng/mL AST 45 H (14-36) U/L Total Protein 5.6 L (6.3-8.2) g/dL Albumin 3.2 L (3.5-5.0) g/dL Urine Appearance Cloudy H (Clear) Ur Leukocyte Esterase Large H (Negative) Urine WBC 146 H (0-5) /hpf Urine WBC Clumps Rare H (None) /hpf Uric Acid Crystals Few H (None) /hpf Urine Mucus Rare H (None) /hpf 02/07/19 Range/Units 07:41 WBC 12.6 H (3.8-10.6) k/uL RBC 2.70 L (3.80-5.40) m/uL Hgb 7.5 L (11.4-16.0) gm/dL Hct 23.3 L (34.0-46.0) % Plt Count 486 H (150-450) k/uL Neutrophils # 10.4 H (1.3-7.7) k/uL Lymphocytes # 0.8 L (1.0-4.8) k/uL Monocytes # 1.1 H (0-1.0) k/uL Sodium (137-145) mmol/L Chloride (98-107) mmol/L BUN (7-17) mg/dL Creatinine (0.52-1.04) mg/dL Iron (50-170) ug/dL TIBC (228-460) ug/dL Iron Saturation (12.00-45.00) Ferritin (10.0-291.0) ng/mL AST (14-36) U/L Total Protein (6.3-8.2) g/dL Albumin (3.5-5.0) g/dL Urine Appearance (Clear) Ur Leukocyte Esterase (Negative) Urine WBC (0-5) /hpf Urine WBC Clumps (None) /hpf Uric Acid Crystals (None) /hpf Urine Mucus (None) /hpf Assessment and Plan Plan: Assessment and Recommendations: Metastatic Breast Cancer:Lung Lymph - Progressive - Failed Multiple lines of therapy - BRCA2 - Hospice Appropriate, patient refuses at this time, plan for salvage therapy with Ixempra or Vinorelbine Mental Status Changes: - When Renal function improved rec imaging of brain Neoplastic Related Pain - Uncontrolled: - Bowel regimen and reisk of constipation induced narcotic. - Improved on increased fentanyl and Percocet will discharge with this regimen Hyponatremia: - Dehydration versus SIADH versus other - Osmolatiy Urine and Serum - Worsening 127 Normocytic Anemia: - Transfuse less than 7 - Secondary to malignancy Left arm Lymphedema: Chronic and worsening with progressive recurrent cancer - PT/OT Following - Continue to wrap and elevate Left Pleural Effusion and worsening Lung Inflation on Xray: - Pulmonary Consult - Possible thoracentesis, please sent cytology Acute Kidney Injury: Worsening: - Rec Nephrology to Evaluate On 02.05.19 - Long discussion related to goals of care and treatment, we discussed code status, advance directives, and realistic expectations. Patient is not ready to accept diagnosis extent and understands to an extent that chemo is for salvage palliative care. Greater than 25 minutes spent counseling and coordinating care. - Consult for fish hatchery worker to further assist in creation of advanced directive Patient worried about her 8 cats and 3 dogs. - PT/OT recs for discharge, patient lives alone and children work with their own families. - Palliative care at home. - Hospice info consult - I feel the benefit of chemo is minimal to the risks in the overall picture of progressive cancer and other - DNR - Cultures from left arm wound - Bowel regimen Rec imaging of brain when renal function improves.
--- NOTE | 2019-02-07 18:04 | XR ---
EXAMINATION TYPE: XR chest 1V portable DATE OF EXAM: 02/07/2019 COMPARISON: 02/04/2019 HISTORY: Difficulty breathing TECHNIQUE: Single frontal view of the chest is obtained. FINDINGS: There is significant opacification left hemithorax. There is right central venous catheter with the tip in the superior vena cava. There are bilateral breast implants. Right lung is clear of consolidation. There is no heart failure. IMPRESSION: (Left pulmonary consolidation that is improved slightly compared to last exam. No heart failure.
[2019-02-07 19:20] LABS: Folate, Serum 10.1 ng/mL
--- NOTE | 2019-02-07 22:01 | PN ---
PROGRESS NOTE DATE OF SERVICE: 02/07/2019 This is a 58-year-old woman who was admitted shortness of breath and pleural effusion and multiple other medical problems, underwent abdominal paracentesis by Dr. Gonsalez, about 2.6 L of fluid was removed. No chest pain. No palpitations. No fever. PHYSICAL EXAM: Alert and oriented x3. Pulse is 65. Blood pressure 90/64. Respirations 18, temperature 97.7, pulse ox 98% on room air. HEENT: Conjunctivae normal. NECK: No jugular venous distention. CARDIOVASCULAR: S1, S2 muffled. RESPIRATORY: Breath sounds diminished at the bases. Scattered rhonchi and crackles. Breath sounds are markedly diminished on the left side. ABDOMEN: Soft, nontender. NERVOUS SYSTEM: No focal deficits. LEGS: Generalized edema. LAB STUDIES: WBC 12.2, hemoglobin 7.4, sodium 127. Other labs are noted. ASSESSMENT: 1. Shortness of breath possibly secondary to left pleural effusion recurrent secondary from metastatic breast cancer, status post thoracocentesis. 2. History of breast cancer on palliative treatment. 3. Acute on chronic renal failure with chronic renal failure stage 3 baseline possibly acute tubular necrosis, currently. 4. Urinary tract infection present on admission. 5. Generalized edema for evaluation. 6. Lymphedema of left upper arm. 7. Hyponatremia. 8. Increased WBC. 9. Anemia secondary to malignancy. 10.Left distal wrist drop history. 11.History of deep vein thrombosis. 12.History of cholecystectomy. 13.History of gastrointestinal bleed with possibly internal-external hemorrhoids recently. 14.History of left wrist drop, possibly secondary from metastatic lesion of the brachial plexus and radial compression. 15.Palliative care. 16.NO CODE, NO CPR, NO VENT. RECOMMENDATIONS AND DISCUSSION: Recommend to continue current medications, management and symptomatic treatment. Otherwise, at this time, the patient underwent aspirations. I would recommend a course of antibiotics also with culture. Otherwise prognosis guarded because of multiple complex medical issues. Further recommendations to follow. MMODL / IJN: [id number] / MTDD
[2019-02-08] MEDS: oxyCODONE-APAP 7.5-325MG 1 EACH TAB PO PRN ×3 (03:59→19:02)
[2019-02-08 07:13] LABS: Calcium 8.7 mg/dL (8.4-10.2); Magnesium 2.1 mg/dL (1.6-2.3)
[2019-02-08] MEDS: FLUCONAZOLE 100 MG TAB PO SCH (09:22)
[2019-02-08] MEDS: NYSTATIN 100,000 UNIT/GM POWD 15 GM TOPICAL SCH ×3 (09:22→20:48)
[2019-02-08] MEDS: GABAPENTIN 100 MG CAP PO SCH ×3 (09:22→20:48)
[2019-02-08] MEDS: POLYETHYLENE GLYCOL 3350 17 GM POWD.PACK PO SCH (09:22)
[2019-02-08] MEDS: FUROSEMIDE 10 MG/ML 4 ML VIAL IV SCH ×2 (09:22→20:48)
[2019-02-08] MEDS: SENNOSIDES-DOCUSATE SODIUM 1 EACH TAB PO SCH ×2 (09:22→19:18)
[2019-02-08] MEDS: PANTOPRAZOLE 40 MG TABLET PO SCH (09:22)
[2019-02-08] MEDS: SODIUM FERRIC GLUCONAT-SUCROSE 125 MG in SODIUM CHLORIDE 0.9% 100 ML IVPB SCH (09:23)
--- NOTE | 2019-02-08 14:21 | P.PN ---
Subjective Progress Note Date: 02/08/19 Principal diagnosis: This is a 50-year-old female seen in consultation because of acute kidney injury and hyponatremia. This is from acute tubular necrosis secondary to hypotension, additionally although on Cozaar. Patient is being diuresed, because of edema and shortness of breath. She had significant effusion on the left and underwent ultrasound-guided tap and which was performed. She continues to have mild cough and shortness of breath. Appetite is fair. She feels weak and tired. She has significant edema She is known with recurrence of left breast cancer, History of present illness: Patient is a 68-year-old male seen in renal consultation for acute kidney injury on chronic kidney disease. Patient has chronic kidney disease stage III with baseline creatinine in the range of 1.3-1.5. Creatinine on admission was 2.75. Labs from today are pending. Patient fell in the bathroom and was complaining of pain in his shoulder and subsequently came to the hospital. He is noted to have a right humerus fracture. Blood pressure is stable although it's been a l ittle bit on the lower side in the systolic 90s this admission. No vomiting or diarrhea. Denies chest pain or shortness of breath. Patient admits to taking Aleve twice daily on a daily basis. He is currently maintained on normal saline at 100 mL an hour. No history of diabetes. Patient has history of multiple myeloma and follows with oncology outpatient. He is currently maintained on chemotherapy. Patient's lactic acid was 2.5 and is down to 0.7 today. UA reveals trace protein. Objective - Vital Signs Vital signs: Vital Signs Temp 97.8 F 02/08/19 04:44 Pulse 67 02/08/19 08:25 Resp 20 02/08/19 08:25 BP 103/71 02/08/19 04:44 Pulse Ox 95 02/08/19 04:44 Intake & Output 02/07/19 02/08/19 02/08/19 18:59 06:59 18:59 Intake Total 500 180 Output Total 500 Balance 0 180 Weight 122.47 kg Intake: Oral 500 180 Output: Urine 500 Other: Voiding Method Toilet Toilet Toilet # Voids 1 # Bowel Movements 1 Examination she is awake alert oriented. HEENT exam no JVP neck is supple no facial asymmetry Lungs are clear to auscultation on the right but on the left there are some coarse crackles fair air entry bilaterally Heart sounds are unremarkable for any murmur rub gallop abdomen soft nontender. Somewhat obese Extreme exam reveals 2+ edema Neurologically awake alert oriented - Labs CBC & Chem 7: 02/07/19 07:41 02/08/19 06:35 Labs: Abnormal Lab Results - Last 24 Hours (Table) 02/08/19 Range/Units 06:35 Sodium 125 L (137-145) mmol/L Chloride 88 L (98-107) mmol/L BUN 82 H (7-17) mg/dL Creatinine 2.48 H (0.52-1.04) mg/dL Microbiology - Last 24 Hours (Table) 02/07/19 17:05 Gram Stain - Preliminary Axilla - Left Wound Culture - Preliminary 02/07/19 17:05 Anaerobic Culture - Preliminary Axilla - Left Assessment and Plan Assessment: Impression 1. Acute kidney injury ATN from hypotension and additionally from being on Cozaar. Creatinine slightly better from 2.54 yesterday to 2.48. Patient is on diuretics and is responding with fair amount of urine output. No chronic kidney disease creatinine was 1.01 on 01/26/2019 and 1.16 on 01/27/2019 2. Hyponatremia secondary to acute kidney injury, slightly worse sodium went down from 127-125. 3. Significant edema, secondary to acute kidney injury and urinalysis is unremarkable for any proteinuria. 4. Metastatic CA breast left side. 5. Anemia of chronic illness Recommendation 1. Maintain Lasix 40 every 12 IV. 2. Watch potassium and electrolytes. 3. Watch sodium as it seems to be trending down. 4. Strict I's and os.
--- NOTE | 2019-02-08 20:46 | PN ---
PROGRESS NOTE DATE OF SERVICE: 02/08/2019 This 58-year-old woman admitted with metastatic malignant pleural effusion, had thoracocentesis by Dr. Gonsalez. Even though the shortness of breath improved significantly, the patient had still extremely significant pain and after the pain medication patient is also complaining of some change in mental status. About 2.6 L of fluid was removed. The patient also complaining of weak and patient apparently had a fall also multiple. Multiple consultants are following the patient closely. The creatinine has worsened up to 2.48 today. Hemoglobin 7.5. PAST MEDICAL HISTORY: Reviewed. REVIEW OF SYSTEMS: Cardiovascular system: As mentioned earlier. RESPIRATORY: As mentioned earlier. GI no nausea or vomiting. : As mentioned earlier. CENTRAL NERVOUS SYSTEM: No numbness, weakness. CURRENT MEDICATIONS: Reviewed and include: 1. Xanax 0.25 t.i.d. 2. Rocephin 1 g daily. 3. Duragesic patch. 4. Diflucan 100 mg. 5. Lasix 40 mg b.i.d. 6. Neurontin 100 mg t.i.d. 7. Dilaudid. 8. Lidocaine. 9. Narcan. 10.Mycostatin. 11.Protonix. 12.MiraLAX. 13.Senokot-S. 14.Restoril. PHYSICAL EXAM: Patient is alert, oriented x3. Pulse 66. Blood pressure 97/57. Respirations 18, temperature 97.7, pulse ox 98% on room air. HEENT: Conjunctivae normal. NECK: No jugular venous distention. CARDIOVASCULAR: S1, S2 muffled. RESPIRATIONS: Breath sounds diminished in the bases. Bilateral scattered rhonchi and crackles. ABDOMEN: Soft, nontender. LEGS: Bilateral leg edema. NERVOUS SYSTEM: Higher functions as mentioned earlier. Mild diffuse weakness. LYMPHATICS: No lymph nodes palpable in the neck, axillae or groin. SKIN: No ulcer, rash or bleeding. JOINTS: No active deforming arthropathy. LABS: At this time shows WBC 12.2, hemoglobin 7.2, sodium 125. ASSESSMENT: 1. Shortness of breath, possibly secondary to left pleural effusion, malignant recurrent secondary to metastatic breast cancer status post multiple thoracocentesis. 2. History of breast cancer on palliative treatment. 3. Acute on chronic renal failure with chronic renal failure stage 3 baseline, possible acute tubular necrosis, currently. 4. Urinary tract infection present on admission. 5. Generalized edema for evaluation. 6. Gait dysfunction. 7. Severe pain, probably secondary to malignancy, acute on chronic. 8. Lymphedema of the left upper arm. 9. Hyponatremia. 10.Increased WBC. 11.Anemia secondary to malignancy. 12.Left distal wrist drop history. 13.History of deep vein thrombosis. 14.History of cholecystectomy. 15.History of gastrointestinal bleed with possible internal-external hemorrhoids recently. 16.History of left wrist drop, possibly secondary from metastatic lesion in the brachial plexus and compression. 17.Palliative care. 18.NO CODE, NO CPR, NO VENT. RECOMMENDATIONS AND DISCUSSION: Recommend to continue current medications, symptomatic treatment. Otherwise, at this time, I recommend repeat labs. Continue the current medications. The patient is complaining of extreme weakness. Recommend PT/OT evaluation. Consider for possible ECF rehab. Please note, the patient is currently not on any chemotherapy. However, the patient is at high risk of falls currently. Once again, the prognosis is extremely guarded because of multiple complex medical issues and further recommendations to follow. MMODL / IJN: [id number] /
[2019-02-09] MEDS: oxyCODONE-APAP 7.5-325MG 1 EACH TAB PO PRN ×5 (01:30→21:14)
[2019-02-09] MEDS: SENNOSIDES-DOCUSATE SODIUM 1 EACH TAB PO SCH ×2 (07:59→21:15)
[2019-02-09] MEDS: GABAPENTIN 100 MG CAP PO SCH ×3 (07:59→21:15)
[2019-02-09] MEDS: PANTOPRAZOLE 40 MG TABLET PO SCH (07:59)
[2019-02-09] MEDS: FLUCONAZOLE 100 MG TAB PO SCH (07:59)
[2019-02-09] MEDS: FUROSEMIDE 10 MG/ML 4 ML VIAL IV SCH (08:00)
[2019-02-09] MEDS: NYSTATIN 100,000 UNIT/GM POWD 15 GM TOPICAL SCH ×3 (08:00→21:23)
[2019-02-09] MEDS: SODIUM FERRIC GLUCONAT-SUCROSE 125 MG in SODIUM CHLORIDE 0.9% 100 ML IVPB SCH (08:00)
[2019-02-09] MEDS: POLYETHYLENE GLYCOL 3350 17 GM POWD.PACK PO SCH (08:00)
[2019-02-09 08:24] LABS: Basophils % (A) 0 %; Eosinophils # (A) 0.1 k/uL (0-0.7); Eosinophils % (A) 1 %; HCT 22.3 % (34.0-46.0); Hypochromasia Slight; Lymphocytes # (A) 0.6 k/uL (1.0-4.8); Lymphocytes % (A) 6 %; MCH 27.2 pg (25.0-35.0); MCHC 31.3 g/dL (31.0-37.0); Monocytes # (A) 0.8 k/uL (0-1.0); Monocytes % (A) 8 %; Neutrophils # (A) 8.8 k/uL (1.3-7.7); Neutrophils % (A) 84 %; Platelet Count 439 k/uL (150-450); RBC 2.56 m/uL (3.80-5.40); RDW 15.7 % (11.5-15.5); WBC 10.5 k/uL (3.8-10.6)
[2019-02-09 08:33] LABS: Calcium 8.5 mg/dL (8.4-10.2); Potassium 4.6 mmol/L (3.5-5.1)
--- NOTE | 2019-02-09 11:53 | P.PN ---
Subjective Progress Note Date: 02/09/19 Principal diagnosis: This is a 50-year-old female seen in consultation because of acute kidney injury and hyponatremia. This is from acute tubular necrosis secondary to hypotension, additionally on Cozaar. Patient is being diuresed, because significant volume overload with generalized edema especially tight edema of the left upper arm, moderate edema of both legs and shortness of breath. She had significant effusion on the left and underwent ultrasound-guided tap and which was performed. She continues to have mild cough and shortness of breath. Appetite is fair. She feels weak and tired. In the hospital she is supposedly fallen twice She is known with recurrence of left breast cancer, with skin involvement History of present illness: Patient is a 68-year-old male seen in renal consultation for acute kidney injury on chronic kidney disease. Patient has chronic kidney disease stage III with baseline creatinine in the range of 1.3-1.5. Creatinine on admission was 2.75. Labs from today are pending. Patient fell in the bathroom and was complaining of pain in his shoulder and subsequently came to the hospital. He is noted to have a right humerus fracture. Blood pressure is stable although it's been a little bit on the lower side in the systolic 90s this admission. No vomiting or diarrhea. Denies chest pain or shortness of breath. Patient admits to taking Aleve twice daily on a daily basis. He is currently maintained on normal saline at 100 mL an hour. No history of diabetes. Patient has history of multiple myeloma and follows with oncology outpatient. He is currently maintained on chemotherapy. Patient's lactic acid was 2.5 and is down to 0.7 today. UA reveals trace protein. Objective - Vital Signs Vital signs: Vital Signs Temp 97.2 F L 02/09/19 05:00 Pulse 88 02/09/19 05:00 Resp 16 02/09/19 05:00 BP 101/58 02/09/19 05:00 Pulse Ox 98 02/09/19 05:00 Intake & Output 02/08/19 02/09/19 02/09/19 18:59 06:59 18:59 Intake Total 1130 540 Output Total 1000 Balance 130 540 Intake: Oral 1130 540 Output: Urine 1000 Other: Voiding Method Toilet Toilet # Voids 3 1 # Bowel Movements 1 Ill-looking obese female. No JVP neck is supple no facial asymmetry Lungs appear to auscultation with an occasional coarse crackle. She has involvement of skin from her breast cancer. Heart sounds are unremarkable for any murmur rub gallop Abdomen soft obese nontender Extremity exam was tight edema of the left arm. Moderate edema of the rest of the extremities. Neurologically awake alert oriented but weak and tired - Labs CBC & Chem 7: 02/09/19 07:28 02/09/19 07:28 Labs: Abnormal Lab Results - Last 24 Hours (Table) 02/09/19 02/09/19 Range/Units 07: 07:28 RBC 2.56 L (3.80-5.40) m/uL Hgb 7.0 L (11.4-16.0) gm/dL Hct 22.3 L (34.0-46.0) % RDW 15.7 H (11.5-15.5) % Neutrophils # 8.8 H (1.3-7.7) k/uL Lymphocytes # 0.6 L (1.0-4.8) k/uL Sodium 125 L (137-145) mmol/L Chloride 88 L (98-107) mmol/L BUN 82 H (7-17) mg/dL Creatinine 2.06 H (0.52-1.04) mg/dL Microbiology - Last 24 Hours (Table) 02/07/19 14:30 Urine Culture - Preliminary Urine,Voided 02/07/19 17:05 Gram Stain - Preliminary Axilla - Left Wound Culture - Preliminary Gram Neg Bacilli Assessment and Plan Assessment: Impression 1. Acute kidney injury ATN from hypotension and additionally from being on Cozaar. Creatinine slightly better from 2.54, 22.48, for the down to 2.06 this morning. Patient is on diuretics and is responding with fair amount of urine output. No chronic kidney disease creatinine was 1.01 on 01/26/2019 and 1.16 on 01/27/2019 2. Hyponatremia secondary to acute kidney injury, slightly worse sodium went down from 127-125. 3. Significant edema, secondary to acute kidney injury and urinalysis is unremarkable for any proteinuria. She also has lymphedema of the left arm which is tight 4. Metastatic CA breast left side. 5. Anemia of chronic illness Recommendation 1. Increase Lasix 80 every 12 hours as she has significant edema, and creatinine seems to be improving 2. Watch potassium and electrolytes. 3. Watch sodium 4. Strict I's and os.
[2019-02-09] MEDS: FUROSEMIDE 10 MG/ML 10 ML VIAL IV SCH ×2 (12:43→21:15)
--- NOTE | 2019-02-09 13:26 | XR ---
EXAMINATION TYPE: XR chest 1V portable DATE OF EXAM: 02/09/2019 COMPARISON: 02/07/2019 INDICATION: Short of breath TECHNIQUE: Single frontal view of the chest is obtained. FINDINGS: The heart size is mildly prominent. The pulmonary vasculature is normal. There is a left lung opacity which may be worsening. Correlate for pneumonia. Surgical clips are within the left axillary region. Expanders appear to be overlying the chest. Port is present on the right with the tip in the superior vena cava region. IMPRESSION: 1. Worsening infiltrate to the left lung. Correlate for pneumonia.
[2019-02-09] MEDS ORDERED: IPRATROPIUM-ALBUTEROL 3 ML NEB INHALATION PRN (15:35)
[2019-02-09] MEDS: PIPERACILLIN-TAZOBACTAM 3.375 GM in SODIUM CHLORIDE 0.9% 100 ML IVPB SCH ×2 (16:47→23:34)
[2019-02-09] MEDS: IPRATROPIUM-ALBUTEROL 3 ML NEB INHALATION SCH ×2 (18:11→19:56)
--- NOTE | 2019-02-09 21:00 | PN ---
PROGRESS NOTE DATE OF SERVICE: 02/09/2019. This 58-year-old woman is admitted with metastatic malignant effusion, had thoracocentesis by Dr. Gonsalez. The most recent thoracocentesis was done on 02/07/2019, and Dr. Gonsalez removed about 2.6 L of fluid which relieved some of the shortness of breath. The patient still continued to be short of breath and patient also continued other difficulties including weakness, confusion, and the patient apparently had 2 falls also in the hospital. The most recent chest x-ray showed again showed some significant pleural effusion and multiple other opacities in the left side which might indicate malignancy also. The patient closely monitored at this time. The patient is on palliative care at home and currently the patient is willing to be NO CODE and apparently the hospice information is also in progress. There is no history of fever, rigors, chills at this time. PAST MEDICAL HISTORY: Reviewed. REVIEW OF SYSTEMS: CARDIOVASCULAR: As mentioned earlier. RESPIRATORY: As mentioned earlier. GI: As mentioned earlier. : No dysuria. NERVOUS SYSTEM: Diffusely weak and mildly confused. CURRENT MEDICATIONS: Reviewed and include: 1. Xanax 0.5 t.i.d. p.r.n. 2. Rocephin 1 g IV daily. 3. Duragesic patch 75 mcg p.o. daily. 4. Diflucan 100 mg daily. 5. Lasix 80 mg b.i.d. 6. Neurontin 100 mg p.o. t.i.d. 7. Dilaudid. 8. Narcan. 9. Mycostatin. 10.Protonix. 11.Senna. 12.Restoril. PHYSICAL EXAM: Alert and oriented x3. Pulse 70, blood pressure 122/67, respiration 18, temperature 98.1, pulse ox 97% on 3 L. HEENT: Conjunctivae normal. Oral mucosa moist. NECK: No jugular venous distention. No carotid bruit. No lymph node enlargement. CARDIOVASCULAR: S1, S2 muffled. RESPIRATORY: Breath sounds diminished in the bases. Scattered rhonchi and expiratory wheezing and crackles. Markedly diminished on the left side. ABDOMEN: Soft, nontender. LEGS: No edema. NERVOUS SYSTEM: Diffusely weak. LABS: Wound culture showed gram-negative bacilli. Other labs are WBC 10.5, hemoglobin is 7, sodium is 125. ASSESSMENT: 1. Shortness of breath possibly secondary to left pleural effusion, malignant disease, recurrent secondary to metastatic breast cancer with status post multiple thoracocentesis. 2. History of breast cancer on palliative treatment. 3. Acute on chronic renal failure with chronic renal failure stage 3 baseline with possible acute tubular necrosis currently. 4. Urinary tract infection present on admission. 5. Generalized edema for evaluation. 6. Gait dysfunction. 7. Severe pain, probably secondary to malignancy, acute on chronic. 8. Lymphedema of the left upper arm. 9. Hyponatremia. 10.Increased WBC. 11.Anemia secondary to malignancy. 12.Left distal wrist drop history. 13.History of DVT. 14.History of cholecystectomy. 15.History of gastrointestinal bleed, possibly internal-external hemorrhoids recently. 16.History of left wrist drop, possibly secondary from metastatic lesions in the brachial plexus and compression. 17.Palliative care. 18.NO CODE, NO CPR, NO VENT. RECOMMENDATIONS AND DISCUSSION: This 58-year-old woman who presented with multiple complex medical issues, at this time I recommend to continue current medications, continue to monitor, and symptomatic treatment. Continue with bronchodilators. Cultures are as mentioned. I recommend to continue with the intensive bronchodilators and I would also recommend broad-spectrum IV antibiotics. I would change the antibiotics to Zosyn. PT, OT evaluation and possible ECF rehab. Guarded prognosis because of multiple complex medical issues. Further recommendations to follow. MMODL / IJN: [id number] /
[2019-02-10] MEDS: oxyCODONE-APAP 7.5-325MG 1 EACH TAB PO PRN ×3 (03:03→11:18)
[2019-02-10] MEDS: PANTOPRAZOLE 40 MG TABLET PO SCH ×2 (07:09→08:10)
[2019-02-10] MEDS: FLUCONAZOLE 100 MG TAB PO SCH (08:10)
[2019-02-10] MEDS: GABAPENTIN 100 MG CAP PO SCH ×3 (08:10→22:21)
[2019-02-10] MEDS: SODIUM FERRIC GLUCONAT-SUCROSE 125 MG in SODIUM CHLORIDE 0.9% 100 ML IVPB SCH (08:11)
[2019-02-10] MEDS: FUROSEMIDE 10 MG/ML 10 ML VIAL IV SCH ×2 (08:11→20:28)
[2019-02-10] MEDS: SENNOSIDES-DOCUSATE SODIUM 1 EACH TAB PO SCH ×2 (08:11→20:28)
[2019-02-10] MEDS: POLYETHYLENE GLYCOL 3350 17 GM POWD.PACK PO SCH (08:11)
[2019-02-10] MEDS: IPRATROPIUM-ALBUTEROL 3 ML NEB INHALATION SCH ×4 (08:40→19:39)
[2019-02-10 08:56] LABS: Basophils % (A) 0 %; Eosinophils # (A) 0.1 k/uL (0-0.7); Eosinophils % (A) 1 %; HCT 20.4 % (34.0-46.0); Hypochromasia Slight; Lymphocytes # (A) 0.7 k/uL (1.0-4.8); Lymphocytes % (A) 8 %; MCH 27.5 pg (25.0-35.0); MCHC 31.7 g/dL (31.0-37.0); MCV 86.7 fL (80.0-100.0); Mean Platelet Volume 6.6; Monocytes # (A) 0.8 k/uL (0-1.0); Monocytes % (A) 8 %; Neutrophils # (A) 7.8 k/uL (1.3-7.7); Neutrophils % (A) 81 %; Platelet Count 427 k/uL (150-450); RBC 2.35 m/uL (3.80-5.40); RDW 15.8 % (11.5-15.5); WBC 9.6 k/uL (3.8-10.6)
[2019-02-10 08:58] LABS: Calcium 8.3 mg/dL (8.4-10.2); Potassium 4.3 mmol/L (3.5-5.1)
[2019-02-10 09:04] LABS: HGB 6.5 gm/dL (11.4-16.0)
[2019-02-10] MEDS: NYSTATIN 100,000 UNIT/GM POWD 15 GM TOPICAL SCH ×3 (09:28→22:22)
[2019-02-10] MEDS: PIPERACILLIN-TAZOBACTAM 3.375 GM in SODIUM CHLORIDE 0.9% 100 ML IVPB SCH ×2 (09:28→17:41)
--- NOTE | 2019-02-10 09:35 | P.PN ---
Subjective Patient is seen in follow-up for acute kidney injury and hyponatremia. Patient has metastatic breast cancer with recurrent pleural effusion. She underwent thoracentesis during her last admission in December 2018 and again this admission on February 07 2.6 L drained from the left side. Maintain on Lasix 80 mg IV twice daily. Renal function is slightly better. Sodium level is also improved. Patient remains quite edematous. Vital signs are stable. General: The patient appeared well nourished and normally developed. HEENT: Head exam is unremarkable. Neck is without jugular venous distension. LUNGS: Breath sounds decreased. HEART: Rate and Rhythm are regular. First and second heart sounds normal. No murmurs, rubs or gallops. ABDOMEN: Abdominal exam reveals normal bowel sounds. Non-tender and non- distended. EXTREMITITES: 1+ edema. Objective - Vital Signs Vital signs: Vital Signs Temp 98.3 F 02/09/19 20:54 Pulse 84 02/10/19 08:53 Resp 18 02/09/19 20:54 BP 114/73 02/09/19 20:54 Pulse Ox 100 02/09/19 20:54 Intake & Output 02/09/19 02/10/19 02/10/19 18:59 06:59 18:59 Intake Total 660 440 Output Total 800 Balance -140 440 Intake: Intake, IV Titration 200 Amount Piperacillin-Tazobactam 3 200 .375 gm In Sodium Chloride 0.9% 100 ml @ 25 mls/hr IVPB Q8HR [facility] Rx# :[id number] Oral 660 240 Output: Urine 800 Other: Voiding Method Toilet Toilet # Voids 2 2 # Bowel Movements 1 - Labs CBC & Chem 7: 02/10/19 08:16 02/10/19 08:16 Labs: Abnormal Lab Results - Last 24 Hours (Table) 02/09/19 02/10/19 02/10/19 Range/Units 07:28 08:16 08:16 RBC 2.56 L 2.35 L (3.80-5.40) m/uL Hgb 7.0 L 6.5 L* (11.4-16.0) gm/dL Hct 22.3 L 20.4 L (34.0-46.0) % RDW 15.7 H 15.8 H (11.5-15.5) % Neutrophils # 8.8 H 7.8 H (1.3-7.7) k/uL Lymphocytes # 0.6 L 0.7 L (1.0-4.8) k/uL Sodium 128 L (137-145) mmol/L Chloride 90 L (98-107) mmol/L BUN 74 H (7-17) mg/dL Creatinine 1.86 H (0.52-1.04) mg/dL Glucose 111 H (74-99) mg/dL Calcium 8.3 L (8.4-10.2) mg/dL Microbiology - Last 24 Hours (Table) 02/07/19 17:05 Gram Stain - Final Axilla - Left Wound Culture - Final Pseudomonas aeruginosa 02/07/19 14:30 Urine Culture - Preliminary Urine,Voided Gram Neg Bacilli 02/07/19 17:05 Anaerobic Culture - Preliminary Axilla - Left Assessment and Plan Plan: Assessment: 1. Acute kidney injury secondary to ATN secondary to hypotension and further worsened with use of Cozaar and diuretics. Creatinine peaked at 2.5 for this admission and is down to 1.86 today. No proteinuria on UA. 2. Hypervolemic hyponatremia. 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 Recent TSH and uric acid normal. Better today. 3. Malignant pleural effusion. Status post thoracentesis on February 07 2.90 L drained. 4. Metastatic breast cancer. 5. Anemia of chronic illness. Severe iron deficiency noted. 6. Volume overload. Plan: Maintain Lasix 80 mg IV twice daily. Maintain 1200 mL fluid restriction. Encouraged oral intake, especially protein. Maintain ensure with meals. Continue to hold antihypertensives. Continue to monitor renal function and urine output. IV iron 3 doses. Third dose today. Consider 1 unit of blood transfusion today. Overall prognosis poor.
[2019-02-10] MEDS: oxyCODONE-APAP 10-325MG 1 EACH TAB PO PRN ×2 (14:39→20:28)
--- NOTE | 2019-02-10 16:16 | P.PN ---
Subjective Progress Note Date: 02/10/19 Principal diagnosis: Recurrent malignant pleural effusion, difficulty in breathing, metastatic breast cancer, intractable pain In follow-up today patient is sitting in the chair. Once aroused patient can be very lucid for a minute or 2 then she is drifting off to sleep. She states that she has had much difficulty sleeping. Her pain is not currently managed well, she has expressed her wishes. Objective - Vital Signs Vital signs: Vital Signs Temp 97.5 F L 02/10/19 15:17 Pulse 89 02/10/19 15:17 Resp 18 02/10/19 15:17 BP 91/45 02/10/19 15:17 Pulse Ox 98 02/10/19 15:17 Intake & Output 02/09/19 02/10/19 02/10/19 18:59 06:59 18:59 Intake Total 660 440 0 Output Total 800 Balance -140 440 0 Intake: Intake, IV Titration 200 Amount Piperacillin-Tazobactam 3 200 .375 gm In Sodium Chloride 0.9% 100 ml @ 25 mls/hr IVPB Q8HR [facility] Rx# :[id number] Oral 660 240 Blood Product 0 Rc Pheresis As-3 Unit 0 [id number] Output: Urine 800 Other: Voiding Method Toilet Toilet Toilet # Voids 2 2 # Bowel Movements 1 - Constitutional General appearance: Present: cooperative, mild distress, morbidly obese - EENT Eyes: Present: anicteric sclerae, EOMI ENT: Present: hearing grossly normal - Respiratory Respiratory: bilateral: diminished - Cardiovascular Heart sounds: normal: S1, S2 - Peripheral edema leg Peripheral Edema: bilateral: 2+ - Gastrointestinal General gastrointestinal: Present: normal bowel sounds, soft - Integumentary Integumentary Comment(s): Chest wall lateral to the right, inferior to the bright breast significant involvement with tumor, fungating, foul odor, scant drainage - Psychiatric Psychiatric Comment(s): When aroused patient is lucid, understanding of her situation. Psychiatric: Present: intact judgment & insight - Additional findings Additional findings: Severe left upper extremity lymphedema from metastatic disease - Labs CBC & Chem 7: 02/10/19 08:16 02/10/19 08:16 Labs: Abnormal Lab Results - Last 24 Hours (Table) 02/10/19 02/10/19 02/10/19 Range/Units 08:16 08:16 10:48 RBC 2.35 L (3.80-5.40) m/uL Hgb 6.5 L* (11.4-16.0) gm/dL Hct 20.4 L (34.0-46.0) % RDW 15.8 H (11.5-15.5) % Neutrophils # 7.8 H (1.3-7.7) k/uL Lymphocytes # 0.7 L (1.0-4.8) k/uL Sodium 128 L (137-145) mmol/L Chloride 90 L (98-107) mmol/L BUN 74 H (7-17) mg/dL Creatinine 1.86 H (0.52-1.04) mg/dL Glucose 111 H (74-99) mg/dL Calcium 8.3 L (8.4-10.2) mg/dL Crossmatch See Detail Microbiology - Last 24 Hours (Table) 02/07/19 17:05 Gram Stain - Final Axilla - Left Wound Culture - Final Pseudomonas aeruginosa 02/07/19 14:30 Urine Culture - Preliminary Urine,Voided Gram Neg Bacilli 02/07/19 17:05 Anaerobic Culture - Preliminary Axilla - Left Assessment and Plan (1) Metastatic breast cancer Current Visit: Yes Status: Chronic Priority: High Code(s): C50.919 - MALIGNANT NEOPLASM OF UNSP SITE OF UNSPECIFIED FEMALE BREAST SNOMED Code(s): 740706575 (2) Lymphedema of arm Current Visit: Yes Status: Chronic Priority: High Code(s): I89.0 - LYMPHEDEMA, NOT ELSEWHERE CLASSIFIED SNOMED Code(s): 597304294 (3) Anemia Narrative/Plan: Highly suspect this is related to advanced malignancy as well as multiple lines of treatment. Unit of blood will be given for hemoglobin of 6.5 today. Current Visit: Yes Status: Acute Priority: High Code(s): D64.9 - ANEMIA, UNSPECIFIED SNOMED Code(s): 701464975 (4) Neoplasm related pain Narrative/Plan: Pain medications have been adjusted. Reevaluate in the a.m. Medications for prevention of narcotic-induced constipation available. Current Visit: Yes Status: Acute Priority: High Code(s): G89.3 - NEOPLASM RELATED PAIN (ACUTE) (CHRONIC) SNOMED Code(s): 42746385651443 Plan: Patient's malignancy is progressive. Patient's general condition has declined over the last week. Patient desires some rehabilitation so that she can go home with hospice. I'm not sure how feasible this is but, there should be some sort of meeting with patient's son prior to discharge, who I anticipate is going to be the one in charge of her care. Case was discussed with Case Management who will be reviewing the plan of care with her. Patient is verified no CODE I will follow up in the morning.
--- NOTE | 2019-02-10 18:22 | PN ---
PROGRESS NOTE DATE OF SERVICE: 02/10/2019 This 58-year-old woman was admitted with shortness of breath and metastatic pleural effusion had thoracocentesis by Dr. Gonsalez. The shortness of breath, improved significantly but however the patient is extremely weak and significant generalized edema persists also. PT/OT is evaluating the patient. Recommending ECF rehab at this time but however there was a question about continued chemotherapy and if the patient is not on chemotherapy, patient could be discharged to ECF. Multiple consultants are following the patient closely. PAST MEDICAL HISTORY: Reviewed. REVIEW OF SYSTEMS: Cardiovascular system: No angina or palpitations. RESPIRATORY: As mentioned earlier. GASTROINTESTINAL: As mentioned earlier. : No dysuria. CENTRAL NERVOUS SYSTEM: No numbness, weakness. CURRENT MEDICATIONS: Reviewed and include: 1. DuoNeb q.i.d. and p.r.n. 2. Xanax 0.25 t.i.d. 3. Duragesic patch 75 mcg q.7 days. 4. Diflucan 100 mg. 5. Lasix 80 mg IV b.i.d. 6. Neurontin 100 mg p.o. t.i.d. 7. Dilaudid 1 mg IV q.3 p.r.n. 8. EMLA cream. 9. Narcan 0.2 q.2 p.r.n. 10.Percocet 1 puff q.4h p.r.n. 11.Protonix 40 mg p.o. daily. 12.Zosyn 3.375 IV q.8. 13.Maalox. 14.Senokot-S. 15.Restoril. PHYSICAL EXAM: Patient is alert, oriented x3. Pulse is 89. Blood pressure 91/45, respiration 18, temperature 97.4, pulse ox 98% on 3 L. HEENT: Conjunctivae normal. NECK: No JVD. CARDIOVASCULAR: S1, S2 muffled. RESPIRATORY: Breath sounds diminished in the bases. A few scattered rhonchi and crackles. ABDOMEN: Soft, obese, nontender. No mass palpable. LEGS: No edema. No swelling. NERVOUS SYSTEM: Higher functions as mentioned earlier. Moves all four limbs. CENTRAL NERVOUS SYSTEM: No focal deficits. Lymphatics: No lymph nodes palpable in the neck, axillae or groin. SKIN: No ulcer, no rash. No bleeding. JOINTS: No active deforming arthropathy. LABS: WBC 9.6, hemoglobin 6.5, sodium is 128. ASSESSMENT: 1. Shortness of breath with possibly secondary to left pleural effusion, malignancy related recurrent secondary to metastatic breast cancer status post multiple thoracocentesis. 2. History of breast cancer with palliative treatment. 3. Acute on chronic renal failure with chronic renal failure stage 3, baseline with possible acute tubular necrosis, currently. 4. Anemia multifactorial. 5. Urinary tract infection present on admission. 6. Generalized edema for evaluation. 7. Gait dysfunction. 8. Severe pain, possibly secondary to malignancy, acute on chronic. 9. Lymphedema of the left upper arm. 10.Hyponatremia. 11.Increased WBC. 12.Anemia secondary to malignancy. 13.Left wrist drop history. 14.History of deep vein thrombosis. 15.History of cholecystectomy. 16.History of gastrointestinal bleed, possibly internal/external hemorrhoids recently. 17.History of left wrist drop, possibly secondary from metastatic lesions of the brachial plexus and compression. 18.Palliative care. 19.NO CODE, NO CPR, NO VENT. RECOMMENDATIONS AND DISCUSSION: I recommend to continue current medications, management and symptomatic treatment. Otherwise, I recommend 1 unit transfusion. Otherwise I would recommend repeat labs. PT, OT evaluation, possible ECF rehab. Continue the rest of the medications. Continue the diuretics for now and closely follow with multiple consultants. Prognosis guarded. Further recommendations to follow. MMODL / IJN: [id number] /
[2019-02-11] MEDS: PIPERACILLIN-TAZOBACTAM 3.375 GM in SODIUM CHLORIDE 0.9% 100 ML IVPB SCH ×3 (00:07→17:58)
[2019-02-11] MEDS: oxyCODONE-APAP 10-325MG 1 EACH TAB PO PRN ×4 (02:56→17:59)
[2019-02-11] MEDS: IPRATROPIUM-ALBUTEROL 3 ML NEB INHALATION SCH ×4 (07:36→19:21)
[2019-02-11] MEDS: POLYETHYLENE GLYCOL 3350 17 GM POWD.PACK PO SCH (08:40)
[2019-02-11] MEDS: SENNOSIDES-DOCUSATE SODIUM 1 EACH TAB PO SCH ×2 (08:40→20:24)
[2019-02-11] MEDS: FLUCONAZOLE 100 MG TAB PO SCH (08:41)
[2019-02-11] MEDS: GABAPENTIN 100 MG CAP PO SCH ×3 (08:42→21:29)
[2019-02-11] MEDS: FUROSEMIDE 10 MG/ML 10 ML VIAL IV SCH ×2 (08:42→21:29)
[2019-02-11 08:55] LABS: Anisocytosis Slight; Basophils % (A) 0 %; Eosinophils # (A) 0.1 k/uL (0-0.7); Eosinophils % (A) 1 %; HGB 7.1 gm/dL (11.4-16.0); Hypochromasia Slight; Lymphocytes # (A) 0.7 k/uL (1.0-4.8); Lymphocytes % (A) 8 %; MCHC 32.1 g/dL (31.0-37.0); MCV 87.4 fL (80.0-100.0); Mean Platelet Volume 6.7; Monocytes # (A) 0.9 k/uL (0-1.0); Monocytes % (A) 10 %; Neutrophils # (A) 6.6 k/uL (1.3-7.7); Neutrophils % (A) 78 %; Platelet Count 446 k/uL (150-450); RBC 2.52 m/uL (3.80-5.40); RDW 16.5 % (11.5-15.5); WBC 8.5 k/uL (3.8-10.6)
[2019-02-11] MEDS: NYSTATIN 100,000 UNIT/GM POWD 15 GM TOPICAL SCH ×3 (08:56→21:29)
[2019-02-11 09:21] LABS: Calcium 8.4 mg/dL (8.4-10.2); Magnesium 2.2 mg/dL (1.6-2.3); Potassium 4.2 mmol/L (3.5-5.1)
--- NOTE | 2019-02-11 10:12 | P.PN ---
Subjective Patient is seen in follow-up for acute kidney injury and hyponatremia. Patient has metastatic breast cancer with recurrent pleural effusion. She underwent thoracentesis during her last admission in December 2018 and again this admission on February 07 2.6 L drained from the left side. Maintained on Lasix 80 mg IV twice daily. Renal function is stable. Sodium level is also slightly improved. Patient remains quite edematous. Vital signs are stable. General: The patient appeared well nourished and normally developed. HEENT: Head exam is unremarkable. Neck is without jugular venous distension. LUNGS: Breath sounds decreased. HEART: Rate and Rhythm are regular. First and second heart sounds normal. No murmurs, rubs or gallops. ABDOMEN: Abdominal exam reveals normal bowel sounds. Non-tender and non- distended. EXTREMITITES: 2+ edema. Objective - Vital Signs Vital signs: Vital Signs Temp 97.9 F 02/11/19 05:00 Pulse 100 02/11/19 07:48 Resp 18 02/11/19 05:00 BP 122/66 02/11/19 05:00 Pulse Ox 95 02/11/19 05:00 Intake & Output 02/10/19 02/11/19 02/11/19 18:59 06:59 18:59 Intake Total 550 680 Balance 550 680 Intake: Intake, IV Titration 200 Amount Piperacillin-Tazobactam 3 200 .375 gm In Sodium Chloride 0.9% 100 ml @ 25 mls/hr IVPB Q8HR [facility] Rx# :[id number] Oral 240 480 Blood Product 310 Rc Pheresis As-3 Unit 310 [id number] Other: Voiding Method Toilet Toilet Toilet # Voids 2 2 - Labs CBC & Chem 7: 02/11/19 07:33 02/11/19 07:33 Labs: Abnormal Lab Results - Last 24 Hours (Table) 02/07/19 02/10/19 02/11/19 Range/Units 07:41 10:48 07:33 RBC 2.52 L (3.80-5.40) m/uL Hgb 7.1 L (11.4-16.0) gm/dL Hct 22.0 L (34.0-46.0) % RDW 16.5 H (11.5-15.5) % Lymphocytes # 0.7 L (1.0-4.8) k/uL Sodium (137-145) mmol/L Chloride (98-107) mmol/L BUN (7-17) mg/dL Creatinine (0.52-1.04) mg/dL Methylmalonic Acid 0.91 H (<0.40) umol/L Crossmatch See Detail 02/11/19 Range/Units 07:33 RBC (3.80-5.40) m/uL Hgb (11.4-16.0) gm/dL Hct (34.0-46.0) % RDW (11.5-15.5) % Lymphocytes # (1.0-4.8) k/uL Sodium 129 L (137-145) mmol/L Chloride 90 L (98-107) mmol/L BUN 67 H (7-17) mg/dL Creatinine 1.85 H (0.52-1.04) mg/dL Methylmalonic Acid (<0.40) umol/L Crossmatch Microbiology - Last 24 Hours (Table) 02/07/19 14:30 Urine Culture - Final Urine,Voided Pseudomonas aeruginosa Assessment and Plan Plan: Assessment: 1. Acute kidney injury secondary to ATN secondary to hypotension and further worsened with use of Cozaar and diuretics. Creatinine peaked at 2.5 for this admission and is down to 1.85 today. No proteinuria on UA. 2. Hypervolemic hyponatremia. 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 Recent TSH and uric acid normal. Better. 3. Malignant pleural effusion. Status post thoracentesis on February 07 2.90 L drained. 4. Metastatic breast cancer. 5. Anemia of chronic illness. Severe iron deficiency noted - status post 3 doses of IV iron. Status post blood transfusion yesterday. No active bleeding noted. 6. Volume overload. Plan: Maintain Lasix 80 mg IV twice daily. Maintain 1200 mL fluid restriction. Encouraged oral intake, especially protein. Maintain ensure with meals. Continue to hold antihypertensives. Continue to monitor renal function and urine output. Overall prognosis poor. Family meeting to be held today.
--- NOTE | 2019-02-11 12:23 | PN ---
PROGRESS NOTE DATE OF SERVICE: 02/11/2019 This 58-year-old woman was admitted with shortness of breath with secondary to left pleural effusion also had thoracocenteses, but however the patient is extremely weak at this time. ECF rehab is being considered. No chest pain or palpitation. PHYSICAL EXAMINATION: On exam, alert and oriented x3. The pulse is 91, blood pressure 122/66, respiration 18, temperature 97.7, pulse ox 95% on room air. HEENT: Conjunctivae normal. NECK: No jugular venous distention. CARDIOVASCULAR: S1, S2 muffled. RESPIRATORY: Breath sounds diminished at the bases. A few scattered rhonchi. ABDOMEN: Soft. NERVOUS SYSTEM: No focal deficits. LABS: WBC 8.5, hemoglobin 7.1. ASSESSMENT: 1. Shortness of breath, possibly secondary to left pleural effusion malignancy related recurrent secondary to metastatic breast cancer status post multiple thoracocenteses. 2. History of breast cancer with palliative treatment. 3. Acute on chronic renal failure with chronic renal failure stage 3 baseline with possible acute tubular necrosis, currently. 4. Anemia multifactorial. 5. Urinary tract infection, present on admission. 6. Generalized edema for evaluation. 7. Gait dysfunction. 8. Severe pain, possibly secondary to malignancy, acute on chronic. 9. Lymphedema of the left upper arm. 10.Hyponatremia. 11.Increased WBC. 12.Anemia secondary to malignancy. 13.Left wrist drop history. 14.History of deep venous thrombosis. 15.History of cholecystectomy. 16.History of gastrointestinal bleed, possibly internal, external hemorrhoids recently. 17.History of left wrist drop, possibly secondary from metastatic lesion of the brachial plexus and compression. 18.Palliative care. 19.NO CODE, NO CPR, NO VENT. RECOMMENDATIONS AND DISCUSSION: I recommend to continue current medications, continue monitoring and symptomatic treatment. Otherwise, at this time PT, OT is evaluating the patient. 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 Guarded prognosis. Further recommendations to follow. MMODL / IJN: [id number] / MTDD
--- NOTE | 2019-02-11 12:53 | P.PN ---
Subjective Progress Note Date: 02/11/19 Principal diagnosis: Recurrent malignant pleural effusion, difficulty in breathing, metastatic breast cancer, intractable pain In follow-up today patient is much more alert and oriented, she is not drifting off to sleep during conversation, she is participating actively in conversation, she is able to express her wishes coherently, at this time her pain is managed, no nausea Objective - Vital Signs Vital signs: Vital Signs Temp 97.9 F 02/11/19 05:00 Pulse 90 02/11/19 11:58 Resp 18 02/11/19 05:00 BP 122/66 02/11/19 05:00 Pulse Ox 95 02/11/19 05:00 Intake & Output 02/10/19 02/11/19 02/11/19 18:59 06:59 18:59 Intake Total 550 680 Balance 550 680 Intake: Intake, IV Titration 200 Amount Piperacillin-Tazobactam 3 200 .375 gm In Sodium Chloride 0.9% 100 ml @ 25 mls/hr IVPB Q8HR [facility] Rx# :[id number] Oral 240 480 Blood Product 310 Rc Pheresis As-3 Unit 310 [id number] Other: Voiding Method Toilet Toilet Toilet # Voids 2 2 - Constitutional General appearance: Present: cooperative, morbidly obese, no acute distress - EENT Eyes: Present: anicteric sclerae, EOMI ENT: Present: hearing grossly normal - Respiratory Respiratory: bilateral: diminished (bases, L>R) - Cardiovascular Rhythm: regular Heart sounds: normal: S1, S2 Abnormal Heart Sounds: Present: systolic murmur - Peripheral edema leg Peripheral Edema: bilateral: 3+ - Gastrointestinal General gastrointestinal: Present: normal bowel sounds, soft - Integumentary Integumentary Comment(s): chest wall has fungating breast tumor - Neurologic Neurologic Comment(s): weakness and decrease strength in LUE secondary to lymphedema, BLE weakness - Musculoskeletal Musculoskeletal: Present: generalized weakness - Psychiatric Psychiatric: Present: A&O x's 3, appropriate affect, intact judgment & insight - Labs CBC & Chem 7: 02/11/19 07:33 02/11/19 07:33 Labs: Abnormal Lab Results - Last 24 Hours (Table) 02/07/19 02/10/19 02/11/19 Range/Units 07:41 10:48 07:33 RBC 2.52 L (3.80-5.40) m/uL Hgb 7.1 L (11.4-16.0) gm/dL Hct 22.0 L (34.0-46.0) % RDW 16.5 H (11.5-15.5) % Lymphocytes # 0.7 L (1.0-4.8) k/uL Sodium (137-145) mmol/L Chloride (98-107) mmol/L BUN (7-17) mg/dL Creatinine (0.52-1.04) mg/dL Methylmalonic Acid 0.91 H (<0.40) umol/L Crossmatch See Detail 02/11/19 Range/Units 07:33 RBC (3.80-5.40) m/uL Hgb (11.4-16.0) gm/dL Hct (34.0-46.0) % RDW (11.5-15.5) % Lymphocytes # (1.0-4.8) k/uL Sodium 129 L (137-145) mmol/L Chloride 90 L (98-107) mmol/L BUN 67 H (7-17) mg/dL Creatinine 1.85 H (0.52-1.04) mg/dL Methylmalonic Acid (<0.40) umol/L Crossmatch Microbiology - Last 24 Hours (Table) 02/07/19 14:30 Urine Culture - Final Urine,Voided Pseudomonas aeruginosa Assessment and Plan (1) Metastatic breast cancer Narrative/Plan: Discussed goals of care with patient and family today. Active treatment is going to focus on comfort, dignity and allowing natural . Chemotherapy is discontinued. Patient would like to participate in rehabilitation to see if she can get strong enough to go home, patient lives alone but, this is her choice of living arrangements. Reviewed with the pt and family the uncertainty of patient's ability to rehabilitate to [place]. All questions and concerns were d iscussed. Family is planning on dividing up a time to be spent with the patient in her home. They will also be discussing with hospice appropriateness of changing location of care if patient's needs become greater than what the family can provide. All questions and concerns were addressed. Hopeful transfer to rehabilitation as soon as possible. Case was discussed with Social Work and Case Mgmt. Current Visit: Yes Status: Chronic Priority: High Code(s): C50.919 - MALIGNANT NEOPLASM OF UNSP SITE OF UNSPECIFIED FEMALE BREAST SNOMED Code(s): 970797514 (2) Lymphedema of arm Narrative/Plan: Secondary to lymph node dissection for breast cancer, recurrent breast cancer. Arm is being wrapped, elevated, pain medications Current Visit: Yes Status: Chronic Priority: High Code(s): I89.0 - LYMPHEDEMA, NOT ELSEWHERE CLASSIFIED SNOMED Code(s): 489248480 (3) Anemia Narrative/Plan: Stable hemoglobin posttransfusion Current Visit: Yes Status: Acute Priority: High Code(s): D64.9 - ANEMIA, UNSPECIFIED SNOMED Code(s): 905330045 (4) Neoplasm related pain Narrative/Plan: pain managed on current analgesic regimen Current Visit: Yes Status: Acute Priority: High Code(s): G89.3 - NEOPLASM RELATED PAIN (ACUTE) (CHRONIC) SNOMED Code(s): 95928078147995 Time with Patient: Greater than 30 (greater than 35 minutes spent, greater than 50% of time spent counseling and coordinating care)
[2019-02-12] MEDS: oxyCODONE-APAP 10-325MG 1 EACH TAB PO PRN ×5 (00:55→21:35)
[2019-02-12] MEDS: PIPERACILLIN-TAZOBACTAM 3.375 GM in SODIUM CHLORIDE 0.9% 100 ML IVPB SCH ×3 (00:56→14:58)
[2019-02-12] MEDS: PANTOPRAZOLE 40 MG TABLET PO SCH (08:11)
[2019-02-12] MEDS: FLUCONAZOLE 100 MG TAB PO SCH (08:11)
[2019-02-12] MEDS: SENNOSIDES-DOCUSATE SODIUM 1 EACH TAB PO SCH ×2 (08:11→21:44)
[2019-02-12] MEDS: GABAPENTIN 100 MG CAP PO SCH ×3 (08:11→22:18)
[2019-02-12] MEDS: POLYETHYLENE GLYCOL 3350 17 GM POWD.PACK PO SCH (08:11)
[2019-02-12] MEDS: FUROSEMIDE 10 MG/ML 10 ML VIAL IV SCH ×2 (08:12→21:44)
[2019-02-12] MEDS: IPRATROPIUM-ALBUTEROL 3 ML NEB INHALATION SCH ×4 (08:45→21:28)
[2019-02-12] MEDS: NYSTATIN 100,000 UNIT/GM POWD 15 GM TOPICAL SCH ×3 (09:00→21:36)
--- NOTE | 2019-02-12 11:33 | PN ---
PROGRESS NOTE Patient is seen for followup for acute kidney injury and hyponatremia which appears to be hypervolemic. Currently, patient is maintained on IV Lasix. Serum sodium is improved to 129, creatinine staying stable at about 1.8 mg/dL. Patient has underlying metastatic breast cancer with intractable pain and there is a consult for hospice, which is pending. PHYSICAL EXAMINATION: On examination today, blood pressure was 102/51, heart rate 86 per minute. Patient is afebrile. Examination of the heart S1, S2. Examination of the lungs, bilateral breath sounds are heard. Decreased breath sounds on the left side. Abdomen is soft, morbidly obese. Examination of the lower extremities shows edema 2+ bilaterally. FIELD TECHNICAL ASSISTANT exam shows patient is moving all 4 extremities. LABS: Show hemoglobin 7.1, white cell count 8.5, sodium 129, potassium 4.2, BUN 67, serum creatinine 1.85. ASSESSMENT: 1. Hypervolemic, hyponatremia, improving with IV diuretics. Continue with current dose of IV Lasix. 2. Acute kidney injury, acute tubular necrosis secondary to hypotension, currently improved. 3. Malignant pleural effusion status post thoracentesis. 4. Metastatic breast cancer. 5. Volume overload and significant lower extremity edema. PLAN: Continue with IV Lasix. Maintain adequate protein intake along with salt and fluid restriction. Monitor labs as outpatient if patient is discharged. MMODL / IJN: [id number] /
--- NOTE | 2019-02-12 14:16 | P.PN ---
Subjective Progress Note Date: 02/12/19 Principal diagnosis: Recurrent malignant pleural effusion, difficulty in breathing, metastatic breast cancer, intractable pain Pt continues to struggle with her LUE, her pain is manageable most of the time, is is generalized across chest and in RUE. She does not want lasix or the fluid restriction as she does not feel it is helping her swelling. Denies SHERRI, she is weak and requires 2 person assist. Objective - Vital Signs Vital signs: Vital Signs Temp 98.1 F 02/12/19 11:57 Pulse 83 02/12/19 11:57 Resp 16 02/12/19 11:57 BP 104/69 02/12/19 11:57 Pulse Ox 97 02/12/19 11:57 Intake & Output 02/11/19 02/12/19 02/12/19 18:59 06:59 18:59 Intake Total 1500 440 Balance 1500 440 Weight 129.3 kg Intake: Intake, IV Titration 100 200 Amount Piperacillin-Tazobactam 3 100 200 .375 gm In Sodium Chloride 0.9% 100 ml @ 25 mls/hr IVPB Q8HR [facility] Rx# :[id number] Oral 1400 240 Other: Voiding Method Toilet Toilet Toilet # Voids 2 4 # Bowel Movements 1 - Constitutional General appearance: Present: cooperative, mild distress, morbidly obese - EENT Eyes: Present: anicteric sclerae, EOMI ENT: Present: hearing grossly normal - Respiratory Respiratory: bilateral: CTA - Cardiovascular Heart sounds: normal: S1, S2 - Peripheral edema leg Peripheral Edema: bilateral: 3+, Pitting - Gastrointestinal General gastrointestinal: Present: normal bowel sounds - Integumentary Integumentary Comment(s): Chest wall and left axillary area both anterior and posterior fungating tumor - Neurologic Neurologic Comment(s): Pt cannot move LUE - Musculoskeletal Musculoskeletal: Present: generalized weakness - Psychiatric Psychiatric: Present: A&O x's 3, appropriate affect, intact judgment & insight - Labs CBC & Chem 7: 02/11/19 07:33 02/11/19 07:33 Labs: Microbiology - Last 24 Hours (Table) 02/07/19 17:05 Anaerobic Culture - Final Axilla - Left Assessment and Plan (1) Metastatic breast cancer Narrative/Plan: Plan is to move to rehab as soon as authorization complete. Pt will transition to hospice once her maximum potential has been met in rehab. She understands that her location for hospice care is going to depend on her independence and family ability to provide care. Current Visit: Yes Status: Chronic Priority: High Code(s): C50.919 - MALIGNANT NEOPLASM OF UNSP SITE OF UNSPECIFIED FEMALE BREAST SNOMED Code(s): 899507273 (2) Lymphedema of arm Narrative/Plan: Secondary to lymph node dissection for breast cancer, recurrent breast cancer. Arm is being wrapped, elevated, pain medications. Unsure what rehab can offer by way of support for the arm as it does tire her out when she is trying to move about Current Visit: Yes Status: Chronic Priority: High Code(s): I89.0 - LYMPHEDEMA, NOT ELSEWHERE CLASSIFIED SNOMED Code(s): 557551396 (3) Anemia Current Visit: Yes Status: Acute Priority: High Code(s): D64.9 - ANEMIA, UNSPECIFIED SNOMED Code(s): 536699887 (4) Neoplasm related pain Narrative/Plan: Fentanyl increased to 100mcg, avoid use of dilaudid as it makes pt delirious/confused, cont percocet for breakthrough. Current Visit: Yes Status: Acute Priority: High Code(s): G89.3 - NEOPLASM RELATED PAIN (ACUTE) (CHRONIC) SNOMED Code(s): 92244023663126 Plan: Held lasix for rest of today and lifted fluid restriction at pt request.
[2019-02-12 15:34] VITALS: BMI 46.0
--- NOTE | 2019-02-12 16:06 | P.PN ---
Subjective 80-year-old pleasant female admitted with the pleural effusion leading to shortness of breath and patient is off oxygen now patient has breast cancer metastatic, with the multiple pleural effusions patient underwent thoracocentesis second time this time patient is approximately has good air entry into bilateral lung lugo no patient has lymphedema with the fungal intertrigo for which patient is on localized at the border as well as flucanazole patient is also on Zosyn but there is no evidence of a pneumonic parapneumonic effusion Zosyn will be discontinued patient is hyponatremic appears to have hypervolemic hyponatremia which appears to be improving with IV Lasix will continue with IV Lasix today will repeat basic metabolic profile tomorrow and if she continues to improve patient will be discharged tomorrow although patient is high risk for readmission because of recurrent pleural effusions from my breast cancer. Constitutional: Denied any fatigue denied any fever. Cardio vascular: denied any chest pain, palpitations Gastrointestinal denied any nausea vomiting Pulmonary: Denied any shortness of breath cough Neurologic denied any new focal deficits All inpatient medications were reviewed and appropriate changes in these medica tions as dictated in the interval history and assessment and plan. Objective - Vital Signs Vital signs: Vital Signs Temp 98.1 F 02/12/19 11:57 Pulse 83 02/12/19 11:57 Resp 16 02/12/19 11:57 BP 104/69 02/12/19 11:57 Pulse Ox 97 02/12/19 11:57 Intake & Output 02/11/19 02/12/19 02/12/19 18:59 06:59 18:59 Intake Total 1500 440 Balance 1500 440 Weight 129.3 kg Intake: Intake, IV Titration 100 200 Amount Piperacillin-Tazobactam 3 100 200 .375 gm In Sodium Chloride 0.9% 100 ml @ 25 mls/hr IVPB Q8HR [facility] Rx# :[id number] Oral 1400 240 Other: Voiding Method Toilet Toilet Toilet # Voids 2 4 # Bowel Movements 1 - Exam PHYSICAL EXAMINATION: GENERAL: The patient is alert and oriented x3, not in any acute distress. Obese HEENT: Pupils are round and equally reacting to light. EOMI. No scleral icterus. No conjunctival pallor. Normocephalic, atraumatic. No pharyngeal erythema. No thyromegaly. CARDIOVASCULAR: S1 and S2 present. No murmurs, rubs, or gallops. PULMONARY: Chest is clear to auscultation, no wheezing or crackles. ABDOMEN: Soft, nontender, nondistended, normoactive bowel sounds. No palpable organomegaly. MUSCULOSKELETAL: No joint swelling or deformity. EXTREMITIES: No cyanosis, clubbing, or pedal edema. Left the arm lymphedema with significant intertrigo redness. NEUROLOGICAL: Gross neurological examination did not reveal any focal deficits. SKIN: No rashes. - Labs CBC & Chem 7: 02/11/19 07:33 02/11/19 07:33 Labs: Microbiology - Last 24 Hours (Table) 02/07/19 17:05 Anaerobic Culture - Final Axilla - Left Assessment and Plan Plan: -Acute hypoxic respiratory failure secondary to malignant pleural effusion improving symptoms -Hyponatremia hypervolemic hyponatremia improving with IV Lasix which will be continued -Chronic lymphedema with intertrigo and fungal infection continue with fluconazole and nystatin powder -Breast cancer: Management as per college he -Anemia of chronic disease -Severe pain in the chest related to neoplasm and lymphedema Duragesic patch dose was increased patient is not having any constipation at this time
[2019-02-13] MEDS: IPRATROPIUM-ALBUTEROL 3 ML NEB INHALATION SCH ×3 (09:00→16:54)
[2019-02-13] MEDS: FLUCONAZOLE 100 MG TAB PO SCH (09:46)
[2019-02-13] MEDS: PANTOPRAZOLE 40 MG TABLET PO SCH (09:46)
[2019-02-13] MEDS: GABAPENTIN 100 MG CAP PO SCH ×2 (09:46→17:11)
[2019-02-13] MEDS: SENNOSIDES-DOCUSATE SODIUM 1 EACH TAB PO SCH (09:47)
[2019-02-13] MEDS: FUROSEMIDE 10 MG/ML 10 ML VIAL IV SCH (09:47)
[2019-02-13] MEDS: POLYETHYLENE GLYCOL 3350 17 GM POWD.PACK PO SCH (09:47)
[2019-02-13] MEDS: NYSTATIN 100,000 UNIT/GM POWD 15 GM TOPICAL SCH ×2 (09:56→17:10)
--- NOTE | 2019-02-13 11:12 | P.PN ---
Subjective Progress Note Date: 02/13/19 Principal diagnosis: Recurrent malignant pleural effusion, difficulty in breathing, metastatic breast cancer, intractable pain In follow-up today patient is sitting in the chair getting ready to washout period in general pain is fairly well-controlled, most of her concerns are s ocial issues. Pending authorization for ECF. Objective - Vital Signs Vital signs: Vital Signs Temp 98.1 F 02/13/19 04:13 Pulse 91 02/13/19 04:13 Resp 22 02/13/19 04:13 BP 112/72 02/13/19 04:13 Pulse Ox 95 02/13/19 04:13 Intake & Output 02/12/19 02/13/19 02/13/19 18:59 06:59 18:59 Output Total 400 Balance -400 Weight 129.3 kg Output: Urine 400 Other: Voiding Method Toilet Toilet # Voids 4 5 # Bowel Movements 1 1 - Exam Well-developed, female sitting in the chair, she answers most questions appropriately, intermittent flight of ideas and changes subject frequently. The right upper extremity remains severely swollen, wrapped in an [place] bandage, patient has to physically move the entire arm with her other arm, anterior and posterior right axilla have dressings in place, generalized anasarca, increased swelling in the lower extremities. - Labs CBC & Chem 7: 02/11/19 07:33 02/11/19 07:33 Assessment and Plan (1) Metastatic breast cancer Narrative/Plan: Plan is to go to rehab pending authorization completion. Pt will transition to hospice once her maximum potential has been met in rehab. She understands that her location for hospice care is going to depend on her independence and family ability to provide care. Family has been seeking power of estate planning attorney, patient is aware, she did tell me that a technician anatomic pathology stopped by last evening but she is unable to speak with him. Current Visit: Yes Status: Chronic Priority: High Code(s): C50.919 - MALIGNANT NEOPLASM OF UNSP SITE OF UNSPECIFIED FEMALE BREAST SNOMED Code(s): 323583676 (2) Lymphedema of arm Narrative/Plan: Secondary to lymph node dissection for breast cancer, recurrent breast cancer. Arm is being wrapped, elevated, pain medications. Unsure what rehab can offer by way of support for the arm as it does tire her out when she is trying to move about (investigations have not led to any options for patient in this situation) Current Visit: Yes Status: Chronic Priority: High Code(s): I89.0 - LYMPHEDEMA, NOT ELSEWHERE CLASSIFIED SNOMED Code(s): 462742773 (3) Anemia Current Visit: Yes Status: Acute Priority: High Code(s): D64.9 - ANEMIA, UNSPECIFIED SNOMED Code(s): 355794746 (4) Neoplasm related pain Narrative/Plan: Fentanyl increased to 100mcg yesterday. Cont to avoid use of dilaudid, evaluate effectiveness of percocet for breakthrough. Meds for prevention of narcotic induced constipation scheduled Current Visit: Yes Status: Acute Priority: High Code(s): G89.3 - NEOPLASM RELATED PAIN (ACUTE) (CHRONIC) SNOMED Code(s): 11463159889339
[2019-02-13 11:29] LABS: Calcium 8.4 mg/dL (8.4-10.2); Potassium 3.8 mmol/L (3.5-5.1)
[2019-02-13 11:45] VITALS: BP 126/59; PULSE 86; RESP 20; TEMP 97.9
[2019-02-13] MEDS: oxyCODONE-APAP 10-325MG 1 EACH TAB PO PRN (11:52)
--- NOTE | 2019-02-13 15:39 | P.DS ---
Providers Date of admission: 02/04/19 18:26 Attending physician: Bhanu Contreras Consults: 02/04/19 18:19 Consult Physician Urgent Consulting Provider: Vickey Gonsalez Consult Reason/Comments: dyspnea/effusion Do you want consulting provider notified?: Already Contacted Consult Physician Urgent Consulting Provider: Germán Trimble Consult Reason/Comments: Oncological care Do you want consulting provider notified?: Yes 02/05/19 11:57 Consult Physician Routine Consulting Provider: Arie Tillman Consult Reason/Comments: Recurrent left pleural effusion, Pleurx catheter Do you want consulting provider notified?: Yes 02/05/19 14:47 Consult Physician Routine Consulting Provider: Toan Stafford Consult Reason/Comments: Acute kidney injury worsening, Hyponatremia Do you want consulting provider notified?: Already Contacted Primary care physician: Dayana De La Cruz [facility] Course: 80-year-old pleasant female admitted with the pleural effusion leading to shortness of breath and patient is off oxygen now patient has breast cancer metastatic, with the multiple pleural effusions patient underwent thoracocentesis second time this time patient is approximately has good air entry into bilateral lung lugo no patient has lymphedema with the fungal intertrigo for which patient is on localized at the border as well as flucanazole patient is also on Zosyn but there is no evidence of a pneumonic parapneumonic effusion Zosyn will be discontinued patient is hyponatremic appears to have hypervolemic hyponatremia which appears to be improving with IV Lasix will continue with IV Lasix today will repeat basic metabolic profile tomorrow and if she continues to improve patient will be discharged tomorrow although patient is high risk for readmission because of recurrent pleural effusions from my breast cancer. 02/13/2019 Patient is doing much better today patient is euvolemic patient has really bad and big lymphedema of the left arm from my breast cancer and lymph node dissection. Patient will be discharged today on 80 mg of Lasix in the morning by mouth and 60 mg at nighttime as recommended by nephrology. He had this for readmission concerns as she hasn't multiple episodes of malignant pleural effusion. Patient will not require antibacterials but will be discharged on antifungal flucanazole and nystatin powder. PHYSICAL EXAMINATION: GENERAL: The patient is alert and oriented x3, not in any acute distress. Obese HEENT: Pupils are round and equally reacting to light. EOMI. No scleral icterus. No conjunctival pallor. Normocephalic, atraumatic. No pharyngeal erythema. No thyromegaly. CARDIOVASCULAR: S1 and S2 present. No murmurs, rubs, or gallops. PULMONARY: Chest is clear to auscultation, no wheezing or crackles. ABDOMEN: Soft, nontender, nondistended, normoactive bowel sounds. No palpable organomegaly. MUSCULOSKELETAL: No joint swelling or deformity. EXTREMITIES: No cyanosis, clubbing, or pedal edema. Left the arm lymphedema with significant intertrigo redness. NEUROLOGICAL: Gross neurological examination did not reveal any focal deficits. SKIN: No rashes. Assessment and Plan Plan: -Acute hypoxic respiratory failure secondary to malignant pleural effusion, improved -Hyponatremia hypervolemic hyponatremia improving with IV Lasix which will be continued -Chronic lymphedema with intertrigo and fungal infection continue with fluconazole and nystatin powder -Breast cancer: Management as per college he -Probable chronic diastolic dysfunction with acute exacerbation -Anemia of chronic disease -Severe pain in the chest related to neoplasm and lymphedema Duragesic patch dose was increased patient is not having any constipation at this time Plan - Discharge Summary Discharge Rx Participant: Yes New Discharge Prescriptions: New Furosemide [Lasix] 60 mg PO HS #30 tab Pantoprazole [Protonix] 40 mg PO AC-BRKFST tablet.dr Continue Losartan Potassium [Cozaar] 100 mg PO QAM Gabapentin [Neurontin] 100 mg PO TID #90 cap Lidocaine-Prilocaine Cream [Emla Cream 2.5%/2.5%] 1 applic TOPICAL DAILY PRN PRN Reason: PATIENTS PORT ON CHEST Apixaban [Eliquis] 5 mg PO BID tab Polyethylene Glycol 3350 [Miralax] 17 gm PO DAILY 30 Days powd.pack Fluconazole [Diflucan] 100 mg PO DAILY #7 tab Nystatin 100,000 Unit/gm Powd [Mycostatin Powder] 1 applic TOPICAL TID 30 Days #1 applic Sennosides-Docusate Sodium [Senokot-S] 1 tab PO BID fentaNYL 75MCG/HR PATCH [Duragesic 75MCG/HR] 1 patch TRANSDERM Q72H #10 patch oxyCODONE-APAP 7.5-325MG [Percocet 7.5-325 mg] 1 tab PO Q4HR PRN #20 tab PRN Reason: Pain Changed Furosemide [Lasix] 80 mg PO BID 30 Days #60 tablet Discharge Medication List Losartan Potassium [Cozaar] 100 mg PO QAM 07/31/17 [History] Gabapentin [Neurontin] 100 mg PO TID #90 cap 01/24/18 [Rx] Lidocaine-Prilocaine Cream [Emla Cream 2.5%/2.5%] 1 applic TOPICAL DAILY PRN 01/23/19 [History] Apixaban [Eliquis] 5 mg PO BID tab 01/28/19 [Rx] Polyethylene Glycol 3350 [Miralax] 17 gm PO DAILY 30 Days powd.pack 01/28/19 [Rx] Fluconazole [Diflucan] 100 mg PO DAILY #7 tab 01/29/19 [Rx] Nystatin 100,000 Unit/gm Powd [Mycostatin Powder] 1 applic TOPICAL TID 30 Days #1 applic 01/29/19 [Rx] Sennosides-Docusate Sodium [Senokot-S] 1 tab PO BID 02/04/19 [History] Furosemide [Lasix] 60 mg PO HS #30 tab 02/13/19 [Rx] Furosemide [Lasix] 80 mg PO BID 30 Days #60 tablet 02/13/19 [Rx] Pantoprazole [Protonix] 40 mg PO AC-BRKFST tablet. 02/13/19 [Rx] fentaNYL 75MCG/HR PATCH [Duragesic 75MCG/HR] 1 patch TRANSDERM Q72H #10 patch 02/13/19 [Rx] oxyCODONE-APAP 7.5-325MG [Percocet 7.5-325 mg] 1 tab PO Q4HR PRN #20 tab 02/13 [Rx] Follow up Appointment(s)/Referral(s): [facility], [NON-STAFF] - 1 Week [facility] [NON-STAFF] - 1 Week (1. PLEASE MAKE APPOINTMENT PRIOR TO DISCHARGE. 2. SEND WOUND CARE ORDERS TO [facility] PRIOR TO DISCHARGE. ) Dayana De La Cruz MD [Primary Care Provider] - 1-2 days Activity/Diet/Wound Care/Special Instructions: Outpatient Interventional Radiology instructions on chart, please send with discharge instructions thanks
--- NOTE | 2019-02-13 16:43 | PN ---
PROGRESS NOTE Patient is seen for followup for hyponatremia and volume overload along with acute kidney injury. Her renal function has been slowly improving. She is maintained on IV Lasix for significant lower extremity edema. Sodium has been staying at about 128 to 129 mEq/L. There are plans for possible discharge today. On examination this morning, blood pressure was 126/59, heart rate 86 per minute. Patient is afebrile. EXAMINATION OF THE HEART: S1 and S2. EXAMINATION OF LUNGS: Decreased breath sounds at the bases, particularly left side. ABDOMEN: Soft. Morbidly obese. Examination of lower extremities shows 3+ edema bilaterally. CONFIDENTIAL SECRETARY exam shows patient is moving all 4 extremities. Labs show sodium 128, potassium 3.8, BUN 55, serum creatinine 1.54. ASSESSMENT: 1. Acute kidney injury, nonoliguric, acute tubular necrosis secondary to hypotension, currently improving. 2. Hypervolemic hyponatremia, maintained on diuretics. May continue with the IV Lasix until discharge and then switch to p.o. Lasix 80 mg in a.m. and 60 mg at p.m. with repeat labs to be done in about 2 days post discharge. 3. Malignant pleural effusion, status post thoracentesis. 4. Metastatic breast cancer. 5. Significant lower extremity edema and volume overload. PLAN: Continue with the IV Lasix until discharge and then switch to p.o. Lasix with repeat labs to be done as outpatient in about 2 days post discharge. MMODL / IJN: [id number] /
== END 2019-02-13 17:30 | DRG 597 ==
LOC: EC 16:07 → 3NMEDONC 18:26
PROVIDERS: ADMIT Internal Medicine; ATTEND Internal Medicine
PROC: 0W9B3ZZ Drainage of Left Pleural Cavity, Percutaneous Approach (ICD-10-PCS; principal; 2019-02-07)
DX: C50.412 Malignant neoplasm of upper-outer quadrant of left female breast (principal); N17.0 Acute kidney failure with tubular necrosis; J96.01 Acute respiratory failure with hypoxia; S42.301A Unspecified fracture of shaft of humerus, right arm, initial encounter for closed fracture; C78.2 Secondary malignant neoplasm of pleura; C77.3 Secondary and unspecified malignant neoplasm of axilla and upper limb lymph nodes; C90.00 Multiple myeloma not having achieved remission; E22.2 Syndrome of inappropriate secretion of antidiuretic hormone; Z68.42 Body mass index [BMI] 45.0-49.9, adult; I82.722 Chronic embolism and thrombosis of deep veins of left upper extremity; J91.0 Malignant pleural effusion; N39.0 Urinary tract infection, site not specified; Z17.1 Estrogen receptor negative status [ER-]; D63.0 Anemia in neoplastic disease; E61.1 Iron deficiency; E66.01 Morbid (severe) obesity due to excess calories; F40.240 Claustrophobia; G89.3 Neoplasm related pain (acute) (chronic); G89.4 Chronic pain syndrome; I12.9 Hypertensive chronic kidney disease with stage 1 through stage 4 chronic kidney disease, or unspecified chronic kidney disease; I89.0 Lymphedema, not elsewhere classified; K59.09 Other constipation; L30.4 Erythema intertrigo; M21.332 Wrist drop, left wrist; N18.3 Chronic kidney disease, stage 3 (moderate); Z51.5 Encounter for palliative care; Z66 Do not resuscitate; Z79.01 Long term (current) use of anticoagulants; Z79.899 Other long term (current) drug therapy; Z80.3 Family history of malignant neoplasm of breast; Z80.51 Family history of malignant neoplasm of kidney; Z82.3 Family history of stroke; Z82.49 Family history of ischemic heart disease and other diseases of the circulatory system; Z87.891 Personal history of nicotine dependence; Z90.13 Acquired absence of bilateral breasts and nipples; Z90.49 Acquired absence of other specified parts of digestive tract; Z88.1 Allergy status to other antibiotic agents; Z88.5 Allergy status to narcotic agent; L98.492 Non-pressure chronic ulcer of skin of other sites with fat layer exposed; Z60.2 Problems related to living alone; Z79.891 Long term (current) use of opiate analgesic; E86.1 Hypovolemia
CPT/HCPCS: 36415; 71045; 71046; 76604; 80048; 80053; 81001; 82607; 82728; 82746; 83540; 83550; 83735; 83880; 83921; 83930; 83935; 84300; 85025; 85610; 85730; 86850; 86900; 86901; 86920; 87070; 87075; 87077; 87086; 87186; 87205; 93005; 94640; 94760; 96374; 99285

== ENCOUNTER → 2019-02-04 | Outpatient (CLI) | payer BC ==
--- NOTE | 2019-02-04 08:37 | US ---
EXAMINATION TYPE: US chest DATE OF EXAM: 02/04/2019 COMPARISON: NONE CLINICAL HISTORY: Difficulty breathing R06.00 breast cancer C50.919. Pleural effusion HX of breast Ca . TECHNIQUE: Targeted ultrasound of the posterior lower left hemithorax EXAM MEASUREMENTS: Left Pleural Effusion pocket size: 8.0 cm Left skin surface to fluid distance: 3.5 cm Left side marked for possible thoracentesis outside the dept. Pulmonologists are able to review the images in the patient?s EMR. IMPRESSIONS: Small left pleural effusion.
== END | disposition home or self-care (01) ==
LOC: RADUSWWP 07:49
PROVIDERS: ATTEND Internal Medicine Hematology & Oncology
DX: J90 Pleural effusion, not elsewhere classified (principal)
CPT/HCPCS: 76604

== ENCOUNTER 2019-02-20 09:07 | Day surgery (SDC) | payer BC ==
[2019-02-20 09:36] VITALS: RESP 20; TEMP 97.5
[2019-02-20 09:50] VITALS: BP 82/46
--- NOTE | 2019-02-20 14:12 | US ---
Discontinued thoracentesis HISTORY: Pleural effusion Ultrasound performed shows low level internal echoes within the effusion. Patient does not describe s hortness of breath. Patient is hypotensive. IMPRESSION: Thoracentesis is discontinued. Patient to the emergency center for evaluation of hypotens ion.
== END 2019-02-20 11:00 ==
LOC: RADPROMAIN 09:07
PROVIDERS: ATTEND Internal Medicine Hematology & Oncology
DX: J90 Pleural effusion, not elsewhere classified (principal); C50.412 Malignant neoplasm of upper-outer quadrant of left female breast; Z53.9 Procedure and treatment not carried out, unspecified reason; Z88.1 Allergy status to other antibiotic agents; Z88.5 Allergy status to narcotic agent
CPT/HCPCS: 76604

== ENCOUNTER 2019-02-20 11:08 | Inpatient (IN) | payer BC ==
[2019-02-20] MEDS ORDERED: SODIUM CHLORIDE 0.9% 1,000 ML IV STA (11:24)
--- NOTE | 2019-02-20 11:29 | ED ---
General Adult HPI - General Chief complaint: Weakness Stated complaint: Low Blood Pressure Time Seen by Provider: 02/20/19 11:18 Source: patient, EMS, RN notes reviewed Mode of arrival: EMS Limitations: altered mental status, physical limitation - History of Present Illness Initial comments: Patient is a very pleasant 58-year-old female presenting to the emergency department with complaints of generalized weakness and low blood pressure. Patient presents from [facility] with difficulty obtaining lead pressure. Patient admits to feeling generally weak all over. Patient states she also feels dehydrated. Patient has not been here drinking well. Patient has known metastatic advanced breast cancer. Patient does have chronic lymphedema. Salvatore ramírez also has chronic pleural effusion. Patient states her breathing is not too bad at this point. Patient does complain of increased generalized edema. - Related Data Home Medications Medication Instructions Recorded Confirmed Lidocaine-Prilocaine Cream [Emla 1 applic TOPICAL DAILY PRN 01/23/19 02/20/19 Cream 2.5%/2.5%] Sennosides-Docusate Sodium 1 tab PO BID 02/04/19 02/20/19 [Senokot-S] Losartan Potassium [Cozaar] 100 mg PO DAILY 02/14/19 02/20/19 Ferrous Sulfate [Feosol] 325 mg PO HS 02/20/19 02/20/19 Furosemide [Lasix] 60 mg PO DAILY@1500 02/20/19 02/20/19 Furosemide [Lasix] 80 mg PO DAILY@0600 02/20/19 02/20/19 Nystatin 100,000Unit/gm Cream 1 applic TOPICAL BID 02/20/19 02/20/19 [Mycostatin Cream] Pantoprazole [Protonix] 40 mg PO DAILY@0600 02/20/19 02/20/19 Povidone-Iodine [Betadine] 1 applic TOPICAL BID 02/20/19 02/20/19 oxyCODONE HCL/ACETAMINOPHEN 1 tab PO Q4HR PRN 02/20/19 02/20/19 [Percocet 10-325 mg] Previous Rx's Medication Instructions Recorded Apixaban [Eliquis] 5 mg PO BID tab 01/28/19 Polyethylene Glycol 3350 [Miralax] 17 gm PO DAILY 30 Days powd.pack 01/28/19 Fluconazole [Diflucan] 100 mg PO DAILY #7 tab 01/29/19 Gabapentin [Neurontin] 100 mg PO TID #90 cap 02/13/19 fentaNYL 75MCG/HR PATCH [Duragesic 1 patch TRANSDERM Q72H 3 Days #1 02/13/19 75MCG/HR] patch Allergies Allergy/AdvReac Type Severity Reaction Status Date / Time levofloxacin [From Levaquin] Allergy Dyspnea/FACE Verified 02/20/19 11:46 SWELLING tramadol AdvReac "made pain Verified 02/20/19 11:46 worse" Review of Systems ROS Statement: Those systems with pertinent positive or pertinent negative responses have been documented in the HPI. ROS Other: All systems not noted in ROS Statement are negative. Constitutional: Denies: fever Eyes: Denies: eye pain ENT: Denies: ear pain Respiratory: Denies: cough Cardiovascular: Denies: chest pain Endocrine: Reports: fatigue Gastrointestinal: Denies: abdominal pain Genitourinary: Denies: dysuria Musculoskeletal: Denies: back pain Skin: Denies: rash Neurological: Reports: as per HPI Past Medical History Past Medical History: Cancer, Deep Vein Thrombosis (DVT) Additional Past Medical History / Comment(s): recurrance of left breast cancer.- had chemo 01-25-18, lt arm swelling History of Any Multi-Drug Resistant Organisms: None Reported Past Surgical History: Breast Surgery, Section, Cholecystectomy, Tonsillectomy Additional Past Surgical History / Comment(s): Oral surgery, left wrist wolff rgery.rt simple masectomy, lt modified radical masectomy Past Anesthesia/Blood Transfusion Reactions: No Reported Reaction Additional Past Anesthesia/Blood Transfusion Reaction / Comment(s): HISTORY OF CLAUSTROPHOBIA- PERFERS NOTHING ON FACE Past Psychological History: No Psychological Hx Reported Smoking Status: Former smoker Past Alcohol Use History: None Reported Past Drug Use History: None Reported - Past Family History Mother Family Medical History: Cancer Additional Family Medical History / Comment(s): Breast and kidney cancer. Father Family Medical History: CVA/TIA, Dementia, Hypertension Additional Family Medical History / Comment(s): brain bleed, heart problems General Exam Limitations: altered mental status, physical limitation General appearance: alert, in no apparent distress Head exam: Present: atraumatic Eye exam: Present: normal appearance ENT exam: Present: normal oropharynx Neck exam: Present: normal inspection Respiratory exam: Present: decreased breath sounds (Left side) Cardiovascular Exam: Present: regular rate, normal rhythm GI/Abdominal exam: Present: soft. Absent: tenderness Extremities exam: Present: pedal edema. Absent: calf tenderness Back exam: Present: normal inspection Neurological exam: Present: alert Psychiatric exam: Present: normal affect, normal mood Skin exam: Present: normal color Course Vital Signs 02/20/19 11:17 Temperature 98.9 F Pulse Rate 70 Respiratory 18 Rate Blood Pressure 92/75 O2 Sat by Pulse 99 Oximetry Medical Decision Making - Medical Decision Making Patient reevaluated and updated. Case discussed with Dr. Galan, who will admit for Dr. De La Cruz. Case also discussed with practitioner Samantha, who will consult with Dr. Trimble and will come evaluate patient. She does agree with one unit of red cells. - Lab Data Result diagrams: 02/20/19 12:35 02/20/19 12:35 Lab Results 02/20/19 02/20/19 02/20/19 Range/Units 12:35 12:35 12:35 WBC 17.2 H (3.8-10.6) k/uL RBC 2.57 L (3.80-5.40) m/uL Hgb 6.9 L* (11.4-16.0) gm/dL Hct 21.7 L (34.0-46.0) % MCV 84.5 (80.0-100.0) fL MCH 26.9 (25.0-35.0) pg MCHC 31.8 (31.0-37.0) g/dL RDW 16.3 H (11.5-15.5) % Plt Count 484 H (150-450) k/uL Neutrophils % 89 % Lymphocytes % 3 % Monocytes % 5 % Eosinophils % 1 % Basophils % 0 % Neutrophils # 15.3 H (1.3-7.7) k/uL Lymphocytes # 0.6 L (1.0-4.8) k/uL Monocytes # 0.9 (0-1.0) k/uL Eosinophils # 0.1 (0-0.7) k/uL Basophils # 0.0 (0-0.2) k/uL Hypochromasia Slight Anisocytosis Slight PT (9.0-12.0) sec INR (<1.2) APTT (22.0-30.0) sec Sodium 119 L* (137-145) mmol/L Potassium 5.2 H (3.5-5.1) mmol/L Chloride 82 L (98-107) mmol/L Carbon Dioxide 21 L (22-30) mmol/L Anion Gap 16 mmol/L BUN 72 H (7-17) mg/dL Creatinine 2.65 H (0.52-1.04) mg/dL Est GFR (CKD-EPI)AfAm 22 (>60 ml/min/1.73 sqM) Est GFR (CKD-EPI)NonAf 19 (>60 ml/min/1.73 sqM) Glucose 98 (74-99) mg/dL Plasma Lactic Acid Colton 2.2 H* (0.7-2.0) mmol/L Calcium 8.0 L (8.4-10.2) mg/dL Magnesium 2.3 (1.6-2.3) mg/dL Total Bilirubin 0.6 (0.2-1.3) mg/dL AST 104 H (14-36) U/L ALT 51 (9-52) U/L Alkaline Phosphatase 76 (38-126) U/L Total Protein 4.7 L (6.3-8.2) g/dL Albumin 2.5 L (3.5-5.0) g/dL 02/20/19 Range/Units 12:35 WBC (3.8-10.6) k/uL RBC (3.80-5.40) m/uL Hgb (11.4-16.0) gm/dL Hct (34.0-46.0) % MCV (80.0-100.0) fL MCH (25.0-35.0) pg MCHC (31.0-37.0) g/dL RDW (11.5-15.5) % Plt Count (150-450) k/uL Neutrophils % % Lymphocytes % % Monocytes % % Eosinophils % % Basophils % % Neutrophils # (1.3-7.7) k/uL Lymphocytes # (1.0-4.8) k/uL Monocytes # (0-1.0) k/uL Eosinophils # (0-0.7) k/uL Basophils # (0-0.2) k/uL Hypochromasia Anisocytosis PT 12.2 H (9.0-12.0) sec INR 1.2 H (<1.2) APTT 33.5 H (22.0-30.0) sec Sodium (137-145) mmol/L Potassium (3.5-5.1) mmol/L Chloride (98-107) mmol/L Carbon Dioxide (22-30) mmol/L Anion Gap mmol/L BUN (7-17) mg/dL Creatinine (0.52-1.04) mg/dL Est GFR (CKD-EPI)AfAm (>60 ml/min/1.73 sqM) Est GFR (CKD-EPI)NonAf (>60 ml/min/1.73 sqM) Glucose (74-99) mg/dL Plasma Lactic Acid [place] (0.7-2.0) mmol/L Calcium (8.4-10.2) mg/dL Magnesium (1.6-2.3) mg/dL Total Bilirubin (0.2-1.3) mg/dL AST (14-36) U/L ALT (9-52) U/L Alkaline Phosphatase (38-126) U/L Total Protein (6.3-8.2) g/dL Albumin (3.5-5.0) g/dL - Radiology Data Radiology results: image reviewed (Chest x-ray shows mild left-sided effusion) Critical Care Time Critical Care Time: Yes Total Critical Care Time: 31 Disposition Clinical Impression: Metastatic breast cancer, Anemia, Hyponatremia, Dehydration Disposition: [facility] Condition: Serious Is patient prescribed a controlled substance at d/c from ED?: No Referrals: Dayana De La Cruz MD [Primary Care Provider] - 1-2 days Decision Time: 13:45
[2019-02-20] MEDS ORDERED: HYDROmorphone 1 MG/ML 1 ML SYRINGE IVP STA (12:42)
[2019-02-20 12:55] LABS: Anisocytosis Slight; Basophils % (A) 0 %; Eosinophils # (A) 0.1 k/uL (0-0.7); Eosinophils % (A) 1 %; HCT 21.7 % (34.0-46.0); Hypochromasia Slight; Lymphocytes # (A) 0.6 k/uL (1.0-4.8); Lymphocytes % (A) 3 %; MCH 26.9 pg (25.0-35.0); MCHC 31.8 g/dL (31.0-37.0); MCV 84.5 fL (80.0-100.0); Mean Platelet Volume 6.7; Monocytes # (A) 0.9 k/uL (0-1.0); Monocytes % (A) 5 %; Neutrophils # (A) 15.3 k/uL (1.3-7.7); Neutrophils % (A) 89 %; Platelet Count 484 k/uL (150-450); RBC 2.57 m/uL (3.80-5.40); RDW 16.3 % (11.5-15.5); WBC 17.2 k/uL (3.8-10.6)
[2019-02-20 13:03] LABS: Albumin 2.5 g/dL (3.5-5.0); Magnesium 2.3 mg/dL (1.6-2.3); Potassium 5.2 mmol/L (3.5-5.1); Total Bilirubin 0.6 mg/dL (0.2-1.3); Total Protein 4.7 g/dL (6.3-8.2)
[2019-02-20 13:07] LABS: INR 1.2 (<1.2); Partial Thromboplastin Time 33.5 sec (22.0-30.0); Prothrombin Time 12.2 sec (9.0-12.0)
[2019-02-20 13:08] LABS: HGB 6.9 gm/dL (11.4-16.0)
--- NOTE | 2019-02-20 13:34 | XR ---
EXAMINATION TYPE: XR chest 2V DATE OF EXAM: 02/20/2019 COMPARISON: Prior chest x-ray 02/09/2019 an ultrasound 02/20/2019 HISTORY: Weakness, hypotension and lymphedema, breast carcinoma TECHNIQUE: Frontal and lateral views of the chest are obtained. FINDINGS: Findings are similar to prior exam. Tissue expanders are present, there is a Port-A-Cath i n place with the distal tip overlying the superior vena cava. Patient is rotated. No evident pneumoth orax. Retrocardiac density persists. Heart is partially obscured. IMPRESSION: Small left pleural effusion and associated atelectasis, correlate for possible pneumonia , tumor not excluded.
[2019-02-20] MEDS ORDERED: HYDROmorphone 1 MG/ML 1 ML SYRINGE IVP PRN (13:53)
[2019-02-20] MEDS ORDERED: NALOXONE 0.4 MG/ML 1 ML VIAL IV PRN (13:53)
[2019-02-20] MEDS ORDERED: HYDROmorphone 0.5 MG/0.5 ML SYRINGE IVP PRN (13:53)
[2019-02-20] MEDS: SODIUM CHLORIDE 0.9% 1,000 ML IV SCH (15:31)
[2019-02-20] MEDS ORDERED: SODIUM CHLORIDE 0.9% 1,000 ML IV ONE (16:28)
--- NOTE | 2019-02-20 16:44 | P.CONS ---
History of Present Illness - Reason for Consult Consult date: 02/20/19 metastatic breast cancer Requesting physician: Colby Murillo - Chief Complaint lethargy, swelling - History of Present Illness Please see Consult note dated 02/05/19 for details of malignancy history Pt admitted for symptom management including pain, progressive swelling and lethargy. When last seen inpatient plan was to attempt rehab-with full understanding that she may not be able to rehab-and transition to hospice. Unfortunately, there has been some trouble with paper work. Pt was sent from rehab facility due to progressive decline. When see pt is in w/c, lethargic but, voice and touch pt opens eyes, recognizes me and states my name. Her daughter is in tears. I asked pt if we could just focus on managing her symptoms and stop doing things to her that are not making her feel any better or giving her any improved quality of life. Pt agreed, daughter at bedside agreed, hospice care inpatient for mgmt of symptoms. I clarified 3 times the plan with agreement from patient and daughter. Pt c/o arm swelling and pain, her right arm is not "working right", gneral discomfort, she is breathing ok, she requires assistance repositioning. Review of Systems See HPI Past Medical History Past Medical History: Cancer, Deep Vein Thrombosis (DVT), Skin Disorder Additional Past Medical History / Comment(s): Pt recently admitted to [facility] on 02/04/19 with pleural effusion, SOB, acute respiratory failure 2ndary to malignant pleural effusion. Other hx: L breast cancer with metastasis, lymphedema, L arm and generalized edema, chronic L pleural effusion with thoracentesises, DVT, L back wound. History of Any Multi-Drug Resistant Organisms: None Reported Past Surgical History: Breast Surgery, Section, Cholecystectomy, Tonsillectomy Additional Past Surgical History / Comment(s): L breast core biopsy, L modified radical mastectomy, R simple mastectomy, L wrist surgery, oral surgery. Past Anesthesia/Blood Transfusion Reactions: No Reported Reaction Additional Past Anesthesia/Blood Transfusion Reaction / Comm: HISTORY OF CLAUSTROPHOBIA- PERFERS NOTHING ON FACE Smoking Status: Former smoker - Past Family History Mother Family Medical History: Cancer Additional Family Medical History / Comment(s): Breast and kidney cancer. Father Family Medical History: CVA/TIA, Dementia, Hypertension Additional Family Medical History / Comment(s): brain bleed, heart problems Medications and Allergies Home Medications Medication Instructions Recorded Confirmed Type Lidocaine-Prilocaine Cream [Emla 1 applic TOPICAL DAILY PRN 01/23/19 02/20/19 History Cream 2.5%/2.5%] Apixaban [Eliquis] 5 mg PO BID tab 01/28/19 02/20/19 Rx Polyethylene Glycol 3350 [Miralax] 17 gm PO DAILY 30 Days powd.pack 01/28/19 02/20/19 Rx Fluconazole [Diflucan] 100 mg PO DAILY #7 tab 01/29/19 02/20/19 Rx Sennosides-Docusate Sodium 1 tab PO BID 02/04/19 02/20/19 History [Senokot-S] Gabapentin [Neurontin] 100 mg PO TID #90 cap 02/13/19 02/20/19 Rx fentaNYL 75MCG/HR PATCH [Duragesic 1 patch TRANSDERM Q72H 3 Days #1 02/13/19 Rx 75MCG/HR] patch Losartan Potassium [Cozaar] 100 mg PO DAILY 02/14/19 02/20/19 History Ferrous Sulfate [Feosol] 325 mg PO HS 02/20/19 02/20/19 History Furosemide [Lasix] 60 mg PO DAILY@1500 02/20/19 02/20/19 History Furosemide [Lasix] 80 mg PO DAILY@0600 02/20/19 02/20/19 History Nystatin 100,000Unit/gm Cream 1 applic TOPICAL BID 02/20/19 02/20/19 History [Mycostatin Cream] Pantoprazole [Protonix] 40 mg PO DAILY@0600 02/20/19 02/20/19 History Povidone-Iodine [Betadine] 1 applic TOPICAL BID 02/20/19 02/20/19 History oxyCODONE HCL/ACETAMINOPHEN 1 tab PO Q4HR PRN 02/20/19 02/20/19 History [Percocet 10-325 mg] Allergies Allergy/AdvReac Type Severity Reaction Status Date / Time levofloxacin [From Levaquin] Allergy Dyspnea/FACE Verified 02/20/19 11:46 SWELLING tramadol AdvReac "made pain Verified 02/20/19 11:46 worse" Physical Exam Vitals: Vital Signs Temp Pulse Pulse Resp BP BP Pulse Ox 02/20/19 16:20 97.7 F 75 20 65/39 93 L 02/20/19 15:34 72 18 102/55 93 L 02/20/19 14:33 77 18 95/63 98 02/20/19 11:17 98.9 F 70 18 92/75 99 Intake and Output 02/20/19 02/20/19 02/20/19 06:59 14:59 22:59 Other: Weight 133.81 kg WD, morbidly obese female in w/c, alert and then sleeping, pale, oriented to self, place and time, no dyspnea appreciated, upper extremities swollen L>R, fungating mass in left axilla across chest. Expression of pain when awake. Results CBC & Chem 7: 02/20/19 12:35 02/20/19 12:35 Labs: Abnormal Lab Results - Last 24 Hours (Table) 02/20/19 02/20/19 02/20/19 Range/Units 12:35 12:35 12:35 WBC 17.2 H (3.8-10.6) k/uL RBC 2.57 L (3.80-5.40) m/uL Hgb 6.9 L* (11.4-16.0) gm/dL Hct 21.7 L (34.0-46.0) % RDW 16.3 H (11.5-15.5) % Plt Count 484 H (150-450) k/uL Neutrophils # 15.3 H (1.3-7.7) k/uL Lymphocytes # 0.6 L (1.0-4.8) k/uL PT (9.0-12.0) sec INR (<1.2) APTT (22.0-30.0) sec Sodium 119 L* (137-145) mmol/L Potassium 5.2 H (3.5-5.1) mmol/L Chloride 82 L (98-107) mmol/L Carbon Dioxide 21 L (22-30) mmol/L BUN 72 H (7-17) mg/dL Creatinine 2.65 H (0.52-1.04) mg/dL Plasma Lactic Acid Colton 2.2 H* (0.7-2.0) mmol/L Calcium 8.0 L (8.4-10.2) mg/dL AST 104 H (14-36) U/L Total Protein 4.7 L (6.3-8.2) g/dL Albumin 2.5 L (3.5-5.0) g/dL Crossmatch 02/20/19 02/20/19 Range/Units 12:35 14:51 WBC (3.8-10.6) k/uL RBC (3.80-5.40) m/uL Hgb (11.4-16.0) gm/dL Hct (34.0-46.0) % RDW (11.5-15.5) % Plt Count (150-450) k/uL Neutrophils # (1.3-7.7) k/uL Lymphocytes # (1.0-4.8) k/uL PT 12.2 H (9.0-12.0) sec INR 1.2 H (<1.2) APTT 33.5 H (22.0-30.0) sec Sodium (137-145) mmol/L Potassium (3.5-5.1) mmol/L Chloride (98-107) mmol/L Carbon Dioxide (22-30) mmol/L BUN (7-17) mg/dL Creatinine (0.52-1.04) mg/dL Plasma Lactic Acid Colton (0.7-2.0) mmol/L Calcium (8.4-10.2) mg/dL AST (14-36) U/L Total Protein (6.3-8.2) g/dL Albumin (3.5-5.0) g/dL Crossmatch See Detail Assessment and Plan (1) Intractable pain Current Visit: Yes Status: Acute Priority: High Code(s): R52 - PAIN, UNSPECIFIED SNOMED Code(s): 94738584 (2) Metastatic breast cancer Current Visit: Yes Status: Chronic Priority: High Code(s): C50.919 - MALIGNANT NEOPLASM OF UNSP SITE OF UNSPECIFIED FEMALE BREAST SNOMED Code(s): 578944799 Plan: Case discussed with ER Physician. Plan is to admit and begin hospice GIP. Stop invasive procedures, comfort measures, symptom care management Time with Patient: Greater than 30
[2019-02-20] MEDS ORDERED: oxyCODONE-APAP 5-325MG 1 EACH TAB PO PRN (21:52)
[2019-02-21] MEDS: oxyCODONE-APAP 5-325MG 1 EACH TAB PO PRN ×3 (01:14→10:38)
[2019-02-21] MEDS: SODIUM CHLORIDE 0.9% 1,000 ML IV SCH (03:42)
--- NOTE | 2019-02-21 06:45 | HP ---
HISTORY AND PHYSICAL DATE OF SERVICE: 02/20/2019 CHIEF COMPLAINTS: Chief complaints are weakness and low blood pressure. HISTORY OF PRESENT ILLNESS: This 58-year-old woman with a past medical history of multiple medical problems including breast cancer, DVT, history of breast surgery, section, cholecystomy was recently admitted with pleural effusion to [facility]. The patient had metastatic breast cancer. The treatment was not an option. Patient is NO CODE. Patient is in [place]. In the [facility], patient was complaining of weakness. Blood pressure is low. The patient was sent to [facility] emergency room and was admitted for further evaluation and treatment. Currently the blood pressure was fluctuating 65/39, but the family and the patient refuses any further treatment including intravenous IV boluses. The patient is monitored in medical floor at this time. As mentioned, the patient is NO CODE. Discussion about hospice is done and at this time the patient is agreeable to hearing from hospice as well as the family. The family also expressed wishes that the patient would like to return to [facility] at this point. There is no history of any fever, rigors. No history of headache, loss of consciousness or seizures. Patient complains of generalized weakness and tiredness. The patient is followed by Dr. De La Cruz in the outpatient setting. PAST MEDICAL HISTORY: History of breast cancer, history of pleural effusion, history of lymphedema, history of anemia, wrist drop. MEDICATIONS: Medications prior to admission include: 1. Nystatin 1 application topically b.i.d. 2. Diflucan 100 mg p.o. daily. 3. Betadine. 4. Percocet 1 p.o. q.4 p.r.n. 5. Duragesic patch 75 mcg q.72 hours. 6. Senokot-S 1 p.o. b.i.d. 7. EMLA cream 1 daily p.r.n. 8. Neurontin 100 mg p.o. t.i.d. 9. Protonix 40 mg p.o. daily. 10.Iron sulfate 325 mg p.o. q.h.s. 11.Eliquis 5 mg p.o. b.i.d. 12.Lasix 80 mg p.o. daily and 60 mg p.o. daily. 13.MiraLAX 17 grams p.o. daily. 14.Cozaar 100 mg p.o. daily. ALLERGIES: LEVAQUIN and ULTRAM. FAMILY HISTORY: History of breast and kidney cancer. SOCIAL HISTORY: Previous history of smoking. No history of current smoking or alcohol intake. REVIEW OF SYSTEMS: ENT: No diminished hearing or diminished vision. CARDIOVASCULAR SYSTEM: No angina/. RESPIRATORY SYSTEM: No cough or hemoptysis. GI: No nausea. : No dysuria. NERVOUS SYSTEM: No numbness or weakness. ALLERGY/IMMUNOLOGY: No asthma or hayfever. MUSCULOSKELETAL: As mentioned earlier. HEMATOLOGY/ONCOLOGY: As mentioned earlier. ENDOCRINE: No history of diabetes, hypothyroidism. CONSTITUTIONAL: As mentioned earlier. DERMATOLOGY: Negative. RHEUMATOLOGY: Negative. PSYCHIATRY: As mentioned earlier. PHYSICAL EXAMINATION: The patient is alert and oriented x3. Pulse 75, blood pressure 65/39, respirations 20, temperature 97.7, pulse ox 93% on room air. HEENT: Conjunctivae normal. Oral mucosa moist. NECK is no jugular venous distention. No carotid bruit. No lymph node enlargement. CARDIOVASCULAR: S1, S2 muffled. No S3, no S4. RESPIRATORY: Breath sounds diminished at the bases. No rhonchi. No crackles. ABDOMEN: Soft, obese, nontender. LEGS: Minimal edema bilaterally. NERVOUS SYSTEM: Higher function as mentioned earlier. Moves all 4 limbs. Mild diffuse weakness. LYMPHATICS: No lymphadenopathy of the neck, axillae or groin. SKIN: Ulceration from the breast cancer present. JOINTS: No active deforming arthropathy. LABS: Labs are WBC 17.2, hemoglobin 6.9, sodium is 119, potassium 5.2. Lactic acid 2.2. Creatinine is 2.65. ASSESSMENT: 1. Hypotension, weakness from possibly acute renal failure acute tubular necrosis. 2. Breast cancer with metastasis on palliative treatment. 3. Hyponatremia. 4. Severe anemia possibly from malignancy. 5. Increased WBC. 6. History of shortness of breath secondary to left pleural effusion, recurrent with history of paracentesis. 7. History of chronic renal failure stage 3 baseline. 8. Generalized edema secondary to malignancy. 9. Gait dysfunction. 10.Severe pain secondary to malignancy. 11.Lymphedema of the left upper arm. 12.History of left wrist drop history. 13.History of deep venous thrombosis. 14.History of cholecystectomy. 15.History of gastrointestinal bleed, possibly internal, external hemorrhoids. 16.Palliative care. 17.NO CODE, NO CPR, NO VENT. RECOMMENDATIONS AND DISCUSSION: In this 58-year-old woman who presented with multiple medical issues, at this time the patient's condition has deteriorated significantly. However, at this point the family and the patient would not want any active intervention which is appropriate given the patient's stage IV malignancy and multiple other comorbidities. We will continue to monitor and the patient would like to return to [facility] and we will discuss with Case Management and discharge planning team in the morning. Otherwise, continue the rest of medications. Please note, the patient is NO CODE and discussed at length with the patient and family and further recommendations to follow. A copy of dictation forwarded to Dr. De La Cruz who is the primary physician. MMMARYL / RODRIGUEN: [id number] /
[2019-02-21 07:36] VITALS: BP 89/54; PULSE 76; RESP 20; TEMP 97.3
[2019-02-21] MEDS ORDERED: PANTOPRAZOLE 40 MG/10 ML VIAL IV SCH (09:00)
[2019-02-21 10:00] LABS: Anisocytosis Slight; Basophils % (A) 0 %; Calcium 7.5 mg/dL (8.4-10.2); Eosinophils % (A) 0 %; Hypochromasia Slight; Lymphocytes # (A) 0.5 k/uL (1.0-4.8); Lymphocytes % (A) 4 %; MCH 26.4 pg (25.0-35.0); MCHC 31.3 g/dL (31.0-37.0); MCV 84.2 fL (80.0-100.0); Mean Platelet Volume 6.7; Monocytes # (A) 0.9 k/uL (0-1.0); Monocytes % (A) 6 %; Neutrophils # (A) 13.3 k/uL (1.3-7.7); Neutrophils % (A) 89 %; Platelet Count 411 k/uL (150-450); Potassium 5.2 mmol/L (3.5-5.1); RBC 2.18 m/uL (3.80-5.40); RDW 16.1 % (11.5-15.5); WBC 15.1 k/uL (3.8-10.6)
[2019-02-21 10:05] LABS: HGB 5.8 gm/dL (11.4-16.0)
[2019-02-21 10:06] LABS: HCT 18.4 % (34.0-46.0)
--- NOTE | 2019-02-21 12:32 | P.NPCON ---
History of Present Illness - Reason for Consult acute renal failure, hyponatremia - History of Present Illness Reason for consultation: Hyponatremia and acute kidney injury History of present illness: Patient is a 58-year-old female seen in renal consultation for acute kidney injury and hyponatremia. Patient came to the hospital due to generalized weakness and worsening edema. Patient's sodium level was 119 at admission and she received IV fluids. It is 117 this morning. Renal function is also worse. Creatinine up to 2.86 today. Patient is extremely lethargic and not answering much to verbal commands. She has metastatic breast cancer. Patient also has significant edema. Hemoglobin was 5.8 this morning. She is also been quite hypotensive with blood pressure in the 60s systolic on admission. Most recent blood pressure was 89/54. Family is currently meeting with hospice. Vital signs are stable. Blood pressure on the lower side. General: Lethargic. HEENT: Head exam is unremarkable. Neck is without jugular venous distension. LUNGS: Breath sounds decreased. HEART: Rate and Rhythm are regular. First and second heart sounds normal. No murmurs, rubs or gallops. ABDOMEN: Abdominal exam reveals normal bowel sounds. Non-tender and non- distended. No evidence of peritonitis. EXTREMITITES: 2+ edema. Past Medical History Past Medical History: Cancer, Deep Vein Thrombosis (DVT), Skin Disorder Additional Past Medical History / Comment(s): Pt recently admitted to [facility] on 02/04/19 with pleural effusion, SOB, acute respiratory failure 2ndary to malignant pleural effusion. Other hx: L breast cancer with metastasis, lymphedema, L arm and generalized edema, chronic L pleural effusion with thoracentesises, DVT, L back wound. History of Any Multi-Drug Resistant Organisms: None Reported Past Surgical History: Breast Surgery, Section, Cholecystectomy, Tonsil lectomy Additional Past Surgical History / Comment(s): L breast core biopsy, L modified radical mastectomy, R simple mastectomy, L wrist surgery, oral surgery. Past Anesthesia/Blood Transfusion Reactions: No Reported Reaction Additional Past Anesthesia/Blood Transfusion Reaction / Comment(s): HISTORY OF CLAUSTROPHOBIA- PERFERS NOTHING ON FACE Smoking Status: Former smoker - Past Family History Mother Family Medical History: Cancer Additional Family Medical History / Comment(s): Breast and kidney cancer. Father Family Medical History: CVA/TIA, Dementia, Hypertension Additional Family Medical History / Comment(s): brain bleed, heart problems Medications and Allergies Home Medications Medication Instructions Recorded Confirmed Type Lidocaine-Prilocaine Cream [Emla 1 applic TOPICAL DAILY PRN 01/23/19 02/20/19 History Cream 2.5%/2.5%] Apixaban [Eliquis] 5 mg PO BID tab 01/28/19 02/20/19 Rx Polyethylene Glycol 3350 [Miralax] 17 gm PO DAILY 30 Days powd.pack 01/28/19 02/20/19 Rx Fluconazole [Diflucan] 100 mg PO DAILY #7 tab 01/29/19 02/20/19 Rx Sennosides-Docusate Sodium 1 tab PO BID 02/04/19 02/20/19 History [Senokot-S] Gabapentin [Neurontin] 100 mg PO TID #90 cap 02/13/19 02/20/19 Rx fentaNYL 75MCG/HR PATCH [Duragesic 1 patch TRANSDERM Q72H 3 Days #1 02/13/19 02/20/19 Rx 75MCG/HR] patch Losartan Potassium [Cozaar] 100 mg PO DAILY 02/14/19 02/20/19 History Ferrous Sulfate [Feosol] 325 mg PO HS 02/20/19 02/20/19 History Furosemide [Lasix] 60 mg PO DAILY@1500 02/20/19 02/20/19 History Furosemide [Lasix] 80 mg PO DAILY@0600 02/20/19 02/20/19 History Nystatin 100,000Unit/gm Cream 1 applic TOPICAL BID 02/20/19 02/20/19 History [Mycostatin Cream] Pantoprazole [Protonix] 40 mg PO DAILY@0600 02/20/19 02/20/19 History Povidone-Iodine [Betadine] 1 applic TOPICAL BID 02/20/19 02/20/19 History oxyCODONE HCL/ACETAMINOPHEN 1 tab PO Q4HR PRN 02/20/19 02/20/19 History [Percocet 10-325 mg] Allergies Allergy/AdvReac Type Severity Reaction Status Date / Time levofloxacin [From Levaquin] Allergy Dyspnea/FACE Verified 02/20/19 11:46 SWELLING tramadol AdvReac "made pain Verified 02/20/19 11:46 worse" Physical Exam Vitals: Vital Signs Temp Pulse Pulse Pulse Resp BP BP 02/21/19 07:00 97.3 F L 76 20 89/54 02/20/19 21:00 98.1 F 103 H 12 163/140 02/20/19 16:20 97.7 F 75 20 65/39 02/20/19 15:34 72 18 102/55 02/20/19 14:33 77 18 95/63 Pulse Ox 02/21/19 07:00 93 L 02/20/19 21:00 80 L 02/20/19 16:20 93 L 02/20/19 15:34 93 L 02/20/19 14:33 98 Intake and Output 02/20/19 02/21/19 02/21/19 22:59 06:59 14:59 Other: # Voids 0 # Bowel Movements 0 Results - Lab Results Most recent lab results Calcium 7.5 mg/dL (8.4-10.2) L 02/21/19 09:24 Magnesium 2.3 mg/dL (1.6-2.3) 02/20/19 12:35 02/21/19 09:24 02/21/19 09:24 Assessment and Plan Plan: Assessment: 1. Acute kidney injury secondary to ATN secondary to acute blood loss anemia and hypotension. Creatinine 2.86 today. 2. Hypovolemic hyponatremia. 3. Metastatic breast cancer. 4. Acute blood loss anemia. 5. Hypotension secondary to acute blood loss anemia and intravascular volume depletion. Plan: Family is currently meeting with hospice. Overall prognosis poor. Thank you for the consultation. Will sign off.
[2019-02-21 13:16] VITALS: BMI 47.6
== END 2019-02-21 13:48 | disposition hospice, inpatient (51) | DRG 683 ==
LOC: EC 11:08 → 3NMEDONC 13:53 → 4MS4W 15:12
PROVIDERS: ADMIT Internal Medicine; ATTEND Internal Medicine
DX: N17.0 Acute kidney failure with tubular necrosis (principal); E87.1 Hypo-osmolality and hyponatremia; J91.0 Malignant pleural effusion; Z68.42 Body mass index [BMI] 45.0-49.9, adult; C79.9 Secondary malignant neoplasm of unspecified site; D62 Acute posthemorrhagic anemia; I95.9 Hypotension, unspecified; E66.01 Morbid (severe) obesity due to excess calories; C50.912 Malignant neoplasm of unspecified site of left female breast; Z66 Do not resuscitate; Z51.5 Encounter for palliative care; E86.1 Hypovolemia; E86.0 Dehydration; D63.0 Anemia in neoplastic disease; N18.3 Chronic kidney disease, stage 3 (moderate); G89.3 Neoplasm related pain (acute) (chronic); I89.0 Lymphedema, not elsewhere classified; R26.9 Unspecified abnormalities of gait and mobility; M21.332 Wrist drop, left wrist; R60.1 Generalized edema; F40.240 Claustrophobia; Z79.01 Long term (current) use of anticoagulants; Z79.891 Long term (current) use of opiate analgesic; Z79.899 Other long term (current) drug therapy; Z90.13 Acquired absence of bilateral breasts and nipples; Z86.718 Personal history of other venous thrombosis and embolism; Z85.3 Personal history of malignant neoplasm of breast; Z90.49 Acquired absence of other specified parts of digestive tract; Z87.891 Personal history of nicotine dependence; Z98.891 History of uterine scar from previous surgery; Z98.890 Other specified postprocedural states; Z87.2 Personal history of diseases of the skin and subcutaneous tissue; Z71.3 Dietary counseling and surveillance; Z88.1 Allergy status to other antibiotic agents; Z88.5 Allergy status to narcotic agent; Z80.51 Family history of malignant neoplasm of kidney; Z80.3 Family history of malignant neoplasm of breast; Z82.49 Family history of ischemic heart disease and other diseases of the circulatory system; Z82.3 Family history of stroke; Z81.8 Family history of other mental and behavioral disorders
CPT/HCPCS: 36415; 71046; 76604; 80048; 80053; 83605; 83735; 85025; 85610; 85730; 86850; 86900; 86901; 86920; 96374; 99291

== ENCOUNTER 2019-02-21 13:24 | Inpatient (IN) | payer MEDICAID ==
[2019-02-21] MEDS ORDERED: ACETAMINOPHEN SUPPOSITORY 650 MG SUPP RECTAL PRN (13:25)
[2019-02-21] MEDS ORDERED: ATROPINE OPHTH SOLN 1% 5ML BTL SUBLINGUAL PRN (13:25)
[2019-02-21] MEDS ORDERED: MORPHINE SULFATE 2 MG/ML SYRINGE IV PRN (13:25)
[2019-02-21] MEDS ORDERED: ONDANSETRON 4 MG/2 ML VIAL IVP PRN (13:25)
[2019-02-21] MEDS ORDERED: MORPHINE SULFATE (100 MG/2 ML) 100 MG in SODIUM CHLORIDE 0.9% 100 ML IV SCH (14:00)
[2019-02-21] MEDS ORDERED: SCOPOLAMINE 1.5MG/72HR PATCH TRANSDERM SCH (14:00)
[2019-02-21] MEDS: MORPHINE SULFATE 100 MG in SODIUM CHLORIDE 0.9% 90 ML IV SCH (14:55)
[2019-02-21] MEDS: LORazepam 2 MG/ML INJ IV PRN (15:59)
[2019-02-21 16:42] VITALS: BMI 47.6
--- NOTE | 2019-02-21 16:45 | PN ---
PROGRESS NOTE DATE OF SERVICE: 02/21/2019 This 58-year-old woman, being followed by Dr. Dayana De La Cruz in the outpatient setting, has a history of stage IV breast cancer. The patient had hypotension and weakness. Patient was in rehab, [facility] on the [place], recently, but because of increasing weakness and hypotension, the patient was transferred to [facility]. Last night when I talked to the family, the family was also contemplating possible return to the [facility]. The patient was much more alert. Today the patient is stuporous. The patient is moaning and groaning at this time. The family is open to hospice discussion at this time. Past medical history reviewed. Review of systems could not be taken; the patient is confused and stuporous. CURRENT MEDICATIONS: Reviewed. Please see the list for the medications. PHYSICAL EXAMINATION: Patient is conscious. Pulse is 80. Blood pressure noted. Oral mucosa is moist. NECK: No jugular venous distention. No carotid bruit. No lymph node enlargement. CARDIOVASCULAR SYSTEM: S1, S2 muffled. No S3. No S4. RESPIRATORY SYSTEM: Breath sounds diminished at the bases. A few scattered rhonchi and crackles. ABDOMEN: Soft, obese. LEGS: Bilateral leg edema. NERVOUS SYSTEM: Diffusely weak. LABS: Not available. ASSESSMENT: 1. Hypotension, weakness, possible acute renal failure with acute tubular necrosis, multifactorial. 2. Breast cancer, stage IV, with metastasis, on palliative treatment. 3. Hyponatremia. 4. Severe anemia, possibly from malignancy. 5. Increased white count. 6. History of shortness of breath secondary to left pleural effusion, recurrent, with history of paracentesis. 7. History of chronic renal failure, stage III baseline. 8. Generalized edema secondary to malignancy. 9. Gait dysfunction. 10.Severe pain secondary to malignancy. 11.Lymphedema, left upper arm. 12.History of left wrist drop. 13.History of left deep venous thrombosis, upper limb. 14.History of cholecystectomy. 15.History of gastrointestinal bleed, possibly internal/external hemorrhoids. 16.Palliative care. 17.NO CODE, NO CPR, NO VENT. 18.Comfort measures and hospice. RECOMMENDATIONS AND DISCUSSION: This 58-year-old woman presented with multiple medical issues. The patient's condition is rapidly deteriorating. The patient has multiple complex medical issues in addition to stage IV breast cancer. I had a detailed discussion with the family at the bedside and the family is open to discussion with Hospice. Once the hospice is instituted, I would recommend a morphine drip and continued comfort measures, including Ativan. Overall prognosis remains extremely guarded. A copy of this dictation is forwarded to Dr. De La Cruz and Dr. Callaahn, who is following the patient in the ECF. MMSHANTELLE / IJN: [id number] /
[2019-02-22] MEDS: LORazepam 2 MG/ML INJ IV PRN ×2 (00:30→05:11)
[2019-02-22] MEDS: MORPHINE SULFATE 100 MG in SODIUM CHLORIDE 0.9% 90 ML IV SCH (16:36)
--- NOTE | 2019-02-22 16:37 | PN ---
PROGRESS NOTE DATE OF SERVICE: 02/22/2019. This 58-year-old woman who was admitted with hypotension, weakness, also had renal failure and multiple other complex medical issues with stage IV breast cancer. The patient is on comfort care and hospice. The patient is on morphine drip at this time. Patient is sedated. PHYSICAL EXAM: Patient is sedated. Cardiovascular system: S1, S2. Respiration: Breath sounds diminished in the bases. A few scattered rhonchi and wheezes. ABDOMEN: Soft, nontender. Nervous system: Patient is sedated. LABS: Not available. ASSESSMENT: 1. Hypertension, weakness with acute renal failure with acute tubular necrosis, multifactorial, present on admission. 2. Breast cancer stage IV with metastasis on hospice care. 3. Hyponatremia. 4. Severe anemia possibly from malignancy. 5. Increased WBC present on admission. 6. History of shortness of breath secondary to left pleural effusion, recurrent with history of paracentesis. 7. History of chronic renal failure stage 3 baseline. 8. Generalized edema secondary to malignancy. 9. Gait dysfunction. 10.Severe pain secondary to malignancy. 11.Lymphedema, left upper arm. 12.History of left wrist drop. 13.History of left upper limb deep vein thrombosis. 14.History of cholecystectomy. 15.History of gastrointestinal bleed, possibly internal/external hemorrhoids. 16.NO CODE, NO CPR AND NO VENT. 17.Comfort measures and hospice. RECOMMENDATIONS AND DISCUSSION: Recommend to continue current medications, continue symptomatic treatment. Otherwise, continue the morphine drip. Prognosis guarded because of multiple complex medical issues. Further recommendations to follow. MMODL / IJN: [id number] /
--- NOTE | 2019-02-23 00:16 | DS ---
DISCHARGE SUMMARY DATE OF SERVICE: 02/22/2019. PRIMARY CAUSE OF : Breast cancer stage IV with metastasis. OTHER DIAGNOSES: 1. Hypotension, weakness, possible acute renal failure with acute tubular necrosis multifactorial. 2. Hyponatremia. 3. Severe anemia possibly from malignancy. 4. Increased WBC. 5. History of shortness of breath secondary to left pleural effusion, recurrent metastatic with a history of paracentesis. 6. History of chronic renal failure stage 3 baseline. 7. Generalized edema secondary to malignancy. 8. Gait dysfunction severe pain secondary to malignancy. 9. Lymphedema, left upper arm. 10.History of left wrist drop. 11.History of left DVT upper program. 12.History of cholecystectomy. 13.History of gastrointestinal bleed, possibly internal-external hemorrhoids. 14.No code no CPR. 15.Comfort measures in hospice. HISTORY OF PRESENT ILLNESS: This 58-year-old woman with past medical history of multiple medical problems including stage IV breast cancer was admitted with hypotension, renal failure, multiple medical problems. The patient was initially admitted and subsequently transferred to [facility]. The patient has exhausted all forms of treatment and not responding to the chemotherapy therapeutic regimens and the patient was treated symptomatically, but however the discussion was held with the family and multiple member members of the family and the patient and hospice was consulted and the patient is transitioned to hospice care and the patient succumbed to her above mentioned multiple complex medical issues. The prognosis was extremely guarded throughout the hospitalization. Please refer to the multiple consultations and progress notes and staff notes for further details. MMODL / IJN: [id number] /
== END 2019-02-22 11:45 | disposition expired | DRG 951 ==
LOC: 4MS4W 13:59
PROVIDERS: ADMIT Hospitalist; ATTEND Hospitalist
DX: Z51.5 Encounter for palliative care (principal); N17.0 Acute kidney failure with tubular necrosis; E87.1 Hypo-osmolality and hyponatremia; C79.9 Secondary malignant neoplasm of unspecified site; Z66 Do not resuscitate; I95.9 Hypotension, unspecified; C50.919 Malignant neoplasm of unspecified site of unspecified female breast; N18.3 Chronic kidney disease, stage 3 (moderate); G89.3 Neoplasm related pain (acute) (chronic); I12.9 Hypertensive chronic kidney disease with stage 1 through stage 4 chronic kidney disease, or unspecified chronic kidney disease; I89.0 Lymphedema, not elsewhere classified; R26.9 Unspecified abnormalities of gait and mobility; R60.1 Generalized edema; D63.0 Anemia in neoplastic disease; K64.8 Other hemorrhoids; K64.4 Residual hemorrhoidal skin tags; Z86.718 Personal history of other venous thrombosis and embolism; Z90.49 Acquired absence of other specified parts of digestive tract